=== PATIENT | male | born 1960 | race Caucasian/White ===

== ENCOUNTER 2020-02-27 23:03 | Emergency (ER) | payer BC ==
[~2020-02-27] VITALS: Ht 180.3 cm; Wt 93.4 kg
[~2020-02-27 23:03] MED LIST: COREG12.5 MG PO; LISINOPRIL-HCT1 EACH PO; SIMVASTATIN20 MG PO
--- OUTSIDE RECORDS SUMMARY | 2020-02-27 23:06 | XMS REPORT | Clinical Summary ---
Author Author KATHARINE 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 Active glimepiride (AMARYL) 2 MG Take 2 mg by 0 tablet mouth every morning before breakfast. Active ivabradine (CORLANOR) 5 Take 1 tablet 60 tablet 1 mg Tab tablet (5 mg total) 0 by mouth 2 (two) times daily. Active metoprolol tartrate Take 1 tablet 60 tablet 1 01/23 (LOPRESSOR) 50 MG tablet (50 mg total) 0 by mouth 2 (two) times daily. Active rivaroxaban (XARELTO) 20 Take 1 tablet 30 tablet 1 mg Tab tablet (20 mg total) 0 by mouth daily with dinner. Active sacubitriL-valsartan Take 1 tablet 60 tablet 1 (ENTRESTO) 24-26 mg Tab by mouth 2 0 (two) times daily. 03/20/2020 Active clopidogreL (PLAVIX) 75 Take 1 tablet 1 tablet 0 mg tablet (75 mg total) 0 by mouth daily for 30 days. Active sertraline (ZOLOFT) 25 MG Take 1 tablet 30 tablet 1 tablet (25 mg total) 0 by mouth daily. 02/18/2021 Active atorvastatin (LIPITOR) 20 Take 1 tablet 30 tablet 1 MG tablet (20 mg total) 0 by mouth nightly. Active spironolactone Take 1 tablet 30 tablet 1 (ALDACTONE) 25 MG tablet (25 mg total) 0 by mouth daily. Active bumetanide (BUMEX) 2 MG Take 1 tablet 60 tablet 1 tablet (2 mg total) 0 by mouth 2 (two) times daily. 02/19/2020 Discontinued clopidogrel (PLAVIX) 75 Take 75 mg by 0 mg tablet mouth daily. 02/19/2020 Discontinued simvastatin (ZOCOR) 40 MG Take 40 mg by 0 tablet mouth nightly. 02/19/2020 Discontinued spironolactone Take 1 tablet 30 tablet 1 (ALDACTONE) 25 MG tablet (25 mg total) 7 by mouth daily. 02/19/2020 Discontinued ivabradine (CORLANOR) 5 Take 1 tablet 60 tablet 1 mg Tab tablet (5 mg total) 7 by mouth 2 (two) times daily. 02/19/2020 Discontinued sacubitril-valsartan Take 1 tablet 60 tablet 1 (ENTRESTO) 24-26 mg Tab by mouth 2 7 (two) times daily. 02/16/2020 Discontinued metFORMIN (GLUCOPHAGE) Take 500 mg 0 500 MG tablet by mouth 2 (two) times daily with breakfast and dinner. 02/19/2020 Discontinued sertraline (ZOLOFT) 50 MG Take 25 mg by 0 tablet mouth daily. 02/16/2020 Discontinued QUEtiapine (SEROQUEL) 25 Take 25 mg by 0 MG tablet mouth nightly. 02/19/2020 Discontinued metoprolol tartrate Take 50 mg by 0 (LOPRESSOR) 50 MG tablet mouth 2 (two) times daily. 02/19/2020 Discontinued bumetanide (BUMEX) 1 MG Take 1 mg by 0 tablet mouth daily. 02/19/2020 Discontinued rivaroxaban (XARELTO) 10 Take by mouth 0 mg Tab tablet daily with dinner. 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 Dilated cardiomyopathy 02/06/2017 Chronic kidney disease (CKD) 02/06/2017 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 Encounters Care Team Description Date Type Specialty VegaHayden sonelle 02/23/2020 Documentation Transplant Hayden Segundoelle 02/20/2020 Documentation Transplant Keslie Segundo 02/19/2020 Documentation Transplant 02/18/2020 Travel Bonnie Gallegos 02/18/2020 Abstract Transplant Angelito Reeves RN Acute on chronic congestive heart failur e, unspecified heart failure type (HCC) 02/18/2020 Abstract Transplant Hailey Spence 02/18/2020 Abstract Transplant JordyHailey rosa 02/18/2020 Abstract Cardiology Debbie Menezes MD Massumi, MD Ted Kiran, Phill Rodarte MD Acute on chronic congestive heart failur e, unspecified heart failure type (HCC) (Primary Dx); Elevated troponin; CONCHITA (acute kidney injury) (HCC); Hypokalemia; Mild cognitive disorder; Chronic combined systolic (congestive) and diastolic (congestive) heart failure (HCC); Stage 3 chronic kidney disease (HCC); Dilated cardiomyopathy (HCC); 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; Essential hypertension; Type 2 diabetes mellitus without complication, without long-term current use of insulin (HCC) 02/16/2020 Hospital Transplant - Encounter 02/19/2020 02/16/2020 Orders Only General Internal Me dicine 02/16/2020 Travel after 02/26/2019 Social History Date Tobacco Use Types Packs/Day Years Used Never Smoker Smokeless Tobacco: Never Used Sex Assigned at Date Recorded Not on file Industry Job Start Date Occupation Not on file Not on file Not on file Travel End Travel History Travel Start No recent travel history available. Last Filed Vital Signs Time Taken Vital Sign Reading 02/19/2020 7:25 AM CDT Blood Pressure 111/84 02/19/2020 9:36 AM CDT Pulse 59 02/19/2020 7:25 AM CDT Temperature 35.9 C (96.7 F) 02/19/2020 9:36 AM CDT Respiratory Rate 18 02/19/2020 9:36 AM CDT Oxygen Saturation 98% 02/17/2020 11:14 PM CDT Inhaled Oxygen 21% Concentration 02/18/2020 4:32 AM CDT Weight 80 kg (176 lb 6.4 oz) 02/16/2020 4:53 PM CDT Height 180 cm (5' 10.87") 02/18/2020 4:32 AM CDT Body Mass Index 24.7 Plan of Treatment Health Maintenance Due Date Last Done Comments COLON CANCER SCREENING 1960 COLONOSCOPY PNEUMOCOCCAL VACCINE 2-64 1968 YEARS AT RISK (1 of 1 - PPSV23) DIABETIC EYE EXAM 1972 DIABETIC FOOT EXAM 1972 INFLUENZA VACCINE (Season 05/25/2020 Ended) HEMOGLOBIN A1C 08/18/2020 02/16/2020, 017 Procedures Comments Procedure Name Priority Date/Time Associated Diag nosis PULMONARY FUNCTION - SCAN 02/26/2020 2:11 PM CDT RHYTHM STRIP - SCAN 02/20/2020 3:21 PM CDT REPORT OF PROCEDURE - 02/20/2020 ENDOSCOPY SCAN 8:52 AM CDT TRANSFUSION SERVICE 02/19/2020 REPORT - SCAN 5:51 PM CDT ARRYTHMIA IMPLANT REPORT 02/19/2020 - SCAN 1:20 PM CDT ARRYTHMIA IMPLANT REPORT 02/19/2020 - SCAN 1:20 PM CDT DLCO (SINGLE BREATH Routine 02/19/2020 DIFFUSION) 9:36 AM CDT SPIROMETRY Routine 02/19/2020 9:36 AM CDT POCT-GLUCOSE METER Routine 02/19/2020 7:31 AM CDT CBC W/PLT COUNT & AUTO Routine 02/19/2020 DIFFERENTIAL 5:35 AM CDT TSH/FREE T4 IF INDICATED Routine 02/19/2020 5:35 AM CDT VITAMIN B12 AND FOLATE Routine 02/19/2020 5:35 AM CDT B-TYPE NATRIURETIC FACTOR Routine 02/19/2020 (BNP) 5:35 AM CDT T SPOT TB Routine 02/19/2020 5:35 AM CDT HEPATIC FUNCTION PANEL Routine 02/19/2020 5:35 AM CDT PROTHROMBIN TIME/INR Routine 02/19/2020 5:35 AM CDT CBC W/PLT COUNT & AUTO Routine 02/19/2020 DIFFERENTIAL 5:35 AM CDT MAGNESIUM Routine 02/19/2020 5:35 AM CDT BASIC METABOLIC PANEL (7) Routine 02/19/2020 5:[address] ABDOMEN WITHOUT IV Routine 02/19/2020 CONTRAST 1:[address] CHEST WITHOUT IV Routine 02/19/2020 CONTRAST 1:[address] BRAIN WITHOUT IV Routine 02/19/2020 CONTRAST 1:39 AM CDT POCT-GLUCOSE METER Routine 02/18/2020 10:15 PM CDT CAROTID DOPPLER BILATERAL Routine 02/18/2020 5:25 PM CDT ARTERIAL DOPPLER LEGS Routine 02/18/2020 BILATERAL 5:00 PM CDT POCT-GLUCOSE METER Routine 02/18/2020 4:19 PM CDT TYPE AND SCREEN, Routine 02/18/2020 AUTOMATED 3:30 PM CDT DIRECT AHG (FILIPE)/DIRECT Routine 02/18/2020 GERRI 3:28 PM CDT BLOOD TYPING, AUTOMATED Routine 02/18/2020 3:28 PM CDT RETICULOCYTE COUNT Routine 02/18/2020 3:28 PM CDT CREATININE Routine 02/18/2020 3:27 PM CDT CREATININE CLEARANCE Routine 02/18/2020 3:27 PM CDT VARICELLA ZOSTER Routine 02/18/2020 ANTIBODY, IGG 3:27 PM CDT URIC ACID Routine 02/18/2020 3:27 PM CDT PHOSPHORUS Routine 02/18/2020 3:27 PM CDT LIPASE Routine 02/18/2020 3:27 PM CDT AMYLASE Routine 02/18/2020 3:27 PM CDT LACTATE DEHYDROGENASE Routine 02/18/2020 (LDH) 3:27 PM CDT GAMMA GLUTAMYL Routine 02/18/2020 TRANSFERASE (GGT) 3:27 PM CDT PSA Routine 02/18/2020 3:25 PM CDT TOXOPLASMA GONDII Routine 02/18/2020 ANTIBODY, IGM 3:25 PM CDT TOXOPLASMA GONDII Routine 02/18/2020 ANTIBODY, IGG 3:25 PM CDT EBV ANTIBODY, IGM Routine 02/18/2020 3:25 PM CDT EBV ANTIBODY, IGG Routine 02/18/2020 3:25 PM CDT HERPES VIRUS ANTIBODY, Routine 02/18/2020 IGM 3:25 PM CDT HERPES VIRUS ANTIBODY, Routine 02/18/2020 IGG 3:25 PM CDT CYTOMEGALOVIRUS ANTIBODY, Routine 02/18/2020 IGM 3:25 PM CDT CYTOMEGALOVIRUS ANTIBODY, Routine 02/18/2020 IGG 3:25 PM CDT ANTI-NUCLEAR ANTIBODY Routine 02/18/2020 (JUDY) 3:25 PM CDT RPR Routine 02/18/2020 3:25 PM CDT HIV-1 ANTIGEN WITH Routine 02/18/2020 HIV-1/2 ANTIBODY 3:25 PM CDT VITAMIN D, 25-HYDROXY Routine 02/18/2020 3:25 PM CDT TRANSFERRIN Routine 02/18/2020 3:25 PM CDT FERRITIN Routine 02/18/2020 3:25 PM CDT IRON, SERUM Routine 02/18/2020 3:25 PM CDT PREALBUMIN Routine 02/18/2020 3:25 PM CDT HEPATITIS B CORE Routine 02/18/2020 ANTIBODY, TOTAL 3:25 PM CDT HEPATITIS A ANTIBODY, IGG Routine 02/18/2020 3:25 PM CDT HEPATITIS PANEL, ACUTE Routine 02/18/2020 3:25 PM CDT AB SPECIFICITY CLASS II Routine 02/18/2020 3:22 PM CDT FLOW PRA CLASS II WITH Routine 02/18/2020 REFLEX TO ANTIBODY 3:22 PM CDT SPECIFICITY FLOW PRA CLASS I WITH Routine 02/18/2020 REFLEX TO ANTIBODY 3:22 PM CDT SPECIFICITY MISCELLANEOUS LAB ORDER Routine 02/18/2020 3:21 PM CDT POCT-GLUCOSE METER Routine 02/18/2020 12:08 PM CDT CBC W/PLT COUNT & AUTO Routine 02/18/2020 DIFFERENTIAL 4:38 AM CDT HEPATIC FUNCTION PANEL Routine 02/18/2020 4:38 AM CDT PROTHROMBIN TIME/INR Routine 02/18/2020 4:38 AM CDT CBC W/PLT COUNT & AUTO Routine 02/18/2020 DIFFERENTIAL 4:38 AM CDT MAGNESIUM Routine 02/18/2020 4:38 AM CDT BASIC METABOLIC PANEL (7) Routine 02/18/2020 4:38 AM CDT POCT-GLUCOSE METER Routine 02/17/2020 9:41 PM CDT POCT-GLUCOSE METER Routine 02/17/2020 3:58 PM CDT 2D ECHO W/ DOPPLER STAT 02/17/2020 (CW/PW/COLOR) 12:31 PM CDT POCT-GLUCOSE METER Routine 02/17/2020 11:47 AM CDT BASIC METABOLIC PANEL (7) Routine 02/17/2020 11:04 AM CDT TROPONIN I Routine 02/17/2020 11:04 AM CDT MAGNESIUM Routine 02/17/2020 11:04 AM CDT POCT-GLUCOSE METER Routine 02/17/2020 7:38 AM CDT CBC W/PLT COUNT & AUTO Routine 02/17/2020 DIFFERENTIAL 6:31 AM CDT T4, FREE Routine 02/17/2020 6:31 AM CDT TSH Routine 02/17/2020 6:31 AM CDT PROTHROMBIN TIME/INR Routine 02/17/2020 6:31 AM CDT CBC W/PLT COUNT & AUTO Routine 02/17/2020 DIFFERENTIAL 6:31 AM CDT TROPONIN I STAT 02/17/2020 6:31 AM CDT PROTHROMBIN TIME/INR Routine 02/17/2020 1:30 AM CDT TOXICOLOGY SCREEN, SERUM STAT 02/17/2020 1:30 AM CDT TROPONIN I Routine 02/17/2020 1:30 AM CDT US RENAL COMPLETE STAT 02/16/2020 10:52 PM CDT URINALYSIS W/ REFLEX Routine 02/16/2020 URINE CULTURE 7:42 PM CDT LIPID PANEL Add-On 02/16/2020 7:41 PM CDT HEMOGLOBIN A1C Routine 02/16/2020 7:41 PM CDT TROPONIN I STAT 02/16/2020 7:41 PM CDT CBC W/PLT COUNT & AUTO STAT 02/16/2020 DIFFERENTIAL 5:33 PM CDT MAGNESIUM STAT 02/16/2020 5:33 PM CDT COMPREHENSIVE METABOLIC STAT 02/16/2020 PANEL 5:33 PM CDT TROPONIN I STAT 02/16/2020 5:33 PM CDT LACTIC ACID, VENOUS STAT 02/16/2020 5:33 PM CDT PT/APTT STAT 02/16/2020 5:33 PM CDT B-TYPE NATRIURETIC FACTOR STAT 02/16/2020 (BNP) 5:33 PM CDT CBC W/PLT COUNT & AUTO STAT 02/16/2020 DIFFERENTIAL 5:33 PM CDT SARS-COV2/RT-PCR ([facility] & STAT 02/16/2020 REF LABS) 5:33 PM CDT XR CHEST 1 VIEW STAT 02/16/2020 PORTABLE/BEDSIDE 5:21 PM CDT ECG 12-LEAD STAT 02/16/2020 4:56 PM CDT after 02/26/2019 Results * PULMONARY FUNCTION - SCAN (02/26/2020 2:11 PM CDT) Narrative Performed At This result has an attachment that is n ot available. * RHYTHM STRIP - SCAN (02/20/2020 3:21 PM CDT) Narrative Performed At This result has an attachment that is n ot available. * EKG-SCANNED (02/20/2020 8:52 AM CDT) Narrative Performed At This result has an attachment that is n ot available. * TRANSFUSION SERVICE REPORT - SCAN (02/19/2020 5:51 PM CDT) Narrative Performed At This result has an attachment that is n ot available. * ARRYTHMIA IMPLANT REPORT - SCAN (02/19/2020 1:20 PM CDT) Only the most recent of 2 results within the time period is included. Narrative Performed At This result has an attachment that is n ot available. * Pulmonary Funct Lab Spirometry (02/19/2020 9:36 AM CDT) Narrative Performed At Varun Wang RRT, [facility] 02/18 11:51 AM [facility] PFT CHARTING REPORT Infection Control/Hand Hygiene procedur es followed throughout the encounter with patient: Yes Patient Identification Method: Patient name verified on armband, and Medical record on armband, Is the order complete?: Yes Account ID#: [id number] Patient Name: Adore Gill Birthdate: 1960 Age: 59 y.o.Sex: male Admission Date: 02/16/2020 Patient Status: Inpatient Reasons/Symptom for having the Test?: a history/complaint of a dyspnea Type of study/treatment [facility] by [facility]: Single Breath DLCO and Spirometry Lab Results Component Value Date HGB 13.5 (L) 02/19/2020 Ranges: Adult Male 13 - 16.8 g/dl Adult Female 12 - 15 g/dl 6 Minute Walk (read only) 02/19/202001/2302/19/2020 Pulse 97 95 109 SpO2 96 95 94 Study Date: 02/19/2020 Study Time: 935 ASSESSMENT History & Physical Mode of Arrival: Wheel chair Pulse: 59 Resp: 18SPO2: 98 %RA Pain Assessment Pain:None TESTING/THERAPEUTICS Medications ordered or required for pro cedure: N/A PT EDUCATION/INSTRUCTIONS Barriers to learning: No known barriers to learning. Learning need identified: Yes, Patient/ Family/Guradian was informed of the ordered study by the ysician Barriers to performing study or treatme nt: Patient has no known disability to perform the study or abida tment. DISCHARGE The study was completed in accordance w ith the physician's order and patient released from the lab witho ut adverse outcome. * DLCO (single breath diffusion) (02/19/2020 9:36 AM CDT) Narrative Performed At Varun Wang RRT, [facility] 02/18 11:51 AM [facility] PFT CHARTING REPORT Infection Control/Hand Hygiene procedur es followed throughout the encounter with patient: Yes Patient Identification Method: Patient name verified on armband, and Medical record on armband, Is the order complete?: Yes Account ID#: [id number] Patient Name: Adore Gill Birthdate: 1960 Age: 59 y.o.Sex: male Admission Date: 02/16/2020 Patient Status: Inpatient Reasons/Symptom for having the Test?: a history/complaint of a dyspnea Type of study/treatment ordered by phys saadan: Single Breath DLCO and Spirometry Lab Results Component Value Date HGB 13.5 (L) 02/19/2020 Ranges: Adult Male 13 - 16.8 g/dl Adult Female 12 - 15 g/dl 6 Minute Walk (read only) 02/19/202001/2302/19/2020 Pulse 97 95 109 SpO2 96 95 94 Study Date: 02/19/2020 Study Time: 09 ASSESSMENT History & Physical Mode of Arrival: Wheel chair Pulse: 59 Resp: 18SPO2: 98 %RA Pain Assessment Pain:None TESTING/THERAPEUTICS Medications ordered or required for pro cedure: N/A PT EDUCATION/INSTRUCTIONS Barriers to learning: No known barriers to learning. Learning need identified: Yes, Patient/ Family/Guradian was informed of the ordered study by the ph ysician Barriers to performing study or treatme nt: Patient has no known disability to perform the study or abida tment. DISCHARGE The study was completed in accordance w ith the physician's order and patient released from the lab witho ut adverse outcome. * POC-Glucose meter (02/19/2020 7:31 AM CDT) Only the most recent of 8 results within the time period is included. POC-Glucose Meter 133 (H)Comment: : TESTED AT 70 - 110 mg/dL [address] [address]: Towboat Engineer/Customs Verifier ID = [id number] for Danilo Manley Specimen Blood Performing Organization Address City/State/Zipcode Ph one Number [address] [facility] [facility] * Vitamin B12 and Folate (02/19/2020 5:35 AM CDT) Vitamin B12 823 (H) 213 - 816 pg/mL [facility] Folate 15.90 >=7.00 ng/mL [facility] Specimen Blood Narrative Performed At Towboat Engineer ID - AUGUSTIN Corbett [facility] Performing Organization Address [facility] Ph one Number [place] [address] [facility] * TSH/Free T4 If Indicated (02/19/2020 5:35 AM CDT) TSH 1.989 0.350 - 4.940 uIU/mL [facility] Specimen Blood Narrative Performed At Towboat Engineer ID - AUGUSTIN Corbett [facility] Performing Organization Address City/[facility] Ph one Number [place] [address] [facility] * T Spot TB (02/19/2020 5:35 AM CDT) T-Spot TB Negative [facility] Neg Ctrl Spot Count 0 [facility] Panel A Spot 0 [facility] Panel B Spot 0 [facility] Pos Ctrl Spot Ct 0 [facility] Scan Result [facility] Specimen Blood Narrative Performed At This result has an attachment that is n ot available. Performing Organization Address City/[facility] Ph one Number [facility] [address] [facility], [place] [address] LABORATORIES 100 * CBC with platelet count + automated diff (02/19/2020 5:35 AM CDT) Only the most recent of 4 results within the time period is included. WBC 8.0 3.5 - 10.5 K/L [facility] RBC 4.87 4.63 - 6.08 M/L [facility] Hemoglobin 13.5 (L) 13.7 - 17.5 GM/DL [facility] Hematocrit 42.7 40.1 - 51.0 % [facility] MCV 87.7 79.0 - 92.2 fL [facility] MCH 27.7 25.7 - 32.2 pg [facility] MCHC 31.6 (L) 32.3 - 36.5 GM/DL [facility] RDW 17.2 (H) 11.6 - 14.4 % [facility] Platelets 317 150 - 450 K/CU MM [facility] MPV 10.5 9.4 - 12.4 fL [facility] nRBC 0 0 - 0 /100 WBC [facility] % Neutros 70 % [facility] % Lymphs 15 % [facility] % Monos 9 % [facility] % Eos 5 % [facility] % Baso 1 % [facility] # Neutros 5.54 (H) 1.78 - 5.38 K/L [facility] # Lymphs 1.15 (L) 1.32 - 3.57 K/L [facility] # Monos 0.74 0.30 - 0.82 K/L [facility] # Eos 0.39 0.04 - 0.54 K/L [facility] # Baso 0.10 (H) 0.01 - 0.08 K/L [facility] Immature 0 0 - 1 % [facility] Granulocytes-Relative [facility] Specimen Blood Performing Organization Address City/State/Zipcode Ph one Number [place] [phone] [place], [place] [address] [facility] * Prothrombin time/INR (02/19/2020 5:35 AM CDT) Only the most recent of 4 results within the time period is included. Protime 32.8 (H) 11.9 - 14.2 seconds [facility] INR 3.3 <=5.9 [facility] Specimen Blood Narrative Performed At Effective 02/19/2019: PT Reference Range Change [facility] New: 11.9-14.2Previous: 11.7-14.7 [facility] MEDICAL CE NTER RECOMMENDED COUMADIN/WARFARIN INR THERA PY RANGES STANDARD DOSE: 2.0-3.0Includes: PRO PHYLAXIS for venous thrombosis, systemic embolization; TREATMENT for venous thro mbosis and/or pulmonary embolus. HIGH RISK: Target INR is 2.5-3.5 for pa tients wiht mechanical heart valves. Performing Organization Address [facility] Ph one [place] [address] [phone] * B-type Natriuretic Factor (BNP) (02/19/2020 5:35 AM CDT) Only the most recent of 2 results within the time period is included. BNP 2,172 (H) 0 - 100 pg/mL [facility] Specimen Blood Narrative Performed At Towboat Engineer ID - AUGUSTIN Corbett [facility] Performing Organization Address [facility] one [place] [phone] [place] [address] * Magnesium (02/19/2020 5:35 AM CDT) Only the most recent of 4 results within the time period is included. Magnesium 1.6 1.6 - 2.6 mg/dL [facility] Specimen Blood Narrative Performed At Towboat Engineer ID - AUGUSTIN Corbett [facility] Performing Organization Address [facility] Ph one [phone] [place] [address] * Hepatic function panel (02/19/2020 5:35 AM CDT) Only the most recent of 2 results within the time period is included. Protein, Total 6.5 6.0 - 8.3 gm/dL [facility] Albumin 3.8 3.5 - 5.0 g/dL [facility] Total Bilirubin 1.4 (H) 0.2 - 1.2 mg/dL [facility] Bilirubin, Direct 0.7 (H) 0.1 - 0.5 mg/dL [facility] Alkaline Phosphatase 97 40 - 150 U/L [facility] AST 28 5 - 34 U/L [facility] ALT 53 6 - 55 U/L [facility] Specimen Blood Narrative Performed At Towboat Engineer WM - AUGUSTIN Corbett [facility] Performing Organization Address City/State/Zipcode Ph one Number [place] [address] [facility] [place] * Basic Metabolic Panel (02/19/2020 5:35 AM CDT) Only the most recent of 3 results within the time period is included. Sodium 138 136 - 145 meq/L [facility] Potassium 3.3 (L) 3.5 - 5.1 meq/L [facility] Chloride 99 98 - 107 meq/L [facility] CO2 31 (H) 22 - 29 meq/L [facility] BUN 16 7 - 21 mg/dL [facility] Creatinine 1.08 0.57 - 1.25 mg/dL [facility] Glucose 138 (H) 70 - 105 mg/dL [facility] Calcium 8.7 8.4 - 10.2 mg/dL [facility] EGFR 70Comment: ESTIMATED GFR IS mL/min/1.[address] [facility] NOT ACCURATE CREATININE [facility] CLEARANCE IN PREDICTING GLOMERULAR FILTRATION RATE. ESTIMATED GFR IS NOT APPLICABLE FOR DIALYSIS PATIENTS. Specimen Blood Narrative Performed At Towboat Engineer ID - AUGUSTIN Corbett [facility] Performing Organization Address City/State/Zipcode Ph one Number [facility] [address] [place], [place] [address] * CT brain without IV contrast (02/19/2020 1:39 AM CDT) Specimen Narrative Performed At FINAL REPORT GE RIS EXAM: CT head without contrast. CLINICAL HISTORY: heart transplant eval uation COMPARISON: Head CT 03/08/2017. TECHNIQUE: CT images of the head were o btained without intravenous contrast.This exam was performed ac cording to our departmental dose optimization program which includes aut omated exposure control, adjustment of the mA and/or kV accordin g to patient's size and/or use of iterative reconstructive technique. FINDINGS: There is encephalomalacia in the right temporal lobe and right basal ganglia which may be due to a chronic r ight MCA territory infarct. There are small chronic right cerebella r infarcts. There is intracranial calcific atherosclerosis. There is mild ex-vacuo dilatation of the right frontal horn. There is no acute intracranial hemorrha ge, extra-axial fluid collection, mass effect, herniation, hy drocephalus or large demarcated acute territorial infarct. The basal cisterns are patent. The visualized orbits are normal.Th e visualized paranasal sinuses and tympanomastoid cavities are clear. The skull base and calvarium are intact. IMPRESSION: Chronic infarcts as described. No acute intracranial hemorrhage, mass effect or hydrocephalus. Signed: James Vail MD Report Verified Date/Time: 0 02:51:56 Procedure Note Interface, External Ris In - 02/19/2020 2:54 AM CDT FINAL REPORT EXAM: CT head without contrast. CLINICAL HISTORY: heart transplant evaluation COMPARISON: Head CT 03/08/2017. TECHNIQUE: CT images of the head were obtained without intravenous contrast. This exam was performed according to our departmental dose optimization program which includes automated exposure control, adjustment of the mA and/or kV according to patient's size and/or use of iterative reconstructive technique. FINDINGS: There is encephalomalacia in the right temporal lobe and right basal ganglia which may be due to a chronic right MCA territory infarct. There are small chronic right cerebellar infarcts. There is intracranial calcific atherosclerosis. There is mild ex-vacuo dilatation of the right frontal horn. There is no acute intracranial hemorrhage, extra-axial fluid collection, mass effect, herniation, hydrocephalus or large demarcated acute territorial infarct. The basal cisterns are patent. The visualized orbits are normal. The visualized paranasal sinuses and tympanomastoid cavities are clear. The skull base and calvarium are intact. IMPRESSION: Chronic infarcts as described. No acute intracranial hemorrhage, mass effect or hydrocephalus. Signed: James Vail MD Report Verified Date/Time: 02/19/2020 02:51:56 Performing Organization Address City/State/Zipcode Ph one Number [facility] * CT chest without IV contrast (02/19/2020 1:39 AM CDT) Specimen Narrative Performed At FINAL REPORT [facility] EXAM: CT of the chest, without contrast . CT abdomen without contrast. CLINICAL HISTORY:heart transplant e valuation Technique: CT of the chest and abdomen was performed without intravenous contrast administration. Th is exam was performed according to our departmental dose opti mization program which includes automated exposure control, ad justment of the mA and/or kV according to patient's size and/or use of iterative reconstructive technique. COMPARISON:03/18/17. FINDINGS: CT CHEST: LOWER NECK: Within normal limits. AIRWAYS AND LUNGS: Patent central trach eobronchial tree. Diffuse interlobular septal thickening compatib le with pulmonary interstitial edema. Diffuse hazy airspace opacities in the right middle right lower lobes, which may represent pulmon leonila edema. Peripheral ground glass opacity in the anterior right upp er lobe which may represent organizing pneumonia or viral pneumonit is. PLEURA: No pleural effusion or pneumoth orax. VESSELS: Atherosclerotic calcifications of the aorta and coronary arteries. No thoracic aortic aneurysm. HEART: Moderate cardiomegaly. AICD lead s overlying the right atrium, right ventricle and coronary sinus No p ericardial effusion. ALTHEA AND MEDIASTINUM: Within normal palumbo its. VISUALIZED UPPER ABDOMEN: Within normal limits. SOFT TISSUES: Left upper anterior chest wall AICD. BONES: Within normal limits. CT ABDOMEN: LIVER: Within normal limits. BILE DUCTS: Within normal limits. GALL BLADDER: Within normal limits. PANCREAS: Within normal limits. SPLEEN: Within normal limits. ADRENALS: Within normal limits. KIDNEYS/URETERS: Two small hyperdensiti es in the left kidney measuring up to 1 cm compatible with pr oteinaceous or hemorrhagic cysts. No hydroureteronephrosis or radi opaque stones. IMAGED BOWEL/MESENTERY: No bowel obstru ction or abnormal wall thickening. Normal appendix. IMAGED PERITONEUM/RETROPERITONEUM: No f ree air, free fluid or fluid collection. VESSELS: Atherosclerotic calcifications of the aorta and branches. No abdominal aortic aneurysm. LYMPH NODES: No abdominal lymphadenopat hy. SOFT TISSUES: Within normal limits. BONES: Degenerative changes of the lowe r lumbar spine notable for severe disease at L4/L5 IMPRESSION: Chest CT: Moderate cardiomegaly. Pulmonary interstitial edema. Hazy airs pace opacities in the right middle and right lower lobes which may represent pulmonary edema. Peripheral ground glass opacity in the anterior right upper lobe. Differential diagnosis includes organiz ing pneumonia, viral pneumonitis or focal pulmonary edema. C linical correlation is recommended. CT abdomen: Small proteinaceous or hemorrhagic left renal cysts. Signed: James Vail MD Report Verified Date/Time: 0 03:55:27 Procedure Note Interface, External Ris In - 02/19/2020 3:58 AM CDT FINAL REPORT EXAM: CT of the chest, without contrast. CT abdomen without contrast. CLINICAL HISTORY: heart transplant evaluation Technique: CT of the chest and abdomen was performed without intravenous contrast administration. This exam was performed according to our departmental dose optimization program which includes automated exposure control, adjustment of the mA and/or kV according to patient's size and/or use of iterative reconstructive technique. COMPARISON: 03/18/17. FINDINGS: CT CHEST: LOWER NECK: Within normal limits. AIRWAYS AND LUNGS: Patent central tracheobronchial tree. Diffuse interlobular septal thickening compatible with pulmonary interstitial edema. Diffuse hazy airspace opacities in the right middle right lower lobes, which may represent pulmonary edema. Peripheral ground glass opacity in the anterior right upper lobe which may represent organizing pneumonia or viral pneumonitis. PLEURA: No pleural effusion or pneumothorax. VESSELS: Atherosclerotic calcifications of the aorta and coronary arteries. No thoracic aortic aneurysm. HEART: Moderate cardiomegaly. AICD leads overlying the right atrium, right ventricle and coronary sinus No pericardial effusion. ALTHEA AND MEDIASTINUM: Within normal limits. VISUALIZED UPPER ABDOMEN: Within normal limits. SOFT TISSUES: Left upper anterior chest wall AICD. BONES: Within normal limits. CT ABDOMEN: LIVER: Within normal limits. BILE DUCTS: Within normal limits. GALL BLADDER: Within normal limits. PANCREAS: Within normal limits. SPLEEN: Within normal limits. ADRENALS: Within normal limits. KIDNEYS/URETERS: Two small hyperdensities in the left kidney measuring up to 1 cm compatible with proteinaceous or hemorrhagic cysts. No hydroureteronephrosis or radiopaque stones. IMAGED BOWEL/MESENTERY: No bowel obstruction or abnormal wall thickening. Normal appendix. IMAGED PERITONEUM/RETROPERITONEUM: No free air, free fluid or fluid collection. VESSELS: Atherosclerotic calcifications of the aorta and branches. No abdominal aortic aneurysm. LYMPH NODES: No abdominal lymphadenopathy. SOFT TISSUES: Within normal limits. BONES: Degenerative changes of the lower lumbar spine notable for severe disease at L4/L5 IMPRESSION: Chest CT: Moderate cardiomegaly. Pulmonary interstitial edema. Hazy airspace opacities in the right middle and right lower lobes which may represent pulmonary edema. Peripheral ground glass opacity in the anterior right upper lobe. Differential diagnosis includes organizing pneumonia, viral pneumonitis or focal pulmonary edema. Clinical correlation is recommended. CT abdomen: Small proteinaceous or hemorrhagic left renal cysts. Signed: James Vail MD Report Verified Date/Time: 02/19/2020 03:55:27 Performing Organization Address City/State/Zipcode Ph one Number [facility] * CT abdomen without IV contrast (02/19/2020 1:39 AM CDT) Specimen Narrative Performed At FINAL REPORT [facility] EXAM: CT of the chest, without contrast . CT abdomen without contrast. CLINICAL HISTORY:heart transplant e valuation Technique: CT of the chest and abdomen was performed without intravenous contrast administration. Th is exam was performed according to our departmental dose opti mization program which includes automated exposure control, ad justment of the mA and/or kV according to patient's size and/or use of iterative reconstructive technique. COMPARISON:03/18/17. FINDINGS: CT CHEST: LOWER NECK: Within normal limits. AIRWAYS AND LUNGS: Patent central trach eobronchial tree. Diffuse interlobular septal thickening compatib le with pulmonary interstitial edema. Diffuse hazy airspace opacities in the right middle right lower lobes, which may represent pulmon leonila edema. Peripheral ground glass opacity in the anterior right upp er lobe which may represent organizing pneumonia or viral pneumonit is. PLEURA: No pleural effusion or pneumoth orax. VESSELS: Atherosclerotic calcifications of the aorta and coronary arteries. No thoracic aortic aneurysm. HEART: Moderate cardiomegaly. AICD lead s overlying the right atrium, right ventricle and coronary sinus No p ericardial effusion. ALTHEA AND MEDIASTINUM: Within normal palumbo its. VISUALIZED UPPER ABDOMEN: Within normal limits. SOFT TISSUES: Left upper anterior chest wall AICD. BONES: Within normal limits. CT ABDOMEN: LIVER: Within normal limits. BILE DUCTS: Within normal limits. GALL BLADDER: Within normal limits. PANCREAS: Within normal limits. SPLEEN: Within normal limits. ADRENALS: Within normal limits. KIDNEYS/URETERS: Two small hyperdensiti es in the left kidney measuring up to 1 cm compatible with pr oteinaceous or hemorrhagic cysts. No hydroureteronephrosis or radi opaque stones. IMAGED BOWEL/MESENTERY: No bowel obstru ction or abnormal wall thickening. Normal appendix. IMAGED PERITONEUM/RETROPERITONEUM: No f ree air, free fluid or fluid collection. VESSELS: Atherosclerotic calcifications of the aorta and branches. No abdominal aortic aneurysm. LYMPH NODES: No abdominal lymphadenopat hy. SOFT TISSUES: Within normal limits. BONES: Degenerative changes of the lowe r lumbar spine notable for severe disease at L4/L5 IMPRESSION: Chest CT: Moderate cardiomegaly. Pulmonary interstitial edema. Hazy airs pace opacities in the right middle and right lower lobes which may represent pulmonary edema. Peripheral ground glass opacity in the anterior right upper lobe. Differential diagnosis includes organiz ing pneumonia, viral pneumonitis or focal pulmonary edema. C linical correlation is recommended. CT abdomen: Small proteinaceous or hemorrhagic left renal cysts. Signed: James Vail MD Report Verified Date/Time: 0 03:55:27 Procedure Note Interface, External Ris In - 02/19/2020 3:58 AM CDT FINAL REPORT EXAM: CT of the chest, without contrast. CT abdomen without contrast. CLINICAL HISTORY: heart transplant evaluation Technique: CT of the chest and abdomen was performed without intravenous contrast administration. This exam was performed according to our departmental dose optimization program which includes automated exposure control, adjustment of the mA and/or kV according to patient's size and/or use of iterative reconstructive technique. COMPARISON: 03/18/17. FINDINGS: CT CHEST: LOWER NECK: Within normal limits. AIRWAYS AND LUNGS: Patent central tracheobronchial tree. Diffuse interlobular septal thickening compatible with pulmonary interstitial edema. Diffuse hazy airspace opacities in the right middle right lower lobes, which may represent pulmonary edema. Peripheral ground glass opacity in the anterior right upper lobe which may represent organizing pneumonia or viral pneumonitis. PLEURA: No pleural effusion or pneumothorax. VESSELS: Atherosclerotic calcifications of the aorta and coronary arteries. No thoracic aortic aneurysm. HEART: Moderate cardiomegaly. AICD leads overlying the right atrium, right ventricle and coronary sinus No pericardial effusion. ALTHEA AND MEDIASTINUM: Within normal limits. VISUALIZED UPPER ABDOMEN: Within normal limits. SOFT TISSUES: Left upper anterior chest wall AICD. BONES: Within normal limits. CT ABDOMEN: LIVER: Within normal limits. BILE DUCTS: Within normal limits. GALL BLADDER: Within normal limits. PANCREAS: Within normal limits. SPLEEN: Within normal limits. ADRENALS: Within normal limits. KIDNEYS/URETERS: Two small hyperdensities in the left kidney measuring up to 1 cm compatible with proteinaceous or hemorrhagic cysts. No hydroureteronephrosis or radiopaque stones. IMAGED BOWEL/MESENTERY: No bowel obstruction or abnormal wall thickening. Normal appendix. IMAGED PERITONEUM/RETROPERITONEUM: No free air, free fluid or fluid collection. VESSELS: Atherosclerotic calcifications of the aorta and branches. No abdominal aortic aneurysm. LYMPH NODES: No abdominal lymphadenopathy. SOFT TISSUES: Within normal limits. BONES: Degenerative changes of the lower lumbar spine notable for severe disease at L4/L5 IMPRESSION: Chest CT: Moderate cardiomegaly. Pulmonary interstitial edema. Hazy airspace opacities in the right middle and right lower lobes which may represent pulmonary edema. Peripheral ground glass opacity in the anterior right upper lobe. Differential diagnosis includes organizing pneumonia, viral pneumonitis or focal pulmonary edema. Clinical correlation is recommended. CT abdomen: Small proteinaceous or hemorrhagic left renal cysts. Signed: James Vail MD Report Verified Date/Time: 02/19/2020 03:55:27 Performing Organization Address City/State/Zipcode Ph one Number [facility] * Carotid doppler bilateral (02/18/2020 5:25 PM CDT) Ejection [facility] ECHO HEARTLAB [facility] Specimen Impressions Performed At Right Impression [facility] ECHO HEARTLAB 1. There is <50% diameter reduction (approximately 18 % by 2-D measurement) [facility] CPACS in the internal carotid artery with a p eak velocity of 49/18 cm/sec and heterogeneous plaque. 2. There is no stenosis in the external carotid artery. 3. There is intimal thickening in the c ommon carotid artery. 4. The vertebral artery flow is antegra de . 5. The subclavian artery is within norm al limits where visualized. Left Impression 1. There is <50% diameter reduction (ap proximately 14% by 2-D measurement) in the internal carotid artery with a p eak velocity of 44/18 cm/sec and heterogeneous plaque. 2. There is no stenosis in the external carotid artery. 3. There is intimal thickening in the c ommon carotid artery. 4. The vertebral artery flow is antegra de . 5. The subclavian artery is within norm al limits where visualized. Conclusions Summary Carotid duplex scanning and color flow imaging were performed bilaterally. The arteries were adequately visualized . The bilateral internal carotid arteries had <50% hemodynamically insig nificant stenosis (approximately 18% by 2-D measurement on the right, ap proximately 14% by 2-D measurement on the left) with heterogeneous plaque. The vertebral artery flow was antegrade and normal bilaterally. The s ubclavian arteries were patent with normal flow bilaterally where visualize d. There has been no significant change since the previous examination done on 03/05/2017. Signature Velocities are measured in cm/s ; Diame ters are measured in cm Carotid Right Measurements + +----+----+-----+------ ------+ + + !Location !PSV !EDV !Angle! %Stenosis 2D!%Stenosis Doppler!Tortuosity ! + +----+----+-----+------ ------+ + + !Prox CCA !76.8!15.8!60 !! ! ! + +----+----+-----+------ ------+ + + !Dist CCA !93.8!31.1!60 !! ! ! + +----+----+-----+------ ------+ + + !Prox ICA !49.5!18.1!60 !18% !<50% ! ! + +----+----+-----+------ ------+ + + !Dist ICA !61.3!17.3!60 !! ! ! + +----+----+-----+------ ------+ + + !Prox ECA !90.3!19.3!60 !! ! ! + +----+----+-----+------ ------+ + + !Vertebral!32.2!9.43!60 !! ! ! + +----+----+-----+------ ------+ + + !Prox Subclavian!124 !!60 !! ! ! + +----+----+-----+------ ------+ + + - There is antegrade vertebral flow noted on the right side. - Additional Measurements:ICAPSV/CC APSV 0.65.ICAEDV/CCAEDV 1.15. Carotid Left Measurements + +----+----+-----+------ ------+ + + !Location !PSV !EDV !Angle! %Stenosis 2D!%Stenosis Doppler!Tortuosity ! + +----+----+-----+------ ------+ + + !Prox CCA !86.8!27!60 !! ! ! + +----+----+-----+------ ------+ + + !Dist CCA !101 !27.6!60 !! ! ! + +----+----+-----+------ ------+ + + !Prox ICA !44!17.6!60 !14% !<50% ! ! + +----+----+-----+------ ------+ + + !Dist ICA !65.1!28.7!60 !! ! ! + +----+----+-----+------ ------+ + + !Prox ECA !99.7!19.9!60 !! ! ! + +----+----+-----+------ ------+ + + !Vertebral!41.6!12.3!60 !! ! ! + +----+----+-----+------ ------+ + + !Prox Subclavian!110 !!60 !! ! ! + +----+----+-----+------ ------+ + + - There is antegrade vertebral flow noted on the left side. - Additional Measurements:ICAPSV/CC APSV 0.64.ICAEDV/CCAEDV 1.06. Narrative Performed At LAB - Carotid Duplex Study [facility] ECHO HEARTLAB Demographics [facility] Patient NameADORE GILL Date of Study 02/18/2020 GWEN PAZ 6 Age 59 Visit [id number] GenderMale Date of 1960 Referring Ricardo PaulaRoom Number [id number] Physician Master Control Supervisor Nathan roman [facility], Henrietta gudino MD Procedure Type of Study: Cerebral: Carotid, CAROTID DOPPLER, LEANA ATERAL. Indications for Study:Heart transplant evaluation . Patient Status:Routine. Study Location:Vascular Lab. Technical Quality:Adequate visualizatio n. Risk Factors History of Disease + +----+-- + !Diagnosis !Date!Comments ! + +----+-- + !History/Risk Factors: !!CMP, CAD, HTN, DM, CHF! + +----+-- + Procedure Note Interface, External Ris In - 02/19/2020 7:52 AM CDT [facility] LAB - Carotid Duplex Study Demographics Patient Name ADORE GILL Date of Study 02/18/2020 PAULINE Age 59 Visit Number [id number] Gender Male Accession Number [id number] Date of 1960 Referring Ricardo Paula Room Number [id number] Physician Master Control Supervisor Nathan Cedeno Interpreting SAMANTHA Wyatt Physician Procedure Type of Study: Cerebral: Carotid, CAROTID DOPPLER, BILATERAL. Indications for Study:Heart transplant evaluation . Patient Status:Routine. Study Location:Vascular Lab. Technical Quality:Adequate visualization. Risk Factors History of Disease + +----+--- + !Diagnosis !Date!Comments ! + +----+--- + !History/Risk Factors: ! !CMP, CAD, HTN, DM, CHF ! + +----+--- + Impressions Right Impression 1. There is <50% diameter reduction (rafael roximately 18% by 2-D measurement) in the internal carotid artery with a peak velocity of 49/18 cm/sec and heterogeneous plaque. 2. There is no stenosis in the external carotid artery. 3. There is intimal thickening in the co mmon carotid artery. 4. The vertebral artery flow is antegrad e . 5. The subclavian artery is within jose j l limits where visualized. Left Impression 1. There is <50% diameter reduction (rafael roximately 14% by 2-D measurement) in the internal carotid artery with a peak velocity of 44/18 cm/sec and heterogeneous plaque. 2. There is no stenosis in the external carotid artery. 3. There is intimal thickening in the co mmon carotid artery. 4. The vertebral artery flow is antegrad e . 5. The subclavian artery is within jose j l limits where visualized. Conclusions Summary Carotid duplex scanning and color flow imaging were performed bilaterally. The arteries were adequately visualized. The bilateral internal carotid arteries had <50% hemodynamically insignificant stenosis (approximately 18% by 2-D measurement on the right, approximately 14% by 2-D measurement on the left) with heterogeneous plaque. The vertebral artery flow was antegrade and normal bilaterally. The subclavian arteries were patent with normal flow bilaterally where visualized. There has been no significant change since the previous examination done on 03/05/2017. Signature Velocities are measured in cm/s ; Diameters are measured in cm Carotid Right Measurements + +----+----+-----+------- -----+ + + !Location !PSV !EDV !Angle!%Stenosis 2D!%Stenosis Doppler!Tortuosity ! + +----+----+-----+------- -----+ + + !Prox CCA !76.8!15.8!60 ! ! ! ! + +----+----+-----+------- -----+ + + !Dist CCA !93.8!31.1!60 ! ! ! ! + +----+----+-----+------- -----+ + + !Prox ICA !49.5!18.1!60 !18% !<50% ! ! + +----+----+-----+------- -----+ + + !Dist ICA !61.3!17.3!60 ! ! ! ! + +----+----+-----+------- -----+ + + !Prox ECA !90.3!19.3!60 ! ! ! ! + +----+----+-----+------- -----+ + + !Vertebral !32.2!9.43!60 ! ! ! ! + +----+----+-----+------- -----+ + + !Prox Subclavian!124 ! !60 ! ! ! ! + +----+----+-----+------- -----+ + + - There is antegrade vertebral flow noted on the right side. - Additional Measurements:ICAPSV/CCAPSV 0.65.ICAEDV/CCAEDV 1.15. Carotid Left Measurements + +----+----+-----+------- -----+ + + !Location !PSV !EDV !Angle!%Stenosis 2D!%Stenosis Doppler!Tortuosity ! + +----+----+-----+------- -----+ + + !Prox CCA !86.8!27 !60 ! ! ! ! + +----+----+-----+------- -----+ + + !Dist CCA !101 !27.6!60 ! ! ! ! + +----+----+-----+------- -----+ + + !Prox ICA !44 !17.6!60 !14% !<50% ! ! + +----+----+-----+------- -----+ + + !Dist ICA !65.1!28.7!60 ! ! ! ! + +----+----+-----+------- -----+ + + !Prox ECA !99.7!19.9!60 ! ! ! ! + +----+----+-----+------- -----+ + + !Vertebral !41.6!12.3!60 ! ! ! ! + +----+----+-----+------- -----+ + + !Prox Subclavian!110 ! !60 ! ! ! ! + +----+----+-----+------- -----+ + + - There is antegrade vertebral flow noted on the left side. - Additional Measurements:ICAPSV/CCAPSV 0.64.ICAEDV/CCAEDV 1.06. Performing Organization Address City/State/Zipcode Ph one Number [facility] [place] * Arterial doppler legs bilateral (02/18/2020 5:00 PM CDT) Ejection Fraction [facility] [place] Specimen Impressions Performed At Right Impression [facility] Rising 1. The posterior tibial and dorsalis pedis arteries a re patent with normal Gigantt triphasic Doppler waveforms. 2. The PT pressure is 133 mmHg with an UCHE of 1.21 and the DP pressure is 137 mmHg with an UCHE of 1.25, within no rmal range. 3. The great toe pressure is 96 mmHg wi th a normal TBI of 0.87. 4. The digits have adequate flow by PPG waveforms. Left Impression 1. The posterior tibial and dorsalis pe dis arteries are patent with normal triphasic Doppler waveforms. 2. The PT pressure is 124 mmHg with an UCHE of 1.13 and the DP pressure is 127 mmHg with an UCHE of 1.15, within no rmal range. 3. The great toe pressure is 90 mmHg wi th a normal TBI of 0.82. 4. The digits have adequate flow by PPG waveforms. Conclusions Summary Arterial pressures and Doppler waveform s were performed bilaterally. Adequate Doppler waveforms were obtaine d. Doppler waveforms were triphasic with normal flow bilaterally. The right and left UCHE's were within normal range. The toe pressure and TBI's were within normal range bilaterally. The digits had adequate flow by PPG wav eforms bilaterally. There has been no significant change since the previous examination done on 03/05/2017. Signature Velocities are measured in cm/s ; Diame ters are measured in cm Narrative Performed At LAB - Lower Extremity Arterial Procedure [facility] Patient NameALGERADORE Date of Study 02/18/2020 GWEN PAZ 6 Age 59 Visit [id number] GenderMale Date of 1960 Referring Ricardo PaulaRoom Number [id number] Physician Master Control Supervisor Nathan Costa r Henrietta Nye MD Procedure Type of Study: Extremities Arteries: Lower Extremity A rterial Procedure, ARTERIAL (UCHE'S W/DOPPLER) ONLY. Indications for Study:Heart transplant evaluation . Patient Status:Routine. Study Location:Vascular Lab. Technical Quality:Adequate visualizatio n. Risk Factors History of Disease + +----+-- + !Diagnosis !Date!Comments ! + +----+-- + !History/Risk Factors: !!CMP, CAD, HTN, DM, CHF! + +----+-- + Procedure Note Interface, External Ris In - 02/19/2020 7:52 AM CDT [facility] LAB - Lower Extremity Arterial Procedure Demographics Patient Name ADORE GILL Date of Study 02/18/2020 PAULINE Age 59 Visit Number [id number] Gender Male Accession Number [id number] Date of 1960 Referring Ricardo Paula Room Number [id number] Physician Master Control Supervisor Nathan Cedeno Interpreting SAMANTHA Wyatt MD Procedure Type of Study: Extremities Arteries: Lower Extremity Arterial Procedure, ARTERIAL (UCHE'S W/DOPPLER) ONLY. Indications for Study:Heart transplant evaluation . Patient Status:Routine. Study Location:Vascular Lab. Technical Quality:Adequate visualization. Risk Factors History of Disease + +----+--- + !Diagnosis !Date!Comments ! + +----+--- + !History/Risk Factors: ! !CMP, CAD, HTN, DM, CHF ! + +----+--- + Impressions Right Impression 1. The posterior tibial and dorsalis ped is arteries are patent with normal triphasic Doppler waveforms. 2. The PT pressure is 133 mmHg with an A BI of 1.21 and the DP pressure is 137 mmHg with an UCHE of 1.25, within nor mal range. 3. The great toe pressure is 96 mmHg wit h a normal TBI of 0.87. 4. The digits have adequate flow by PPG waveforms. Left Impression 1. The posterior tibial and dorsalis ped is arteries are patent with normal triphasic Doppler waveforms. 2. The PT pressure is 124 mmHg with an A BI of 1.13 and the DP pressure is 127 mmHg with an UCHE of 1.15, within nor mal range. 3. The great toe pressure is 90 mmHg wit h a normal TBI of 0.82. 4. The digits have adequate flow by PPG waveforms. Conclusions Summary Arterial pressures and Doppler waveforms were performed bilaterally. Adequate Doppler waveforms were obtained. Doppler waveforms were triphasic with normal flow bilaterally. The right and left UCHE's were within normal range. The toe pressure and TBI's were within normal range bilaterally. The digits had adequate flow by PPG waveforms bilaterally. There has been no significant change since the previous examination done on 03/05/2017. Signature Velocities are measured in cm/s ; Diameters are measured in cm Performing Organization Address City/[facility] Ph one [facility] ECHO HEARTLAB MKCKESSON CPACS * Type and screen, automated (02/18/2020 3:30 PM CDT) ABO/RH AUTOMATED (BEHDB Newco) O POSITIVE [facility] Ab Scrn NEGATIVE [facility] Specimen Blood Performing Organization Address [facility] one Number [place] [address] [phone] [place] [address] * Blood typing, automated - at seperate draw time from initial type and screen (02/18/2020 3:28 PM CDT) ABO/RH AUTOMATED (BEAKER) O POSITIVE [facility] Specimen Blood Performing Organization Address [facility] Ph one Number [place] [address] [phone] [facility] * Reticulocyte count (02/18/2020 3:28 PM CDT) % Retic 2.1 (H) 0.5 - 1.8 % [facility] H [facility] Specimen Blood Narrative Performed At Towboat Engineer ID - [id number] [facility] Performing Organization Address City/[facility]/Zipcode Ph one Number [address] [facility] * Direct AHG (FILIPE)/Direct Gerri (02/18/2020 3:28 PM CDT) Direct AHG-IGG NEGATIVE [facility] Direct AHG-C3B, C3D NEGATVIE [facility] Specimen Blood Performing Organization Address [facility] Ph one Number [address] [address] [facility] * Varicella zoster antibody, IgG (02/18/2020 3:27 PM CDT) Varicella IgG >8.0 [facility] Specimen Blood Narrative Performed At VARICELLA ZOSTER RESULT INTERPRETATIONS: [facility] <=0.8 AlNo nreactive:Presumed non-immune to VZV [facility] 0.9-1.0 AlEqui vocal >=1.1 AlRe active:Presumed immune to VZV Performing Organization Address [facility] one [address] [facility] * Uric acid (02/18/2020 3:27 PM CDT) Uric Acid 7.7 (H) 2.6 - 7.2 mg/dL [facility] Specimen Blood Narrative Performed At Towboat Engineer ID - BS [facility] Performing Organization Address [facility] Ph one [address] [facility] * Phosphorus (02/18/2020 3:27 PM CDT) Phosphorus 2.3 2.3 - 4.7 mg/dL [facility] Specimen Blood Narrative Performed At Towboat Engineer ID - BS [facility] Performing Organization Address [facility] Ph one [address] [facility] * Lipase (02/18/2020 3:27 PM CDT) Lipase 151 (H) 8 - 78 U/L [facility] Specimen Blood Narrative Performed At Towboat Engineer ID - [facility] Performing Organization Address City/[facility] Ph one [address] [facility] * Lactate dehydrogenase (LDH) (02/18/2020 3:27 PM CDT) LDH 302 (H) 125 - 220 U/L [facility] Specimen Blood Narrative Performed At Towboat Engineer ID - [facility] Performing Organization Address [facility] Ph one [address] [facility] * Gamma Glutamyl Transferase (GGT) (02/18/2020 3:27 PM CDT) GGT 54 9 - 64 U/L [facility] Specimen Blood Narrative Performed At Towboat Engineer ID - [facility] Performing Organization Address [facility] one [address] 0 [phone] [place] [address] * Creatinine (02/18/2020 3:27 PM CDT) Creatinine 1.23 0.57 - 1.25 mg/dL [facility] EGFR 61Comment: ESTIMATED GFR IS mL/min/1.[address] [facility] NOT ACCURATE CREATININE [facility] CLEARANCE IN PREDICTING GLOMERULAR FILTRATION RATE. ESTIMATED GFR IS NOT APPLICABLE FOR DIALYSIS PATIENTS. Specimen Blood Narrative Performed At Towboat Engineer ID - [facility] Performing Organization Address City/[facility] Ph one [address] [facility] * Amylase (02/18/2020 3:27 PM CDT) Amylase 56 25 - 125 U/L [facility] Specimen Blood Narrative Performed At Towboat Engineer ID - BS [facility] Performing Organization Address City/[facility] Ph one [address] [facility] * Hepatitis A antibody, IgG (02/18/2020 3:25 PM CDT) Hep A IgG Nonreactive Nonreactive [facility] Specimen Blood Narrative Performed At Towboat Engineer ID - BS [facility] Performing Organization Address [facility] one [place] [address] [address] [phone] [place] [address] * HIV-1 Antigen with HIV-1/2 Antibody (02/18/2020 3:25 PM CDT) HIV-1 Antigen with HIV Nonreactive Nonreactive [facility] 1&2 Antibody [facility] Specimen Blood Narrative Performed At Towboat Engineer ID - BS [facility] Performing Organization Address [facility] one [address] 0 [phone] [place] [address] * Cytomegalovirus antibody, IgM (02/18/2020 3:25 PM CDT) CMV IGM Negative Negative, Equivocal [facility] Specimen Blood Narrative Performed At CMV IgM Result Interpretation: [facility] </= 0.8 Al Negative [facility] 0.9-1.0 Al Equivocal >/= 1.1 Al Positive Performing Organization Address [facility] one [address] 0 [phone] [place] [address] * Toxoplasma gondii antibody, IgM (02/18/2020 3:25 PM CDT) Toxoplasma gondii IgM Negative [facility] Specimen Blood Narrative Performed At TEST PERFORMED BY [employer] [facility] Performing Organization Address City/[facility] Ph one Number [address] 0 [phone] [place] [address] * Herpes virus antibody, IgM (02/18/2020 3:25 PM CDT) Herpes Virus IGM Negative [facility] Specimen Blood Narrative Performed At [facility] TEST PERFORMED BY [facility] Performing Organization Address [facility] one Number [address] 770 0 [phone] [place] [address] * Hepatitis panel, acute (02/18/2020 3:25 PM CDT) Hep A IgM Nonreactive Nonreactive [facility] Hep B C IgM Nonreactive Nonreactive [facility] Hepatitis C Ab Nonreactive Nonreactive [facility] HBsAg Screen Nonreactive Nonreactive [facility] Specimen Blood Narrative Performed At Towboat Engineer ID - BS [facility] Performing Organization Address [facility] one Number [address] 770 0 [phone] [place] [address] * EBV-VCA antibody, IgM (02/18/2020 3:25 PM CDT) MATT TILLEY VIRAL CAPSID Negative Negative, Equivocal [facility] ANTIGEN IGM [facility] Specimen Blood Narrative Performed At Matt Tilley Viral Capsid Antigen IgM Result Interpre tation: [facility] </= 0.8 Al Negative [facility] 0.9-1.0 Al Equivocal >/= 1.1 Al Positive Performing Organization Address [facility] Ph one Number [address] [facility] * EBV-VCA antibody, IgG (02/18/2020 3:25 PM CDT) MATT TILLEY VIRAL CAPSID Positive (A) Negative, Equivocal [facility] ANTIGEN IGG [facility] Specimen Blood Narrative Performed At Matt Tilley Viral Capsid Antigen IgG Result Interpre tation: [facility] </= 0.8 Al Negative [facility] 0.9-1.0 Al Equivocal >/= 1.1 Al Positive Performing Organization Address City/[facility] Ph one Number [address] [facility] * Hepatitis B core antibody, total (02/18/2020 3:25 PM CDT) Hep B Core Total Ab Nonreactive Nonreactive [facility] Specimen Blood Narrative Performed At Towboat Engineer ID - BS [facility] Performing Organization Address City/[facility] Ph one Number [address] [facility] * Vitamin D, 25-Hydroxy (02/18/2020 3:25 PM CDT) Vitamin D 25-Hydroxy 34.4 6.6 - 49.9 ng/mL [facility] Specimen Blood Narrative Performed At Effective 07/04/2017: Reference Range Change [facility] New: 6.6-49.9 ng/mL Previous: 13.0-47.8 ng/mL [facility] Recommended Vitamin D Target Range: 30. 0-40.0 ng/mL Towboat Engineer ID - BS Performing Organization Address City/[facility] Ph one Number [address] [facility] * Herpes virus antibody, IgG (02/18/2020 3:25 PM CDT) Herpes Virus IGG Positive [facility] Specimen Blood Narrative Performed At HSV 1 IGG = NEGATIVE [facility] HSV 2 IGG = POSITIVE [facility] Performing Organization Address City/[facility] Ph one Number [address] 0 [phone] [place] [address] * Toxoplasma gondii antibody, IgG (02/18/2020 3:25 PM CDT) TOXOPLASMA GONDII IGG <3.0 <10.0 IU/mL [facility] QUANTITATIVE [facility] Specimen Blood Narrative Performed At Toxoplasma Gondii IgG Result Interpretation: [facility] </= 9.9 IU/mLNormal [facility] 10-11 IU/mLEquivocal >/= 12 IU/mL Positive Performing Organization Address [facility] one Number [address]703 0 [phone] [place] [address] * RPR (02/18/2020 3:25 PM CDT) RPR Nonreactive Nonreactive [facility] Specimen Blood Performing Organization Address [facility] one Number [address] 7703 0 [phone] [place] [address] * Cytomegalovirus antibody, IgG (02/18/2020 3:25 PM CDT) CYTOMEGALOVIRUS, IGG Negative Negative, Equivocal [facility] Specimen Blood Narrative Performed At CMV IgG Result Interpretation: [facility] </= 0.8 Al Negative [facility] 0.9-1.0 Al Equivocal >/=1.1 AlPositive Performing Organization Address [facility] one Number [address] 7703 0 [phone] [place] [address] * Anti-Nuclear Antibody (JUDY) (02/18/2020 3:25 PM CDT) JUDY Negative Negative [facility] Specimen Blood Narrative Performed At Test performed by IFA method. [facility] Test performed by IFA method. [facility] Performing Organization Address [facility] one Number [address]703 0 [phone] [place] [address] * Transferrin (02/18/2020 3:25 PM CDT) Transferrin 289 174 - 382 mg/dL [facility] Specimen Blood Narrative Performed At Towboat Engineer ID - [facility] Performing Organization Address City/State/Zipcode Ph one [address] [facility] * PSA (02/18/2020 3:25 PM CDT) PSA 0.6 0.0 - 4.0 ng/mL [facility] Specimen Blood Narrative Performed At Towboat Engineer ID - BS [facility] Performing Organization Address City/State/Zipcode Ph one [address] [facility] * Prealbumin (02/18/2020 3:25 PM CDT) Prealbumin 14 14 - 45 mg/dL [facility] Specimen Blood Narrative Performed At Towboat Engineer ID - BS [facility] Performing Organization Address City/State/[facility] Ph one [address] [facility] * Iron, serum (02/18/2020 3:25 PM CDT) Iron 47.0 40.0 - 160.0 ug/dL [facility] Specimen Blood Narrative Performed At Towboat Engineer ID - BS [facility] Performing Organization Address City/State/Zipcode Ph one [address] [facility] * Ferritin (02/18/2020 3:25 PM CDT) Ferritin 61.83 5.00 - 275.00 ng/mL [facility] Specimen Blood Narrative Performed At Towboat Engineer ID - [facility] Performing Organization Address City/State/Zipcode Ph one [address] [facility] * FLOW PRA CLASS II WITH REFLEX TO ANTIBODY SPECIFICITY (02/18/2020 3:22 PM CDT) Flow Class II Percent 6 [facility] NG Positive Specimen Blood Narrative Performed At Disclaimer: [facility] This test was developed and its perform ance characteristics determined by the [facility]. It has not been cleared or approved by the U.S. Food and Drug Administration. The FDA has determined that such clearance or approval is not necessary. This test is used for clinic al purposes. It should not be regarded as investigational or for research. This l aboratory is certified under the Clinical Laboratory Improvement Amendments of 19 88 (CLIA-88) as qualified to perform high complexity clinical laboratory testing. Performing Organization Address [facility] one Number [facility] ONE Dimas Herrera, MS: [id number], [place] [address] CLIA#[id number] CAP#[id number] UNOS#[id number] * FLOW PRA CLASS I WITH REFLEX TO ANTIBODY SPECIFICITY (02/18/2020 3:22 PM CDT) Flow Class I Percent 0 [facility] TESTIN G Positive Specimen Blood Narrative Performed At Disclaimer: [facility] This test was developed and its perform ance characteristics determined by the [facility]. It has not been cleared or approved by the U.S. Food and Drug Administration. The FDA has determined that such clearance or approval is not necessary. This test is used for clinic al purposes. It should not be regarded as investigational or for research. This l aboratory is certified under the Clinical Laboratory Improvement Amendments of 19 88 (CLIA-88) as qualified to perform high complexity clinical laboratory testing. Performing Organization Address [facility] one Number [facility] ONE Dimas Herrera, MS: [id number], [place] [address] CLIA#[id number] CAP#[id number] UNOS#[id number] * AB SPECIFICITY CLASS II (02/18/2020 3:22 PM CDT) AB Specificity Class II NO CLASS II ANTIBODY DETECTED [facility] WITH MFIs > 4000 Specimen Blood Narrative Performed At Disclaimer: [facility] This test was developed and its perform ance characteristics determined by the [facility] Laboratory. It has not been cleared or approved by the U.S. Food and Drug Administration. The FDA has determined that such clearance or approval is not necessary. This test is used for clinic al purposes. It should not be regarded as investigational or for research. This l aboratory is certified under the Clinical Laboratory Improvement Amendments of 19 88 (CLIA-88) as qualified to perform high complexity clinical laboratory testing. Performing Organization Address City/State/[facility] Ph one Number [facility] ONE [facility] Javier, MS: [id number], [place] [address] CLIA#[id number] CAP#[id number] UNOS#[id number] * Protein electrophoresis (02/18/2020 3:21 PM CDT) Scan Result [facility] Specimen Blood Narrative Performed At This result has an attachment that is n ot available. Performing Organization Address City/[facility] Ph one Number [facility] [id number] [place], [place] * Transthoracic 2D echo w/ doppler (cw/pw/color) (02/17/2020 12:31 PM CDT) Ejection Fraction [facility] Specimen Narrative Performed At Transthoracic Echocardiography Report (TTE) [facility] ECH O HEARTLAB Demographics [facility] Patient Name ADORE GILL Date of Study 02/17/2020 PAULINE [id number] GenderMale Visit Number [id number] Antony alvarado [id number] Room Number 2546 Number Date of Birth1960 Referring Physician Roula Ruby MD Age59 year(s) Master Control Supervisor Ciera garcia AnalystIzoldallyssa Fuentes MD Physician Procedure Type of Study TTE procedure:2DECHO W DO PPLER(CW/PW/COLOR) (STAT) Indications:Shortness of breath. Clinical History CKD, Dilated CMP, DMII, SOB, CHF, HTN Contrast Medium: Definity. Height: 70 inches Weight: 81.65 kg (180 lbs) BSA: 2 m^2 BMI: 25.83 kg/m^2 HR: 83 bpm BP: 114/80 mmHg Summary Global LV systolic function severely re duced (LV EF < 20%). The following segments are akinetic: in feroseptum, entire septum, apex, entire inferior, lateral, anterior. The remaining LV segments are severely hypokinetic . The left ventricle is chamber size (by vol index) is severely enlarged (male - LVED vol >100ml/m2). Normal LV wall thickness. LV diastolic function is indeterminate. LA size is severely enlarged (>48 ml/m2 ) . RV pacing wire is visualized . RV chamber size is mildly enlarged . Global RV systolic function is depresse d. RA size is moderately dilated. Mild mitral annular calcification. Mild-moderate mitral regurgitation. Mild tricuspid regurgitation. Estimated peak systolic PA pressure is 60-65 mmHg (moderate-severe pulmonary hypertension) . The estimated RA pressure by IVC dynami cs > 20 mmHg . Previous Study In comparison with the prior exam the following changes are noted: increased PASP and RAP. Signature Findings Left Ventricle The left ventricle is chamber size (by vol index) is severely enlarged (male - LVED vol >100ml/m2). Normal LV wall thickness. The following segments are akinetic: inferoseptum, entire septum, apex, entire inferior, lateral, anterior. The remaining LV segments are severely hypokinetic . Global LV systolic function severely reduced . LVEF by Mills's method of disk assessment is severely reduced (<20%) . The LVEF was measured using Mills's bi-plane method of disk . LV diastolic function is indeterminate. LV endocardium is adequately visualized with IV ultrasound enhancing agent. Left AtriumLA s ize is severely enlarged (>48 ml/m2) . Right VentricleRV pacin g wire is visualized . RV chamber size is mildly enlarged . Global RV systolic function is depressed. S1 is 0.07m/s. Right Atrium RA pac ing wire is visualized . RA size is moderately dilated. Aortic Valve Mild A oV cusp thickening. Mitral Valve Mild M V leaflet thickening. Mild mitral annular calcification. Mild-moderate mitral regurgitation. Tricuspid ValveMild tri cuspid regurgitation. Estimated peak systolic PA pressure is 60-65 mmHg (moderate-severe pulmonary hypertension) . TV structure is normal. Pulmonic Valve A trace of pulmonary regurgitation. Normal PV structure and function by limited views and Doppler. Aorta Aortic root size (SInus of Valsalva diameter) is normal . Proximal ascending aorta size is normal . PericardiumNo s ignificant pericardial effusion is visualized. IVC/SVC/PA/PV/PleuralThe inferior v adrian cava size is increased . The estimated RA pressure by IVC dynamics > 20 mmHg . Chambers/Structures Left Atrium LA Volume: 97.53 ml LA Area: 29.3 cm^2 LA Vol. Index: 49 ml/m^2 Left Ventricle LVIDd: 7.17 cm LV Septum Diastolic: 0.98 cm LV PW Diastolic: 0.96 cm LVEDV Mills's:456.09 ml LVESV Mills's:385.84 ml LVEF Mills's: 15.4 % LVEDVI: 228 ml/m^2 LVESVI: 193 ml/m^2 LVOT Diameter: 2.1 cm Aorta Ao Root S of Sissy.: 3.36 cm Ascending Aorta: 3.28 cm Doppler/Quantitative Measurements Aortic Valve Peak Velocity: 0.91 m/s Mean Velocity: 0.66 m/s Peak Gradient: 3.33 mmHg Mean Gradient: 2.04 mmHg AV Area (continuity): 1.96 cm^2 AV VTI: 12.89 cm AV DVI: 0.57 LVOT Peak Velocity: 0.54 m/s Peak Gradient: 1.16 mmHg Mean Velocity: 0.33 m/s Mean Gradient: 0.56 mmHg LVOT Diameter: 2.1 cm LVOT VTI: 7.29 cm LVOT Area: 3.46 cm^2 LVOT SV:25.24 ml LVOT CO: 2.09 l/min LVOT CI: 1.04 l/min/m^2 Tricuspid Valve TR Velocity: 3.15 m/s TR Gradient: 39.6 mmHg Procedure Note Interface, External Ris In - 02/17/2020 2:33 PM CDT Transthoracic Echocardiography Report (TTE) Demographics Patient Name ADORE GILL Date of Study 02/17/2020 PAULINE Gender Male Visit Number [id number] Race Unknown Room Number 2546 Number Date of 1960 Referring Physician Roula Ruby MD Age 59 year(s) Master Control Supervisor Ciera Iyer Aircraft Pneudraulics Repairer Cristina Fofana Interpreting Judith Fuentes MD Physician Procedure Type of Study TTE procedure:2DECHO W DOPPLER(CW/PW/COLOR) (STAT) Indications:Shortness of breath. Clinical History CKD, Dilated CMP, DMII, SOB, CHF, HTN Contrast Medium: Definity. Height: 70 inches Weight: 81.65 kg (180 lbs) BSA: 2 m^2 BMI: 25.83 kg/m^2 HR: 83 bpm BP: 114/80 mmHg Summary Global LV systolic function severely reduced (LV EF < 20%). The following segments are akinetic: inferoseptum, entire septum, apex, entire inferior, lateral, anterior. The remaining LV segments are severely hypokinetic . The left ventricle is chamber size (by vol index) is severely enlarged (male - LVED vol >100ml/m2). Normal LV wall thickness. LV diastolic function is indeterminate. LA size is severely enlarged (>48 ml/m2) . RV pacing wire is visualized . RV chamber size is mildly enlarged . Global RV systolic function is depressed. RA size is moderately dilated. Mild mitral annular calcification. Mild-moderate mitral regurgitation. Mild tricuspid regurgitation. Estimated peak systolic PA pressure is 60-65 mmHg (moderate-severe pulmonary hypertension) . The estimated RA pressure by IVC dynamics > 20 mmHg . Previous Study In comparison with the prior exam 02-09-17 the following changes are noted: increased PASP and RAP. Signature Findings Left Ventricle The left ventricle is chamber size (by vol index) is severely enlarged (male - LVED vol >100ml/m2). Normal LV wall thickness. The following segments are akinetic: inferoseptum, entire septum, apex, entire inferior, lateral, anterior. The remaining LV segments are severely hypokinetic . Global LV systolic function severely reduced . LVEF by Mills's method of disk assessment is severely reduced (<20%) . The LVEF was measured using Mills's bi-plane method of disk . LV diastolic function is indeterminate. LV endocardium is adequately visualized with IV ultrasound enhancing agent. Left Atrium LA size is severely enlarged (>48 ml/m2) . Right Ventricle RV pacing wire is visualized . RV chamber size is mildly enlarged . Global RV systolic function is depressed. S1 is 0.07m/s. Right Atrium RA pacing wire is visualized . RA size is moderately dilated. Aortic Valve Mild AoV cusp thickening. Mitral Valve Mild MV leaflet thickening. Mild mitral annular calcification. Mild-moderate mitral regurgitation. Tricuspid Valve Mild tricuspid regurgitation. Estimated peak systolic PA pressure is 60-65 mmHg (moderate-severe pulmonary hypertension) . TV structure is normal. Pulmonic Valve A trace of pulmonary regurgitation. Normal PV structure and function by limited views and Doppler. Aorta Aortic root size (SInus of Valsalva diameter) is normal . Proximal ascending aorta size is normal . Pericardium No significant pericardial effusion is visualized. IVC/SVC/PA/PV/Pleural The inferior vena cava size is increased . The estimated RA pressure by IVC dynamics > 20 mmHg . Chambers/Structures Left Atrium LA Volume: 97.53 ml LA Area: 29.3 cm^2 LA Vol. Index: 49 ml/m^2 Left Ventricle LVIDd: 7.17 cm LV Septum Diastolic: 0.98 cm LV PW Diastolic: 0.96 cm LVEDV Mills's:456.09 ml LVESV Mills's:385.84 ml LVEF Mills's: 15.4 % LVEDVI: 228 ml/m^2 LVESVI: 193 ml/m^2 LVOT Diameter: 2.1 cm Aorta Ao Root S of Sissy.: 3.36 cm Ascending Aorta: 3.28 cm Doppler/Quantitative Measurements Aortic Valve Peak Velocity: 0.91 m/s Mean Velocity: 0.66 m/s Peak Gradient: 3.33 mmHg Mean Gradient: 2.04 mmHg AV Area (continuity): 1.96 cm^2 AV VTI: 12.89 cm AV DVI: 0.57 LVOT Peak Velocity: 0.54 m/s Peak Gradient: 1.16 mmHg Mean Velocity: 0.33 m/s Mean Gradient: 0.56 mmHg LVOT Diameter: 2.1 cm LVOT VTI: 7.29 cm LVOT Area: 3.46 cm^2 LVOT SV:25.24 ml LVOT CO: 2.09 l/min LVOT CI: 1.04 l/min/m^2 Tricuspid Valve TR Velocity: 3.15 m/s TR Gradient: 39.6 mmHg Performing Organization Address [facility] one Number [facility] MKCKESSON CPACS * Troponin I (02/17/2020 11:04 AM CDT) Only the most recent of 5 results within the time period is included. Troponin I 0.17 (H) 0.00 - 0.03 ng/mL [facility] Specimen Blood Narrative Performed At Troponin I (TnI) levels must be interpreted in the co ntext of the presenting [facility] symptoms and the clinical findings. Elevated TnI leve ls indicate myocardial [facility] damage, but are not specific for ischem ic heart disease. Elevated TnI levels are seen in patients with other cardiac con ditions (including myocarditis and congestive heart failure), and slight T nI elevations occur in patients with other conditions, including sepsis, manuel al failure, acidosis, acute neurological disease, and persistent tachyarrhythmia . Towboat Engineer ID - [place] Performing Organization Address City/[facility] one Number [place] [address] MED[facility] CENTER * TSH (02/17/2020 6:31 AM CDT) TSH 3.311 0.350 - 4.940 uIU/mL [facility] Specimen Blood Narrative Performed At Towboat Engineer ID - [place] [facility] Performing Organization Address City/[facility] Ph one Jihan [facility] [address] [place], [place] [address] [facility] * T4, free (02/17/2020 6:31 AM CDT) Free T4 1.08 0.70 - 1.48 ng/dL [facility] Specimen Blood Narrative Performed At Towboat Engineer ID - [facility] Performing Organization Address [facility] Ph one Jihan [facility] [address] [place], [place] [address] [facility] * Toxicology screen, serum (02/17/2020 1:30 AM CDT) DRUG TEST, GENERAL see note [facility], URINE,[facility] Comment: INCORPORATED The following compounds were detected: Acetaminophen Caffeine Salicylic Acid Naproxen For a list of compounds and limits of detection go to: http://education.Brandkids.com/faq/QRZ375 This test was developed and its analytical performance characteristics have been determined by [employer] [place], [place]. It has not been cleared or approved by the U.S. Food and Drug Administration. This assay has been validated pursuant to the CLIA regulations and is used for clinical purposes. ACETONE ([facility]) None Detected [facility] METHANOL([facility]) None Detected [facility] Isopropanol([facility]) None Detected [facility] ETHANOL None Detected [facility] Comment: INCORPORATED Volatile Limit of Detection: 5 mg/dL Specimen Blood Narrative Performed At Performing Lab [facility] [employer] [facility] [place], [address] [address] [address] [place] [address] Tere Keller MD, PhD Performing Organization Address City/[facility] Ph one Number [facility], [address] [place], [place] INCORPORATED [employer] [id number] * US renal complete (02/16/2020 10:52 PM CDT) Specimen Narrative Performed At FINAL REPORT [employer] TECHNIQUE: Grayscale ultrasound of the kidneys and bladder with Doppler and spectral analysis. INDICATION: Acute kidney injury. COMPARISON: 03/08/2017 CT and ultrasound . FINDINGS: RIGHT KIDNEY: The right kidney is 11.7 x 5.9 x 5.5 cm. Cortical thickness is 1.5 cm. There is cystic st ructure with septation at the superior pole that is 2.3 x 2.2 x 2.4 c m, not significant changed compared to prior. No solid mass lesion s. No hydronephrosis. Renal artery and vein are patent. LEFT KIDNEY: The left kidney is 10.6 x 5.1 x 3.8 cm. Cortical thickness is 1.3 cm. There is a cystic structure at the upper pole that is 1.3 x 0.9 x 1.3 cm, previously 1.0 x 1.0 x 0.6 cm. No solid mass lesions. There is a nonobstructing stone at the upper pole that is 0.8 x 0.6 x 0.9 cm. Nonobstructing s tones in the lower pole with measurements of 0.3 x 0.4 x 0.4 cm and 0.5 x 0.4 x 0.5 cm. No hydronephrosis. Renal artery and vein a re patent. BLADDER: Unremarkable. IMPRESSION: 1. No acute abnormality on ultrasound o f the kidneys. 2. Nonobstructing left renal nephrolith iasis. 3. Mildly complex right renal cystic st ructure with septation not significantly changed compared to remot e prior. 4. Left renal cystic structure is mildl y increased in size compared to remote prior. The cyst may represent a proteinaceous cyst when correlated to remote CT. Definitive yoko racterization may be obtained with nonemergent renal protocol CT, as completely warranted Signed: Quin Nicholas MD Report Verified Date/Time: 0 23:26:27 Procedure Note Interface, External Ris In - 02/16/2020 11:29 PM CDT FINAL REPORT TECHNIQUE: Grayscale ultrasound of the kidneys and bladder with Doppler and spectral analysis. INDICATION: Acute kidney injury. COMPARISON: 03/08/2017 CT and ultrasound. FINDINGS: RIGHT KIDNEY: The right kidney is 11.7 x 5.9 x 5.5 cm. Cortical thickness is 1.5 cm. There is cystic structure with septation at the superior pole that is 2.3 x 2.2 x 2.4 cm, not significant changed compared to prior. No solid mass lesions. No hydronephrosis. Renal artery and vein are patent. LEFT KIDNEY: The left kidney is 10.6 x 5.1 x 3.8 cm. Cortical thickness is 1.3 cm. There is a cystic structure at the upper pole that is 1.3 x 0.9 x 1.3 cm, previously 1.0 x 1.0 x 0.6 cm. No solid mass lesions. There is a nonobstructing stone at the upper pole that is 0.8 x 0.6 x 0.9 cm. Nonobstructing stones in the lower pole with measurements of 0.3 x 0.4 x 0.4 cm and 0.5 x 0.4 x 0.5 cm. No hydronephrosis. Renal artery and vein are patent. BLADDER: Unremarkable. IMPRESSION: 1. No acute abnormality on ultrasound of the kidneys. 2. Nonobstructing left renal nephrolithi asis. 3. Mildly complex right renal cystic str ucture with septation not significantly changed compared to remote prior. 4. Left renal cystic structure is mildly increased in size compared to remote prior. The cyst may represent a proteinaceous cyst when correlated to remote CT. Definitive characterization may be obtained with nonemergent renal protocol CT, as completely warranted Signed: Quin Nicholas MD Report Verified Date/Time: 02/16/2020 23:26:27 Performing Organization Address City/State/Zipcode Ph one Number GE RIS * Urinalysis w/Microscopic + Reflex to Culture (02/16/2020 7:42 PM CDT) Color, UA Yellow [facility] Clarity, UA Clear [facility] Specific [place], UA 1.021 1.001 - 1.035 [facility] pH, UA 5.5 5.0 - 8.0 [facility] Protein, UA 10 mg/dL (A) Negative [facility] Glucose, UA >1000 mg/dL (A) Negative [facility] Ketones, UA Negative Negative [facility] Bilirubin, UA Negative Negative [facility] Blood, UA Negative Negative [facility] Nitrite, UA Negative Negative [facility] Leukocytes, UA Negative Negative [facility] Urobilinogen, UA 0.2 0.2 - 1.0 mg/dL [facility] RBC, UA 0 /HPF [facility] WBC, UA <1 /HPF [facility] Mucus Rare [facility] Squam Epithel, UA <1 /HPF [facility] Hyaline Casts, UA 1 /LPF [facility] Yeast Rare [facility] Specimen Source [facility] Specimen Urine Narrative Performed At Towboat Engineer ID - [auto] [facility] Towboat Engineer ID - [facility] Performing Organization Address [facility] Ph one Number [place] [address] [address] [phone] [place] [address] * Hemoglobin A1c (02/16/2020 7:41 PM CDT) Hemoglobin A1C 8.1 (H) 4.3 - 6.1 % [facility] Specimen Blood Performing Organization Address City/[facility] Ph one Number [address] [facility] * Lipid panel (02/16/2020 7:41 PM CDT) Triglycerides 145 mg/dL [facility] Cholesterol 119 mg/dL [facility] HDL 23 mg/dL [facility] LDL Calculated 67 mg/dL [facility] Specimen Blood Narrative Performed At Triglyceride Reference Range: [facility] Low Risk <150 [facility] [id number] High Risk 200-499 Very High Risk>=500 Cholesterol Reference Range: Low Risk <200 [id number] High Risk>240 HDL Cholesterol Reference Range: Low Risk >=60 High Risk <40 LDL Cholesterol Reference Range: Optimal<100 Near [id number] Very High >=190 Towboat Engineer ID - [place] Performing Organization Address City/State/Zipcode Ph one Number [facility] [address] [place] [address] MEDICAL CENTER * SARS-CoV2/RT-PCR (Symptomatic ONLY) (02/16/2020 5:33 PM CDT) SARS-COV2/RT-PCR Not Detected Not Detected, Negative [facility] SARS-COV-2 PERFORMING LAB BSC [facility] Specimen Other Narrative Performed At Negative results do not preclude SARS-C oV-2 infection and should not be used as [facility] the sole basis for patient management decisions. Nega tive results must be [facility] combined with clinical observations, pa tient history, and epidemiological information. A false negative result ma y occur if a specimen is improperly collected, transported or handled. The limit of detection for this assay i s 250 copies/mL. This SARS CoV-2 test is a rapid, real-t dede RT-PCR test intended for the qualitative detection of nucleic acid f rom SARS-CoV-2 in a nasopharyngeal swab specimen collected from individuals michelle pected of COVID-19 by their healthcare provider. This test has not been Food and Drug Ad ministration (FDA) cleared or approved and has been authorized by FDA under an Emergency Use Authorization (EUA). This EUA will be effective until the declara tion that circumstances exist justifying the authorization of the emergency use of in vitro diagnostic tests for detection and/or diagnosis of COVID-19 is terminated under Section 564(b)(2) of the Act or the EUA is revoked under Sec tion 564(g) of the Act. Fact Sheet for Healthcare Providers: https://www.StrataCloud/Documents/Xpert%20Xpress%20SARS%20CoV-2/Fact%20Sheets/30 2-3802%91FGXT-TOT-9%20HEALTHCARE%20PROV IDERS%20FACT%20SHEET.pdf Fact Sheet for Healthcare Patients: https://www.StrataCloud/Documents/Xpert%20Xpress%20SARS%20CoV-2/Fact%20Sheets/30 2-3801%75SFIL-UYW-3%20PATIENT%20FACT%20 SHEET.pdf Performing Laboratory: [address] [address] Performing Organization Address [facility] one Number [place] [address] [facility] * PT/aPTT (02/16/2020 5:33 PM CDT) Protime 25.0 (H) 11.9 - 14.2 seconds [facility] INR 2.3 <=5.9 [facility] PTT 36.3 (H) 22.5 - 36.0 seconds [facility] Specimen Blood Narrative Performed At [facility] 02/19/2019: PT Reference Range Change [facility] New: 11.9-14.2Previous: 11.7-14.7 [facility] MED[facility] CE NTER RECOMMENDED COUMADIN/WARFARIN INR THERA PY RANGES STANDARD DOSE: 2.0-3.0Includes: PRO PHYLAXIS for venous thrombosis, systemic embolization; TREATMENT for venous thro mbosis and/or pulmonary embolus. HIGH RISK: Target INR is 2.5-3.5 for pa tients wiht mechanical heart valves. Performing Organization Address [facility] one Number [place] [address] [facility] * Lactic acid, venous (02/16/2020 5:33 PM CDT) Lactate, Venous 1.94 0.50 - 2.20 mmol/L [facility] Specimen Blood Narrative Performed At Towboat Engineer ID - NTP [facility] Performing Organization Address City/State/Zipcode Ph one Number [facility] [address] [place], [place] [address] MEDICAL CENTER * Comprehensive metabolic panel (02/16/2020 5:33 PM CDT) Protein, Total 6.3 6.0 - 8.3 gm/dL [facility] Albumin 3.7 3.5 - 5.0 g/dL [facility] Alkaline Phosphatase 95 40 - 150 U/L [facility] Total Bilirubin 1.2 0.2 - 1.2 mg/dL [facility] Sodium 138 136 - 145 meq/L [facility] Potassium 3.3 (L) 3.5 - 5.1 meq/L [facility] Chloride 101 98 - 107 meq/L [facility] CO2 28 22 - 29 meq/L [facility] BUN 41 (H) 7 - 21 mg/dL [facility] Creatinine 1.66 (H) 0.57 - 1.25 mg/dL [facility] Glucose 153 (H) 70 - 105 mg/dL [facility] Calcium 9.1 8.4 - 10.2 mg/dL [facility] AST 48 (H) 5 - 34 U/L [facility] ALT 91 (H) 6 - 55 U/L [facility] EGFR 43Comment: ESTIMATED GFR IS mL/min/1.[address] [facility] NOT ACCURATE CREATININE [facility] CLEARANCE IN PREDICTING GLOMERULAR FILTRATION RATE. ESTIMATED GFR IS NOT APPLICABLE FOR DIALYSIS PATIENTS. Specimen Blood Narrative Performed At Towboat Engineer ID - NTP [facility] Performing Organization Address City/State/Zipcode Ph one Number [facility] [address] [place], [place] [address] MEDICAL CENTER * XR chest 1 view portable / bedside (02/16/2020 5:21 PM CDT) Specimen Narrative Performed At FINAL REPORT GE RIS Chest, one view. HISTORY: SHORTNESS OF BREATH COMPARISON: Radiograph from 03/08/2017 IMPRESSION: Unchanged positioning of the left chest pacer/ICD with leads over the right atrium right ventricle, and coron leonila sinus. The left costophrenic sulcus is not vis ualized. No definite pleural effusion. The cardiac silhouette is enl arged with likely interstitial pulmonary edema. No acute bony abnormal ity. Signed: Georgi Bullock MD Report Verified Date/Time: 0 17:52:19 Reading Location: [address] Body Reading Room Procedure Note Interface, External Ris In - 02/16/2020 5:54 PM CDT FINAL REPORT Chest, one view. HISTORY: SHORTNESS OF BREATH COMPARISON: Radiograph from 03/08/2017 IMPRESSION: Unchanged positioning of the left chest pacer/ICD with leads over the right atrium right ventricle, and coronary sinus. The left costophrenic sulcus is not visualized. No definite pleural effusion. The cardiac silhouette is enlarged with likely interstitial pulmonary edema. No acute bony abnormality. Signed: Georgi Bullock MD Report Verified Date/Time: 02/16/2020 17:52:19 Reading Location: [facility] C[facility] CT Body Reading Room Performing Organization Address City/State/[facility] Ph one Number GE [facility] * ECG 12 lead (02/16/2020 4:56 PM CDT) Specimen Narrative Performed At Ventricular Rate 80 BPM GE MUSE Atrial Rate 80 BPM QRS Duration 188 ms Q-T Interval 492 ms QTC Calculation(Bazett) 567 ms R [place] 211 degrees T [place] -27 degrees Ventricular-paced rhythm Biventricular pacemaker detected P waves are not seen, cannot exclude at rial fibrillation Abnormal ECG No previous ECGs available Confirmed by MD DONTE, LEXIE ([id number] ) on 02/17/2020 6:43:30 AM Procedure Note Interface, External Ris In - 02/17/2020 6:43 AM CDT Ventricular Rate 80 BPM Atrial Rate 80 BPM QRS Duration 188 ms Q-T Interval 492 ms QTC Calculation(Bazett) 567 ms R [place] 211 degrees T [place] -27 degrees Ventricular-paced rhythm Biventricular pacemaker detected P waves are not seen, cannot exclude atrial fibrillation Abnormal ECG No previous ECGs available Confirmed by MD DONTE, LEXIE ([id number]) on 02/17/2020 6:43:30 AM Performing Organization Address City/State/Zipcode Ph one Number GE MUSE after 02/26/2019 Insurance Payer Benefit Subscriber ID Type Phone Address Plan / Group BLUE CROSS/BLUE SHIELD BCBS ADV xxxxxxxxxxxx [phone] [address] [place] [address] EXCHANGE CDCREVIEW CDCREVIEW xxxxxxxx [place] [phone] Advance Directives For more information, please contact: [facility] [address] [place] [address] Date Inactivated Comments Code Status Date Activated 02/19/2020 3:46 PM Full Code 02/16/2020 7:05 PM This code status was determined by: Patient 02/09/2017 8:09 PM Full Code 02/08/2017 6:21 PM This code status was determined by: Patient
--- OUTSIDE RECORDS SUMMARY | 2020-02-27 23:08 | XMS REPORT | Continuity of Care Document ---
Author Author [facility] t Organization [facility] Address [address] [place] [address] Phone Unavailable Care Team Providers Care Patient Account Specialist Name Role Phone Sharpless PCP Kelsie Segundo Attphys Unavailable ANGELA CHAVIRA Attphys Unavailable Clif DAVIS, Angela Attphys Shahida DAVIS, Adis Maurer Attphys [phone] Ted DAVIS, Cayden Pollock Attphys Bonnie Gallegos Attphys Unavailable Leandro MUNSON, Angelito Attphys Unavailable Chelle Spence Attphys Unavailable Chai FOOTE Attphys Unavailable LINDA GREWAL Attphys Unavailable DEREK TONEY Attphys Unavailable ADIS PINEDO Admphys Unavailable DEREK TONEY KATHY Admphys Unavailable Payers Payer Name Policy Type Policy Number Effective Date Expiration Date S ource BLUE CROSS/BLUE SHIELDBCBS ADV HMO EXCHA [id number] [address], [place] [address] xxxxxxxxxxxx [facility] CDCREVIEWCD[place]xxxxxxxx[place] [address] xxx xxxxx [facility] Problems Condition Name Condition Details Condition Category Status Onset Date Resolution Date Last Treatment Date Treating Clinician Comments Source Acute on chronic congestive heart failure, unspecified heart failure type Acute on chronic congestive heart failure, unspecified heart failure type Disease Active 2020-02-16 00:00:00 [facility] Essential hypertension Essential hypertension Disease Active 2017-02-16 00:00:00 [facility] Type 2 diabetes mellitus without complication Type 2 d iabetes mellitus without complication Disease Active 2017-02-16 00:00:00 [facility] Cardiorenal disease Cardiorenal disease Disease Active 2017-02-09 00:00 :00 [facility] 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 Chronic combined systolic (congestive) and diastolic (congestive) heart failure Disease Active 2017-02-06 00:00:00 [facility] Dilated cardiomyopathy Dilated cardiomyopathy Disease Active 2017-02-06 00:00:00 [facility] Chronic kidney disease (CKD) Chronic kidney disease (CKD) Disease Active 2017-02-06 00:00:00 [facility] 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 Swathi nary atherosclerosis due to lipid rich plaque Disease Active 2017-02-06 00:00:00 [facility] Allergies, Adverse Reactions, Alerts Allergy Name Allergy Type Status Severity Reaction(s) Onset Date Inacti ve Date Treating Clinician Comments Source No Known Allergies DA Active U 2020-02-06 00:00:00 [facility] No Known Allergies DA Active U 2020-01-26 00:00:00 [facility] No Known Allergies DA Active U 2020-01-19 00:00:00 [facility] No Known Allergies DA Active U 2019-09-02 00:00:00 [facility] No Known Allergies DA Active U 2019-04-30 00:00:00 [facility] No Known Allergies DA Active U 2016-10-27 00:00:00 [facility] Social History Social Habit Start Date Stop Date Quantity Comments Source Sex Assigned At [facility] Smoking Status Start Date Stop Date Source Never smoker [facility] Medications Ordered Medication Name Filled Medication Name Start Date Stop Da te Current Medication? Ordering Clinician Indication Dosage Frequency Signature (SIG) Comments Components Source clopidogrel (PLAVIX) 75 mg tablet 2020-02-19 12:03:37 2019 00:00:00 No 75mg QD Take 75 mg by mouth daily. [facility] simvastatin (ZOCOR) 40 MG tablet 2020-02-19 12:03:2020-01 00:00:00 No 40mg QD Take 40 mg by mouth nightly. [facility] sertraline (ZOLOFT) 50 MG tablet 2020-02-19 12:03:2020-01 00:00:00 No 25mg QD Take 25 mg by mouth daily. [facility] metoprolol tartrate (LOPRESSOR) 50 MG tablet 12:03:2020-02-19 00:00:00 No 50mg Q.5D Take 50 mg by mouth 2 (two) artis es daily. [facility] bumetanide (BUMEX) 1 MG tablet 2020-02-19 12:03:2020-02-19 00 :00:00 No 1mg QD Take 1 mg by mouth daily. [facility] rivaroxaban (XARELTO) 10 mg Tab tablet 2020-01-24 8 12:03:2020-02-19 00:00:00 No Take by mouth daily with dinner. [facility] ivabradine (CORLANOR) 5 mg Tab tablet 2020-02-19 00:00:00 Y es 5mg Q.5D Take 1 tablet (5 mg total) by mouth 2 (two) times daily. [facility] metoprolol tartrate (LOPRESSOR) 50 MG tablet 2020-02-19 00:00:00 Yes 50mg Q.5D Take 1 tablet (50 mg total) by mouth 2 (two) times anup ly. [facility] rivaroxaban (XARELTO) 20 mg Tab tablet 2020-02-19 00:00:00 Yes 20mg Take 1 tablet (20 mg total) by mouth daily with dinner. [facility] sacubitriL-valsartan (ENTRESTO) 24-26 mg Tab 2020-02-19 00:00:00 Yes 1{tbl} Q.5D Take 1 tablet by mouth 2 (two) times daily. [facility] sertraline (ZOLOFT) 25 MG tablet 2020-02-19 00:00:00 Yes 25mg QD Take 1 tablet (25 mg total) by mouth daily. [facility] spironolactone (ALDACTONE) 25 MG tablet 2020-02-19 00:00:00 Yes 25mg QD Take 1 tablet (25 mg total) by mouth daily. [facility] bumetanide (BUMEX) 2 MG tablet 2020-02-19 00:00:00 Yes 2mg Q.5D Take 1 tablet (2 mg total) by mouth 2 (two) times daily. [facility] atorvastatin (LIPITOR) 20 MG tablet 2020-02-19 00:00:0 0 2021-02-18 23:59:00 Yes 20mg QD Take 1 tablet (20 mg total) by mouth nig htly. [facility] clopidogreL (PLAVIX) 75 mg tablet 2020-02-19 00:00:00 2019 23:59:00 Yes 75mg QD Take 1 tablet (75 mg total) by mouth anup ly for 30 days. [facility] QUEtiapine (SEROQUEL) 25 MG tablet 2020-02-16 18:37:30 202 00:00:00 No 25mg QD Take 25 mg by mouth nightly. [facility] metFORMIN (GLUCOPHAGE) 500 MG tablet 2020-02-16 18:37: 18 2020-02-16 00:00:00 No 500mg Take 500 mg by mouth 2 (two) times daily with breakfast and dinner. [facility] LORazepam (ATIVAN) 0.5 MG tablet 2017-02-16 14:55:13 Yes .5mg Q.5D Take 0.5 mg by mouth 2 (two) times daily . [facility] glimepiride (AMARYL) 2 MG tablet 2017-02-16 14:13:02 Yes 2mg Take 2 mg by mouth every morning before breakfast. [facility] spironolactone (ALDACTONE) 25 MG tablet 00:00:00 2020-02-19 00:00:00 No 25mg QD Take 1 tablet (25 mg total) by mouth daily. [facility] ivabradine (CORLANOR) 5 mg Tab tablet 2017-02-09 00:00 :00 2020-02-19 00:00:00 No 5mg Q.5D Take 1 tablet (5 mg total) by mouth 2 (t wo) times daily. [facility] sacubitril-valsartan (ENTRESTO) 24-26 mg Tab 201 03-28-19 00:00:00 2020-02-19 00:00:00 No 1{tbl} Q.5D Take 1 tablet by mouth 2 (two) times daily. [facility] Vital Signs Vital Name Observation Time Observation Value Comments Source Heart rate 2020-02-19 09:36:00 59 /min [facility] Respiratory rate 2020-02-19 09:36:00 18 /min [facility] Oxygen saturation in Arterial blood by Pulse oximetry 02-18 09:36:00 98 [facility] pressure 2020-02-19 07:25:00 111 mm[Hg] [facility] Diastolic blood pressure 2020-02-19 07:25:00 84 mm[Hg] [facility] Body temperature 2020-02-19 07:25:00 35.94 Nichole [facility] Body weight Measured 2020-02-18 04:32:00 80.015 kg [facility] BMI 2020-02-18 04:32:00 24.70 kg/m2 [facility] Body height 2020-02-16 16:53:00 180 cm [facility] Procedures Procedure Date / Time Performed Performing Clinician [facility] PULMONARY FUNCTION - SCAN 2020-02-26 14:11:55 Provider, Default Scanning [facility] RHYTHM STRIP - SCAN 2020-02-20 15:21:37 Provider, Default Scanni ng [facility] REPORT OF PROCEDURE - ENDOSCOPY SCAN 2020-02-20 08:52:48 Pro vider, Default Scanning [facility] TRANSFUSION SERVICE REPORT - SCAN 2020-02-19 17:51:17 Provid er, Default Scanning [facility] ARRYTHMIA IMPLANT REPORT - SCAN 2020-02-19 13:20:43 Provider, De fault Scanning [facility] ARRYTHMIA IMPLANT REPORT - SCAN 2020-02-19 13:20:42 Provider, De fault Scanning [facility] SPIROMETRY 2020-02-19 09:36:00 Dario Foote [facility] DLCO (SINGLE BREATH DIFFUSION) 2020-02-19 09:36:00 Dario Foote [facility] POCT-GLUCOSE METER 2020-02-19 07:31:00 [facility]OL[facility]EL (7) 2020-02-19 05:35:00 Libertad Pinedo [facility] MAGNESIUM 2020-02-19 05:35:00 Shahida Libertadsa Adis Multani [facility] PROTHROMBIN TIME/INR 2020-02-19 05:35:00 [facility] HEPATIC FUNCTION PANEL 2020-02-19 05:35:00 Phill Jean [facility] T SPOT TB 2020-02-19 05:35:00 Dario Foote [facility] B-TYPE NATRIURETIC FACTOR (BNP) 2020-02-19 05:35:00 Ronald Foote [facility] VITAMIN B12 AND FOLATE 2020-02-19 05:35:00 Joseph Allen [facility] TSH/FREE T4 IF INDICATED 2020-02-19 05:35:00 Joseph Allen [facility] CBC W/PLT COUNT & AUTO DIFFERENTIAL 2020-02-19 05:35:00 [facility] CT BRAIN WITHOUT IV CONTRAST 2020-02-19 01:39:00 Dario Foote [facility] CT CHEST WITHOUT IV CONTRAST 2020-02-19 01:39:00 Dario Foote [facility] CT ABDOMEN WITHOUT IV CONTRAST 2020-02-19 01:39:00 Dario Foote [facility] POCT-GLUCOSE METER 2020-02-18 22:15:00 Phill Jean [facility] CAROTID DOPPLER BILATERAL 2020-02-18 17:25:00 Dario Foote [facility] ARTERIAL DOPPLER LEGS BILATERAL 2020-02-18 17:00:00 Ronald Foote [facility] POCT-GLUCOSE METER 2020-02-18 16:19:00 Phill Jean [facility] TYPE AND SCREEN, AUTOMATED 2020-02-18 15:30:00 Dario Foote [facility] RETICULOCYTE COUNT 2020-02-18 15:28:00 Dario Foote [facility] BLOOD TYPING, AUTOMATED 2020-02-18 15:28:00 Dario Foote [facility] DIRECT AHG (FARHAD)/DIRECT VIVI 2020-02-18 15:28:00 Dario Foote [facility] GAMMA GLUTAMYL TRANSFERASE (GGT) 2020-02-18 15:27:00 Radha Foote [facility] LACTATE DEHYDROGENASE (LDH) 2020-02-18 15:27:00 Dario Foote [facility] AMYLASE 2020-02-18 15:27:00 Dario Foote [facility] LIPASE 2020-02-18 15:27:00 Dario Foote [facility] PHOSPHORUS 2020-02-18 15:27:00 Dario Foote [facility] URIC ACID 2020-02-18 15:27:00 Dario Foote [facility] VARICELLA ZOSTER ANTIBODY, IGG 2020-02-18 15:27:00 Dario Foote [facility] CREATININE 2020-02-18 15:27:00 Dario Foote [facility] HEPATITIS PANEL, ACUTE 2020-02-18 15:25:00 Dario Foote [facility] HEPATITIS A ANTIBODY, IGG 2020-02-18 15:25:00 Dario Foote [facility] HEPATITIS B CORE ANTIBODY, TOTAL 2020-02-18 15:25:00 Radha Foote [facility] PREALBUMIN 2020-02-18 15:25:00 Dario Foote [facility] IRON, SERUM 2020-02-18 15:25:00 Dario Foote [facility] FERRITIN 2020-02-18 15:25:00 Dario Foote [facility] TRANSFERRIN 2020-02-18 15:25:00 Dairo Foote [facility] VITAMIN D, 25-HYDROXY 2020-02-18 15:25:00 Dario Foote [facility] HIV-1 ANTIGEN WITH HIV-1/2 ANTIBODY 2020-02-18 15:25:00 Dario Foote [facility] RPR 2020-02-18 15:25:00 Dario Foote [facility] ANTI-NUCLEAR ANTIBODY (JUDY) 2020-02-18 15:25:00 Dario Foote [facility] CYTOMEGALOVIRUS ANTIBODY, IGG 2020-02-18 15:25:00 Dario Foote [facility] CYTOMEGALOVIRUS ANTIBODY, IGM 2020-02-18 15:25:00 Dario Foote [facility] HERPES VIRUS ANTIBODY, IGM 2020-02-18 15:25:00 Dario Foote [facility] EBV ANTIBODY, IGM 2020-02-18 15:25:00 Dario Foote [facility] TOXOPLASMA GONDII ANTIBODY, IGG 2020-02-18 15:25:00 Ronald Foote [facility] TOXOPLASMA GONDII ANTIBODY, IGM 2020-02-18 15:25:00 Ronald Foote [facility] PSA 2020-02-18 15:25:00 Dario Foote [facility] FLOW PRA CLASS I WITH REFLEX TO ANTIBODY SPECIFICITY 2020-01 15:22:00 Dario Foote [facility] FLOW PRA CLASS II WITH REFLEX TO ANTIBODY SPECIFICITY 02-17 15:22:00 Dario Foote [facility] AB SPECIFICITY CLASS II 2020-02-18 15:22:00 Dario Foote [facility] MISCELLANEOUS LAB ORDER 2020-02-18 15:21:[address] [facility] POCT-GLUCOSE METER 2020-02-18 12:08:[address] [facility] BASIC METABOLIC PANEL (7) 2020-02-18 04:38:00 Libertad Pinedo [facility] MAGNESIUM 2020-02-18 04:38:00 Libertad Pinedo [facility] PROTHROMBIN TIME/INR 2020-02-18 04:38:00 Libertad Pinedo sloane [facility] HEPATIC FUNCTION PANEL 2020-02-18 04:38:[address] [facility] CBC W/PLT COUNT & AUTO DIFFERENTIAL 2020-02-18 04:38:00 Libertad Morris [facility] POCT-GLUCOSE METER 2020-02-17 21:41:[address] [facility] POCT-GLUCOSE METER 2020-02-17 15:58:[address] [facility] 2D ECHO W/ DOPPLER (CW/PW/COLOR) 2020-02-17 12:31:33 Roula Ruby [facility] POCT-GLUCOSE METER 2020-02-17 11:47:[address] [facility] MAGNESIUM 2020-02-17 11:04:00 Libertad Pinedo [facility] TROPONIN I 2020-02-17 11:04:00 Libertad Pinedo [facility] BASIC METABOLIC PANEL (7) 2020-02-17 11:04:00 TedPhill [facility] POCT-GLUCOSE METER 2020-02-17 07:38:00 Ted Phill Cooperon [facility] TROPONIN I 2020-02-17 06:31:00 Clif [facility] PROTHROMBIN TIME/INR 2020-02-17 06:31:00 Libertad Pinedo [facility] TSH 2020-02-17 06:31:00 Roula Ruby [facility] T4, FREE 2020-02-17 06:31:00 Roula Ruby [facility] CBC W/PLT COUNT & AUTO DIFFERENTIAL 2020-02-17 06:31:00 Keith jill [facility] TROPONIN I 2020-02-17 01:30:00 Libertad Pinedo [facility] TOXICOLOGY SCREEN, SERUM 2020-02-17 01:30:00 Roula Ruby [facility] PROTHROMBIN TIME/INR 2020-02-17 01:30:00 Roula Ruby [facility] US RENAL COMPLETE 2020-02-16 22:52:00 Shahida [facility] URINALYSIS W/ REFLEX URINE CULTURE 2020-02-16 19:42:00 Audrey pritchett [facility] TROPONIN I 2020-02-16 19:41:00 Clif [facility] HEMOGLOBIN A1C 2020-02-16 19:41:00 Shahida Libertadsa Adis Mult[facility] LIPID PANEL 2020-02-16 19:41:00 Roula Ruby [facility] SARS-COV2/RT-PCR ([facility]) 2020-02-16 17:33:00 Clif [facility] B-TYPE NATRIURETIC FACTOR (BNP) 2020-02-16 17:33:00 Yoli Chavira [facility] PT/APTT 2020-02-16 17:33:00 [facility] LACTIC ACID, VENOUS 2020-02-16 17:33:00 [facility] TROPONIN I 2020-02-16 17:33:00 [facility] COMPREHENSIVE METABOLIC PANEL 2020-02-16 17:33:00 Clif [facility] MAGNESIUM 2020-02-16 17:33:00 [facility] CBC W/PLT COUNT & AUTO DIFFERENTIAL 2020-02-16 17:33:00 [facility] XR CHEST 1 VIEW PORTABLE/BEDSIDE 2020-02-16 17:21:00 Clif Júnior [facility] ECG 12-LEAD 2020-02-16 16:56:30 [facility] Plan of Care Planned Activity Planned Date Details Comments Source Future Scheduled Test 2020-08-18 00:00:00 HEMOGLOBIN A1C [co de = HEMOGLOBIN A1C] [facility] Future Scheduled Test 2020-05-25 00:00:00 INFLUENZA VACCINE (Season Ended) [code = INFLUENZA VACCINE (Season Ended)] [facility] Future Scheduled Test 1972 00:00:00 DIABETIC EYE EXAM [code = DIABETIC EYE EXAM] [facility] Future Scheduled Test 1972 00:00:00 Diabetic foot exam ination (regime/therapy) [code = 824685080] [facility] Future Scheduled Test 1968 00:00:00 PNEUMOCOCCAL VACCI NE 2-64 YEARS AT RISK (1 of 1 - PPSV23) [code = PNEUMOCOCCAL VACCINE 2-64 YEARS AT RISK (1 of 1 - PPSV23)] [facility] Future Scheduled Test 1962 00:00:00 COLON CANCER SCREE WILLIAM COLONOSCOPY [code = COLON CANCER SCREENING COLONOSCOPY] [facility] Results Test Description Test Time Test Comments Results Result Comments Source AB SPECIFICITY CLASS II 2020-02-25 11:06:00 Test Item AB Specificity Class II (test code = 3458) NO CLASS II ANTIBODY DETECTED WITH MFIs > 4000 MERT (test code = MERT) Disclaimer: This test was de veloped and its performance characteristics determined by the [facility] Laboratory. It has not been cleared or approved by the U.S. Food and Drug Administration. The FDA has determined that such clearance or approval is not necessary. This test is used for clinical purposes. It should not be regarded as investigational or for research. This laboratory is certified under the Clinical Laboratory Improvement Amendments of 1988 (CLIA-88) as qualified to perform high complexity clinical laboratory testing. [facility] CLASS I WITH REFLEX TO ANTIBODY [id number] 14:29:00* Test Item Value Reference Range Interpretation Comments Flow Class I Percent Positive (test code = 3229) 0 MERT (test code = MERT) Disclaimer: This test was de veloped and its performance characteristics determined by the [facility] Laboratory. It has not been cleared or approved by the U.S. Food and Drug Administration. The FDA has determined that such clearance or approval is not necessary. This test is used for clinical purposes. It should not be regarded as investigational or for research. This laboratory is certified under the Clinical Laboratory Improvement Amendments of 1988 (CLIA-88) as qualified to perform high complexity clinical laboratory testing. [facility] CLASS II WITH REFLEX TO ANTIBODY [id number] 14:29:00* Test Item Value Reference Range Interpretation Comments Flow Class II Percent Positive (test code = 3231) 6 MERT (test code = MERT) Disclaimer: This test was de veloped and its performance characteristics determined by the [facility] Laboratory. It has not been cleared or approved by the U.S. Food and Drug Administration. The FDA has determined that such clearance or approval is not necessary. This test is used for clinical purposes. It should not be regarded as investigational or for research. This laboratory is certified under the Clinical Laboratory Improvement Amendments of 1988 (CLIA-88) as qualified to perform high complexity clinical laboratory testing. [facility] CenterToxicology screen, [id number] 11:59:00* Test Item Value Reference Range Interpretation Comments DRUG TEST, GENERAL TOXICOLOGY, URINE,QUEST (test code = 3052) see n ote The following compounds were detected: Acetaminophen Caffeine Salicylic Acid Naproxen For a list of compounds and limits of detection go to:http://education.Energiachiara.it/faq/DTL948 This test was developed and its analytical performancecharacteristics have been determined by [employer] [place], [place]. It hasnot been cleared or approved by the U.S. Food and DrugAdministration. This assay has been validated pursuantto the CLIA regulations and is used for clinicalpurposes. ACETONE (QUEST) (test code = 7850435) None Detected METHANOL(QUEST) (test code = 3147443) None Detected Isopropanol(Quest) (test code = 3055) None Detected ETHANOL (test code = 2968) None Detected Volatile Limit of Detection: 5 mg/dL MERT (test code = MERT) Performing Lab [facility], [address] [place] [address] [place] [address] Tere Keller MD, PhD [facility] CenterHerpes virus antibody, [id number] 10:37:00* Test Item Value Reference Range Interpretation Comments Herpes Virus IGM (test code = 95813-1) Negative MERT (test code = MERT) TEST PERFORMED BY pyco [facility] CenterHERPES VIRUS ANTIBODY, [id number] 10:37:00* Test Item Value Reference Range Interpretation Comments HERPES VIRUS IGM (BEAKER) (test code = 1808) Negative TEST PERFORMED BY pycoToxoplasma gondii antibody, [id number] 10:35:00* Test Item Value Reference Range Interpretation Comments Toxoplasma gondii IgM (test code = 70900-7) Negative MERT (test code = MERT) TEST PERFORMED BY pyco [facility] CenterTOXOPLASMA GONDII ANTIBODY, [id number] 10:35:00 * Test Item Value Reference Range Interpretation Comments TOXOPLASMA IGM ANTIBODY (BEAKER) (test code = 742) Negative TEST PERFORMED BY pycoProtein [id number] 08:19:00 Scan ResultQUEST NON-INTERFACED [facility] 2020-02-23 07:27:00* Test Item Value Reference Range Interpretation Comments T-Spot TB (test code = 26531-3) Negative Neg Ctrl Spot Count (test code = 01020-9) 0 Panel A Spot (test code = 05179-9) 0 Panel B Spot (test code = 29797-3) [address] (test code = 82960-1) 0 Scan Result (test code = 5857488) [facility] Center[facility] antibody, [id number] 12:49:00* Test Item Value Reference Range Interpretation Comments Herpes Virus IGG (test code = 90280-7) Positive MERT (test code = MERT) HSV 1 IGG = NEGATIVEHSV 2 IGG = POSITIVE [facility] CenterHERPES VIRUS ANTIBODY, [id number] 12:49:00* Test Item Value Reference Range Interpretation Comments HERPES VIRUS IGG (BEAKER) (test code = 1807) Positive HSV 1 IGG = NEGATIVEHSV 2 IGG = POSITIVEVaricella zoster antibody, [id number] 10:56:00* Test Item Value Reference Range Interpretation Comments Varicella IgG (test code = 94713-0) >8.0 MERT (test code = MERT) VARICELLA ZOSTER RESULT INTE RPRETATIONS: <=0.8 Al Nonreactive: Presumed non-immune to VZV 0.9-1.0 Al Equivocal >=1.1 Al Reactive: Presumed immune to VZV [facility] CenterCytomegalovirus antibody, [id number] 10:56:00* Test Item Value Reference Range Interpretation Comments CYTOMEGALOVIRUS, IGG (test code = 3429) Negative Negative, Equi vocal MERT (test code = MERT) CMV IgG Result Interpretatio n: </= 0.8 Al Negative 0.9- 1.0 Al Equivocal >/=1.1 Al Positive Lab Interpretation (test code = 38563-3) Normal [facility] CenterToxoplasma gondii antibody, [id number] 10:56:00 * Test Item Value Reference Range Interpretation Comments TOXOPLASMA GONDII IGG QUANTITATIVE (test code = 3428) <3.0 <10.0 IU/mL MERT (test code = MERT) Toxoplasma Gondii IgG Result Interpretation: </= 9.9 IU/mL Normal 10-11 IU/mL Equivocal >/= 12 IU/mL Positive Lab Interpretation (test code = 97717-7) Normal [facility] CenterEBV-VCA antibody, [id number] 10:56:00* Test Item Value Reference Range Interpretation Comments MATT LY VIRAL CAPSID ANTIGEN IGG (test code = 3415) Pos itive Negative, Equivocal A MERT (test code = MERT) Matt Ly Viral Capsid An tigen IgG Result Interpretation: </= 0.8 Al Negative 0.9-1.0 Al Equivocal >/= 1.1 Al Positive Lab Interpretation (test code = 30249-0) [facility]normal [facility] CenterEBV[facility]VCA antibody, [id number] 10:56:00* Test Item Value Reference Range Interpretation Comments MATT LY VIRAL CAPSID ANTIGEN IGM (test code = 3418) Neg ative Negative, Equivocal MERT (test code = MERT) Matt Ly Viral Capsid An tigen IgM Result Interpretation: </= 0.8 Al Negative 0.9-1.0 Al Equivocal >/= 1.1 Al Positive Lab Interpretation (test code = 35969-4) Normal [facility] CenterCytomegalovirus antibody, [id number] 10:56:00* Test Item Value Reference Range Interpretation Comments CMV IGM (test code = 3437) Negative Negative, Equivocal MERT (test code = MERT) CMV IgM Result Interpretatio n: </= 0.8 Al Negative 0.9-1.0 Al Equivocal >/= 1.1 Al Positive Lab Interpretation (test code = 75435-7) Normal [facility] CenterVARICELLA ZOSTER ANTIBODY, [id number] 10:56:00* Test Item Value Reference Range Interpretation Comments VARICELLA ZOSTER IGG (AL) (BEAKER) (test code = 3197) > VARICELLA ZOSTER RESULT INTERPRETATIONS: <=0.8 Al Nonreactive: Presumed non-immune to VZV 0.9-1.0 Al Equivocal >=1.1 Al Reactive: Presumed immune to VZVCYTOMEGALOVIRUS ANTIBODY, [id number] 10:56:00* Test Item Value Reference Range Interpretation Comments CYTOMEGALOVIRUS, IGG (BEAKER) (test code = 3429) Negative Negat rosana, Equivocal CMV IgG Result Interpretation: </= 0.8 Al Negative 0.9-1.0 Al Equivocal > /=1.1 Al PositiveCYTOMEGALOVIRUS ANTIBODY, [id number] 10:56:00* Test Item Value Reference Range Interpretation Comments CYTOMEGALOVIRUS IGM ANTIBODY (BEAKER) (test code = 3437) Neg ative Negative, Equivocal CMV IgM Result Interpretation: </= 0.8 Al Negative 0.9-1.0 Al Equivocal > /= 1.1 Al PositiveEBV ANTIBODY, [id number] 10:56:00* Test Item Value Reference Range Interpretation Comments MATT LY VIRAL CAPSID ANTIGEN IGG (BEAKER) (test code = 3415) Positive Negative, Equivocal A Matt Ly Viral Capsid Antigen IgG Result Interpretation: </= 0.8 Al Negative 0.9-1.0 Al Equivocal >/= 1.1 Al PositiveEBV ANTIBODY, [id number] 10:56:00* Test Item Value Reference Range Interpretation Comments MATT LY VIRAL CAPSID ANTIGEN IGM (ACCO SemiconductorAKER) (test code = 3418) Negative Negative, Equivocal Matt Ly Viral Capsid Antigen IgM Result Interpretation: </= 0.8 Al Negative 0.9-1.0 Al Equivocal >/= 1.1 Al PositiveTOXOPLASMA GONDII ANTIBODY, [id number] 10:56:00* Test Item Value Reference Range Interpretation Comments TOXOPLASMA GONDII IGG QUANTITATIVE (BEAKER) (test code = 3428) < IU /mL <10.0 Toxoplasma Gondii IgG Result Interpretation: </= 9.9 IU/mL Normal 10-11 IU/mL Equivocal >/= 12 IU/mL [id number] 13:41:00* Test Item Value Reference Range Interpretation Comments RPR (test code = 55824-9) Nonreactive Nonreactive Lab Interpretation (test code = 42334-7) Normal [facility] CenterRPR2020-05-28 13:41:00* Test Item Value Reference Range Interpretation Comments RPR SCREEN (BEAKER) (test code = 420) Nonreactive Nonreactive Anti-Nuclear Antibody (JUDY)2020-02-19 10:26:00* Test Item Value Reference Range Interpretation Comments JUDY (test code = 10646-8) Negative Negative MERT (test code = MERT) Test performed by IFA method .Test performed by IFA method. Lab Interpretation (test code = 33799-7) Normal [facility] CenterANTI-NUCLEAR ANTIBODY (JUDY)2020-02-19 10:26:00* Test Item Value Reference Range Interpretation Comments ANTI-NUCLEAR ANTIBODY (JUDY) (BEAKER) (test code = 418) Negative Negative Test performed by IFA method.Test performed by IFA method.DLCO (single breath diffusion)2020-02-19 09:36:00Varun Wang RRT, SECRETARY TO BOARD OF COMMISSIONERS 02/19/2020 11:51 [facility] PFT CHARTING REPORT Infection Control/Hand Hygiene procedures followed throughout the encounter with patient: YesPatient Identification Method: Patient name verified on armband, and Medical record on armband, Is the order complete?: Yes Account ID#: [id number] Name: Cristino Villaseñor Birthdate: 1960 Age: 59 y.o. Sex: male Admission Date: 02/16/2020 Patient Status: Inpatient Reasons/Symptom for having the Test?: a history/complaint of a dyspnea Type of study/treatment ordered by physician: Single Breath DLCO and Spirometry Lab Results Component Value Date HGB 13.5 (L) 02/19/2020 Ranges: Adult Male 13 - 16.8 g/dl Adult Female 12 - 15 g/dl 6 Minute Walk (read only) 02/19/2020 02/19/2020 02/19/2020 Pulse 97 95 109 SpO2 96 95 94 Study Date: 02/19/2020 Study Time: 935 ASSESSMENT History & Physical Mode of Arrival: Wheel chair Pulse: 59 Resp: 18 SPO2: 98 %RA Pain Assessment Pain:None TESTING/THERAPEUTICS Medications ordered or required for procedure: N/A PT EDUCATION/INSTRUCTIONS Barriers to learning: No known barriers to learning. Learning need identified: Yes, Patient/Family/Guradian was informed of the ordered study by the physician Barriers to performing study or treatment: Patient has no known disability to p erform the study or treatment. DISCHARGE The study was completed in accordance w ith the physician's order and patient released from the lab without adverse outc ome. [facility] CenterPulmonary Funct Lab [id number] 09:36:00Varun Wang RRT, SECRETARY TO BOARD OF COMMISSIONERS 02/19/2020 11:51 [facility] Infection Control/Hand Hygiene procedures followed throughout the encounter with patient: YesPatient Identification Method: Patient name verified on armband, and Medical record on armband, Is the order complete?: Yes Account ID#: [id number] Name: Cristino Villaseñor Birthdate: 1960 Age: 59 y.o. Sex: male Admission Date: 02/16/2020 Patient Status: Inpatient Reasons/Symptom for having the Test?: a history/complaint of a dyspnea Type of study/treatment ordered by physician: Single Breath DLCO and Spirometry Lab Results Component Value Date HGB 13.5 (L) 02/19/2020 Ranges: Adult Male 13 - 16.8 g/dl Adult Female 12 - 15 g/dl 6 Minute Walk (read only) 02/19/2020 02/19/2020 02/19/2020 Pulse 97 95 109 SpO2 96 95 94 Study Date: 02/19/2020 Study Time: 09 ASSESSMENT History & Physical Mode of Arrival: Wheel chair Pulse: 59 Resp: 18 SPO2: 98 %RA Pain Assessment Pain:None TESTING/THERAPEUTICS Medications ordered or required for procedure: N/A PT EDUCATION/INSTRUCTIONS Barriers to learning: No known barriers to learning. Learning need identified: Yes, Patient/Family/Guradian was informed of the ordered study by the physician Barriers to performing study or treatment: Patient has no known disability to p erform the study or treatment. DISCHARGE The study was completed in accordance w ith the physician's order and patient released from the lab without adverse outc ome. [facility]-Glucose [id number] 08:03:00* Test Item Value Reference Range Interpretation Comments POC-Glucose Meter (test code = 1538) 133 mg/dL 70-110 H : TESTED AT [facility] [address], [address]: Gold Buyer/Lacing String Cutter ID = [id number] for Danilo Manley Lab Interpretation (test code = 46315-1) Abnormal [facility]-GLUCOSE [id number] 08:03:00* Test Item Value Reference Range Interpretation Comments POC-GLUCOSE METER (BEAKER) (test code = 1538) 133 mg/dL 70-110 H : TESTED AT [facility] [address], [address]: Gold Buyer/Lacing String Cutter ID = [id number] for Danilo Manley Arterial doppler legs [id number] 07:52:28Ejection FractionSLE ECHO HEARTLAB MKCKESSON CPACSRight Impression1. The posterior tibial and dorsalis pedis arteries are patent with normaltriphasic Doppler waveforms.2. The PT pressure is 133 mmHg with an UCHE of 1.21 and the DP pressure is137 mmHg with an UCHE of 1.25, within normal range.3. The great toe pressure is 96 mmHg with a normal TBI of 0.87.4. The digits have adequate flow by PPG waveforms.Left Impression1. The posterior tibial and dorsalis pedis arteries are patent with normaltriphasic Doppler waveforms.2. The PT pressure is 124 mmHg with an UCHE of 1.13 and the DP pressure is127 mmHg with an UCHE of 1.15, within normal range.3. The great toe pressure is 90 mmHg with a normal TBI of 0.82.4. The digits have adequate flow by PPG waveforms. Conclusions Summary Arterial pressures and Doppler waveforms were performed bilaterally. Adequate Doppler waveforms were obtained. Doppler waveforms were triphasic with normal flow bilaterally. The right and left UCHE's were within normal range. The toe pressure and TBI's were w ithin normal range bilaterally. The digits had adequate flow by PPG waveforms bi laterally. There has been no significant change since the previous examinatio n done on 03/05/2017. Signature Velocities are measured in cm/s ; Diameters are measured in cm I nterface, External Ris In - 02/19/2020 7:52 AM CDTPV LAB - Lower Extremity Alexandra rial Procedure Demographics Patient Name CRISTINO VILLASEÑOR Date of Study 02/18/2020 PAULINE Age 59 Visit Number [id number] Gender Male Accession Number [id number] Date of 1960 Refe husam Paula Room Number 3383 Physician Asset Availability Leader Nathan Cedeno Interpreting Cristin Cee Dieudonne Physician ProcedureType of Study: Extremities Arteries: Lower Extremity Arterial Procedure, ARTERIAL (UCHE'S W/DOPPLER) ONLY. I ndications for Study:Heart transplant evaluation .Patient Status:Routine.Study L ocation:Vascular Lab.Technical Quality:Adequate visualization.Risk FactorsHistor y of Disease+ +----+ -------+!Diagnosis !Date!Comments !+ +----+ + !History/Risk Factors: ! !CMP, CAD, HTN, DM, CHF !+--- +----+ +Impressi onsRight Impression1. The posterior tibial and dorsalis pedis arteries are paten t with normaltriphasic Doppler waveforms.2. The PT pressure is 133 mmHg with an CUHE of 1.21 and the DP pressure is137 mmHg with an UCHE of 1.25, within normal ra nge.3. The great toe pressure is 96 mmHg with a normal TBI of 0.87.4. The digits have adequate flow by PPG waveforms.Left Impression1. The posterior tibial and dorsalis pedis arteries are patent with normaltriphasic Doppler waveforms.2. The PT pressure is 124 mmHg with an UCHE of 1.13 and the DP pressure is127 mmHg with an UCHE of 1.15, within normal range.3. The great toe pressure is 90 mmHg with a normal TBI of 0.82.4. The digits have adequate flow by PPG waveforms. Conclusio ns Summary Arterial pressures and Doppler waveforms were performed bilaterally . Adequate Doppler waveforms were obtained. Doppler waveforms were triphasic wit h normal flow bilaterally. The right and left UCHE's were within normal range. Th e toe pressure and TBI's were within normal range bilaterally. The digits had ad equate flow by PPG waveforms bilaterally. There has been no significant cao e since the previous examination done on 03/05/2017. Signature Velocities are measured in cm/s ; Diameters are measured in [facility] doppler [id number] 07:52:16Ejection FractionSLE ECHO HEARTLAB MKCKESSON CPACSRight Impression1. There is <50% diameter reduction (approximately 18% by 2-D measurement)in the internal carotid artery with a peak velocity of 49/18 cm/sec andheterogeneous plaque.2. There is no stenosis in the external carotid artery.3. There is intimal thickening in the common carotid artery.4. The vertebral artery flow is antegrade .5. The subclavian artery is within normal limits where visualized.Left Impression1. There is <50% diameter reduction (approximately 14% by 2-D measurement)in the internal carotid artery with a peak velocity of 44/18 cm/sec andheterogeneous plaque.2. There is no stenosis in the external carotid artery.3. There is intimal thickening in the common carotid artery.4. The vertebral artery flow is antegrade .5. The subclavian artery is within normal limits where visualized. Conclusions Summary Carotid duplex [...] change since the previous examination done on . Signature ------ Electronically signed by Cristin Cee MD(Interpreting physician) on 0 02/19/2020 07:52 AM --- Velocities are measured in cm/s ; Diameters are measured in cm Carotid Right Measurements+ +----+----+-----+ + +--- --------+!Location !PSV !EDV !Angle!%Stenosis 2D!%Stenosis Doppler!Tortuos ity !+ +----+----+-----+ + + +!Prox CCA !76.8!15.8!60 ! ! ! !+-- +----+----+-----+ + + +!Dist C CA !93.8!31.1!60 ! ! ! !+ -----+----+----+-----+ + + +!Prox ICA !49.5!18.1!60 !18% !<50% ! !+ +----+----+-----+ +----- + +!Dist ICA !61.3!17.3!60 ! ! ! !+ +----+----+-----+ + ----+ +!Prox ECA !90.3!19.3!60 ! ! ! !+ +----+----+-----+ + +--- --------+!Vertebral !32.2!9.43!60 ! ! ! !+ +----+----+-----+ + + +!Prox Subclavian!124 ! !60 ! ! ! !+-- +----+----+-----+ + + + - Th ere is antegrade vertebral flow noted on the right side. - Additional Measurem ents:ICAPSV/CCAPSV 0.65.ICAEDV/CCAEDV 1.15. Carotid Left Measurements+ -----+----+----+-----+ + + +!Location !PSV !EDV !Angle!%Stenosis 2D!%Stenosis Doppler!Tortuosity !+ +-- --+----+-----+ + + +!Prox CCA !86.8!2 7 !60 ! ! ! !+ +----+----+ -----+ + + +!Dist CCA !101 !27.6!60 ! ! ! !+ +----+----+-----+-- + + +!Prox ICA !44 !17.6!60 !14% !<50% ! !+ +----+----+-----+ +----- + +!Dist ICA !65.1!28.7!60 ! ! ! !+ +----+----+-----+ + ----+ +!Prox ECA !99.7!19.9!60 ! ! ! !+ +----+----+-----+ + +--- --------+!Vertebral !41.6!12.3!60 ! ! ! !+ +----+----+-----+ + + +!Prox Subclavian!110 ! !60 ! ! ! !+-- +----+----+-----+ + + + - Th ere is antegrade vertebral flow noted on the left side. - Additional Measureme nts:ICAPSV/CCAPSV 0.64.ICAEDV/CCAEDV 1.06. Interface, External Ris In - 02/19/20 20 7:52 AM CDTPV LAB - Carotid Duplex Study Demographics Patient Name CRISTINO ATWOOD Date of Study 02/18/2020 PAULINE Age 59 Visit Number [id number] Gender Male Accession Number [id number] Date o f 1960 Referring Ricardo Paula Room Number 1565 Physician Asset Availability Leader Nathan Cedeno Interpreting Lenora Cee, RVS Physician MD Katz reType of Study: Cerebral: Carotid, CAROTID DOPPLER, BILATERAL. Indications for Study:Heart transplant evaluation .Patient Status:Routine.Study Location:Vas[facility] ar Lab.Technical Quality:Adequate visualization.Risk FactorsHistory of Disease+- +----+ +!Diagn osis !Date!Comments !+--------- +----+ +!History/Risk Factors: ! !CMP, CAD, HTN, DM, CHF !+ +----+ +ImpressionsRight Impre ssion1. There is <50% diameter reduction (approximately 18% by 2-D measurement)in the internal carotid artery with a peak velocity of 49/18 cm/sec andheterogeneous plaque.2. There is no stenosis in the external carotid artery.3. There is intimal thickening in the common carotid artery.4. The vertebral artery flow is antegrade .5. The subclavian artery is within normal limits where visualized.Left Impression1. There is <50% diameter reduction (approximately 14% by 2-D measurement)in the internal carotid artery with a peak velocity of 44/18 cm/sec andheterogeneous plaque.2. There is no stenosis in the external carotid artery.3. There is intimal thickening in the common carotid artery.4. The vertebral artery flow is antegrade .5. The subclavian artery is within normal limits where visualized. Conclusions Summary Carotid duplex [...] change since the previous examination done on . Signature ------ Electronically signed by Cristin Cee MD(Interpreting physician) on 0 02/19/2020 07:52 AM --- Velocities are measured in cm/s ; Diameters are measured in cmCarotid Right Measurements+ +----+----+-----+ + +---- -------+!Location !PSV !EDV !Angle!%Stenosis 2D!%Stenosis Doppler!Tortuosi ty !+ +----+----+-----+ + + + !Prox CCA !76.8!15.8!60 ! ! ! !+--- +----+----+-----+ + + +!Dist CC A !93.8!31.1!60 ! ! ! !+ ----+----+----+-----+ + + +!Prox ICA !49.5!18.1!60 !18% !<50% ! !+ +----+----+-----+ +----- + +!Dist ICA !61.3!17.3!60 ! ! ! !+ +----+----+-----+ + ----+ +!Prox ECA !90.3!19.3!60 ! ! ! !+ +----+----+-----+ + +--- --------+!Vertebral !32.2!9.43!60 ! ! ! !+ +----+----+-----+ + + +!Prox Subclavian!124 ! !60 ! ! ! !+-- +----+----+-----+ + + + - The re is antegrade vertebral flow noted on the right side. - Additional Measuremen ts:ICAPSV/CCAPSV 0.65.ICAEDV/CCAEDV 1.15.Carotid Left Measurements+ --+----+----+-----+ + + +!Location !P SV !EDV !Angle!%Stenosis 2D!%Stenosis Doppler!Tortuosity !+ +----+ ----+-----+ + + +!Prox CCA !86.8!27 !60 ! ! ! !+ +----+----+--- --+ + + +!Dist CCA !101 !27.6!60 ! ! ! !+ +----+----+-----+----- -------+ + +!Prox ICA !44 !17.6!60 !14% !<50% ! !+ +----+----+-----+ +----- + +!Dist ICA !65.1!28.7!60 ! ! ! !+ +----+----+-----+ + ----+ +!Prox ECA !99.7!19.9!60 ! ! ! !+ +----+----+-----+ + +--- --------+!Vertebral !41.6!12.3!60 ! ! ! !+ +----+----+-----+ + + +!Prox Subclavian!110 ! !60 ! ! ! !+-- +----+----+-----+ + + + - The re is antegrade vertebral flow noted on the left side. - Additional Measurement s:ICAPSV/CCAPSV 0.64.ICAEDV/CCAEDV 1.06.[facility] CenterTS/Free T4 If [id number] 06:50:00* Test Item Value Reference Range Interpretation Comments TSH (test code = 90454-4) 1.989 0.350- 4.940 uIU/mL MERT (test code = MERT) Gold Buyer ID - AUGUSTIN M Lab Interpretation (test code = 98752-8) Normal [facility] CenterVitamin B12 and [id number] 06:50:00* Test Item Value Reference Range Interpretation Comments Vitamin B12 (test code = 2132-9) 823 pg/mL 213-816 H Folate (test code = 2284-8) 15.90 ng/mL >=7.00 MERT (test code = MERT) Gold Buyer ID - AUGUSTIN M Lab Interpretation (test code = 99512-7) Abnormal [facility] CenterTS/FREE T4 IF [id number] 06:50:00* Test Item Value Reference Range Interpretation Comments THYROID STIMULATING HORMONE (BEAKER) (test code = 772) 1.989 uIU /mL 0.350-4.940 Gold Buyer ID - AUGUSTIN MVITAMIN B12 AND [id number] 06:50:00* Test Item Value Reference Range Interpretation Comments VITAMIN B12 (BEAKER) (test code = 774) 823 pg/mL 213-816 H FOLATE (BEAKER) (test code = 362) 15.90 ng/mL >=7.00 Gold Buyer ID - AUGUSTIN MBasic Metabolic [id number] 06:15:00* Test Item Value Reference Range Interpretation Comments Sodium (test code = 2951-2) 138 meq/L 136-145 Potassium (test code = 2823-3) 3.3 meq/L 3.5-5.1 L Chloride (test code = 2075-0) 99 meq/L 98-107 CO2 (test code = 2027-9) 31 meq/L 22-29 H BUN (test code = 3094-0) 16 mg/dL 7-21 Creatinine (test code = 2160-0) 1.08 mg/dL 0.57-1.25 Glucose (test code = 2345-7) 138 mg/dL 70-105 H Calcium (test code = 79949-7) 8.7 mg/dL 8.4-10.2 EGFR (test code = 29735-9) 70 mL/min/1.73 sq m ESTIMATED GFR IS NOT ACCURATE CREATININE CLEARANCE IN PREDICTING GLOMERULAR FILTRATION RATE. ESTIMATED GFR IS NOT APPLICABLE FOR DIALYSIS PATIENTS. MERT (test code = MERT) Gold Buyer ID - AUGUSTNI M Lab Interpretation (test code = 94189-2) Abnormal [facility] CenterHepatic function [id number] 06:15:00* Test Item Value Reference Range Interpretation Comments Protein, Total (test code = 2885-2) 6.5 6.0- 8.3 gm/dL Albumin (test code = 23528-3) 3.8 g/dL 3.5-5 Total Bilirubin (test code = 1974-2) 1.4 mg/dL 0.2-1.2 H Bilirubin, Direct (test code = 1967-7) 0.7 mg/dL 0.1-0.5 H Alkaline Phosphatase (test code = 6768-6) 97 U/L 40-150 AST (test code = 1920-8) 28 U/L 5-34 ALT (test code = 1742-6) 53 U/L 6-55 MERT (test code = MERT) Gold Buyer ID - AUGUSTIN M Lab Interpretation (test code = 69617-7) Abnormal [facility] CenterMagnesium2020-05-28 06:15:00* Test Item Value Reference Range Interpretation Comments Magnesium (test code = 09236-7) 1.6 mg/dL 1.6-2.6 MERT (test code = MERT) Gold Buyer ID - AUGUSTIN Lab Interpretation (test code = 13433-8) Normal [facility] CenterMAGNESIUM2020-05-28 06:15:00* Test Item Value Reference Range Interpretation Comments MAGNESIUM (BEAKER) (test code = 627) 1.6 mg/dL 1.6-2.6 Gold Buyer ID - AUGUSTIN ROTHMANASIC METABOLIC [id number] 06:15:00* Test Item Value Reference Range Interpretation Comments SODIUM (BEAKER) (test code = 381) 138 meq/L 136-145 POTASSIUM (BEAKER) (test code = 379) 3.3 meq/L 3.5-5.1 L CHLORIDE (BEAKER) (test code = 382) 99 meq/L 98-107 CO2 (BEAKER) (test code = 355) 31 meq/L 22-29 H BLOOD UREA NITROGEN (BEAKER) (test code = 354) 16 mg/dL 7-21 CREATININE (BEAKER) (test code = 358) 1.08 mg/dL 0.57-1.25 GLUCOSE RANDOM (BEAKER) (test code = 652) 138 mg/dL 70-105 H CALCIUM (BEAKER) (test code = 697) 8.7 mg/dL 8.4-10.2 EGFR (BEAKER) (test code = 1092) 70 mL/min/1.73 sq m ESTIMATED GFR IS NOT ACCURATE CREATININE CLEARANCE IN PREDICTING GLOMERULAR FILTRATION RATE. ESTIMATED GFR IS NOT APPLICABLE FOR DIALYSIS PATIENTS. Gold Buyer WM - AUGUSTIN EPATIC FUNCTION [id number] 06:15:00* Test Item Value Reference Range Interpretation Comments TOTAL PROTEIN (BEAKER) (test code = 770) 6.5 gm/dL 6.0-8.3 ALBUMIN (BEAKER) (test code = 1145) 3.8 g/dL 3.5-5.0 BILIRUBIN TOTAL (BEAKER) (test code = 377) 1.4 mg/dL 0.2-1.2 H BILIRUBIN DIRECT (BEAKER) (test code = 706) 0.7 mg/dL 0.1-0.5 H ALKALINE PHOSPHATASE (BEAKER) (test code = 346) 97 U/L 40-150 AST (SGOT) (BEAKER) (test code = 353) 28 U/L 5-34 ALT (SGPT) (BEAKER) (test code = 347) 53 U/L 6-55 Gold Buyer ID - AUGUSTIN MB-type Natriuretic Factor (BNP)2020-02-19 06:08:00* Test Item Value Reference Range Interpretation Comments BNP (test code = 65455-9) 2172 pg/mL 0-100 H MERT (test code = MERT) Gold Buyer ID - AUGUSTIN M Lab Interpretation (test code = 51665-0) Abnormal [facility] CenterB-TYPE NATRIURETIC FACTOR (BNP)2020-02-19 06:08:00 * Test Item Value Reference Range Interpretation Comments B-TYPE NATRIURETIC PEPTIDE (BEAKER) (test code = 700) 2172 pg/mL 0-100 H Gold Buyer ID - AUGUSTIN MProthrombin time/OGR5729-10-03 05:59:00* Test Item Value Reference Range Interpretation Comments Protime (test code = 5902-2) 32.8 11.9- 14.2 seconds H INR (test code = 6301-6) 3.3 <=5.9 MERT (test code = MERT) Effective 02/19/2019: PT Refe rence Range ChangeNew: 11.9- 14.2 Previous: 11.7-14.7 RECOMMENDED COUMADIN/WARFARIN INR THERAPY RANGESSTANDARD DOSE: 2.0-3.0 Includes: PROPHYLAXIS for venous thrombosis, sys temic embolization; TREATMENT for venous thrombosis and/or pulmonary embolus.HIGH RISK: Target INR is 2.5-3.5 for patients wiht mechanical heart valves. Lab Interpretation (test code = 83553-3) Abnormal [facility] CenterPROTHROMBIN TIME/[id number] 05:59:00* Test Item Value Reference Range Interpretation Comments PROTIME (BEAKER) (test code = 759) 32.8 seconds 11.9-14.2 H INR (BEAKER) (test code = 370) 3.3 <=5.9 Effective 02/19/2019: PT Reference Range ChangeNew: 11.9-14.2 Previous: 11.7-14. 7RECOMMENDED COUMADIN/WARFARIN INR THERAPY RANGESSTANDARD DOSE: 2.0-3.0 Include s: PROPHYLAXIS for venous thrombosis, systemic embolization; TREATMENT for venou s thrombosis and/or pulmonary embolus.HIGH RISK: Target INR is 2.5-3.5 for patie nts wiht mechanical heart valves.CBC with platelet count + automated diff 2020-02-19 05:47:00* Test Item Value Reference Range Interpretation Comments WBC (test code = 6690-2) 8.0 3.5- 10.5 K/L RBC (test code = 789-8) 4.87 4.63- 6.08 M/L MCHC (test code = 786-4) 31.6 32.3- 36.5 GM/DL L Hematocrit (test code = 4544-3) 42.7 % 40.1-51 MCV (test code = 787-2) 87.7 fL 79-92.2 MCH (test code = 785-6) 27.7 pg 25.7-32.2 RDW (test code = 788-0) 17.2 % 11.6-14.4 H Platelets (test code = 777-3) 317 150- 450 K/CU MM MPV (test code = 26084-8) 10.5 fL 9.4-12.4 nRBC (test code = 413) 0 0- 0 /100 WBC % Neutros (test code = 429) 70 % % Lymphs (test code = 430) 15 % % Monos (test code = 431) 9 % % Eos (test code = 432) 5 % % Baso (test code = 437) 1 % # Neutros (test code = 670) 5.54 1.78- 5.38 K/L H # Lymphs (test code = 414) 1.15 1.32- 3.57 K/L L # Monos (test code = 415) 0.74 0.30- 0.82 K/L # Eos (test code = 416) 0.39 0.04- 0.54 K/L # Baso (test code = 417) 0.10 0.01- 0.08 K/L H Immature Granulocytes-Relative (test code = 2801) 0 % 0-1 Lab Interpretation (test code = 41024-3) Abnormal [facility] W/PLT COUNT & AUTO [id number] 05:47:00* Test Item Value Reference Range Interpretation Comments WHITE BLOOD CELL COUNT (BEAKER) (test code = 775) 8.0 K/ L 3.5- 10.5 RED BLOOD CELL COUNT (BEAKER) (test code = 761) 4.87 M/ L 4.63-6 .08 HEMOGLOBIN (BEAKER) (test code = 410) 13.5 GM/DL 13.7-17.5 L HEMATOCRIT (BEAKER) (test code = 411) 42.7 % 40.1-51.0 MEAN CORPUSCULAR VOLUME (BEAKER) (test code = 753) 87.7 fL 79. 0-92.2 MEAN CORPUSCULAR HEMOGLOBIN (BEAKER) (test code = 751) 27.7 pg 25.7-32.2 MEAN CORPUSCULAR HEMOGLOBIN CONC (BEAKER) (test code = 752) 31.6 GM/DL 32.3-36.5 L RED CELL DISTRIBUTION WIDTH (BEAKER) (test code = 412) 17.2 % 11.6-14.4 H PLATELET COUNT (BEAKER) (test code = 756) 317 K/CU MM 150-450 MEAN PLATELET VOLUME (BEAKER) (test code = 754) 10.5 fL 9.4-12 .4 NUCLEATED RED BLOOD CELLS (BEAKER) (test code = 413) 0 /100 WBC 0 -0 NEUTROPHILS RELATIVE PERCENT (BEAKER) (test code = 429) 70 % LYMPHOCYTES RELATIVE PERCENT (BEAKER) (test code = 430) 15 % MONOCYTES RELATIVE PERCENT (BEAKER) (test code = 431) 9 % EOSINOPHILS RELATIVE PERCENT (BEAKER) (test code = 432) 5 % BASOPHILS RELATIVE PERCENT (BEAKER) (test code = 437) 1 % NEUTROPHILS ABSOLUTE COUNT (BEAKER) (test code = 670) 5.54 K/ L 1.78-5.38 H LYMPHOCYTES ABSOLUTE COUNT (BEAKER) (test code = 414) 1.15 K/ L 1.32-3.57 L MONOCYTES ABSOLUTE COUNT (BEAKER) (test code = 415) 0.74 K/ L 0. 30-0.82 EOSINOPHILS ABSOLUTE COUNT (BEAKER) (test code = 416) 0.39 K/ L 0.04-0.54 BASOPHILS ABSOLUTE COUNT (BEAKER) (test code = 417) 0.10 K/ L 0. 01-0.08 H IMMATURE GRANULOCYTES-RELATIVE PERCENT (BEAKER) (test code = 2801) 0 % 0-1 CT, CHEST, WITHOUT [id number] 03:55:00FINAL REPORT EXAM: CT of the chest, without [...] FINDINGS: CT CHEST: LOWER NECK: Within normal limits.AIRWAYS AND LUNGS: Patent central tracheobronchial tree. Diffuse interlobular septal thickening compatible with pulmonary interstitial edema. Diffuse hazy airspace opacities in the right middle right lower lobes, which may represent pulmonary edema. Peripheral ground glass opacity in the anterior right upper lobe which may represent organizing pneumonia or viral pneumonitis.PLEURA: No pleural effusion or pneumothorax.VESSELS: Atherosclerotic calcifications of the aorta and cor onary arteries. No thoracic aortic aneurysm.HEART: Moderate cardiomegaly. AICD l shine overlying the right atrium, right ventricle and coronary sinus No pericardi al effusion.ALTHEA AND MEDIASTINUM: Within normal limits.VISUALIZED UPPER ABDOMEN: Within normal limits.SOFT TISSUES: Left upper anterior chest wall AICD. BONES: Within normal limits. CT ABDOMEN: LIVER: Within normal limits.BILE DUCTS: Within normal limits.GALL BLADDER: Within normal limits.PANCREAS: Within normal limits .SPLEEN: Within normal limits.ADRENALS: Within normal limits.KIDNEYS/URETERS: Tw o small hyperdensities in the left kidney measuring up to 1 cm compatible with p roteinaceous or hemorrhagic cysts. No hydroureteronephrosis or radiopaque stones . IMAGED BOWEL/MESENTERY: No bowel obstruction or abnormal wall thickening. Norm al appendix.IMAGED PERITONEUM/RETROPERITONEUM: No free air, free fluid or fluid collection. VESSELS: Atherosclerotic calcifications of the aorta and branches. N o abdominal aortic aneurysm. LYMPH NODES: No abdominal lymphadenopathy.SOFT TISS UES: Within normal limits.BONES: Degenerative changes of the lower lumbar spine notable for severe disease at L4/L5 IMPRESSION: Chest CT:Moderate cardiomegaly. Pulmonary interstitial edema. Hazy airspace opacities in the right middle and ri ght lower lobes which may represent pulmonary edema. Peripheral ground glass [place] in the anterior right upper lobe. Differential diagnosis includes organizin g pneumonia, viral pneumonitis or focal pulmonary edema. Clinical correlation is recommended. CT abdomen:Small proteinaceous or hemorrhagic left renal cysts. Si gned: James Bronson MDReport Verified Date/Time: 02/19/2020 03:55:27 Electr onically signed by: JAMES BRONSON MD on 02/19/2020 03:[address], ABDOMEN, WITHOUT [id number] 03:55:00FINAL REPORT EXAM: CT of the chest, without [...] FINDINGS: CT CHEST: LOWER NECK: Within normal limits.AIRWAYS AND LUNGS: Patent central tracheobronchial tree. Diffuse interlobular septal thickening compatible with pulmonary interstitial edema. Diffuse hazy airspace opacities in the right middle right lower lobes, which may represent pulmonary edema. Peripheral ground glass opacity in the anterior right upper lobe which may represent organizing pneumonia or viral pneumonitis.PLEURA: No pleural effusion or pneumothorax.VESSELS: Atherosclerotic calcifications of the aorta and coronary arteries. No thoracic aortic aneurysm.HEART: Moderate cardiomegaly. AICD leads overlying the right atrium, right ventricle and coronary sinus No pericardial effusion.ALTHEA AND MEDIASTINUM: Within normal limits.VISUALIZED UPPER ABDOMEN: Within normal limits.SOFT TISSUES: Left upper anterior chest wall AICD. BONES: Within normal limits. CT ABDOMEN: LIVER: Within normal limits.BILE DUCTS: Within normal limits.GALL BLADDER: Within normal limits.PANCREAS: Within normal limits .SPLEEN: Within normal limits.ADRENALS: Within normal limits.KIDNEYS/URETERS: Tw o small hyperdensities in the left kidney measuring up to 1 cm compatible with p roteinaceous or hemorrhagic cysts. No hydroureteronephrosis or radiopaque stones . IMAGED BOWEL/MESENTERY: No bowel obstruction or abnormal wall thickening. Norm al appendix.IMAGED PERITONEUM/RETROPERITONEUM: No free air, free fluid or fluid collection. VESSELS: Atherosclerotic calcifications of the aorta and branches. N o abdominal aortic aneurysm. LYMPH NODES: No abdominal lymphadenopathy.SOFT TISS UES: Within normal limits.BONES: Degenerative changes of the lower lumbar spine notable for severe disease at L4/L5 IMPRESSION: Chest CT:Moderate cardiomegaly. Pulmonary interstitial edema. Hazy airspace opacities in the right middle and ri ght lower lobes which may represent pulmonary edema. Peripheral ground glass [place] in the anterior right upper lobe. Differential diagnosis includes organizin g pneumonia, viral pneumonitis or focal pulmonary edema. Clinical correlation is recommended. CT abdomen:Small proteinaceous or hemorrhagic left renal cysts. Si gned: James Bronson MDReport Verified Date/Time: 02/19/2020 03:55:27 Electr onically signed by: JAMES BRONSON MD on 02/19/2020 03:[address] abdomen without IV [id number] 03:55:00Interface, External Ris In - 02/19/2020 3:58 AM CDTFINAL REPORT EXAM: CT of the chest, without [...] FINDINGS: CT CHEST: LOWER NECK: Within normal limits.AIRWAYS AND LUNGS: Patent central tracheobronchial tree. Diffuse interlobular septal thickening compatible with pulmonary interstitial edema. Diffuse hazy airspace opacities in the right mi ddle right lower lobes, which may represent pulmonary edema. Peripheral ground g lass opacity in the anterior right upper lobe which may represent organizing pne umonia or viral pneumonitis.PLEURA: No pleural effusion or pneumothorax.VESSELS: Atherosclerotic calcifications of the aorta and coronary arteries. No thoracic aortic aneurysm.HEART: Moderate cardiomegaly. AICD leads overlying the right atr ium, right ventricle and coronary sinus No pericardial effusion.ALTHEA AND MEDIAST INUM: Within normal limits.VISUALIZED UPPER ABDOMEN: Within normal limits.SOFT T ISSUES: Left upper anterior chest wall AICD. BONES: Within normal limits. CT ABD OMEN: LIVER: Within normal limits.BILE DUCTS: Within normal limits.GALL BLADDER: Within normal limits.PANCREAS: Within normal limits.SPLEEN: Within normal limit s.ADRENALS: Within normal limits.KIDNEYS/URETERS: Two small hyperdensities in th e left kidney measuring up to 1 cm compatible with proteinaceous or hemorrhagic cysts. No hydroureteronephrosis or radiopaque stones. IMAGED BOWEL/MESENTERY: No bowel obstruction or abnormal wall thickening. Normal appendix.IMAGED PERITONEU M/RETROPERITONEUM: No free air, free fluid or fluid collection. VESSELS: Atheros clerotic calcifications of the aorta and branches. No abdominal aortic aneurysm. LYMPH NODES: No abdominal lymphadenopathy.SOFT TISSUES: Within normal limits.GREGG FIORELLA: Degenerative changes of the lower lumbar spine notable for severe disease a t L4/L5 IMPRESSION: Chest CT:Moderate cardiomegaly. Pulmonary interstitial edema . Hazy airspace opacities in the right middle and right lower lobes which may re present pulmonary edema. Peripheral ground glass opacity in the anterior right u pper lobe. Differential diagnosis includes organizing pneumonia, viral pneumonit is or focal pulmonary edema. Clinical correlation is recommended. CT abdomen:Sma ll proteinaceous or hemorrhagic left renal cysts. Signed: James Bronson MDReport Verified Date/Time: 02/19/2020 03:55:27 [facility] [id number] 03:55:00Interface, External Ris In - 02/19/2020 3:58 AM CDTFINAL REPORT EXAM: CT of the chest, without [...] FINDINGS: CT CHEST: LOWER NECK: Within normal limits.AIRWAYS AND LUNGS: Patent central tracheobronchial tree. Diffuse interlobular septal thickening compatible with pulmonary interstitial edema. Diffuse hazy airspace opacities in the right mi ddle right lower lobes, which may represent pulmonary edema. Peripheral ground g lass opacity in the anterior right upper lobe which may represent organizing pne umonia or viral pneumonitis.PLEURA: No pleural effusion or pneumothorax.VESSELS: Atherosclerotic calcifications of the aorta and coronary arteries. No thoracic aortic aneurysm.HEART: Moderate cardiomegaly. AICD leads overlying the right atr ium, right ventricle and coronary sinus No pericardial effusion.ALTHEA AND MEDIAST INUM: Within normal limits.VISUALIZED UPPER ABDOMEN: Within normal limits.SOFT T ISSUES: Left upper anterior chest wall AICD. BONES: Within normal limits. CT ABD OMEN: LIVER: Within normal limits.BILE DUCTS: Within normal limits.GALL BLADDER: Within normal limits.PANCREAS: Within normal limits.SPLEEN: Within normal limit s.ADRENALS: Within normal limits.KIDNEYS/URETERS: Two small hyperdensities in th e left kidney measuring up to 1 cm compatible with proteinaceous or hemorrhagic cysts. No hydroureteronephrosis or radiopaque stones. IMAGED BOWEL/MESENTERY: No bowel obstruction or abnormal wall thickening. Normal appendix.IMAGED PERITONEU M/RETROPERITONEUM: No free air, free fluid or fluid collection. VESSELS: Atheros clerotic calcifications of the aorta and branches. No abdominal aortic aneurysm. LYMPH NODES: No abdominal lymphadenopathy.SOFT TISSUES: Within normal limits.GREGG FIORELLA: Degenerative changes of the lower lumbar spine notable for severe disease a t L4/L5 IMPRESSION: Chest CT:Moderate cardiomegaly. Pulmonary interstitial edema . Hazy airspace opacities in the right middle and right lower lobes which may re present pulmonary edema. Peripheral ground glass opacity in the anterior right u pper lobe. Differential diagnosis includes organizing pneumonia, viral pneumonit is or focal pulmonary edema. Clinical correlation is recommended. CT abdomen:Sma ll proteinaceous or hemorrhagic left renal cysts. Signed: James Bronson MDReport Verified Date/Time: 02/19/2020 03:55:27 [facility], [facility] [id number] 02:51:00FINAL REPORT EXAM: CT head without contrast. CLINICAL HISTORY: heart transplant evaluation COMPARISON: Head CT 03/08/2017. TECHNIQUE: CT images of the head were obtained without intravenous contrast. This exam was performed according to our departmental dose optimization program which includes automated exposure control, adjustment of the mA and/or kV according to patient's size and/or use of iterative reconstructive technique. FINDINGS:There is encephalomalacia in the right temporal lobe and right basal ganglia which may be due to a chronic right MCA territory infarct. There are small chronic right cerebellar infarcts. There is intracranial calcific atherosclerosis. There is mild ex-vacuo dilatation of the right frontal horn.There is no acute intracranial hemorrhage, extra-axial fluid collection, mass effect, herniation, hydrocephalus or large demarcated acute territorial infarct. The basal cisterns are patent. The visualized orbits are normal. The visualized paranasal sinuses and tympanomastoid cavities are clear. The skull base and calvarium are intact. IMPRESSION: Chronic infarcts as described.No acute intracranial hemorrhage, mass effect or hydrocephalus. Signed: James Bronson Verified Date/Time: 02/19/2020 02:51:56 brain without IV [id number] 02:51:00Interface, External Ris In - 02/19/2020 2:54 AM CDTFINAL REPORT EXAM: CT head without contrast. CLINICAL HISTORY: heart transplant evaluation COMPARISON: Head CT 03/08/2017. TECHNIQUE: CT images of the head were obtained without intravenous contrast. This exam was performed according to our departmental dose optimization program which includes automated exposure control, adjustment of the mA and/or kV according to patient's size and/or use of iterative reconstructive technique. FINDINGS:There is encephalomalacia in the right temp oral lobe and right basal ganglia which may be due to a chronic right MCA territ ory infarct. There are small chronic right cerebellar infarcts. There is intracr anial calcific atherosclerosis. There is mild ex-vacuo dilatation of the right f rontal horn.There is no acute intracranial hemorrhage, extra-axial fluid collect ion, mass effect, herniation, hydrocephalus or large demarcated acute territoria l infarct. The basal cisterns are patent. The visualized orbits are normal. Th e visualized paranasal sinuses and tympanomastoid cavities are clear. The skull base and calvarium are intact. IMPRESSION: Chronic infarcts as described.No acu te intracranial hemorrhage, mass effect or hydrocephalus. Signed: James Bronson Verified Date/Time: 02/19/2020 02:51:56 [facility] POCT-GLUCOSE [id number] 22:26:00* Test Item Value Reference Range Interpretation Comments POC-GLUCOSE METER (BEAKER) (test code = 1538) 171 mg/dL 70-110 H : TESTED AT [facility] [address], [address]: Gold Buyer/Lacing String Cutter ID = [id number] for ISAAC SOLORZANO [id number] 21:07:00* Test Item Value Reference Range Interpretation Comments Ferritin (test code = 2276-4) 61.83 ng/mL 5-275 MERT (test code = MERT) Gold Buyer ID - BS Lab Interpretation (test code = 80644-0) Normal [facility] CenterFERRITIN2020-[facility] 21:07:00* Test Item Value Reference Range Interpretation Comments FERRITIN (BEAKER) (test code = 361) 61.83 ng/mL 5.00-275.00 Gold Buyer ID - BSHepatitis B core antibody, [id number] 19:20:00* Test Item Value Reference Range Interpretation Comments Hep B Core Total Ab (test code = 02371-0) Nonreactive Nonreactive MERT (test code = MERT) Gold Buyer ID - BS Lab Interpretation (test code = 72079-9) Normal [facility] CenterHepatitis panel, [id number] 19:20:00* Test Item Value Reference Range Interpretation Comments Hep A IgM (test code = 77368-0) Nonreactive Nonreactive Hep B C IgM (test code = 50739-2) Nonreactive Nonreactive Hepatitis C Ab (test code = 30818-3) Nonreactive Nonreactive HBsAg Screen (test code = 5195-3) Nonreactive Nonreactive MERT (test code = MERT) Gold Buyer ID - BS Lab Interpretation (test code = 13755-0) [facility] CenterHIV-1 Antigen with HIV-1/2 [id number] 19:20:00* Test Item Value Reference Range Interpretation Comments HIV-1 Antigen with HIV 1&2 Antibody (test code = 51540-3) No nreactive Nonreactive MERT (test code = MERT) Gold Buyer ID - BS Lab Interpretation (test code = 79882-2) Normal [facility] CenterHepatitis A antibody, [id number] 19:20:00* Test Item Value Reference Range Interpretation Comments Hep A IgG (test code = 34189-5) Nonreactive Nonreactive MERT (test code = MERT) Gold Buyer ID - BS Lab Interpretation (test code = 66500-6) Normal [facility] CenterHEPATITIS B CORE ANTIBODY, [id number] 19:20:00 * Test Item Value Reference Range Interpretation Comments HEPATITIS B CORE TOTAL ANTIBODY (BEAKER) (test code = 497) N onreactive Nonreactive Gold Buyer ID - BSHEPATITIS PANEL, [id number] 19:20:00* Test Item Value Reference Range Interpretation Comments HEPATITIS A IGM ANTIBODY (BEAKER) (test code = 498) Nonreactive No nreactive HEPATITIS B CORE IGM ANTIBODY (BEAKER) (test code = 645) Non reactive Nonreactive HEPATITIS C ANTIBODY (BEAKER) (test code = 367) Nonreactive Nonrea ctive HEPATITIS B SURFACE ANTIGEN (2) (BEAKER) (test code = 2585) Nonreactive Nonreactive Gold Buyer ID - BSHIV-1 ANTIGEN WITH HIV-1/2 [id number] 19:20:00* Test Item Value Reference Range Interpretation Comments HIV-1 ANTIGEN WITH HIV 1\\T\\2 ANTIBODY (2) (BEAKER) (te st code = 2586) Nonreactive Nonreactive Gold Buyer ID - BSHEPATITIS A ANTIBODY, [id number] 19:20:00* Test Item Value Reference Range Interpretation Comments HEPATITIS A IGG ANTIBODY (BEAKER) (test code = 2797) Nonreactive N onreactive Gold Buyer ID - [id number] 19:16:00* Test Item Value Reference Range Interpretation Comments PSA (test code = 2857-1) 0.6 ng/mL 0-4 MERT (test code = MERT) Gold Buyer ID - BS Lab Interpretation (test code = 61829-6) Normal [facility] CenterVitamin D, [id number] 19:16:00* Test Item Value Reference Range Interpretation Comments Vitamin D 25-Hydroxy (test code = 2764) 34.4 ng/mL 6.6-49.9 MERT (test code = MERT) Effective 07/04/2017: Refere nce Range ChangeNew: 6.6-49.9 ng/mL Previous: 13.0-47.8 ng/mL Recommended Vitamin D Target Range: 30.0-40.0 ng/mLOperator ID - BS Lab Interpretation (test code = 68101-0) Normal [facility] CenterPSA2020-05-27 19:16:00* Test Item Value Reference Range Interpretation Comments PROSTATE SPECIFIC ANTIGEN (BEAKER) (test code = 844) 0.6 ng/mL 0 .0-4.0 Gold Buyer ID - BSVITAMIN D, [id number] 19:16:00* Test Item Value Reference Range Interpretation Comments VITAMIN D 25-OH (BEAKER) (test code = 2764) 34.4 ng/mL 6.6-49.9 Effective 07/04/2017: Reference Range ChangeNew: 6.6-49.9 ng/mL Previous: 13.0 -47.8 ng/mLRecommended Vitamin D Target Range: 30.0-40.0 ng/mLOperator ID - BS Iron, [id number] 18:45:00* Test Item Value Reference Range Interpretation Comments Iron (test code = 2498-4) 47.0 ug/dL 40-160 MERT (test code = MERT) Gold Buyer ID - BS Lab Interpretation (test code = 47854-3) Normal [facility] CenterPrealbumin2020-05-27 18:45:00* Test Item Value Reference Range Interpretation Comments Prealbumin (test code = 78937-7) 14 mg/dL 14-45 MERT (test code = MERT) Gold Buyer ID - BS Lab Interpretation (test code = 79903-6) Normal [facility] CenterTransferrin2020-05-27 18:45:00* Test Item Value Reference Range Interpretation Comments Transferrin (test code = 3034-6) 289 mg/dL 174-382 MERT (test code = MERT) Gold Buyer ID - BS Lab Interpretation (test code = 81950-2) Normal [facility] CenterTRANSFERRIN2020-05-27 18:45:00* Test Item Value Reference Range Interpretation Comments TRANSFERRIN (BEAKER) (test code = 541) 289 mg/dL 174-382 Gold Buyer ID - [id number] 18:45:00* Test Item Value Reference Range Interpretation Comments PREALBUMIN (BEAKER) (test code = 586) 14 mg/dL 14-45 Gold Buyer ID - BSIRON, [id number] 18:45:00* Test Item Value Reference Range Interpretation Comments IRON (BEAKER) (test code = 547) 47.0 ug/dL 40.0-160.0 Gold Buyer ID - BSDirect AHG (FARHAD)/Direct [id number] 17:09:00* Test Item Value Reference Range Interpretation Comments Direct AHG-IGG (test code = 1006-6) NEGATIVE Direct AHG-C3B, C3D (test code = 1003-3) NEGATVIE [facility] CenterType and screen, [id number] 16:47:00* Test Item Value Reference Range Interpretation Comments ABO/RH AUTOMATED (BEAKER) (test code = 2260) O POSITIVE Ab Scrn (test code = 890-4) NEGATIVE [facility] CenterAmylase2020-05-27 16:32:00* Test Item Value Reference Range Interpretation Comments Amylase (test code = 1798-8) 56 U/L 25-125 MERT (test code = MERT) Gold Buyer ID - BS Lab Interpretation (test code = 18156-0) Normal [facility] CenterCreatinine2020-05-27 16:32:00* Test Item Value Reference Range Interpretation Comments Creatinine (test code = 2160-0) 1.23 mg/dL 0.57-1.25 EGFR (test code = 73824-2) 61 mL/min/1.73 sq m ESTIMATED GFR IS NOT ACCURATE CREATININE CLEARANCE IN PREDICTING GLOMERULAR FILTRATION RATE. ESTIMATED GFR IS NOT APPLICABLE FOR DIALYSIS PATIENTS. MERT (test code = MERT) Gold Buyer ID - BS [facility] CenterGamma Glutamyl Transferase (GGT)2020-02-18 16:32:00 * Test Item Value Reference Range Interpretation Comments GGT (test code = 2324-2) 54 U/L 9-64 MERT (test code = MERT) Gold Buyer ID - BS Lab Interpretation (test code = 20573-1) Normal [facility] CenterLactate dehydrogenase (LDH)2020-02-18 16:32:00* Test Item Value Reference Range Interpretation Comments LDH (test code = 2532-0) 302 U/L 125-220 H MERT (test code = MERT) Gold Buyer ID - BS Lab Interpretation (test code = 76575-2) Abnormal [facility] CenterLipase2020-05-27 16:32:00* Test Item Value Reference Range Interpretation Comments Lipase (test code = 3040-3) 151 U/L 8-78 H MERT (test code = MERT) Gold Buyer ID - BS Lab Interpretation (test code = 37399-6) Abnormal [facility] CenterPhosphorus2020-05-27 16:32:00* Test Item Value Reference Range Interpretation Comments Phosphorus (test code = 2777-1) 2.3 mg/dL 2.3-4.7 MERT (test code = MERT) Gold Buyer ID - BS Lab Interpretation (test code = 58329-6) Normal [facility] CenterUric [id number] 16:32:00* Test Item Value Reference Range Interpretation Comments Uric Acid (test code = 3084-1) 7.7 mg/dL 2.6-7.2 H MERT (test code = MERT) Gold Buyer ID - BS Lab Interpretation (test code = 00522-9) Abnormal [facility] CenterURIC [id number] 16:32:00* Test Item Value Reference Range Interpretation Comments URIC ACID (BEAKER) (test code = 773) 7.7 mg/dL 2.6-7.2 H Gold Buyer ID - [id number] 16:32:00* Test Item Value Reference Range Interpretation Comments PHOSPHORUS (BEAKER) (test code = 604) 2.3 mg/dL 2.3-4.7 Gold Buyer ID - [id number] 16:32:00* Test Item Value Reference Range Interpretation Comments AMYLASE (BEAKER) (test code = 349) 56 U/L 25-125 Gold Buyer ID - [id number] 16:32:00* Test Item Value Reference Range Interpretation Comments CREATININE (BEAKER) (test code = 358) 1.23 mg/dL 0.57-1.25 EGFR (BEAKER) (test code = 1092) 61 mL/min/1.73 sq m ESTIMATED GFR IS NOT ACCURATE CREATININE CLEARANCE IN PREDICTING GLOMERULAR FILTRATION RATE. ESTIMATED GFR IS NOT APPLICABLE FOR DIALYSIS PATIENTS. Gold Buyer ID - BSGAMMA GLUTAMYL TRANSFERASE (GGT)2020-02-18 16:32:00* Test Item Value Reference Range Interpretation Comments GAMMA GLUTAMYL TRANSFERASE (BEAKER) (test code = 364) 54 U/L 9-64 Gold Buyer ID - BSLACTATE DEHYDROGENASE (LDH)2020-02-18 16:32:00* Test Item Value Reference Range Interpretation Comments LACTATE DEHYDROGENASE (BEAKER) (test code = 635) 302 U/L 125-2 20 H Gold Buyer ID - [id number] 16:32:00* Test Item Value Reference Range Interpretation Comments LIPASE (BEAKER) (test code = 749) 151 U/L 8-78 H Gold Buyer ID - BSPOCT-GLUCOSE [id number] 16:31:00* Test Item Value Reference Range Interpretation Comments POC-GLUCOSE METER (BEAKER) (test code = 1538) 165 mg/dL 70-110 H : TESTED AT [address], [address]: Gold Buyer/Lacing String Cutter ID = [id number] for Danilo Manley Blood typing, automated - at seperate draw time from initial type and screen 2020-02-18 16:23:00* Test Item Value Reference Range Interpretation Comments ABO/RH AUTOMATED (BEAKER) (test code = 2260) O POSITIVE [facility] CenterReticulocyte [id number] 15:55:00* Test Item Value Reference Range Interpretation Comments % Retic (test code = 78836-9) 2.1 % 0.5-1.8 H MERT (test code = MERT) Gold Buyer ID - [id number] Lab Interpretation (test code = 08843-6) Abnormal [facility] CenterRETICULOCYTE [id number] 15:55:00* Test Item Value Reference Range Interpretation Comments RETICULOCYTE COUNT PCT (BEAKER) (test code = 575) 2.1 % 0.5- 1.8 H Gold Buyer ID - 6000POCT-GLUCOSE [id number] 12:53:00* Test Item Value Reference Range Interpretation Comments POC-GLUCOSE METER (BEAKER) (test code = 1538) 146 mg/dL 70-110 H : TESTED AT [place] [id number] [facility], [address]: Gold Buyer/Lacing String Cutter ID = [id number] for Danilo Manley [id number] 05:21:00* Test Item Value Reference Range Interpretation Comments MAGNESIUM (BEAKER) (test code = 627) 2.0 mg/dL 1.6-2.6 Gold Buyer ID - PIAYA LBASIC METABOLIC [id number] 05:21:00* Test Item Value Reference Range Interpretation Comments SODIUM (BEAKER) (test code = 381) 141 meq/L 136-145 POTASSIUM (BEAKER) (test code = 379) 3.9 meq/L 3.5-5.1 CHLORIDE (BEAKER) (test code = 382) 103 meq/L 98-107 CO2 (BEAKER) (test code = 355) 31 meq/L 22-29 H BLOOD UREA NITROGEN (BEAKER) (test code = 354) 27 mg/dL 7-21 H CREATININE (BEAKER) (test code = 358) 1.41 mg/dL 0.57-1.25 H GLUCOSE RANDOM (BEAKER) (test code = 652) 131 mg/dL 70-105 H CALCIUM (BEAKER) (test code = 697) 9.1 mg/dL 8.4-10.2 EGFR (BEAKER) (test code = 1092) 52 mL/min/1.73 sq m ESTIMATED GFR IS NOT ACCURATE CREATININE CLEARANCE IN PREDICTING GLOMERULAR FILTRATION RATE. ESTIMATED GFR IS NOT APPLICABLE FOR DIALYSIS PATIENTS. Gold Buyer ID - AVTAR LHEPATIC FUNCTION [id number] 05:21:00* Test Item Value Reference Range Interpretation Comments TOTAL PROTEIN (BEAKER) (test code = 770) 6.5 gm/dL 6.0-8.3 ALBUMIN (BEAKER) (test code = 1145) 3.7 g/dL 3.5-5.0 BILIRUBIN TOTAL (BEAKER) (test code = 377) 1.2 mg/dL 0.2-1.2 BILIRUBIN DIRECT (BEAKER) (test code = 706) 0.6 mg/dL 0.1-0.5 H ALKALINE PHOSPHATASE (BEAKER) (test code = 346) 100 U/L 40-150 AST (SGOT) (BEAKER) (test code = 353) 38 U/L 5-34 H ALT (SGPT) (BEAKER) (test code = 347) 68 U/L 6-55 H Gold Buyer ID Lety NOVA LPROTHROMBIN TIME/[id number] 05:06:00* Test Item Value Reference Range Interpretation Comments PROTIME (BEAKER) (test code = 759) 25.8 seconds 11.9-14.2 H INR (BEAKER) (test code = 370) 2.4 <=5.9 Effective 02/19/2019: PT Reference Range ChangeNew: 11.9-14.2 Previous: 11.7-14. 7RECOMMENDED COUMADIN/WARFARIN INR THERAPY RANGESSTANDARD DOSE: 2.0-3.0 Include s: PROPHYLAXIS for venous thrombosis, systemic embolization; TREATMENT for venou s thrombosis and/or pulmonary embolus.HIGH RISK: Target INR is 2.5-3.5 for patie nts wiht mechanical heart valves.CBC W/PLT COUNT & AUTO [id number] 04:54:00* Test Item Value Reference Range Interpretation Comments WHITE BLOOD CELL COUNT (BEAKER) (test code = 775) 8.0 K/ L 3.5- 10.5 RED BLOOD CELL COUNT (BEAKER) (test code = 761) 4.74 M/ L 4.63-6 .08 HEMOGLOBIN (BEAKER) (test code = 410) 13.4 GM/DL 13.7-17.5 L HEMATOCRIT (BEAKER) (test code = 411) 42.5 % 40.1-51.0 MEAN CORPUSCULAR VOLUME (BEAKER) (test code = 753) 89.7 fL 79. 0-92.2 MEAN CORPUSCULAR HEMOGLOBIN (BEAKER) (test code = 751) 28.3 pg 25.7-32.2 MEAN CORPUSCULAR HEMOGLOBIN CONC (BEAKER) (test code = 752) 31.5 GM/DL 32.3-36.5 L RED CELL DISTRIBUTION WIDTH (BEAKER) (test code = 412) 17.2 % 11.6-14.4 H PLATELET COUNT (BEAKER) (test code = 756) 326 K/CU MM 150-450 MEAN PLATELET VOLUME (BEAKER) (test code = 754) 10.6 fL 9.4-12 .4 NUCLEATED RED BLOOD CELLS (BEAKER) (test code = 413) 0 /100 WBC 0 -0 NEUTROPHILS RELATIVE PERCENT (BEAKER) (test code = 429) 70 % LYMPHOCYTES RELATIVE PERCENT (BEAKER) (test code = 430) 16 % MONOCYTES RELATIVE PERCENT (BEAKER) (test code = 431) 9 % EOSINOPHILS RELATIVE PERCENT (BEAKER) (test code = 432) 4 % BASOPHILS RELATIVE PERCENT (BEAKER) (test code = 437) 1 % NEUTROPHILS ABSOLUTE COUNT (BEAKER) (test code = 670) 5.58 K/ L 1.78-5.38 H LYMPHOCYTES ABSOLUTE COUNT (BEAKER) (test code = 414) 1.23 K/ L 1.32-3.57 L MONOCYTES ABSOLUTE COUNT (BEAKER) (test code = 415) 0.73 K/ L 0. 30-0.82 EOSINOPHILS ABSOLUTE COUNT (BEAKER) (test code = 416) 0.30 K/ L 0.04-0.54 BASOPHILS ABSOLUTE COUNT (BEAKER) (test code = 417) 0.09 K/ L 0. 01-0.08 H IMMATURE GRANULOCYTES-RELATIVE PERCENT (BEAKER) (test code = 2801) 0 % 0-1 POCT-GLUCOSE [id number] 21:53:00* Test Item Value Reference Range Interpretation Comments POC-GLUCOSE METER (BEAKER) (test code = 1538) 115 mg/dL 70-110 H : TESTED AT [facility] [address] [facility], [address]: Gold Buyer/Lacing String Cutter ID = [id number] for FRANCISCO SONG POCT-GLUCOSE [id number] 16:10:00* Test Item Value Reference Range Interpretation Comments POC-GLUCOSE METER (BEAKER) (test code = 1538) 141 mg/dL 70-110 H : TESTED AT [place] [id number] [facility], [address]: Gold Buyer/Lacing String Cutter ID = [id number] for Ruperto Barnes Transthoracic 2D echo w/ doppler (cw/pw/color)2020-02-17 14:33:49Ejection FractionSLEH ECHO HEARTLAB MKCKESSON CPACSInterface, External Ris In - 02/17/2020 2:33 PM CDTTransthoracic Echocardiography Report (TTE) Demographics Patient Name CRISTINO VILLASEÑOR Date of Study 02/17/2020 PAULINE Gender Male Visit Number [id number] Race Unknown Room Number 2546 Number Date of 1960 Referring Physician Roula Ruby MD Age 59 year(s) Asset Availability Leader Ciera Iyer Union Organizer Cristina Fofana Interpreting Judith Fuentes MD Physician Procedure Type of Study TTE procedu re:2DECHO W DOPPLER(CW/PW/COLOR) (STAT) Indications:Shortness of breath.Clinical HistoryCKD, Dilated CMP, DMII, SOB, CHF, HTNContrast Medium: Definity.Height: 70 inches Weight: 81.65 kg (180 lbs) BSA: 2 m^2 BMI: 25.83 kg/m^2HR: 83 bpm BP: 1 14/80 mmHg Summary Global LV systolic function severely [...] and RAP. Signature Findings Left Ventricle The l eft ventricle is chamber size (by vol index) [...] function is depressed. S1 is 0.07m/s. Right Atr ium RA pacing wire is visualized . RA size is m oderately dilated. Aortic Valve Mild AoV cusp thickening. Mitral Sissy ve Mild MV leaflet thickening. Mild mitral kaila lar calcification. Mild-moderate mitral regurgitation. T ricuspid Valve Mild tricuspid regurgitation. Estim ated peak systolic PA pressure is 60-65 mmHg (moderate-se yamel pulmonary hypertension) . TV structure is normal. P ulmonic Valve A trace of pulmonary regurgitation. Normal PV structure and function by limited views and Do ppler. Aorta Aortic root size (SInus of Valsalva diameter) is normal . Proximal ascending aorta size is normal . Peric ardium No significant pericardial effusion is visualized. IVC/SVC/PA /PV/Pleural The inferior vena cava size is increased . T he estimated RA pressure by IVC dynamics > [...] Velocity: 3.15 m/s TR Gradient: 39.6 mmHg [facility] [id number] 12:17:00* Test Item Value Reference Range Interpretation Comments Troponin I (test code = 41796-6) 0.17 ng/mL 0-0.03 H MERT (test code = MERT) Troponin I (TnI) levels must be interpreted in the context of the presenting symptoms and the clinical findings. Elevated TnI levels indicate myocardial damage, but are not specific for ischemic heart disease. Elevated TnI levels are seen in patients with other cardiac conditions (including myocarditis and congestive heart failure), and slight TnI elevations occur in patients with other conditions, including sepsis, renal failure, acidosis, acute neurological disease, and persistent tachyarrhythmia.Gold Buyer ID - LA Lab Interpretation (test code = 79591-4) Abnormal [facility] [id number] 12:17:00* Test Item Value Reference Range Interpretation Comments TROPONIN I (BEAKER) (test code = 397) 0.17 ng/mL 0.00-0.03 H Troponin I (TnI) levels must be interpreted in the context of the presenting sym ptoms and the clinical findings. Elevated TnI levels indicate myocardial damage, but are not specific for ischemic heart disease. Elevated TnI levels are seen in patients with other cardiac conditions (including myocarditis and congestive h eart failure), and slight TnI elevations occur in patients with other conditions , including sepsis, renal failure, acidosis, acute neurological disease, and per sistent tachyarrhythmia.Gold Buyer ID - LAPOCT-GLUCOSE [id number] 11:59:00* Test Item Value Reference Range Interpretation Comments POC-GLUCOSE METER (BEAKER) (test code = 1538) 161 mg/dL 70-110 H : TESTED AT [facility] [address] [facility], [address]: Gold Buyer/Lacing String Cutter ID = [id number] for Ruperto Barnes [id number] 11:40:00* Test Item Value Reference Range Interpretation Comments MAGNESIUM (BEAKER) (test code = 627) 1.6 mg/dL 1.6-2.6 Specimen slightly hemolyzed Gold Buyer ID - LABASIC METABOLIC [id number] 11:40:00* Test Item Value Reference Range Interpretation Comments SODIUM (BEAKER) (test code = 381) 139 meq/L 136-145 POTASSIUM (BEAKER) (test code = 379) 3.2 meq/L 3.5-5.1 L Specimen slightly hemolyzed CHLORIDE (BEAKER) (test code = 382) 100 meq/L 98-107 CO2 (BEAKER) (test code = 355) 31 meq/L 22-29 H BLOOD UREA NITROGEN (BEAKER) (test code = 354) 31 mg/dL 7-21 H CREATININE (BEAKER) (test code = 358) 1.27 mg/dL 0.57-1.25 H Specimen slightly hemolyzed GLUCOSE RANDOM (BEAKER) (test code = 652) 196 mg/dL 70-105 H CALCIUM (BEAKER) (test code = 697) 9.0 mg/dL 8.4-10.2 EGFR (BEAKER) (test code = 1092) 58 mL/min/1.73 sq m ESTIMATED GFR IS NOT ACCURATE CREATININE CLEARANCE IN PREDICTING GLOMERULAR FILTRATION RATE. ESTIMATED GFR IS NOT APPLICABLE FOR DIALYSIS PATIENTS. Gold Buyer ID - LAPOCT-GLUCOSE [id number] 07:50:00* Test Item Value Reference Range Interpretation Comments POC-GLUCOSE METER (BEAKER) (test code = 1538) 98 mg/dL 70-110 : TESTED AT [facility] [address] [facility], [address]: Gold Buyer/Lacing String Cutter ID = [id number] for Ruperto Barnes Hemoglobin [id number] 07:43:00* Test Item Value Reference Range Interpretation Comments Hemoglobin A1C (test code = 4548-4) 8.1 % 4.3-6.1 H Lab Interpretation (test code = 42691-7) Abnormal [facility] [id number] 07:43:00* Test Item Value Reference Range Interpretation Comments HEMOGLOBIN A1C (BEAKER) (test code = 368) 8.1 % 4.3-6.1 H T4, [id number] 07:23:00* Test Item Value Reference Range Interpretation Comments Free T4 (test code = 3024-7) 1.08 ng/dL 0.7-1.48 MERT (test code = MERT) Gold Buyer ID - LA Lab Interpretation (test code = 37093-3) [facility] 07:23:00* Test Item Value Reference Range Interpretation Comments TSH (test code = 68519-0) 3.311 0.350- 4.940 uIU/mL MERT (test code = MERT) Gold Buyer ID - LA Lab Interpretation (test code = 09755-5) Normal [facility] Center[facility], [id number] 07:23:00* Test Item Value Reference Range Interpretation Comments FREE T4 (BEAKER) (test code = 655) 1.08 ng/dL 0.70-1.48 Gold Buyer ID - [id number] 07:23:00* Test Item Value Reference Range Interpretation Comments THYROID STIMULATING HORMONE (BEAKER) (test code = 772) 3.311 uIU /mL 0.350-4.940 Gold Buyer ID - LATROPONIN [id number] 07:16:00* Test Item Value Reference Range Interpretation Comments TROPONIN I (BEAKER) (test code = 397) 0.17 ng/mL 0.00-0.03 H Troponin I (TnI) levels must be interpreted in the context of the presenting sym ptoms and the clinical findings. Elevated TnI levels indicate myocardial damage, but are not specific for ischemic heart disease. Elevated TnI levels are seen in patients with other cardiac conditions (including myocarditis and congestive h eart failure), and slight TnI elevations occur in patients with other conditions , including sepsis, renal failure, acidosis, acute neurological disease, and per sistent tachyarrhythmia.Gold Buyer ID - LAPROTHROMBIN TIME/[id number] 06:59:00 * Test Item Value Reference Range Interpretation Comments PROTIME (BEAKER) (test code = 759) 20.1 seconds 11.9-14.2 H INR (BEAKER) (test code = 370) 1.8 <=5.9 Effective 02/19/2019: PT Reference Range ChangeNew: 11.9-14.2 Previous: 11.7-14. 7RECOMMENDED COUMADIN/WARFARIN INR THERAPY RANGESSTANDARD DOSE: 2.0-3.0 Include s: PROPHYLAXIS for venous thrombosis, systemic embolization; TREATMENT for venou s thrombosis and/or pulmonary embolus.HIGH RISK: Target INR is 2.5-3.5 for patie nts wiht mechanical heart valves.ECG 12 [id number] 06:43:33Interface, External Ris In - 02/17/2020 6:43 AM CDTVentricular Rate 80 BPMAtrial Rate 80 BPMQRS Duration 188 msQ-T Interval 492 msQTC Calculation(Bazett) 567 msR Kirklin 211 degreesT Kirklin -27 degreesVentricular-paced rhythmBiventricular pacemaker detectedP waves are not seen, cannot exclude atrial fibrillationAbnormal ECGNo previous ECGs availableConfirmed by MD DONTE, LEXIE ([id number]) on 02/17/2020 6:43:30 [facility]CB [facility] & AUTO DIFFERENTIAL 2020-02-17 06:43:00* Test Item Value Reference Range Interpretation Comments WHITE BLOOD CELL COUNT (BEAKER) (test code = 775) 6.9 K/ L 3.5- 10.5 RED BLOOD CELL COUNT (BEAKER) (test code = 761) 4.60 M/ L 4.63-6 .08 L HEMOGLOBIN (BEAKER) (test code = 410) 12.8 GM/DL 13.7-17.5 L HEMATOCRIT (BEAKER) (test code = 411) 41.3 % 40.1-51.0 MEAN CORPUSCULAR VOLUME (BEAKER) (test code = 753) 89.8 fL 79. 0-92.2 MEAN CORPUSCULAR HEMOGLOBIN (BEAKER) (test code = 751) 27.8 pg 25.7-32.2 MEAN CORPUSCULAR HEMOGLOBIN CONC (BEAKER) (test code = 752) 31.0 GM/DL 32.3-36.5 L RED CELL DISTRIBUTION WIDTH (BEAKER) (test code = 412) 17.3 % 11.6-14.4 H PLATELET COUNT (BEAKER) (test code = 756) 311 K/CU MM 150-450 MEAN PLATELET VOLUME (BEAKER) (test code = 754) 10.9 fL 9.4-12 .4 NUCLEATED RED BLOOD CELLS (BEAKER) (test code = 413) 0 /100 WBC 0 -0 NEUTROPHILS RELATIVE PERCENT (BEAKER) (test code = 429) 66 % LYMPHOCYTES RELATIVE PERCENT (BEAKER) (test code = 430) 19 % MONOCYTES RELATIVE PERCENT (BEAKER) (test code = 431) 10 % EOSINOPHILS RELATIVE PERCENT (BEAKER) (test code = 432) 4 % BASOPHILS RELATIVE PERCENT (BEAKER) (test code = 437) 1 % NEUTROPHILS ABSOLUTE COUNT (BEAKER) (test code = 670) 4.55 K/ L 1.78-5.38 LYMPHOCYTES ABSOLUTE COUNT (BEAKER) (test code = 414) 1.27 K/ L 1.32-3.57 L MONOCYTES ABSOLUTE COUNT (BEAKER) (test code = 415) 0.68 K/ L 0. 30-0.82 EOSINOPHILS ABSOLUTE COUNT (BEAKER) (test code = 416) 0.27 K/ L 0.04-0.54 BASOPHILS ABSOLUTE COUNT (BEAKER) (test code = 417) 0.08 K/ L 0. 01-0.08 IMMATURE GRANULOCYTES-RELATIVE PERCENT (BEAKER) (test code = 2801) 0 % 0-1 TROPONIN [id number] 02:09:00* Test Item Value Reference Range Interpretation Comments TROPONIN I (BEAKER) (test code = 397) 0.17 ng/mL 0.00-0.03 H Troponin I (TnI) levels must be interpreted in the context of the presenting sym ptoms and the clinical findings. Elevated TnI levels indicate myocardial damage, but are not specific for ischemic heart disease. Elevated TnI levels are seen in patients with other cardiac conditions (including myocarditis and congestive h eart failure), and slight TnI elevations occur in patients with other conditions , including sepsis, renal failure, acidosis, acute neurological disease, and per sistent tachyarrhythmia.Gold Buyer ID - DBLipid [id number] 02:00:00* Test Item Value Reference Range Interpretation Comments Triglycerides (test code = 2571-8) 145 mg/dL Cholesterol (test code = 2093-3) 119 mg/dL HDL (test code = 2085-9) 23 mg/dL LDL Calculated (test code = 63585-5) 67 mg/dL MERT (test code = MERT) Triglyceride Reference Range : Low Risk <150 Borderline 150-199 High Risk 200-499 Very High Risk >=500 Cholesterol Reference Range: Low Risk <200 Borderline 200-239 High Risk >240 HDL Cholesterol Reference Range: Low Risk >=60 High Risk <40 LDL Cholesterol Reference Range: Optimal <100 Near Optimal 100-129 Borderline 130-159 High 160-189 Very High >=190 Gold Buyer ID - MARCE ALCANTAR [facility] HospitalLIPID [id number] 02:00:00* Test Item Value Reference Range Interpretation Comments TRIGLYCERIDES (BEAKER) (test code = 540) 145 mg/dL CHOLESTEROL (BEAKER) (test code = 631) 119 mg/dL HDL CHOLESTEROL (BEAKER) (test code = 976) 23 mg/dL LDL CHOLESTEROL CALCULATED (BEAKER) (test code = 633) 67 mg/dL Triglyceride Reference Range: Low Risk <150 Borderline 150-199 High Risk 200-499 Very High Risk >=500Cholesterol Reference Range: Low Risk <200 Borderline 200-239 High Risk >240HDL Cholesterol Reference Range: Low Risk >=60 High Risk <40LDL Cholesterol Reference Range: Optimal <100 Near Optimal 100-129 Borderline 130-159 High 160-189 Very High >=190 Gold Buyer ID - LAPROTHROMBIN TIME/[id number] 01:58:00* Test Item Value Reference Range Interpretation Comments PROTIME (BEAKER) (test code = 759) 22.2 seconds 11.9-14.2 H INR (BEAKER) (test code = 370) 2.0 <=5.9 Effective 02/19/2019: PT Reference Range ChangeNew: 11.9-14.2 Previous: 11.7-14. 7RECOMMENDED COUMADIN/WARFARIN INR THERAPY RANGESSTANDARD DOSE: 2.0-3.0 Include s: PROPHYLAXIS for venous thrombosis, systemic embolization; TREATMENT for venou s thrombosis and/or pulmonary embolus.HIGH RISK: Target INR is 2.5-3.5 for patie nts wiht mechanical heart valves.U/S, RENAL, [id number] 23:26:00Reason for exam:->SHORTNESS OF BREATHFINAL REPORT TECHNIQUE: Grayscale ultrasound of the kidneys [...] is 0.8 x 0.6 x 0.9 cm. N onobstructing stones in the lower pole with measurements of 0.3 x 0.4 x 0.4 cm a nd 0.5 x 0.4 x 0.5 cm. No hydronephrosis. Renal artery and vein are patent. BLAD RAMÍREZ: Unremarkable. IMPRESSION:1. No acute abnormality on ultrasound of the kidne ys.2. Nonobstructing left renal nephrolithiasis.3. Mildly complex right renal cy stic structure with septation not significantly changed compared to remote prior . 4. Left renal cystic structure is mildly increased in size compared to remote prior. The cyst may represent a proteinaceous cyst when correlated to remote CT. Definitive characterization may be obtained with nonemergent renal protocol CT, as completely warranted Signed: Quin Nicholas MDReport Verified Date/Time: 01/23 23:26:27 renal [id number] 23:26:00Interface, External Ris In - 02/16/2020 11:29 PM CDTFINAL REPORT TECHNIQUE: Grayscale ultrasound of the kidneys [...] is 1.3 x 0.9 x 1.3 cm, p reviously 1.0 x 1.0 x 0.6 cm. No solid mass lesions. There is a nonobstructing s tone at the upper pole that is 0.8 x 0.6 x 0.9 cm. Nonobstructing stones in the lower pole with measurements of 0.3 x 0.4 x 0.4 cm and 0.5 x 0.4 x 0.5 cm. No hy dronephrosis. Renal artery and vein are patent. BLADDER: Unremarkable. IMPRESSIO N:1. No acute abnormality on ultrasound of the kidneys.2. Nonobstructing left re nal nephrolithiasis.3. Mildly complex right renal cystic structure with septatio n not significantly changed compared to remote prior. 4. Left renal cystic struc ture is mildly increased in size compared to remote prior. The cyst may represen t a proteinaceous cyst when correlated to remote CT. Definitive characterization may be obtained with nonemergent renal protocol CT, as completely warranted Sig brooke: Quin Nicholas MDReport Verified Date/Time: 02/16/2020 23:26:27 Elect ronically signed by: QUIN NICHOLAS MD on 02/16/2020 11:26 PM [facility]ERN[facility] [id number] 20:25:00* Test Item Value Reference Range Interpretation Comments TROPONIN I (BEAKER) (test code = 397) 0.18 ng/mL 0.00-0.03 H Troponin I (TnI) levels must be interpreted in the context of the presenting sym ptoms and the clinical findings. Elevated TnI levels indicate myocardial damage, but are not specific for ischemic heart disease. Elevated TnI levels are seen in patients with other cardiac conditions (including myocarditis and congestive h eart failure), and slight TnI elevations occur in patients with other conditions , including sepsis, renal failure, acidosis, acute neurological disease, and per sistent tachyarrhythmia.Gold Buyer ID - NTPUrinalysis w/Microscopic + Reflex to [id number] 19:55:00* Test Item Value Reference Range Interpretation Comments Color, UA (test code = 5778-6) Yellow Clarity, UA (test code = 5767-9) Clear Specific [place], UA (test code = 5811-5) 1.021 1.001-1.035 pH, UA (test code = 5803-2) 5.5 5.0-8.0 Protein, UA (test code = 85669-6) 10 mg/dL Negative A Glucose, UA (test code = 365) >1000 mg/dL Negative A Ketones, UA (test code = 2514-8) Negative Negative Bilirubin, UA (test code = 75558-5) Negative Negative Blood, UA (test code = 19684-7) Negative Negative Nitrite, UA (test code = 5802-4) Negative Negative Leukocytes, UA (test code = 5799-2) Negative Negative Urobilinogen, UA (test code = 72064-9) 0.2 mg/dL 0.2-1 RBC, UA (test code = 44931-5) 0 /HPF WBC, UA (test code = 5821-4) <1 /HPF Mucus (test code = 8247-9) Rare Squam Epithel, UA (test code = 64752-1) <1 /HPF Hyaline Casts, UA (test code = 70456-5) 1 /LPF Yeast (test code = 46341-8) Rare Specimen Source (test code = 2795) MERT (test code = MERT) Gold Buyer ID - [auto]Gold Buyer ID - matt Lab Interpretation (test code = 47926-8) Abnormal [facility]/ REFLEX URINE [id number] 19:55:00* Test Item Value Reference Range Interpretation Comments COLOR (BEAKER) (test code = 470) Yellow CLARITY (BEAKER) (test code = 469) Clear SPECIFIC GRAVITY UA (BEAKER) (test code = 468) 1.021 1.001-1 .035 PH UA (BEAKER) (test code = 467) 5.5 5.0-8.0 PROTEIN UA (BEAKER) (test code = 464) 10 mg/dL Negative A GLUCOSE UA (BEAKER) (test code = 365) >1000 mg/dL Negative A KETONES UA (BEAKER) (test code = 371) Negative Negative BILIRUBIN UA (BEAKER) (test code = 462) Negative Negative BLOOD UA (BEAKER) (test code = 461) Negative Negative NITRITE UA (BEAKER) (test code = 465) Negative Negative LEUKOCYTE ESTERASE UA (BEAKER) (test code = 466) Negative Negat rosana UROBILINOGEN UA (BEAKER) (test code = 463) 0.2 mg/dL 0.2-1.0 RBC UA (BEAKER) (test code = 519) 0 /HPF WBC UA (BEAKER) (test code = 520) < /HPF MUCUS (BEAKER) (test code = 1574) Rare SQUAMOUS EPITHELIAL (BEAKER) (test code = 516) < /HPF HYALINE CASTS (BEAKER) (test code = 514) 1 /LPF YEAST (BEAKER) (test code = 1585) Rare SOURCE(BEAKER) (test code = 2795) Gold Buyer ID - [auto]Gold Buyer ID - [id number] 19:11:00* Test Item Value Reference Range Interpretation Comments MAGNESIUM (BEAKER) (test code = 627) 2.0 mg/dL 1.6-2.6 Gold Buyer ID - NTPSARS-CoV2/RT-PCR (Symptomatic ONLY)2020-02-16 18:51:00* Test Item Value Reference Range Interpretation Comments SARS-COV2/RT-PCR (test code = 0743897) Not Detected Not Detected, N egative SARS-COV-2 PERFORMING LAB (test code = 3477395) [facility] MERT (test code = MERT) Negative results do not prec lude SARS-CoV-2 infection and should not be used as the sole basis for patient management decisions. Negative results must be combined with clinical observations, patient history, and epidemiological information. A false negative result may occur if a specimen is improperly collected, transported or handled. The limit of detection for this assay is 250 copies/mL. This SARS CoV-2 test is a rapid, real-time RT-PCR test intended for the qualitative detection of nucleic acid from SARS-CoV-2 in a nasopharyngeal swab specimen collected from individuals suspected of COVID-19 by their healthcare provider. This test has not been Food and Drug Administration (FDA) cleared or approved and has been authorized by FDA under an Emergency Use Authorization (EUA). This EUA will be effective until the declaration that circumstances exist justifying the authorization of the emergency use of in vitro diagnostic tests for detection and/or diagnosis of COVID-19 is terminated under Section 564(b)(2) of the Act or the EUA is revoked under Section 564(g) of the Act. Fact Sheet for Healthcare Providers:https://www.[employer]/Documents/Xpert%20Xpress%20SARS%20CoV-2/Fact%2 0Sheets/302-3802%03UAJJ-IDJ-4%20HEALTHCARE%20PROVIDERS%20FACT%20SHEET.pdf Fact Sheet for Healthcare Patients:https://www.[employer]/Documents/Xpert%20Xpress%20SARS%20CoV-2/Fact%20 Sheets/302-3801%77BHNP-WGL-7%20PATIENT%20FACT%20SHEET.pdf Performing Laboratory:[facility], [place] [address] [place], [place] [address]ARS-COV2/RT-PCR ([facility])2020-02-16 18:51:00* Test Item Value Reference Range Interpretation Comments SARS-COV2/RT-PCR (test code = 7433615) Not Detected Not Detected, N egative SARS-COV-2 PERFORMING LAB (test code = 1323922) [facility] Negative results do not preclude SARS-CoV-2 infection and should not be used as the sole basis for patient management decisions. Negative results must be combin ed with clinical observations, patient history, and epidemiological information. A false negative result may occur if a specimen is improperly collected, transp orted or handled.The limit of detection for this assay is 250 copies/mL.This OZZIE S CoV-2 test is a rapid, real-time RT-PCR test intended for the qualitative dete ction of nucleic acid from SARS-CoV-2 in a nasopharyngeal swab specimen collecte d from individuals suspected of COVID-19 by their healthcare provider.This test has not been Food and Drug Administration (FDA) cleared or approved and has been authorized by FDA under an Emergency Use Authorization (EUA). This EUA will be effective until the declaration that circumstances exist justifying the authoriz ation of the emergency use of in vitro diagnostic tests for detection and/or ramila gnosis of COVID-19 is terminated under Section 564(b)(2) of the Act or the EUA i s revoked under Section 564(g) of the Act.Fact Sheet for Healthcare Providers:ht tps://www.[employer]/Documents/Xpert%20Xpress%20SARS%20CoV-2/Fact%20Sheets/302 3802%07NSVC-TWZ-0%20HEALTHCARE%20PROVIDERS%20FACT%20SHEET.pdfFact Sheet for Heal thcare Patients:https://www.[employer]/Documents/Xpert%20Xpress%20SARS%20CoV-2/ Fact%20Sheets/302-3801%49UYMM-JSV-7%20PATIENT%20FACT%20SHEET.pdfPerforming Labor atory:[facility], [place] [address]DUSAMRYC [id number] 18:09:00* Test Item Value Reference Range Interpretation Comments TROPONIN I (BEAKER) (test code = 397) 0.16 ng/mL 0.00-0.03 H Troponin I (TnI) levels must be interpreted in the context of the presenting sym ptoms and the clinical findings. Elevated TnI levels indicate myocardial damage, but are not specific for ischemic heart disease. Elevated TnI levels are seen i n patients with other cardiac conditions (including myocarditis and congestive h eart failure), and slight TnI elevations occur in patients with other conditions , including sepsis, renal failure, acidosis, acute neurological disease, and per sistent tachyarrhythmia.Gold Buyer ID - NTPB-TYPE NATRIURETIC FACTOR (BNP) 2020-02-16 18:06:00* Test Item Value Reference Range Interpretation Comments B-TYPE NATRIURETIC PEPTIDE (BEAKER) (test code = 700) 3606 pg/mL 0-100 H Gold Buyer ID - NTPComprehensive metabolic [id number] 18:00:00* Test Item Value Reference Range Interpretation Comments Protein, Total (test code = 2885-2) 6.3 6.0- 8.3 gm/dL Albumin (test code = 48927-9) 3.7 g/dL 3.5-5 Alkaline Phosphatase (test code = 6768-6) 95 U/L 40-150 Total Bilirubin (test code = 1975-2) 1.2 mg/dL 0.2-1.2 Sodium (test code = 2951-2) 138 meq/L 136-145 Potassium (test code = 2823-3) 3.3 meq/L 3.5-5.1 L Chloride (test code = 2074-0) 101 meq/L 98-107 CO2 (test code = 2027-9) 28 meq/L 22-29 BUN (test code = 3094-0) 41 mg/dL 7-21 H Creatinine (test code = 2160-0) 1.66 mg/dL 0.57-1.25 H Glucose (test code = 2345-7) 153 mg/dL 70-105 H Calcium (test code = 31841-6) 9.1 mg/dL 8.4-10.2 AST (test code = 1920-8) 48 U/L 5-34 H ALT (test code = 1742-6) 91 U/L 6-55 H EGFR (test code = 93462-3) 43 mL/min/1.73 sq m ESTIMATED GFR IS NOT ACCURATE CREATININE CLEARANCE IN PREDICTING GLOMERULAR FILTRATION RATE. ESTIMATED GFR IS NOT APPLICABLE FOR DIALYSIS PATIENTS. MERT (test code = MERT) Gold Buyer ID - NTP Lab Interpretation (test code = 94223-3) Abnormal [facility]PRE[facility] [id number] 18:00:00* Test Item Value Reference Range Interpretation Comments TOTAL PROTEIN (BEAKER) (test code = 770) 6.3 gm/dL 6.0-8.3 ALBUMIN (BEAKER) (test code = 1145) 3.7 g/dL 3.5-5.0 ALKALINE PHOSPHATASE (BEAKER) (test code = 346) 95 U/L 40-150 BILIRUBIN TOTAL (BEAKER) (test code = 377) 1.2 mg/dL 0.2-1.2 SODIUM (BEAKER) (test code = 381) 138 meq/L 136-145 POTASSIUM (BEAKER) (test code = 379) 3.3 meq/L 3.5-5.1 L CHLORIDE (BEAKER) (test code = 382) 101 meq/L 98-107 CO2 (BEAKER) (test code = 355) 28 meq/L 22-29 BLOOD UREA NITROGEN (BEAKER) (test code = 354) 41 mg/dL 7-21 H CREATININE (BEAKER) (test code = 358) 1.66 mg/dL 0.57-1.25 H GLUCOSE RANDOM (BEAKER) (test code = 652) 153 mg/dL 70-105 H CALCIUM (BEAKER) (test code = 697) 9.1 mg/dL 8.4-10.2 AST (SGOT) (BEAKER) (test code = 353) 48 U/L 5-34 H ALT (SGPT) (BEAKER) (test code = 347) 91 U/L 6-55 H EGFR (BEAKER) (test code = 1092) 43 mL/min/1.73 sq m ESTIMATED GFR IS NOT ACCURATE CREATININE CLEARANCE IN PREDICTING GLOMERULAR FILTRATION RATE. ESTIMATED GFR IS NOT APPLICABLE FOR DIALYSIS PATIENTS. Gold Buyer ID - NTPPT/[id number] 17:59:00* Test Item Value Reference Range Interpretation Comments Protime (test code = 5902-2) 25.0 11.9- 14.2 seconds H INR (test code = 6301-6) 2.3 <=5.9 PTT (test code = 91082-4) 36.3 22.5- 36.0 seconds H MERT (test code = MERT) Effective 02/19/2019: PT Refe rence Range ChangeNew: 11.9- 14.2 Previous: 11.7-14.7 RECOMMENDED COUMADIN/WARFARIN INR THERAPY RANGESSTANDARD DOSE: 2.0-3.0 Includes: PROPHYLAXIS for venous thrombosis, sys temic embolization; TREATMENT for venous thrombosis and/or pulmonary embolus.HIGH RISK: Target INR is 2.5-3.5 for patients wiht mechanical heart valves. Lab Interpretation (test code = 72550-6) Abnormal [facility] HospitalPT/[id number] 17:59:00* Test Item Value Reference Range Interpretation Comments PROTIME (BEAKER) (test code = 759) 25.0 seconds 11.9-14.2 H INR (BEAKER) (test code = 370) 2.3 <=5.9 PARTIAL THROMBOPLASTIN TIME (BEAKER) (test code = 760) 36.3 seconds 22.5-36.0 H Effective 02/19/2019: PT Reference Range ChangeNew: 11.9-14.2 Previous: 11.7-14. 7RECOMMENDED COUMADIN/WARFARIN INR THERAPY RANGESSTANDARD DOSE: 2.0-3.0 Include s: PROPHYLAXIS for venous thrombosis, systemic embolization; TREATMENT for venou s thrombosis and/or pulmonary embolus.HIGH RISK: Target INR is 2.5-3.5 for patie nts wiht mechanical heart valves.Lactic acid, [id number] 17:55:00* Test Item Value Reference Range Interpretation Comments Lactate, Venous (test code = 2872) 1.94 mmol/L 0.5-2.2 MERT (test code = MERT) Gold Buyer ID - NTP Lab Interpretation (test code = 89143-0) Normal [facility] Hospital[facility] AC[facility], [id number] 17:55:00* Test Item Value Reference Range Interpretation Comments LACTATE BLOOD VENOUS (2) (BEAKER) (test code = 2872) 1.94 mmol/L 0 .50-2.20 Gold Buyer ID - NTPRAD, CHEST, 1 VIEW, NON [id number] 17:52:00Reason for exam:->SHORTNESS OF BREATHShould this be performed at the bedside?->YesFINAL REPORT Chest, one view. HISTORY: SHORTNESS OF BREATH COMPARISON: Radiograph from 03/08/2017 IMPRESSION: Unchanged positioning of the left chest pacer/ICD with leads over the right atrium right ventricle, and co ronary sinus. The left costophrenic sulcus is not visualized. No definite pleura l effusion. The cardiac silhouette is enlarged with likely interstitial pulmonar y edema. No acute bony abnormality. Signed: [facility] Verified Date/Ti me: 02/16/2020 17:52:19 Reading Location: [facility] B1 C013Y CT Body Reading Room chest 1 view portable / [id number] 17:52:00Interface, External Ris In - 02/16/2020 5:54 PM CDTFINAL REPORT Chest, one view. HISTORY: SHORTNESS OF BREATH COMPARISON: Radiograph from 03/08/2017 IMPRESSION: Unchanged positioning of the left chest pacer/ICD with leads over the right atrium right ventricle, and coronary sinus. The left costophrenic sulcus is not visualized. No definite pleural effusion. The cardiac silhouette is enlarged with likely interstitial pulmonary edema. No acute bony abnormality. Signed: Georgi Aleman MDReport Verified Date/Time: 02/16/2020 17:52:19 Reading Location: [facility] B1 C013Y CT Body Reading Room [facility] W/PLT COUNT & AUTO [id number] 17:44:00* Test Item Value Reference Range Interpretation Comments WHITE BLOOD CELL COUNT (BEAKER) (test code = 775) 8.3 K/ L 3.5- 10.5 RED BLOOD CELL COUNT (BEAKER) (test code = 761) 4.66 M/ L 4.63-6 .08 HEMOGLOBIN (BEAKER) (test code = 410) 12.7 GM/DL 13.7-17.5 L HEMATOCRIT (BEAKER) (test code = 411) 41.4 % 40.1-51.0 MEAN CORPUSCULAR VOLUME (BEAKER) (test code = 753) 88.8 fL 79. 0-92.2 MEAN CORPUSCULAR HEMOGLOBIN (BEAKER) (test code = 751) 27.3 pg 25.7-32.2 MEAN CORPUSCULAR HEMOGLOBIN CONC (BEAKER) (test code = 752) 30.7 GM/DL 32.3-36.5 L RED CELL DISTRIBUTION WIDTH (BEAKER) (test code = 412) 17.4 % 11.6-14.4 H PLATELET COUNT (BEAKER) (test code = 756) 365 K/CU MM 150-450 MEAN PLATELET VOLUME (BEAKER) (test code = 754) 10.8 fL 9.4-12 .4 NUCLEATED RED BLOOD CELLS (BEAKER) (test code = 413) 0 /100 WBC 0 -0 NEUTROPHILS RELATIVE PERCENT (BEAKER) (test code = 429) 74 % LYMPHOCYTES RELATIVE PERCENT (BEAKER) (test code = 430) 13 % MONOCYTES RELATIVE PERCENT (BEAKER) (test code = 431) 10 % EOSINOPHILS RELATIVE PERCENT (BEAKER) (test code = 432) 2 % BASOPHILS RELATIVE PERCENT (BEAKER) (test code = 437) 1 % NEUTROPHILS ABSOLUTE COUNT (BEAKER) (test code = 670) 6.19 K/ L 1.78-5.38 H LYMPHOCYTES ABSOLUTE COUNT (BEAKER) (test code = 414) 1.04 K/ L 1.32-3.57 L MONOCYTES ABSOLUTE COUNT (BEAKER) (test code = 415) 0.82 K/ L 0. 30-0.82 EOSINOPHILS ABSOLUTE COUNT (BEAKER) (test code = 416) 0.17 K/ L 0.04-0.54 BASOPHILS ABSOLUTE COUNT (BEAKER) (test code = 417) 0.08 K/ L 0. 01-0.08 IMMATURE GRANULOCYTES-RELATIVE PERCENT (BEAKER) (test code = 2801) 1 % 0-1 [id number] 21:19:00* Test Item Value Reference Range Interpretation Comments GLUBED (test code = GLUBED) 130 MG/DL 70-110 H Performed by certified a operator at [facility] [id number] 06:46:00* Test Item Value Reference Range Interpretation Comments GLUBED (test code = GLUBED) 104 MG/DL 70-110 N Performed by certified a operator at [facility] CBC W/AUTO [id number] 07:35:00* Test Item Value Reference Range Interpretation Comments WHITE BLOOD CELL (test code = WBC) 8.38 x10 3/uL 4.5-11.0 N RED BLOOD CELL (test code = RBC) 4.21 x10 6/uL 4.00-5.60 N HEMOGLOBIN (test code = HGB) 12.1 g/dL 12.5-16.9 L HEMATOCRIT (test code = HCT) 39.9 % 37.5-50.7 N MEAN CELL VOLUME (test code = MCV) 94.8 fL 81.0-99.0 N MEAN CELL HGB (test code = MCH) 28.7 pg 27.0-33.0 N MEAN CELL HGB CONCETRATION (test code = MCHC) 30.3 g/dL 33.0-37. 0 L RED CELL DISTRIBUTION WIDTH CV (test code = RDW) 17.2 % 11.5- 14.5 H RED CELL DISTRIBUTION WIDTH SD (test code = RDW-SD) 58.8 fL 37 .0-54.0 H PLATELET COUNT (test code = PLT) 305 x10 3/uL 150-400 N MEAN PLATELET VOLUME (test code = MPV) 11.0 fL 7.0-9.0 H NEUTROPHIL % (test code = NT%) 74.2 % 56.0-77.0 N IMMATURE GRANULOCYTE % (test code = IG%) 0.5 % 0.0-2.0 N LYMPHOCYTE % (test code = LY%) 11.5 % 14.0-32.0 L MONOCYTE % (test code = MO%) 10.1 % 4.8-9.0 H EOSINOPHIL % (test code = EO%) 2.7 % 0.3-3.7 N BASOPHIL % (test code = BA%) 1.0 % 0.0-2.0 N NUCLEATED RBC % (test code = NRBC%) 0.0 % 0-0 N NEUTROPHIL # (test code = NT#) 6.22 x10 3/uL 2.0-7.6 N IMMATURE GRANULOCYTE # (test code = IG#) 0.04 x10 3/uL 0.00-0.03 H LYMPHOCYTE # (test code = LY#) 0.96 x10 3/uL 1.0-3.8 L MONOCYTE # (test code = MO#) 0.85 x10 3/uL 0.1-0.8 H EOSINOPHIL # (test code = EO#) 0.23 x10 3/uL 0.0-0.2 H BASOPHIL # (test code = BA#) 0.08 x10 3/uL 0.0-0.2 N NUCLEATED RBC # (test code = NRBC#) 0.00 x10 3/uL 0.0-0.1 N MANUAL DIFF REQUIRED (test code = MDIFF) NO COMPREHENSIVE METABOLIC [id number] 07:30:00* Test Item Value Reference Range Interpretation Comments SODIUM (test code = NA) 137 mEq/L 134-147 N POTASSIUM (test code = K) 3.3 mEq/L 3.4-5.0 L CHLORIDE (test code = CL) 100 mEq/L 100-108 N CARBON DIOXIDE (test code = CO2) 28 mEq/L 21-33 N ANION GAP (test code = GAP) 12 0-20 N GLUCOSE (test code = GLU) 156 mg/dL 70-110 H BLOOD UREA NITROGEN (test code = BUN) 28 mg/dL 7-18 H GLOMERULAR FILTRATION RATE (test code = GFR) 52.2 90-95 L Units of measure = ml/min/1.73 m2 CREATININE (test code = CREAT) 1.4 mg/dL 0.6-1.3 H TOTAL PROTEIN (test code = PROT) 6.6 g/dL 6.4-8.2 N ALBUMIN (test code = ALB) 3.40 g/dL 3.4-5.0 N CALCIUM (test code = CA) 9.0 mg/dL 8.0-10.5 N BILIRUBIN TOTAL (test code = BILT) 1.1 MG/DL <1.5 SGOT/AST (test code = AST) 142 IUnit/L 15-37 H SGPT/ALT (test code = ALT) 431 IUnit/L 15-65 H ALKALINE PHOSPHATASE TOTAL (test code = ALKP) 109 IUnit/L 20-125 N [id number] 02:30:00* Test Item Value Reference Range Interpretation Comments GLUBED (test code = GLUBED) 126 MG/DL 70-110 H Performed by certified a operator at [facility]UP [facility]IN [id number] 14:17:00 Name: CRISTINO VILLASEÑOR [facility] : 1960 Age/S: 59 / M [address] [place] [address] Blvd Unit #: [id number] Loc: [place] [address] Phys: Zack Cullen MD Acct: [id number] Dis Date: Status: ADM IN PHONE #: [phone] Exam Date: 02/06/2020 1410 FAX #: [phone] Reason: SEVERE LEG PAIN, CRAMPING EXAMS: CPT CODE: [id number] [facility] VEIN [place] [address] PROCEDURE: BILATERAL LOWER EXTREMITY VENOUS ULTRASOUND INDICATION: Severe leg pain and cramping COMPARISON: None. TECHNIQUE: Sonographic evaluation of the bilateral lower extremity veins was performed using high resolution B-mode, pulse and color Doppler imaging. FINDINGS: RIGHT: The common femoral, femoral, popliteal and visualized calf veins are patent. Normal venous waveforms. The saphenofemoral junction is unremarkable. LEFT: The common femoral, femoral, popliteal and visualized calf veins are patent. Normal venous waveforms. The saphenofemoral junction is unremarkable. IMPRESSION: No deep venous thrombosis. SL: [id number] at 1417 Reported and signed by: Haile Munroe M.D. CC: Frederic Gale MD; Zack Cullen MD Technologist: Hillary Mahmood RDMS(AB)(OB) Trnscb Date/Time: 02/06/2020 (1416) [id number] Orig Print D/T: S: 02/06/2020 (1420) Probe: PAGE 1 Signed Report [id number] 10:31:00* Test Item Value Reference Range Interpretation Comments TROPONIN-I (test code = TROPI) 0.218 ng/mL 0.000-0.045 HH Negative: <= 0.045 Positive: >= 0.046 Correlation with serial results, other cardiac markers andclinical findings is necessary to determine the clinicalsignificance of this result. Results using different methodologies should not be comparedto one another as quantitative results may vary by method. COMMENTS: 3 troponins total (including troponin done in ED)[id number] 07:36:00* Test Item Value Reference Range Interpretation Comments GLUBED (test code = GLUBED) 102 MG/DL 70-110 N Performed by certified a operator at [facility] LACTIC ACID 2ND [id number] 06:13:00* Test Item Value Reference Range Interpretation Comments LACTIC ACID 2ND REPEAT (test code = LACT2) 1.5 mmol/L 0.4-1.9 N [id number] 06:11:00* Test Item Value Reference Range Interpretation Comments TROPONIN-I (test code = TROPI) 0.217 ng/mL 0.000-0.045 Negative: <= 0.045 Positive: >= 0.046 Correlation with serial results, other cardiac markers andclinical findings is necessary to determine the clinicalsignificance of this result. Results using different methodologies should not be comparedto one another as quantitative results may vary by method. COMMENTS: 3 troponins total (including troponin done in ED)[id number] 05:56:00* Test Item Value Reference Range Interpretation Comments DIGOXIN (test code = DIG) 1.9 NG/ML 0.8-2.0 N LACTIC ACID [id number] 03:51:00* Test Item Value Reference Range Interpretation Comments LACTIC ACID REPEAT (test code = LACTR) 2.1 mmol/l 0.4-1.9 H VENOUS BLOOD [id number] 03:10:00* Test Item Value Reference Range Interpretation Comments VENOUS BLOOD GAS PH (test code = PHV) 7.37 7.33-7.45 N VENOUS BLOOD GAS PCO2 (test code = PCO2V) 40 mmHg 43-47 L VENOUS BLOOD GAS PO2 (test code = PO2V) 53 mmHg 10-50 H VBG HCO3 (test code = HCO3V) 23.2 mmol/L 22-27 N VBG BASE EXCESS (test code = NATANAEL) -2.0 mmol/L -4.0-4.0 N VENOUS BLOOD GAS O2 SAT. (test code = O2SATV) 87 % 60-80 H VENOUS BLOOD GAS DELIVERY (test code = DELV) Cannula VENOUS BLOOD GAS TEMP (test code = TEMPV) 97.9 F VENOUS BLOOD GAS SITE (test code = SITEV) Other VENOUS TCO2 (test code = TCO2V) 24 B-TYPE NATRIURETIC [id number] 02:30:00* Test Item Value Reference Range Interpretation Comments B-TYPE NATRIURETIC PEPTIDE (test code = BNP) 3230.0 PG/ML 0-100 H LIPOPROTEIN [id number] 02:05:00* Test Item Value Reference Range Interpretation Comments LIPOPROTEIN LDL (test code = LDL) 108 mg/dL 0-100 H <100 [id number] NEAR OPTIMAL/ABOVE [id number] HIGH>AH=829 VERY HIGH*Guidelines provided by the National Cholesterol EducationProgram Adult Treatment Panel III DRUGS OF ABUSE SCREEN [id number] 02:04:00* Test Item Value Reference Range Interpretation Comments URN COCAINE (test code = COCAURN) NEGATIVE NEGATIVE URN CANNABINOIDS (test code = CANNABURN) NEGATIVE NEGATIVE URN AMPHETAMINE (test code = AMPHETURN) POSITIVE NEGATIVE A URN BARBITURATE (test code = BARBITURN) NEGATIVE NEGATIVE URN BENZODIAZEPINE (test code = BENZOURN) NEGATIVE NEGATIVE Cut-off value:200 ng/mL URN OPIATES (test code = OPIATURN) NEGATIVE NEGATIVE Cut-off value:2000 ng/mL URN PHENCYCLIDINE (PCP) (test code = PHENCURN) NEGATIVE NEGATIV E Cutoffs:Barbiturates 200 ng/mLBenzodiazepines 200 ng/mLTHC Cannabinoids 50 ng/mLOpiates(Morphine) 2000 ng/mLAmphetamine 1000 ng/mLCocaine 300 ng/mLPCP phencyclidine 25 ng/mL Unconfirmed screening results shouldnot be used for non-medical purposes. DRUGS OF ABUSE SCREEN [id number] 01:55:00* Test Item Value Reference Range Interpretation Comments URN COCAINE (test code = COCAURN) NEGATIVE NEGATIVE URN CANNABINOIDS (test code = CANNABURN) NEGATIVE NEGATIVE URN AMPHETAMINE (test code = AMPHETURN) NEGATIVE URN BARBITURATE (test code = BARBITURN) NEGATIVE NEGATIVE URN BENZODIAZEPINE (test code = BENZOURN) NEGATIVE NEGATIVE Cut-off value:200 ng/mL URN OPIATES (test code = OPIATURN) NEGATIVE NEGATIVE Cut-off value:2000 ng/mL URN PHENCYCLIDINE (PCP) (test code = PHENCURN) NEGATIVE NEGATIV E Cutoffs:Barbiturates 200 ng/mLBenzodiazepines 200 ng/mLTHC Cannabinoids 50 ng/mLOpiates(Morphine) 2000 ng/mLAmphetamine 1000 ng/mLCocaine 300 ng/mLPCP phencyclidine 25 ng/mL Unconfirmed screening results shouldnot be used for non-medical purposes. BASIC METABOLIC [id number] 01:51:00* Test Item Value Reference Range Interpretation Comments SODIUM (test code = NA) 134 mEq/L 134-147 N POTASSIUM (test code = K) 3.8 mEq/L 3.4-5.0 N CHLORIDE (test code = CL) 100 mEq/L 100-108 N CARBON DIOXIDE (test code = CO2) 26 mEq/L 21-33 N ANION GAP (test code = GAP) 12 0-20 N GLUCOSE (test code = GLU) 126 mg/dL 70-110 H BLOOD UREA NITROGEN (test code = BUN) 33 mg/dL 7-18 H GLOMERULAR FILTRATION RATE (test code = GFR) 41.7 90-95 L Units of measure = ml/min/1.73 m2 CREATININE (test code = CREAT) 1.7 mg/dL 0.6-1.3 H CALCIUM (test code = CA) 9.3 mg/dL 8.0-10.5 N HEPATIC FUNCTION [id number] 01:51:00* Test Item Value Reference Range Interpretation Comments TOTAL PROTEIN (test code = PROT) 7.1 g/dL 6.4-8.2 N ALBUMIN (test code = ALB) 3.40 g/dL 3.4-5.0 N BILIRUBIN TOTAL (test code = BILT) 2.2 MG/DL <1.5 H BILIRUBIN DIRECT (test code = BILD) 0.70 MG/DL 0.0-0.30 H BILIRUBIN INDIRECT (test code = BILIND) 1.50 MG/DL SGOT/AST (test code = AST) 389 IUnit/L 15-37 H SGPT/ALT (test code = ALT) 701 IUnit/L 15-65 H ALKALINE PHOSPHATASE TOTAL (test code = ALKP) 126 IUnit/L 20-125 H TSH REFLEX TO [id number] 01:51:00* Test Item Value Reference Range Interpretation Comments TSH REFLEX TO FT4 (test code = TSHREFLEX) 2.47 IU/mL 0.42-5.47 N [id number] 01:51:00* Test Item Value Reference Range Interpretation Comments TROPONIN-I (test code = TROPI) 0.263 ng/mL 0.000-0.045 HH Negative: <= 0.045 Positive: >= 0.046 Correlation with serial results, other cardiac markers andclinical findings is necessary to determine the clinicalsignificance of this result. Results using different methodologies should not be comparedto one another as quantitative results may vary by method. BASIC METABOLIC [id number] 01:46:00* Test Item Value Reference Range Interpretation Comments SODIUM (test code = NA) 134 mEq/L 134-147 N POTASSIUM (test code = K) 3.8 mEq/L 3.4-5.0 N CHLORIDE (test code = CL) 100 mEq/L 100-108 N CARBON DIOXIDE (test code = CO2) 26 mEq/L 21-33 N ANION GAP (test code = GAP) 12 0-20 N GLUCOSE (test code = GLU) 126 mg/dL 70-110 H BLOOD UREA NITROGEN (test code = BUN) 33 mg/dL 7-18 H GLOMERULAR FILTRATION RATE (test code = GFR) 41.7 90-95 L Units of measure = ml/min/1.73 m2 CREATININE (test code = CREAT) 1.7 mg/dL 0.6-1.3 H CALCIUM (test code = CA) 9.3 mg/dL 8.0-10.5 N HEPATIC FUNCTION [id number] 01:46:00* Test Item Value Reference Range Interpretation Comments TOTAL PROTEIN (test code = PROT) 7.1 g/dL 6.4-8.2 N ALBUMIN (test code = ALB) 3.40 g/dL 3.4-5.0 N BILIRUBIN TOTAL (test code = BILT) 2.2 MG/DL <1.5 H BILIRUBIN DIRECT (test code = BILD) 0.70 MG/DL 0.0-0.30 H BILIRUBIN INDIRECT (test code = BILIND) 1.50 MG/DL SGOT/AST (test code = AST) 389 IUnit/L 15-37 H SGPT/ALT (test code = ALT) 701 IUnit/L 15-65 H ALKALINE PHOSPHATASE TOTAL (test code = ALKP) 126 IUnit/L 20-125 H TSH REFLEX TO [id number] 01:46:00* Test Item Value Reference Range Interpretation Comments TSH REFLEX TO FT4 (test code = TSHREFLEX) IU/mL 0.42-5.47 [id number] 01:46:00* Test Item Value Reference Range Interpretation Comments TROPONIN-I (test code = TROPI) 0.263 ng/mL 0.000-0.045 HH Negative: <= 0.045 Positive: >= 0.046 Correlation with serial results, other cardiac markers andclinical findings is necessary to determine the clinicalsignificance of this result. Results using different methodologies should not be comparedto one another as quantitative results may vary by method. LACTIC [id number] 01:44:00* Test Item Value Reference Range Interpretation Comments LACTIC ACID (test code = LACT) 2.9 mmol/L 0.4-1.9 H UA RFLX MICR CULT IF [id number] 01:35:00* Test Item Value Reference Range Interpretation Comments UA COLOR (test code = COLU) YELLOW YEL/STRAW UA APPEARANCE (test code = APPU) CLEAR CLEAR UA GLUCOSE DIPSTICK (test code = DGLUU) 3+ NEGATIVE A UA BILIRUBIN DIPSTICK (test code = BILU) NEGATIVE NEGATIVE UA KETONE DIPSTICK (test code = KETU) NEGATIVE NEGATIVE UA SPECIFIC GRAVITY (test code = SGU) 1.007 1.005-1.030 N UA BLOOD DIPSTICK (test code = BHUMI) NEGATIVE NEGATIVE UA PH DIPSTICK (test code = YAMILA) 6.0 5.0-7.0 N UA PROTEIN DIPSTICK (test code = PROU) NEGATIVE NEGATIVE UA UROBILINIOGEN DIPSTICK (test code = URO) 0.2 mg/dL 0.2-1.0 UA NITRITE DIPSTICK (test code = FIONA) NEGATIVE NEGATIVE UA LEUKOCYTE ESTERASE DIPSTICK (test code = LEUU) NEGATIVE NEGA TIVE UA WBC (test code = WBCU) 4-9 WBC/HPF 0-3 A UA RBC (test code = RBCU) 4-10 RBC/HPF 0-3 UA WBC NO REFLEX (test code = WBCUCL) 4-9 WBC/HPF 0-3 A UA BACTERIA (test code = BACU) TRACE /HPF NONE SEEN UA SQUAMOUS CELLS (test code = SQU) 0-5 /HPF NONE SEEN UA HYALINE CAST (test code = HYALU) 11-20 /LPF NONE SEEN UA MUCUS (test code = MUCU) TRACE /LPF NONE SEEN Indication for culture: Flank PainSpecimen Description: CLEAN CATCH PROTHROMBIN [id number] 01:28:00* Test Item Value Reference Range Interpretation Comments PROTHROMBIN TIME PATIENT (test code = PTP) 48.7 SECONDS 9.3-12.9 H INTERNATIONAL NORMAL RATIO (test code = INR) 4.3 0.8-1.2 H TARGET INR BY INDICATION Indication INR1. Prophylaxis of venous thrombosis 2.0 - 3.0 (orthopedic surgery), Prophylaxis of venous thrombosis (other than high-risk surgery), Treatment of Deep Vein Thrombosis/Pulmonary Embolism, Prevention of systemic embolism - Tissue heart valves, Acute Myocardial Infarction (to prevent systemic embolism), Valvular heart disease, Atrial Fibrillation, Bileaflet mechanical valve in aortic position.2. Mechanical prosthetic valves (high risk), 2.5 - 3.5 Presence of Lupus Anticoagulant or Antiphospholipid Antibodies, Prevention of systemic embolism - Acute Myocardial Infarction (to prevent recurrent infarct). THROMBOPLASTIN TIME [id number] 01:28:00* Test Item Value Reference Range Interpretation Comments THROMBOPLASTIN TIME PARTIAL (test code = PTT) 37.9 Seconds 25.0-39. 5 N Therapeutic Range: 50.4 - 88.3 Seconds Effective 01/07/2019 TROPONIN-I [id number] 01:16:00* Test Item Value Reference Range Interpretation Comments TROPONIN-I RAPID (test code = TROPIRAP) 0.16 ng/mL 0.00-0.08 H H Performed by certified a operator at [facility] Negative: <= 0.08 Positive: >= 0.09An elevated troponin value alone is not sufficient todiagnose a myocardial infarction. Rather, the patient sclinical presentation (history, physical exam) and ECGshould be used in conjunction with troponin in thediagnostic evaluation of suspected myocardial infarction. Aserial sampling protocol is recommended to facilitate the identification of temporal changes in troponin levels characteristic of [place]. CBC W/AUTO [id number] 01:10:00* Test Item Value Reference Range Interpretation Comments WHITE BLOOD CELL (test code = WBC) 12.01 x10 3/uL 4.5-11.0 H RED BLOOD CELL (test code = RBC) 4.54 x10 6/uL 4.00-5.60 N HEMOGLOBIN (test code = HGB) 13.0 g/dL 12.5-16.9 N HEMATOCRIT (test code = HCT) 41.9 % 37.5-50.7 N MEAN CELL VOLUME (test code = MCV) 92.3 fL 81.0-99.0 N MEAN CELL HGB (test code = MCH) 28.6 pg 27.0-33.0 N MEAN CELL HGB CONCETRATION (test code = MCHC) 31.0 g/dL 33.0-37. 0 L RED CELL DISTRIBUTION WIDTH CV (test code = RDW) 17.2 % 11.5- 14.5 H RED CELL DISTRIBUTION WIDTH SD (test code = RDW-SD) 58.6 fL 37 .0-54.0 H PLATELET COUNT (test code = PLT) 395 x10 3/uL 150-400 N MEAN PLATELET VOLUME (test code = MPV) 10.7 fL 7.0-9.0 H NEUTROPHIL % (test code = NT%) 80.2 % 56.0-77.0 H IMMATURE GRANULOCYTE % (test code = IG%) 0.5 % 0.0-2.0 N LYMPHOCYTE % (test code = LY%) 8.4 % 14.0-32.0 L MONOCYTE % (test code = MO%) 10.0 % 4.8-9.0 H EOSINOPHIL % (test code = EO%) 0.2 % 0.3-3.7 L BASOPHIL % (test code = BA%) 0.7 % 0.0-2.0 N NUCLEATED RBC % (test code = NRBC%) 0.2 % 0-0 H NEUTROPHIL # (test code = NT#) 9.63 x10 3/uL 2.0-7.6 H IMMATURE GRANULOCYTE # (test code = IG#) 0.06 x10 3/uL 0.00-0.03 H LYMPHOCYTE # (test code = LY#) 1.01 x10 3/uL 1.0-3.8 N MONOCYTE # (test code = MO#) 1.20 x10 3/uL 0.1-0.8 H EOSINOPHIL # (test code = EO#) 0.02 x10 3/uL 0.0-0.2 N BASOPHIL # (test code = BA#) 0.09 x10 3/uL 0.0-0.2 N NUCLEATED RBC # (test code = NRBC#) 0.02 x10 3/uL 0.0-0.1 N MANUAL DIFF REQUIRED (test code = MDIFF) NO - XR CHEST 1 [id number] 01:00:00 FAX: Frederic Warner MD [phone] [place]: St: REG FAX: Joseph Melchor MD [phone] Name: CRISTINO VILLASEÑOR [facility] : 1960 Age/S: 59/M [address] [place] [address] Unit #: [id number] Loc: [place] [address] Phys: Joseph Figueroa MD Acct: [id number] Dis Date: Status: REG ER PHONE #: [phone] Exam Date: 02/06/2020 0059 FAX #: [phone] Reason: SOB EXAMS: CPT CODE: [id number] XR CHEST 1 V 20874 Study: - XR CHEST 1 V 02/06/2020 12:32 AM Patient Name: CRISTINO VILLASEÑOR MR: [id number] : 1960; Age: 59 years y/o Male Ordering Physician: Joseph Figueroa MD Clinical Indication: Shortness of breath. Comparison: 01/26/2020 FINDINGS LUNGS: Hypoinflation associated with mild right basilar subsegm ental atelectasis. No consolidation, pleural effusion, or pneumothorax. HEART AND MEDIASTINUM: Stable fssc-bu-xpwqguyi cardiomegaly status post pacemaker/AICD. LINES: None. OSSEOUS STRU CTURES: No fracture, dislocation, or suspicious focal osseous lesion. OTHER: None. IMPRESSION: Sta ble kzie-ut-zqkyjmnn cardiomegaly status post pacemaker/AICD. Mild hypoinflation associated with mild right basilar subsegmental atele ctasis. SL: TPAINTER-H * * Electronically Signed by Tracy Braden on 0 02/06/2020 at 0100 Reported and signed by: Vaughn Braden M.D. PAGE 1 Signed Report (CONTINUED) FAX: Frederic Warner MD [phone] [place]: St: REG FAX: Joseph Melchor MD [phone] Name: BLAZE VILLASEÑOR [facility] : 1960 Age/ S: 59/M [address] [place] [address] Unit #: [id number] Loc: [place] [address] Phys: Joseph Figueroa MD Acct: [id number] Dis Date: Status: REG ER PHONE #: [phone] Exam Date: 02/06/2020 0059 FAX #: [phone] Reason: SOB EXAMS: CPT CODE: [id number] XR CHEST 1 V 27185 <Continued> CC: Frederic Gale MD; Joseph Figueroa MD Technologist: Robb Pak, RT(R) Trnscrd Date/Time/By: 02/06/2020 (010) : By: [email or web address] Orig Print D/T: S: 02/06/2020 (0104) PAGE 2 Signed Report [id number] 11:55:00* Test Item Value Reference Range Interpretation Comments GLUBED (test code = GLUBED) 192 MG/DL 70-110 H Performed by certified a operator at [facility] [id number] 08:13:00* Test Item Value Reference Range Interpretation Comments GLUBED (test code = GLUBED) 129 MG/DL 70-110 H Performed by certified a operator at [facility] [id number] 08:01:00* Test Item Value Reference Range Interpretation Comments GLUBED (test code = GLUBED) 231 MG/DL 70-110 H Performed by certified a operator at [facility] [id number] 08:00:00* Test Item Value Reference Range Interpretation Comments GLUBED (test code = GLUBED) 156 MG/DL 70-110 H Performed by certified a operator at [facility] B-TYPE NATRIURETIC [id number] 05:35:00* Test Item Value Reference Range Interpretation Comments B-TYPE NATRIURETIC PEPTIDE (test code = BNP) 1660.2 PG/ML 0-100 H BASIC METABOLIC [id number] 05:31:00* Test Item Value Reference Range Interpretation Comments SODIUM (test code = NA) 136 mEq/L 134-147 N POTASSIUM (test code = K) 3.3 mEq/L 3.4-5.0 L CHLORIDE (test code = CL) 104 mEq/L 100-108 N CARBON DIOXIDE (test code = CO2) 25 mEq/L 21-33 N ANION GAP (test code = GAP) 10 0-20 N GLUCOSE (test code = GLU) 147 mg/dL 70-110 H BLOOD UREA NITROGEN (test code = BUN) 20 mg/dL 7-18 H GLOMERULAR FILTRATION RATE (test code = GFR) 69.0 90-95 L Units of measure = ml/min/1.73 m2 CREATININE (test code = CREAT) 1.1 mg/dL 0.6-1.3 N CALCIUM (test code = CA) 8.9 mg/dL 8.0-10.5 N [id number] 05:31:00* Test Item Value Reference Range Interpretation Comments MAGNESIUM (test code = MAG) 1.90 mg/dL 1.8-2.4 [id number] 17:16:00* Test Item Value Reference Range Interpretation Comments GLUBED (test code = GLUBED) 227 MG/DL 70-110 H Performed by certified a operator at [facility] COMPREHENSIVE METABOLIC [id number] 08:12:00* Test Item Value Reference Range Interpretation Comments SODIUM (test code = NA) 140 mEq/L 134-147 N POTASSIUM (test code = K) 3.3 mEq/L 3.4-5.0 L CHLORIDE (test code = CL) 107 mEq/L 100-108 N CARBON DIOXIDE (test code = CO2) 26 mEq/L 21-33 N ANION GAP (test code = GAP) 10 0-20 N GLUCOSE (test code = GLU) 126 mg/dL 70-110 H BLOOD UREA NITROGEN (test code = BUN) 26 mg/dL 7-18 H GLOMERULAR FILTRATION RATE (test code = GFR) 62.4 90-95 L Units of measure = ml/min/1.73 m2 CREATININE (test code = CREAT) 1.2 mg/dL 0.6-1.3 N TOTAL PROTEIN (test code = PROT) 6.2 g/dL 6.4-8.2 L ALBUMIN (test code = ALB) 2.70 g/dL 3.4-5.0 L CALCIUM (test code = CA) 8.6 mg/dL 8.0-10.5 N BILIRUBIN TOTAL (test code = BILT) 0.9 MG/DL <1.5 N SGOT/AST (test code = AST) 41 IUnit/L 15-37 H SGPT/ALT (test code = ALT) 74 IUnit/L 15-65 H ALKALINE PHOSPHATASE TOTAL (test code = ALKP) 101 IUnit/L 20-125 N CBC W/AUTO [id number] 07:35:00* Test Item Value Reference Range Interpretation Comments WHITE BLOOD CELL (test code = WBC) 7.66 x10 3/uL 4.5-11.0 N RED BLOOD CELL (test code = RBC) 3.98 x10 6/uL 4.00-5.60 L HEMOGLOBIN (test code = HGB) 11.6 g/dL 12.5-16.9 L HEMATOCRIT (test code = HCT) 38.0 % 37.5-50.7 N MEAN CELL VOLUME (test code = MCV) 95.5 fL 81.0-99.0 N MEAN CELL HGB (test code = MCH) 29.1 pg 27.0-33.0 N MEAN CELL HGB CONCETRATION (test code = MCHC) 30.5 g/dL 33.0-37. 0 L RED CELL DISTRIBUTION WIDTH CV (test code = RDW) 16.9 % 11.5- 14.5 H RED CELL DISTRIBUTION WIDTH SD (test code = RDW-SD) 58.8 fL 37 .0-54.0 H PLATELET COUNT (test code = PLT) 347 x10 3/uL 150-400 N MEAN PLATELET VOLUME (test code = MPV) 10.2 fL 7.0-9.0 H NEUTROPHIL % (test code = NT%) 69.1 % 56.0-77.0 N IMMATURE GRANULOCYTE % (test code = IG%) 0.7 % 0.0-2.0 N LYMPHOCYTE % (test code = LY%) 13.4 % 14.0-32.0 L MONOCYTE % (test code = MO%) 10.1 % 4.8-9.0 H EOSINOPHIL % (test code = EO%) 5.4 % 0.3-3.7 H BASOPHIL % (test code = BA%) 1.3 % 0.0-2.0 N NUCLEATED RBC % (test code = NRBC%) 0.0 % 0-0 N NEUTROPHIL # (test code = NT#) 5.30 x10 3/uL 2.0-7.6 N IMMATURE GRANULOCYTE # (test code = IG#) 0.05 x10 3/uL 0.00-0.03 H LYMPHOCYTE # (test code = LY#) 1.03 x10 3/uL 1.0-3.8 N MONOCYTE # (test code = MO#) 0.77 x10 3/uL 0.1-0.8 N EOSINOPHIL # (test code = EO#) 0.41 x10 3/uL 0.0-0.2 H BASOPHIL # (test code = BA#) 0.10 x10 3/uL 0.0-0.2 N NUCLEATED RBC # (test code = NRBC#) 0.00 x10 3/uL 0.0-0.1 N MANUAL DIFF REQUIRED (test code = MDIFF) NO [id number] 00:31:00* Test Item Value Reference Range Interpretation Comments GLUBED (test code = GLUBED) 187 MG/DL 70-110 H Performed by certified a operator at [facility] [id number] 19:59:00* Test Item Value Reference Range Interpretation Comments GLUBED (test code = GLUBED) 224 MG/DL 70-110 H Performed by certified a operator at [facility] [id number] 17:42:00* Test Item Value Reference Range Interpretation Comments GLUBED (test code = GLUBED) 108 MG/DL 70-110 N Performed by certified a operator at [facility] [id number] 12:52:00* Test Item Value Reference Range Interpretation Comments GLUBED (test code = GLUBED) 224 MG/DL 70-110 H Performed by certified a operator at [facility] B-TYPE NATRIURETIC [id number] 09:09:00* Test Item Value Reference Range Interpretation Comments B-TYPE NATRIURETIC PEPTIDE (test code = BNP) 2012.2 PG/ML 0-100 H COMPREHENSIVE METABOLIC [id number] 08:13:00* Test Item Value Reference Range Interpretation Comments SODIUM (test code = NA) 136 mEq/L 134-147 N POTASSIUM (test code = K) 3.3 mEq/L 3.4-5.0 L CHLORIDE (test code = CL) 104 mEq/L 100-108 N CARBON DIOXIDE (test code = CO2) 25 mEq/L 21-33 N ANION GAP (test code = GAP) 10 0-20 N GLUCOSE (test code = GLU) 188 mg/dL 70-110 H BLOOD UREA NITROGEN (test code = BUN) 32 mg/dL 7-18 H GLOMERULAR FILTRATION RATE (test code = GFR) 52.2 90-95 L Units of measure = ml/min/1.73 m2 CREATININE (test code = CREAT) 1.4 mg/dL 0.6-1.3 H TOTAL PROTEIN (test code = PROT) 6.1 g/dL 6.4-8.2 L ALBUMIN (test code = ALB) 2.90 g/dL 3.4-5.0 L CALCIUM (test code = CA) 8.9 mg/dL 8.0-10.5 N BILIRUBIN TOTAL (test code = BILT) 0.9 MG/DL <1.5 SGOT/AST (test code = AST) 54 IUnit/L 15-37 H SGPT/ALT (test code = ALT) 86 IUnit/L 15-65 H ALKALINE PHOSPHATASE TOTAL (test code = ALKP) 103 IUnit/L 20-125 N [id number] 08:13:00* Test Item Value Reference Range Interpretation Comments MAGNESIUM (test code = MAG) 2.30 mg/dL 1.8-2.4 N [id number] 07:21:00* Test Item Value Reference Range Interpretation Comments GLUBED (test code = GLUBED) 148 MG/DL 70-110 H Performed by certified a operator at [facility] URINALYSIS [id number] 01:58:00* Test Item Value Reference Range Interpretation Comments UA COLOR (test code = COLU) YELLOW YEL/STRAW UA APPEARANCE (test code = APPU) CLEAR CLEAR UA GLUCOSE DIPSTICK (test code = DGLUU) 3+ NEGATIVE A UA BILIRUBIN DIPSTICK (test code = BILU) NEGATIVE NEGATIVE UA KETONE DIPSTICK (test code = KETU) NEGATIVE NEGATIVE UA SPECIFIC GRAVITY (test code = SGU) 1.018 1.005-1.030 N UA BLOOD DIPSTICK (test code = BHUMI) NEGATIVE NEGATIVE UA PH DIPSTICK (test code = YAMILA) 5.0 5.0-7.0 N UA PROTEIN DIPSTICK (test code = PROU) NEGATIVE NEGATIVE UA UROBILINIOGEN DIPSTICK (test code = URO) 0.2 mg/dL 0.2-1.0 UA NITRITE DIPSTICK (test code = FINOA) NEGATIVE NEGATIVE UA LEUKOCYTE ESTERASE DIPSTICK (test code = LEUU) NEGATIVE NEGA TIVE UA RBC (test code = RBCU) NONE SEEN RBC/HPF 0-3 UA WBC NO REFLEX (test code = WBCUCL) 0-3 WBC/HPF 0-3 UA BACTERIA (test code = BACU) NONE SEEN /HPF NONE SEEN UA SQUAMOUS CELLS (test code = SQU) NONE SEEN /HPF NONE SEEN UA MUCUS (test code = MUCU) TRACE /LPF NONE SEEN UR SMEAR EOSINOPHIL [id number] 01:58:00* Test Item Value Reference Range Interpretation Comments UR SMEAR EOSINOPHIL COUNT (test code = EOSCTU) NONE SEEN UR SODIUM [id number] 01:58:00* Test Item Value Reference Range Interpretation Comments UR SODIUM RANDOM (test code = ROSALEE) 20 MEQ/L The Reference Range and Method Performance specificationshave not been established for this fluid. The test resultshould be correlated into the clinical context forinterpretation. UR CREATININE [id number] 01:58:00* Test Item Value Reference Range Interpretation Comments UR CREATININE RANDOM (test code = CREATU) 76.8 mg/dL The Reference Range and Method Performance specificationshave not been established for this fluid. The test resultshould be correlated into the clinical context forinterpretation. URINALYSIS [id number] 01:34:00* Test Item Value Reference Range Interpretation Comments UA COLOR (test code = COLU) YELLOW YEL/STRAW UA APPEARANCE (test code = APPU) CLEAR CLEAR UA GLUCOSE DIPSTICK (test code = DGLUU) 3+ NEGATIVE A UA BILIRUBIN DIPSTICK (test code = BILU) NEGATIVE NEGATIVE UA KETONE DIPSTICK (test code = KETU) NEGATIVE NEGATIVE UA SPECIFIC GRAVITY (test code = SGU) 1.018 1.005-1.030 N UA BLOOD DIPSTICK (test code = BHUMI) NEGATIVE NEGATIVE UA PH DIPSTICK (test code = YAMILA) 5.0 5.0-7.0 N UA PROTEIN DIPSTICK (test code = PROU) NEGATIVE NEGATIVE UA UROBILINIOGEN DIPSTICK (test code = URO) 0.2 mg/dL 0.2-1.0 UA NITRITE DIPSTICK (test code = FIONA) NEGATIVE NEGATIVE UA LEUKOCYTE ESTERASE DIPSTICK (test code = LEUU) NEGATIVE NEGA TIVE UA RBC (test code = RBCU) NONE SEEN RBC/HPF 0-3 UA WBC NO REFLEX (test code = WBCUCL) 0-3 WBC/HPF 0-3 UA BACTERIA (test code = BACU) NONE SEEN /HPF NONE SEEN UA SQUAMOUS CELLS (test code = SQU) NONE SEEN /HPF NONE SEEN UA MUCUS (test code = MUCU) TRACE /LPF NONE SEEN UR SMEAR EOSINOPHIL [id number] 01:34:00* Test Item Value Reference Range Interpretation Comments UR SMEAR EOSINOPHIL COUNT (test code = EOSCTU) UR SODIUM [id number] 01:34:00* Test Item Value Reference Range Interpretation Comments UR SODIUM RANDOM (test code = ROSALEE) 20 MEQ/L The Reference Range and Method Performance specificationshave not been established for this fluid. The test resultshould be correlated into the clinical context forinterpretation. UR CREATININE [id number] 01:34:00* Test Item Value Reference Range Interpretation Comments UR CREATININE RANDOM (test code = CREATU) 76.8 mg/dL The Reference Range and Method Performance specificationshave not been established for this fluid. The test resultshould be correlated into the clinical context forinterpretation. URINALYSIS [id number] 01:28:00* Test Item Value Reference Range Interpretation Comments UA COLOR (test code = COLU) YELLOW YEL/STRAW UA APPEARANCE (test code = APPU) CLEAR CLEAR UA GLUCOSE DIPSTICK (test code = DGLUU) 3+ NEGATIVE A UA BILIRUBIN DIPSTICK (test code = BILU) NEGATIVE NEGATIVE UA KETONE DIPSTICK (test code = KETU) NEGATIVE NEGATIVE UA SPECIFIC GRAVITY (test code = SGU) 1.018 1.005-1.030 N UA BLOOD DIPSTICK (test code = BHUMI) NEGATIVE NEGATIVE UA PH DIPSTICK (test code = YAMILA) 5.0 5.0-7.0 N UA PROTEIN DIPSTICK (test code = PROU) NEGATIVE NEGATIVE UA UROBILINIOGEN DIPSTICK (test code = URO) 0.2 mg/dL 0.2-1.0 UA NITRITE DIPSTICK (test code = FIONA) NEGATIVE NEGATIVE UA LEUKOCYTE ESTERASE DIPSTICK (test code = LEUU) NEGATIVE NEGA TIVE UA RBC (test code = RBCU) NONE SEEN RBC/HPF 0-3 UA WBC NO REFLEX (test code = WBCUCL) 0-3 WBC/HPF 0-3 UA BACTERIA (test code = BACU) NONE SEEN /HPF NONE SEEN UA SQUAMOUS CELLS (test code = SQU) NONE SEEN /HPF NONE SEEN UA MUCUS (test code = MUCU) TRACE /LPF NONE SEEN UR SMEAR EOSINOPHIL [id number] 01:28:00* Test Item Value Reference Range Interpretation Comments UR SMEAR EOSINOPHIL COUNT (test code = EOSCTU) UR SODIUM [id number] 01:28:00* Test Item Value Reference Range Interpretation Comments UR SODIUM RANDOM (test code = ROSALEE) MEQ/L UR CREATININE [id number] 01:28:00* Test Item Value Reference Range Interpretation Comments UR CREATININE RANDOM (test code = CREATU) mg/dL [id number] 20:41:00* Test Item Value Reference Range Interpretation Comments GLUBED (test code = GLUBED) 149 MG/DL 70-110 H Performed by certified a operator at [facility] [id number] 17:53:00* Test Item Value Reference Range Interpretation Comments GLUBED (test code = GLUBED) 115 MG/DL 70-110 H Performed by certified a operator at [facility] [id number] 09:04:00* Test Item Value Reference Range Interpretation Comments GLUBED (test code = GLUBED) 215 MG/DL 70-110 H Performed by certified a operator at [facility] COMPREHENSIVE METABOLIC [id number] 05:41:00* Test Item Value Reference Range Interpretation Comments SODIUM (test code = NA) 135 mEq/L 134-147 N POTASSIUM (test code = K) 3.8 mEq/L 3.4-5.0 CHLORIDE (test code = CL) 103 mEq/L 100-108 N CARBON DIOXIDE (test code = CO2) 22 mEq/L 21-33 N ANION GAP (test code = GAP) 14 0-20 N GLUCOSE (test code = GLU) 163 mg/dL 70-110 H BLOOD UREA NITROGEN (test code = BUN) 35 mg/dL 7-18 H GLOMERULAR FILTRATION RATE (test code = GFR) 41.7 90-95 L Units of measure = ml/min/1.73 m2 CREATININE (test code = CREAT) 1.7 mg/dL 0.6-1.3 H TOTAL PROTEIN (test code = PROT) 7.1 g/dL 6.4-8.2 N ALBUMIN (test code = ALB) 3.20 g/dL 3.4-5.0 L CALCIUM (test code = CA) 8.8 mg/dL 8.0-10.5 N BILIRUBIN TOTAL (test code = BILT) 1.3 MG/DL <1.5 N SGOT/AST (test code = AST) 87 IUnit/L 15-37 H SGPT/ALT (test code = ALT) 99 IUnit/L 15-65 H ALKALINE PHOSPHATASE TOTAL (test code = ALKP) 112 IUnit/L 20-125 N [id number] 05:41:00* Test Item Value Reference Range Interpretation Comments MAGNESIUM (test code = MAG) 2.50 mg/dL 1.8-2.4 H [id number] 05:41:00* Test Item Value Reference Range Interpretation Comments TROPONIN-I (test code = TROPI) 0.160 ng/mL 0.000-0.045 HH Negative: <= 0.045 Positive: >= 0.046 Correlation with serial results, other cardiac markers andclinical findings is necessary to determine the clinicalsignificance of this result. Results using different methodologies should not be comparedto one another as quantitative results may vary by method. CBC W/AUTO [id number] 05:04:00* Test Item Value Reference Range Interpretation Comments WHITE BLOOD CELL (test code = WBC) 11.30 x10 3/uL 4.5-11.0 H RED BLOOD CELL (test code = RBC) 4.30 x10 6/uL 4.00-5.60 N HEMOGLOBIN (test code = HGB) 12.9 g/dL 12.5-16.9 N HEMATOCRIT (test code = HCT) 40.3 % 37.5-50.7 N MEAN CELL VOLUME (test code = MCV) 93.7 fL 81.0-99.0 N MEAN CELL HGB (test code = MCH) 30.0 pg 27.0-33.0 N MEAN CELL HGB CONCETRATION (test code = MCHC) 32.0 g/dL 33.0-37. 0 L RED CELL DISTRIBUTION WIDTH CV (test code = RDW) 17.0 % 11.5- 14.5 H RED CELL DISTRIBUTION WIDTH SD (test code = RDW-SD) 57.8 fL 37 .0-54.0 H PLATELET COUNT (test code = PLT) 408 x10 3/uL 150-400 H MEAN PLATELET VOLUME (test code = MPV) 10.2 fL 7.0-9.0 H NEUTROPHIL % (test code = NT%) 81.6 % 56.0-77.0 H IMMATURE GRANULOCYTE % (test code = IG%) 0.7 % 0.0-2.0 N LYMPHOCYTE % (test code = LY%) 7.2 % 14.0-32.0 L MONOCYTE % (test code = MO%) 8.8 % 4.8-9.0 N EOSINOPHIL % (test code = EO%) 0.8 % 0.3-3.7 N BASOPHIL % (test code = BA%) 0.9 % 0.0-2.0 N NUCLEATED RBC % (test code = NRBC%) 0.0 % 0-0 N NEUTROPHIL # (test code = NT#) 9.22 x10 3/uL 2.0-7.6 H IMMATURE GRANULOCYTE # (test code = IG#) 0.08 x10 3/uL 0.00-0.03 H LYMPHOCYTE # (test code = LY#) 0.81 x10 3/uL 1.0-3.8 L MONOCYTE # (test code = MO#) 1.00 x10 3/uL 0.1-0.8 H EOSINOPHIL # (test code = EO#) 0.09 x10 3/uL 0.0-0.2 N BASOPHIL # (test code = BA#) 0.10 x10 3/uL 0.0-0.2 N NUCLEATED RBC # (test code = NRBC#) 0.00 x10 3/uL 0.0-0.1 N MANUAL DIFF REQUIRED (test code = MDIFF) NO [id number] 23:06:00* Test Item Value Reference Range Interpretation Comments TROPONIN-I (test code = TROPI) 0.133 ng/mL 0.000-0.045 Negative: <= 0.045 Positive: >= 0.046 Correlation with serial results, other cardiac markers andclinical findings is necessary to determine the clinicalsignificance of this result. Results using different methodologies should not be comparedto one another as quantitative results may vary by method. COMMENTS: 3 troponins total (including troponin done in ED)[id number] 20:28:00* Test Item Value Reference Range Interpretation Comments GLUBED (test code = GLUBED) 109 MG/DL 70-110 N Performed by certified a operator at [facility] [id number] 18:47:00* Test Item Value Reference Range Interpretation Comments TROPONIN-I (test code = TROPI) 0.163 ng/mL 0.000-0.045 HH Negative: <= 0.045 Positive: >= 0.046 Correlation with serial results, other cardiac markers andclinical findings is necessary to determine the clinicalsignificance of this result. Results using different methodologies should not be comparedto one another as quantitative results may vary by method. COMMENTS: 3 troponins total (including troponin done in ED)DRUGS OF ABUSE SCREEN [id number] 17:05:00* Test Item Value Reference Range Interpretation Comments URN COCAINE (test code = COCAURN) NEGATIVE NEGATIVE URN CANNABINOIDS (test code = CANNABURN) NEGATIVE NEGATIVE URN AMPHETAMINE (test code = AMPHETURN) POSITIVE NEGATIVE A URN BARBITURATE (test code = BARBITURN) NEGATIVE NEGATIVE URN BENZODIAZEPINE (test code = BENZOURN) NEGATIVE NEGATIVE Cut-off value:200 ng/mL URN OPIATES (test code = OPIATURN) NEGATIVE NEGATIVE Cut-off value:2000 ng/mL URN PHENCYCLIDINE (PCP) (test code = PHENCURN) NEGATIVE NEGATIV E Cutoffs:Barbiturates 200 ng/mLBenzodiazepines 200 ng/mLTHC Cannabinoids 50 ng/mLOpiates(Morphine) 2000 ng/mLAmphetamine 1000 ng/mLCocaine 300 ng/mLPCP phencyclidine 25 ng/mL Unconfirmed screening results shouldnot be used for non-medical purposes. DRUGS OF ABUSE SCREEN [id number] 16:53:00* Test Item Value Reference Range Interpretation Comments URN COCAINE (test code = COCAURN) NEGATIVE NEGATIVE URN CANNABINOIDS (test code = CANNABURN) NEGATIVE NEGATIVE URN AMPHETAMINE (test code = AMPHETURN) NEGATIVE URN BARBITURATE (test code = BARBITURN) NEGATIVE NEGATIVE URN BENZODIAZEPINE (test code = BENZOURN) NEGATIVE NEGATIVE Cut-off value:200 ng/mL URN OPIATES (test code = OPIATURN) NEGATIVE NEGATIVE Cut-off value:2000 ng/mL URN PHENCYCLIDINE (PCP) (test code = PHENCURN) NEGATIVE NEGATIV E Cutoffs:Barbiturates 200 ng/mLBenzodiazepines 200 ng/mLTHC Cannabinoids 50 ng/mLOpiates(Morphine) 2000 ng/mLAmphetamine 1000 ng/mLCocaine 300 ng/mLPCP phencyclidine 25 ng/mL Unconfirmed screening results shouldnot be used for non-medical purposes. B-TYPE NATRIURETIC [id number] 16:34:00* Test Item Value Reference Range Interpretation Comments B-TYPE NATRIURETIC PEPTIDE (test code = BNP) 2819.6 PG/ML 0-100 H LIPOPROTEIN [id number] 16:31:00* Test Item Value Reference Range Interpretation Comments LIPOPROTEIN LDL (test code = LDL) 98 mg/dL 0-100 N <100 [id number] NEAR OPTIMAL/ABOVE [id number] HIGH>SN=578 VERY HIGH*Guidelines provided by the National Cholesterol EducationProgram Adult Treatment Panel III COMPREHENSIVE METABOLIC [id number] 16:11:00* Test Item Value Reference Range Interpretation Comments SODIUM (test code = NA) 134 mEq/L 134-147 N POTASSIUM (test code = K) 4.8 mEq/L 3.4-5.0 N CHLORIDE (test code = CL) 104 mEq/L 100-108 N CARBON DIOXIDE (test code = CO2) 25 mEq/L 21-33 N ANION GAP (test code = GAP) 10 0-20 N GLUCOSE (test code = GLU) 152 mg/dL 70-110 H BLOOD UREA NITROGEN (test code = BUN) 39 mg/dL 7-18 H GLOMERULAR FILTRATION RATE (test code = GFR) 36.7 90-95 L Units of measure = ml/min/1.73 m2 CREATININE (test code = CREAT) 1.9 mg/dL 0.6-1.3 H TOTAL PROTEIN (test code = PROT) 7.3 g/dL 6.4-8.2 N ALBUMIN (test code = ALB) 3.40 g/dL 3.4-5.0 N CALCIUM (test code = CA) 9.4 mg/dL 8.0-10.5 N BILIRUBIN TOTAL (test code = BILT) 1.5 MG/DL <1.5 H SGOT/AST (test code = AST) 96 IUnit/L 15-37 H SGPT/ALT (test code = ALT) 90 IUnit/L 15-65 H ALKALINE PHOSPHATASE TOTAL (test code = ALKP) 105 IUnit/L 20-125 N [id number] 16:11:00* Test Item Value Reference Range Interpretation Comments TROPONIN-I (test code = TROPI) 0.159 ng/mL 0.000-0.045 HH Negative: <= 0.045 Positive: >= 0.046 Correlation with serial results, other cardiac markers andclinical findings is necessary to determine the clinicalsignificance of this result. Results using different methodologies should not be comparedto one another as quantitative results may vary by method. - XR CHEST 1 [id number] 16:11:00 FAX: Frederic Warner MD [phone] [place]: St: PRE FAX: Barby Waite NP [phone] Name: CRISTINO VILLASEÑOR [facility] : 1960 Age/S: 59/M [address] [place] [address] Blvd Unit #: [id number] Loc: [place] [address] Phys: Barby Waite NP Acct: [id number] Dis Date: Status: PRE ER PHONE #: [phone] Exam Date: 01/26/2020 1608 FAX #: [phone] Reason: SOB EXAMS: CPT CODE: [id number] XR CHEST 1 V 14743 PROCEDURE: Chest Radiograph. Clinical Indication: Shortness of breath, heart failure, cough. Comparison: Chest radiograph 01/19/2020. FINDINGS: The chest shows minimal vascular congestion. A left subclavian pacemaker is noted. The cardiac silhouette is enlarged. The trachea is midline. There are no clinically significant osseous abnormalities noted. IMPRESSION: 1. Cardiomegaly with minimal vascular congestion. SL: OCO-H at 1611 Reported and signed by: Adriano Hunter M.D. CC: Frederic Gale MD; Barby Waite NP Technologist: Kelly Tse RT(Sadia) Trnscrd Date/Time/By: 12/2019 (2552) : By: Omar Orig Print D/T: S: 01/26/2020 (1293) PAGE 1 Signed Report CBC W/AUTO [id number] 16:02:00* Test Item Value Reference Range Interpretation Comments WHITE BLOOD CELL (test code = WBC) 10.17 x10 3/uL 4.5-11.0 N RED BLOOD CELL (test code = RBC) 4.28 x10 6/uL 4.00-5.60 N HEMOGLOBIN (test code = HGB) 13.0 g/dL 12.5-16.9 N HEMATOCRIT (test code = HCT) 41.0 % 37.5-50.7 N MEAN CELL VOLUME (test code = MCV) 95.8 fL 81.0-99.0 N MEAN CELL HGB (test code = MCH) 30.4 pg 27.0-33.0 N MEAN CELL HGB CONCETRATION (test code = MCHC) 31.7 g/dL 33.0-37. 0 L RED CELL DISTRIBUTION WIDTH CV (test code = RDW) 17.1 % 11.5- 14.5 H RED CELL DISTRIBUTION WIDTH SD (test code = RDW-SD) 58.4 fL 37 .0-54.0 H PLATELET COUNT (test code = PLT) 415 x10 3/uL 150-400 H MEAN PLATELET VOLUME (test code = MPV) 10.1 fL 7.0-9.0 H NEUTROPHIL % (test code = NT%) 74.1 % 56.0-77.0 N IMMATURE GRANULOCYTE % (test code = IG%) 0.7 % 0.0-2.0 N LYMPHOCYTE % (test code = LY%) 11.9 % 14.0-32.0 L MONOCYTE % (test code = MO%) 11.2 % 4.8-9.0 H EOSINOPHIL % (test code = EO%) 1.0 % 0.3-3.7 N BASOPHIL % (test code = BA%) 1.1 % 0.0-2.0 N NUCLEATED RBC % (test code = NRBC%) 0.0 % 0-0 N NEUTROPHIL # (test code = NT#) 7.54 x10 3/uL 2.0-7.6 N IMMATURE GRANULOCYTE # (test code = IG#) 0.07 x10 3/uL 0.00-0.03 H LYMPHOCYTE # (test code = LY#) 1.21 x10 3/uL 1.0-3.8 N MONOCYTE # (test code = MO#) 1.14 x10 3/uL 0.1-0.8 H EOSINOPHIL # (test code = EO#) 0.10 x10 3/uL 0.0-0.2 N BASOPHIL # (test code = BA#) 0.11 x10 3/uL 0.0-0.2 N NUCLEATED RBC # (test code = NRBC#) 0.00 x10 3/uL 0.0-0.1 N MANUAL DIFF REQUIRED (test code = MDIFF) NO [id number] 12:21:00* Test Item Value Reference Range Interpretation Comments GLUBED (test code = GLUBED) 145 MG/DL 70-110 H Performed by certified a operator at [facility] [id number] 09:26:00* Test Item Value Reference Range Interpretation Comments GLUBED (test code = GLUBED) 145 MG/DL 70-110 H Performed by certified a operator at [facility] CBC W/AUTO [id number] 08:55:00* Test Item Value Reference Range Interpretation Comments WHITE BLOOD CELL (test code = WBC) 8.72 x10 3/uL 4.5-11.0 N RED BLOOD CELL (test code = RBC) 4.56 x10 6/uL 4.00-5.60 N HEMOGLOBIN (test code = HGB) 13.7 g/dL 12.5-16.9 N HEMATOCRIT (test code = HCT) 43.8 % 37.5-50.7 N MEAN CELL VOLUME (test code = MCV) 96.1 fL 81.0-99.0 N MEAN CELL HGB (test code = MCH) 30.0 pg 27.0-33.0 N MEAN CELL HGB CONCETRATION (test code = MCHC) 31.3 g/dL 33.0-37. 0 L RED CELL DISTRIBUTION WIDTH CV (test code = RDW) 18.3 % 11.5- 14.5 H RED CELL DISTRIBUTION WIDTH SD (test code = RDW-SD) 61.2 fL 37 .0-54.0 H PLATELET COUNT (test code = PLT) 300 x10 3/uL 150-400 N MEAN PLATELET VOLUME (test code = MPV) 10.8 fL 7.0-9.0 H NEUTROPHIL % (test code = NT%) 71.9 % 56.0-77.0 N IMMATURE GRANULOCYTE % (test code = IG%) 0.7 % 0.0-2.0 N LYMPHOCYTE % (test code = LY%) 14.0 % 14.0-32.0 N MONOCYTE % (test code = MO%) 8.7 % 4.8-9.0 N EOSINOPHIL % (test code = EO%) 3.7 % 0.3-3.7 N BASOPHIL % (test code = BA%) 1.0 % 0.0-2.0 N NUCLEATED RBC % (test code = NRBC%) 0.0 % 0-0 N NEUTROPHIL # (test code = NT#) 6.27 x10 3/uL 2.0-7.6 N IMMATURE GRANULOCYTE # (test code = IG#) 0.06 x10 3/uL 0.00-0.03 H LYMPHOCYTE # (test code = LY#) 1.22 x10 3/uL 1.0-3.8 N MONOCYTE # (test code = MO#) 0.76 x10 3/uL 0.1-0.8 N EOSINOPHIL # (test code = EO#) 0.32 x10 3/uL 0.0-0.2 H BASOPHIL # (test code = BA#) 0.09 x10 3/uL 0.0-0.2 N NUCLEATED RBC # (test code = NRBC#) 0.00 x10 3/uL 0.0-0.1 N MANUAL DIFF REQUIRED (test code = MDIFF) NO [id number] 08:15:00* Test Item Value Reference Range Interpretation Comments GLUBED (test code = GLUBED) 197 MG/DL 70-110 H Performed by certified a operator at [facility] COMPREHENSIVE METABOLIC [id number] 08:15:00* Test Item Value Reference Range Interpretation Comments SODIUM (test code = NA) 137 mEq/L 134-147 N POTASSIUM (test code = K) 3.6 mEq/L 3.4-5.0 N CHLORIDE (test code = CL) 105 mEq/L 100-108 N CARBON DIOXIDE (test code = CO2) 23 mEq/L 21-33 N ANION GAP (test code = GAP) 13 0-20 N GLUCOSE (test code = GLU) 90 mg/dL 70-110 BLOOD UREA NITROGEN (test code = BUN) 22 mg/dL 7-18 H GLOMERULAR FILTRATION RATE (test code = GFR) 56.9 90-95 L Units of measure = ml/min/1.73 m2 CREATININE (test code = CREAT) 1.3 mg/dL 0.6-1.3 N TOTAL PROTEIN (test code = PROT) 7.0 g/dL 6.4-8.2 N ALBUMIN (test code = ALB) 3.30 g/dL 3.4-5.0 L CALCIUM (test code = CA) 8.8 mg/dL 8.0-10.5 N BILIRUBIN TOTAL (test code = BILT) 1.4 MG/DL <1.5 N SGOT/AST (test code = AST) 21 IUnit/L 15-37 N SGPT/ALT (test code = ALT) 27 IUnit/L 15-65 N ALKALINE PHOSPHATASE TOTAL (test code = ALKP) 97 IUnit/L 20-125 N [id number] 08:15:00* Test Item Value Reference Range Interpretation Comments MAGNESIUM (test code = MAG) 2.30 mg/dL 1.8-2.4 N [id number] 21:02:00* Test Item Value Reference Range Interpretation Comments GLUBED (test code = GLUBED) 118 MG/DL 70-110 H Performed by certified a operator at [facility] [id number] 21:01:00* Test Item Value Reference Range Interpretation Comments GLUBED (test code = GLUBED) 161 MG/DL 70-110 H Performed by certified a operator at [facility] ARTERIAL BLOOD [id number] 15:04:00* Test Item Value Reference Range Interpretation Comments ARTERIAL BLOOD GAS PH (test code = PHA) 7.431 7.35-7.45 N ARTERIAL BLOOD GAS PCO2 (test code = PCO2A) 27.5 mmHg 35-45 L ARTERIAL BLOOD GAS PO2 (test code = PO2A) 95 mmHg 80-100 N BICARBONATE TOTAL HCO3 (test code = HCO3) 18.3 mmol/L 22.0-26.0 L BASE EXCESS (test code = JUSTA) -6.0 mmol/L -4-4 L ABG O2 SATURATION (test code = SATA) 98 % 90-100 N ABG DELIVERY (test code = MANUEL) Cannula ABG TEMPERATURE (test code = TEMPA) 98.6 F ABG SITE (test code = SITEA) R Brach TCO2 ARTERIAL (test code = TCO2A) 19 HGBA1C%2020-01-19 12:00:00* Test Item Value Reference Range Interpretation Comments HGBA1C% (test code = HGBA1C%) 8.8 %A1C 4.8-6.0 H COMMENTS: If patient [id number] 11:57:00* Test Item Value Reference Range Interpretation Comments TROPONIN-I (test code = TROPI) 0.096 ng/mL 0.000-0.045 HH Negative: <= 0.045 Positive: >= 0.046 Correlation with serial results, other cardiac markers andclinical findings is necessary to determine the clinicalsignificance of this result. Results using different methodologies should not be comparedto one another as quantitative results may vary by method. COMMENTS: If already ordered in ED, Adjust times to equal only 3 sets 3 hoursComment: apart.DRUGS OF ABUSE SCREEN [id number] 10:35:00* Test Item Value Reference Range Interpretation Comments URN COCAINE (test code = COCAURN) NEGATIVE NEGATIVE URN CANNABINOIDS (test code = CANNABURN) NEGATIVE NEGATIVE URN AMPHETAMINE (test code = AMPHETURN) POSITIVE NEGATIVE A URN BARBITURATE (test code = BARBITURN) NEGATIVE NEGATIVE URN BENZODIAZEPINE (test code = BENZOURN) NEGATIVE NEGATIVE Cut-off value:200 ng/mL URN OPIATES (test code = OPIATURN) NEGATIVE NEGATIVE Cut-off value:2000 ng/mL URN PHENCYCLIDINE (PCP) (test code = PHENCURN) NEGATIVE NEGATIV E Cutoffs:Barbiturates 200 ng/mLBenzodiazepines 200 ng/mLTHC Cannabinoids 50 ng/mLOpiates(Morphine) 2000 ng/mLAmphetamine 1000 ng/mLCocaine 300 ng/mLPCP phencyclidine 25 ng/mL Unconfirmed screening results shouldnot be used for non-medical purposes. DRUGS OF ABUSE SCREEN [id number] 10:26:00* Test Item Value Reference Range Interpretation Comments URN COCAINE (test code = COCAURN) NEGATIVE NEGATIVE URN CANNABINOIDS (test code = CANNABURN) NEGATIVE NEGATIVE URN AMPHETAMINE (test code = AMPHETURN) NEGATIVE URN BARBITURATE (test code = BARBITURN) NEGATIVE NEGATIVE URN BENZODIAZEPINE (test code = BENZOURN) NEGATIVE NEGATIVE Cut-off value:200 ng/mL URN OPIATES (test code = OPIATURN) NEGATIVE NEGATIVE Cut-off value:2000 ng/mL URN PHENCYCLIDINE (PCP) (test code = PHENCURN) NEGATIVE NEGATIV E Cutoffs:Barbiturates 200 ng/mLBenzodiazepines 200 ng/mLTHC Cannabinoids 50 ng/mLOpiates(Morphine) 2000 ng/mLAmphetamine 1000 ng/mLCocaine 300 ng/mLPCP phencyclidine 25 ng/mL Unconfirmed screening results shouldnot be used for non-medical purposes. [id number] 10:07:00* Test Item Value Reference Range Interpretation Comments GLUBED (test code = GLUBED) 99 MG/DL 70-110 N Performed by certified a operator at [facility] [id number] 09:37:00* Test Item Value Reference Range Interpretation Comments TROPONIN-I (test code = TROPI) 0.105 ng/mL 0.000-0.045 HH Negative: <= 0.045 Positive: >= 0.046 Correlation with serial results, other cardiac markers andclinical findings is necessary to determine the clinicalsignificance of this result. Results using different methodologies should not be comparedto one another as quantitative results may vary by method. COMMENTS: 3 troponins total (including troponin done in ED)[id number] 06:44:00* Test Item Value Reference Range Interpretation Comments TROPONIN-I (test code = TROPI) 0.107 ng/mL 0.000-0.045 HH Negative: <= 0.045 Positive: >= 0.046 Correlation with serial results, other cardiac markers andclinical findings is necessary to determine the clinicalsignificance of this result. Results using different methodologies should not be comparedto one another as quantitative results may vary by method. COMMENTS: 3 troponins total (including troponin done in ED)LIPOPROTEIN LDL 2020-01-19 04:23:00* Test Item Value Reference Range Interpretation Comments LIPOPROTEIN LDL (test code = LDL) 108 mg/dL 0-100 H <100 [id number] NEAR OPTIMAL/ABOVE [id number] HIGH>ZB=395 VERY HIGH*Guidelines provided by the National Cholesterol EducationProgram Adult Treatment Panel III B-TYPE NATRIURETIC [id number] 04:11:00* Test Item Value Reference Range Interpretation Comments B-TYPE NATRIURETIC PEPTIDE (test code = BNP) 1286.7 PG/ML 0-100 H - XR CHEST 2 [id number] 04:07:00 FAX: Frederic Warner MD [phone] [place]: St: REG FAX: Ricardo Goldsmith MD [phone] Name: CRISTINO VILLASEÑOR [facility] : 1960 Age/S: 59/M [address] [place] [address] Blvd Unit #: [id number] Loc: [place] [address] Phys: Ricardo Jamison MD Acct: [id number] Dis Date: Status: REG ER PHONE #: [phone] Exam Date: 01/19/2020358 FAX #: [phone] Reason: SOB EXAMS: CPT CODE: [id number] XR CHEST 2 V [id number] EXAM: CR, XR chest 2 views: 01/19/2020, 0349 hours HISTORY: SOB TECHNIQUE: Frontal and lateral chest radiographs are obtained. COMPARISON: None available. FINDINGS: Trachea is in midline. Heart is enlarged. Dual lead cardiac pacer device is stable. Mild central pulmonary vascular congestion seen. No airspace consolidation, pneumothorax or pleural effusion is seen. Osseous str uctures are stable. IMPRESSION: 1. Cardiomegaly. 2. Central pulmonary vascular congestion. SL:[JSYED-H] at 0407 Reported and signed by: Reese Avalos M.D. CC: Dieudonne Gale MD; Ricardo Jamison MD Technologist: Iva marx, RT(R) Trnscrd Date/Time/By: 01/19/2020 (12 29) : By: [email or web address] Orig Print D/T: S: 01/19/2020 (0410) PAGE 1 Signed Report BASIC METABOLIC [id number] 04:03:00* Test Item Value Reference Range Interpretation Comments SODIUM (test code = NA) 137 mEq/L 134-147 N POTASSIUM (test code = K) 4.1 mEq/L 3.4-5.0 N CHLORIDE (test code = CL) 105 mEq/L 100-108 N CARBON DIOXIDE (test code = CO2) 24 mEq/L 21-33 N ANION GAP (test code = GAP) 12 0-20 N GLUCOSE (test code = GLU) 186 mg/dL 70-110 H BLOOD UREA NITROGEN (test code = BUN) 23 mg/dL 7-18 H GLOMERULAR FILTRATION RATE (test code = GFR) 48.2 90-95 L Units of measure = ml/min/1.73 m2 CREATININE (test code = CREAT) 1.5 mg/dL 0.6-1.3 H CALCIUM (test code = CA) 8.7 mg/dL 8.0-10.5 N [id number] 04:03:00* Test Item Value Reference Range Interpretation Comments TROPONIN-I (test code = TROPI) 0.117 ng/mL 0.000-0.045 HH Negative: <= 0.045 Positive: >= 0.046 Correlation with serial results, other cardiac markers andclinical findings is necessary to determine the clinicalsignificance of this result. Results using different methodologies should not be comparedto one another as quantitative results may vary by method. CBC W/AUTO [id number] 03:44:00* Test Item Value Reference Range Interpretation Comments WHITE BLOOD CELL (test code = WBC) 10.05 x10 3/uL 4.5-11.0 N RED BLOOD CELL (test code = RBC) 4.21 x10 6/uL 4.00-5.60 N HEMOGLOBIN (test code = HGB) 12.8 g/dL 12.5-16.9 N HEMATOCRIT (test code = HCT) 41.3 % 37.5-50.7 N MEAN CELL VOLUME (test code = MCV) 98.1 fL 81.0-99.0 N MEAN CELL HGB (test code = MCH) 30.4 pg 27.0-33.0 N MEAN CELL HGB CONCETRATION (test code = MCHC) 31.0 g/dL 33.0-37. 0 L RED CELL DISTRIBUTION WIDTH CV (test code = RDW) 18.2 % 11.5- 14.5 H RED CELL DISTRIBUTION WIDTH SD (test code = RDW-SD) 62.0 fL 37 .0-54.0 H PLATELET COUNT (test code = PLT) 296 x10 3/uL 150-400 N MEAN PLATELET VOLUME (test code = MPV) 10.7 fL 7.0-9.0 H NEUTROPHIL % (test code = NT%) 74.3 % 56.0-77.0 N IMMATURE GRANULOCYTE % (test code = IG%) 0.6 % 0.0-2.0 N LYMPHOCYTE % (test code = LY%) 12.5 % 14.0-32.0 L MONOCYTE % (test code = MO%) 8.0 % 4.8-9.0 N EOSINOPHIL % (test code = EO%) 3.9 % 0.3-3.7 H BASOPHIL % (test code = BA%) 0.7 % 0.0-2.0 N NUCLEATED RBC % (test code = NRBC%) 0.5 % 0-0 H NEUTROPHIL # (test code = NT#) 7.47 x10 3/uL 2.0-7.6 N IMMATURE GRANULOCYTE # (test code = IG#) 0.06 x10 3/uL 0.00-0.03 H LYMPHOCYTE # (test code = LY#) 1.26 x10 3/uL 1.0-3.8 N MONOCYTE # (test code = MO#) 0.80 x10 3/uL 0.1-0.8 N EOSINOPHIL # (test code = EO#) 0.39 x10 3/uL 0.0-0.2 H BASOPHIL # (test code = BA#) 0.07 x10 3/uL 0.0-0.2 N NUCLEATED RBC # (test code = NRBC#) 0.05 x10 3/uL 0.0-0.1 N MANUAL DIFF REQUIRED (test code = MDIFF) NO COMPREHENSIVE METABOLIC [id number] 08:10:00* Test Item Value Reference Range Interpretation Comments SODIUM (test code = NA) 131 mEq/L 134-147 L POTASSIUM (test code = K) 2.6 mEq/L 3.4-5.0 LL CHLORIDE (test code = CL) 96 mEq/L 100-108 L CARBON DIOXIDE (test code = CO2) 26 mEq/L 21-33 N ANION GAP (test code = GAP) 12 0-20 N GLUCOSE (test code = GLU) 216 mg/dL 70-110 H BLOOD UREA NITROGEN (test code = BUN) 26 mg/dL 7-18 H GLOMERULAR FILTRATION RATE (test code = GFR) 56.9 90-95 L Units of measure = ml/min/1.73 m2 CREATININE (test code = CREAT) 1.3 mg/dL 0.6-1.3 N TOTAL PROTEIN (test code = PROT) 7.4 g/dL 6.4-8.2 N ALBUMIN (test code = ALB) 3.40 g/dL 3.4-5.0 N CALCIUM (test code = CA) 9.2 mg/dL 8.0-10.5 N BILIRUBIN TOTAL (test code = BILT) 0.6 MG/DL <1.5 N SGOT/AST (test code = AST) 26 IUnit/L 15-37 N SGPT/ALT (test code = ALT) 23 IUnit/L 15-65 N ALKALINE PHOSPHATASE TOTAL (test code = ALKP) 109 IUnit/L 20-125 N [id number] 08:05:00* Test Item Value Reference Range Interpretation Comments GLUBED (test code = GLUBED) 182 MG/DL 70-110 H Performed by certified a operator at [facility] CBC W/AUTO [id number] 07:53:00* Test Item Value Reference Range Interpretation Comments WHITE BLOOD CELL (test code = WBC) 9.39 x10 3/uL 4.5-11.0 N RED BLOOD CELL (test code = RBC) 4.96 x10 6/uL 4.00-5.60 N HEMOGLOBIN (test code = HGB) 14.9 g/dL 12.5-16.9 N HEMATOCRIT (test code = HCT) 44.7 % 37.5-50.7 N MEAN CELL VOLUME (test code = MCV) 90.1 fL 81.0-99.0 N MEAN CELL HGB (test code = MCH) 30.0 pg 27.0-33.0 N MEAN CELL HGB CONCETRATION (test code = MCHC) 33.3 g/dL 33.0-37. 0 N RED CELL DISTRIBUTION WIDTH CV (test code = RDW) 14.9 % 11.5- 14.5 H RED CELL DISTRIBUTION WIDTH SD (test code = RDW-SD) 49.2 fL 37 .0-54.0 N PLATELET COUNT (test code = PLT) 272 x10 3/uL 150-400 N MEAN PLATELET VOLUME (test code = MPV) 11.1 fL 7.0-9.0 H NEUTROPHIL % (test code = NT%) 74.4 % 56.0-77.0 N IMMATURE GRANULOCYTE % (test code = IG%) 0.7 % 0.0-2.0 N LYMPHOCYTE % (test code = LY%) 10.5 % 14.0-32.0 L MONOCYTE % (test code = MO%) 9.9 % 4.8-9.0 H EOSINOPHIL % (test code = EO%) 3.4 % 0.3-3.7 N BASOPHIL % (test code = BA%) 1.1 % 0.0-2.0 N NUCLEATED RBC % (test code = NRBC%) 0.0 % 0-0 N NEUTROPHIL # (test code = NT#) 6.98 x10 3/uL 2.0-7.6 N IMMATURE GRANULOCYTE # (test code = IG#) 0.07 x10 3/uL 0.00-0.03 H LYMPHOCYTE # (test code = LY#) 0.99 x10 3/uL 1.0-3.8 L MONOCYTE # (test code = MO#) 0.93 x10 3/uL 0.1-0.8 H EOSINOPHIL # (test code = EO#) 0.32 x10 3/uL 0.0-0.2 H BASOPHIL # (test code = BA#) 0.10 x10 3/uL 0.0-0.2 N NUCLEATED RBC # (test code = NRBC#) 0.00 x10 3/uL 0.0-0.1 N MANUAL DIFF REQUIRED (test code = MDIFF) NO [id number] 20:17:00* Test Item Value Reference Range Interpretation Comments GLUBED (test code = GLUBED) 236 MG/DL 70-110 H Performed by certified a operator at [facility] [id number] 18:31:00* Test Item Value Reference Range Interpretation Comments TROPONIN-I (test code = TROPI) 0.159 ng/mL 0.000-0.045 HH Negative: <= 0.045 Positive: >= 0.046 Correlation with serial results, other cardiac markers andclinical findings is necessary to determine the clinicalsignificance of this result. Results using different methodologies should not be comparedto one another as quantitative results may vary by method. [id number] 17:34:00* Test Item Value Reference Range Interpretation Comments GLUBED (test code = GLUBED) 204 MG/DL 70-110 H Performed by certified a operator at [facility] [id number] 16:12:00* Test Item Value Reference Range Interpretation Comments TROPONIN-I (test code = TROPI) 0.166 ng/mL 0.000-0.045 HH Negative: <= 0.045 Positive: >= 0.046 Correlation with serial results, other cardiac markers andclinical findings is necessary to determine the clinicalsignificance of this result. Results using different methodologies should not be comparedto one another as quantitative results may vary by method. [id number] 13:10:00* Test Item Value Reference Range Interpretation Comments TROPONIN-I (test code = TROPI) 0.165 ng/mL 0.000-0.045 HH Negative: <= 0.045 Positive: >= 0.046 Correlation with serial results, other cardiac markers andclinical findings is necessary to determine the clinicalsignificance of this result. Results using different methodologies should not be comparedto one another as quantitative results may vary by method. [id number] 11:46:00* Test Item Value Reference Range Interpretation Comments GLUBED (test code = GLUBED) 219 MG/DL 70-110 H Performed by certified a operator at [facility] [id number] 11:46:00* Test Item Value Reference Range Interpretation Comments GLUBED (test code = GLUBED) 187 MG/DL 70-110 H Performed by certified a operator at [facility] DRUGS OF ABUSE SCREEN [id number] 02:50:00* Test Item Value Reference Range Interpretation Comments URN COCAINE (test code = COCAURN) NEGATIVE NEGATIVE URN CANNABINOIDS (test code = CANNABURN) NEGATIVE NEGATIVE URN AMPHETAMINE (test code = AMPHETURN) POSITIVE NEGATIVE A URN BARBITURATE (test code = BARBITURN) POSITIVE NEGATIVE A URN BENZODIAZEPINE (test code = BENZOURN) NEGATIVE NEGATIVE Cut-off value:200 ng/mL URN OPIATES (test code = OPIATURN) NEGATIVE NEGATIVE Cut-off value:2000 ng/mL URN PHENCYCLIDINE (PCP) (test code = PHENCURN) NEGATIVE NEGATIV E Cutoffs:Barbiturates 200 ng/mLBenzodiazepines 200 ng/mLTHC Cannabinoids 50 ng/mLOpiates(Morphine) 2000 ng/mLAmphetamine 1000 ng/mLCocaine 300 ng/mLPCP phencyclidine 25 ng/mL Unconfirmed screening results shouldnot be used for non-medical purposes. LIPOPROTEIN [id number] 02:50:00* Test Item Value Reference Range Interpretation Comments LIPOPROTEIN LDL (test code = LDL) 180 mg/dL 0-100 H <100 [id number] NEAR OPTIMAL/ABOVE [id number] HIGH>NL=758 VERY HIGH*Guidelines provided by the National Cholesterol EducationProgram Adult Treatment Panel III [id number] 02:36:00* Test Item Value Reference Range Interpretation Comments TROPONIN-I (test code = TROPI) 0.170 ng/mL 0.000-0.045 HH Negative: <= 0.045 Positive: >= 0.046 Correlation with serial results, other cardiac markers andclinical findings is necessary to determine the clinicalsignificance of this result. Results using different methodologies should not be comparedto one another as quantitative results may vary by method. DRUGS OF ABUSE SCREEN [id number] 02:31:00* Test Item Value Reference Range Interpretation Comments URN COCAINE (test code = COCAURN) NEGATIVE NEGATIVE URN CANNABINOIDS (test code = CANNABURN) NEGATIVE NEGATIVE URN AMPHETAMINE (test code = AMPHETURN) POSITIVE NEGATIVE A URN BARBITURATE (test code = BARBITURN) NEGATIVE URN BENZODIAZEPINE (test code = BENZOURN) NEGATIVE NEGATIVE Cut-off value:200 ng/mL URN OPIATES (test code = OPIATURN) NEGATIVE NEGATIVE Cut-off value:2000 ng/mL URN PHENCYCLIDINE (PCP) (test code = PHENCURN) NEGATIVE NEGATIV E Cutoffs:Barbiturates 200 ng/mLBenzodiazepines 200 ng/mLTHC Cannabinoids 50 ng/mLOpiates(Morphine) 2000 ng/mLAmphetamine 1000 ng/mLCocaine 300 ng/mLPCP phencyclidine 25 ng/mL Unconfirmed screening results shouldnot be used for non-medical purposes. DRUGS OF ABUSE SCREEN [id number] 02:10:00* Test Item Value Reference Range Interpretation Comments URN COCAINE (test code = COCAURN) NEGATIVE NEGATIVE URN CANNABINOIDS (test code = CANNABURN) NEGATIVE NEGATIVE URN AMPHETAMINE (test code = AMPHETURN) NEGATIVE URN BARBITURATE (test code = BARBITURN) NEGATIVE URN BENZODIAZEPINE (test code = BENZOURN) NEGATIVE NEGATIVE Cut-off value:200 ng/mL URN OPIATES (test code = OPIATURN) NEGATIVE NEGATIVE Cut-off value:2000 ng/mL URN PHENCYCLIDINE (PCP) (test code = PHENCURN) NEGATIVE NEGATIV E Cutoffs:Barbiturates 200 ng/mLBenzodiazepines 200 ng/mLTHC Cannabinoids 50 ng/mLOpiates(Morphine) 2000 ng/mLAmphetamine 1000 ng/mLCocaine 300 ng/mLPCP phencyclidine 25 ng/mL Unconfirmed screening results shouldnot be used for non-medical purposes. BASIC METABOLIC [id number] 02:08:00* Test Item Value Reference Range Interpretation Comments SODIUM (test code = NA) 134 mEq/L 134-147 N POTASSIUM (test code = K) 3.6 mEq/L 3.4-5.0 N CHLORIDE (test code = CL) 95 mEq/L 100-108 L CARBON DIOXIDE (test code = CO2) 28 mEq/L 21-33 N ANION GAP (test code = GAP) 15 0-20 N GLUCOSE (test code = GLU) 281 mg/dL 70-110 H BLOOD UREA NITROGEN (test code = BUN) 27 mg/dL 7-18 H GLOMERULAR FILTRATION RATE (test code = GFR) 48.2 90-95 L Units of measure = ml/min/1.73 m2 CREATININE (test code = CREAT) 1.5 mg/dL 0.6-1.3 H CALCIUM (test code = CA) 10.2 mg/dL 8.0-10.5 N CBC W/AUTO [id number] 01:35:00* Test Item Value Reference Range Interpretation Comments WHITE BLOOD CELL (test code = WBC) 11.20 x10 3/uL 4.5-11.0 H RED BLOOD CELL (test code = RBC) 5.31 x10 6/uL 4.00-5.60 N HEMOGLOBIN (test code = HGB) 16.2 g/dL 12.5-16.9 N HEMATOCRIT (test code = HCT) 48.7 % 37.5-50.7 N MEAN CELL VOLUME (test code = MCV) 91.7 fL 81.0-99.0 N MEAN CELL HGB (test code = MCH) 30.5 pg 27.0-33.0 N MEAN CELL HGB CONCETRATION (test code = MCHC) 33.3 g/dL 33.0-37. 0 N RED CELL DISTRIBUTION WIDTH CV (test code = RDW) 15.4 % 11.5- 14.5 H RED CELL DISTRIBUTION WIDTH SD (test code = RDW-SD) 50.8 fL 37 .0-54.0 N PLATELET COUNT (test code = PLT) 353 x10 3/uL 150-400 N MEAN PLATELET VOLUME (test code = MPV) 10.5 fL 7.0-9.0 H NEUTROPHIL % (test code = NT%) 83.8 % 56.0-77.0 H IMMATURE GRANULOCYTE % (test code = IG%) 0.5 % 0.0-2.0 N LYMPHOCYTE % (test code = LY%) 8.1 % 14.0-32.0 L MONOCYTE % (test code = MO%) 5.6 % 4.8-9.0 N EOSINOPHIL % (test code = EO%) 1.3 % 0.3-3.7 N BASOPHIL % (test code = BA%) 0.7 % 0.0-2.0 N NUCLEATED RBC % (test code = NRBC%) 0.0 % 0-0 N NEUTROPHIL # (test code = NT#) 9.37 x10 3/uL 2.0-7.6 H IMMATURE GRANULOCYTE # (test code = IG#) 0.06 x10 3/uL 0.00-0.03 H LYMPHOCYTE # (test code = LY#) 0.91 x10 3/uL 1.0-3.8 L MONOCYTE # (test code = MO#) 0.63 x10 3/uL 0.1-0.8 N EOSINOPHIL # (test code = EO#) 0.15 x10 3/uL 0.0-0.2 N BASOPHIL # (test code = BA#) 0.08 x10 3/uL 0.0-0.2 N NUCLEATED RBC # (test code = NRBC#) 0.00 x10 3/uL 0.0-0.1 N MANUAL DIFF REQUIRED (test code = MDIFF) NO TROPONIN-I [id number] 01:32:00* Test Item Value Reference Range Interpretation Comments TROPONIN-I RAPID (test code = TROPIRAP) 0.10 ng/mL 0.00-0.08 H H Performed by certified a operator at [facility] Negative: <= 0.08 Positive: >= 0.09An elevated troponin value alone is not sufficient todiagnose a myocardial infarction. Rather, the patient sclinical presentation (history, physical exam) and ECGshould be used in conjunction with troponin in thediagnostic evaluation of suspected myocardial infarction. Aserial sampling protocol is recommended to facilitate the identification of temporal changes in troponin levels characteristic of AK. 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 FINDINGS: The lungs are clear. Stable cardiomegaly. Stable positioning of left subclavian transvenous pacemaker/defibrillator leads. Pulmonary vascularity is normal. IMPRESSION: Stable chest, no active process from 12/17/19. SL:01 at 0129 Reported and signed by: Brendan jiménez M.D. CC: Brooklyn Salcedo MD; Carmela Lemus NP Technologist: AIDE Emmanuel) Sanya Date/Time/By: 12/28/2019 (128) : By: Umer Orig Print D/ T: S: 12/28/2019 (0133) PAGE 1 Si gned Report [id number] 17:35:00* Test Item Value Reference Range Interpretation Comments GLUBED (test code = GLUBED) 138 MG/DL 70-110 H Performed by certified a operator at [facility] - CT HEAD/BRAIN W/O [id number] 16:23:00 Name: CRISTINO VILLASEÑOR [facility] : 1960 Age/S: 59 / M [address] [place] [address] Bl Unit #: [id number] Loc: [place] [address] Phys: Kim Lewis B DO Acct: [id number] Dis Date: 11/25/2019 Status: DIS IN PHONE #: [phone] Exam Date: 11/15/2019 1121 FAX #: [phone] Reason: CODE NEURO LKW 0700 Report Has Been Amended EXAMS: CPT CODE: [id number] CT HEAD/BRAIN W/O CONT 26502 Addendum - 12/19/2019 SIGNED 12/19/2019 ADDENDUM: [id number] CT/CTHDBRWO Addendum: CT imaging performed at this location utilizes radiation dose optimization techniques which include one or more of the following: -Automated exposure control -Adjustment of the mA and/or kV according to patient size -Use of iterative reconstruction technique CT Radiation Dose: DLP 419.70 mGy-cm at 1623 Reported and signed by: Robb Monroe M.D. Report PROCEDURE: CT head without contrast INDICATION: CODE NEURO LKW 0700. Slurred speech. Left-sided weakness. COMPARISON: CT head without contrast dated 09/04/2019. TECHNIQUE: Noncontrast helical imaging performed skull base to the vertex. FINDINGS: BRAIN PARENCHYMA: Mild to moderate diffuse generalized intracranial atrophy is demonstrated. Mild diffuse periventricular white matter hypodensity compatible with chronic ischemic change. This appears stable. Stable cortical and subcortical hypodensity within the medial left posterior parietal, occipital lobe. This is identified around axial image 39, coronal image 81 and sagittal image 41. This appears stable since August 2019. No definite evidence for acute infarct. Normal mason- white interfaces. No focal mass lesions. No mass effect, midline shift. No intra-axial or extra-axial fluid collections, intraventricular or PAGE 1 Signed Report (CONTINUED) Name: CRISTINO VILLASEÑOR [facility] : 1960 Age/S: 59 / M [address] [place] [address] Unit #: [id number] Loc: [place] [address] Phys: Ha Lewis i DO Acct: [id number] Di s Date: 11/25/2019 Status: DIS IN PHONE #: Exam Date: 11/15/2019 1128 FAX #: Reason: CODE NEURO LKW 0700 Report Has Been Amended EXAMS: CPT CODE: [id number] CT HEAD/BRAIN W/O CONT 72290 <Continued> intraparenchymal hemorrhage. Pineal, sellar, brainstem, cerebellum and skull base regions appear unremarkable. VENTRICLES AND CISTERNS: Prominence of the ventricles, sulci and cisterns related to generalized atrophy. Lateral ventricles, 3rd and 4th ventricles appear otherwise unremarkable. Basilar cisterns are otherwise normal. ORBITS, MASTOIDS AND PARANASAL SINUSES: The visualized aspects of the orbits appear unremarkable. Visualized aspects of the paranasal sinuses appear unremarkable. The mastoid air cells are clear. SKULL: No acute osseous abnormalities. IMPRESSION: 1. No evidence for acute intracranial abnormality. 2. Generalized intracranial atrophy with chronic ischemic changes. 3. 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 These findings were discussed with Kim Lewis DO on 11/15/2019 11:30 AM. SL: BENJAMIN-H at 1135 Reported and signed by: Robb Monroe M.D. CC: Frederic Gale MD; Kim Lewis DO Technologist:Roselyn Soto, RT(R)(CT) CTDI: DLP: Trnscb Date/Time: 11/15/2019 (113) [email or web address] Orig Print D/T: S: 11/15/2019 (2302) PAGE 2 Signed Report [id number] 12:37:00* Test Item Value Reference Range Interpretation Comments GLUBED (test code = GLUBED) 222 MG/DL 70-110 H Performed by certified a operator at [facility] [id number] 09:22:00* Test Item Value Reference Range Interpretation Comments GLUBED (test code = GLUBED) 240 MG/DL 70-110 H Performed by certified a operator at [facility] [id number] 07:11:00* Test Item Value Reference Range Interpretation Comments GLUBED (test code = GLUBED) 232 MG/DL 70-110 H Performed by certified a operator at [facility] [id number] 20:17:00* Test Item Value Reference Range Interpretation Comments GLUBED (test code = GLUBED) 187 MG/DL 70-110 H Performed by certified a operator at [facility] [id number] 19:20:00* Test Item Value Reference Range Interpretation Comments GLUBED (test code = GLUBED) 131 MG/DL 70-110 H Performed by certified a operator at [facility] [id number] 12:36:00* Test Item Value Reference Range Interpretation Comments GLUBED (test code = GLUBED) 239 MG/DL 70-110 H Performed by certified a operator at [facility] DRUGS OF ABUSE SCREEN [id number] 10:54:00* Test Item Value Reference Range Interpretation Comments URN COCAINE (test code = COCAURN) NEGATIVE NEGATIVE URN CANNABINOIDS (test code = CANNABURN) NEGATIVE NEGATIVE URN AMPHETAMINE (test code = AMPHETURN) POSITIVE NEGATIVE A URN BARBITURATE (test code = BARBITURN) NEGATIVE NEGATIVE URN BENZODIAZEPINE (test code = BENZOURN) NEGATIVE NEGATIVE Cut-off value:200 ng/mL URN OPIATES (test code = OPIATURN) NEGATIVE NEGATIVE Cut-off value:2000 ng/mL URN PHENCYCLIDINE (PCP) (test code = PHENCURN) NEGATIVE NEGATIV E Cutoffs:Barbiturates 200 ng/mLBenzodiazepines 200 ng/mLTHC Cannabinoids 50 ng/mLOpiates(Morphine) 2000 ng/mLAmphetamine 1000 ng/mLCocaine 300 ng/mLPCP phencyclidine 25 ng/mL Unconfirmed screening results shouldnot be used for non-medical purposes. DRUGS OF ABUSE SCREEN [id number] 10:44:00* Test Item Value Reference Range Interpretation Comments URN COCAINE (test code = COCAURN) NEGATIVE NEGATIVE URN CANNABINOIDS (test code = CANNABURN) NEGATIVE NEGATIVE URN AMPHETAMINE (test code = AMPHETURN) NEGATIVE URN BARBITURATE (test code = BARBITURN) NEGATIVE NEGATIVE URN BENZODIAZEPINE (test code = BENZOURN) NEGATIVE NEGATIVE Cut-off value:200 ng/mL URN OPIATES (test code = OPIATURN) NEGATIVE NEGATIVE Cut-off value:2000 ng/mL URN PHENCYCLIDINE (PCP) (test code = PHENCURN) NEGATIVE NEGATIV E Cutoffs:Barbiturates 200 ng/mLBenzodiazepines 200 ng/mLTHC Cannabinoids 50 ng/mLOpiates(Morphine) 2000 ng/mLAmphetamine 1000 ng/mLCocaine 300 ng/mLPCP phencyclidine 25 ng/mL Unconfirmed screening results shouldnot be used for non-medical purposes. [id number] 09:14:00* Test Item Value Reference Range Interpretation Comments GLUBED (test code = GLUBED) 147 MG/DL 70-110 H Performed by certified a operator at [facility] COMPREHENSIVE METABOLIC [id number] 04:43:00* Test Item Value Reference Range Interpretation Comments SODIUM (test code = NA) 136 mEq/L 134-147 N POTASSIUM (test code = K) 3.0 mEq/L 3.4-5.0 L CHLORIDE (test code = CL) 101 mEq/L 100-108 N CARBON DIOXIDE (test code = CO2) 30 mEq/L 21-33 N ANION GAP (test code = GAP) 8 0-20 N GLUCOSE (test code = GLU) 144 mg/dL 70-110 H BLOOD UREA NITROGEN (test code = BUN) 22 mg/dL 7-18 H GLOMERULAR FILTRATION RATE (test code = GFR) 69.0 90-95 L Units of measure = ml/min/1.73 m2 CREATININE (test code = CREAT) 1.1 mg/dL 0.6-1.3 N TOTAL PROTEIN (test code = PROT) 6.7 g/dL 6.4-8.2 N ALBUMIN (test code = ALB) 3.10 g/dL 3.4-5.0 L CALCIUM (test code = CA) 8.8 mg/dL 8.0-10.5 N BILIRUBIN TOTAL (test code = BILT) 1.4 MG/DL <1.5 N SGOT/AST (test code = AST) 25 IUnit/L 15-37 N SGPT/ALT (test code = ALT) 42 IUnit/L 15-65 N ALKALINE PHOSPHATASE TOTAL (test code = ALKP) 86 IUnit/L 20-125 N [id number] 04:43:00* Test Item Value Reference Range Interpretation Comments MAGNESIUM (test code = MAG) 1.70 mg/dL 1.8-2.4 L HGBA1C%2019-12-18 04:43:00* Test Item Value Reference Range Interpretation Comments HGBA1C% (test code = HGBA1C%) 8.9 %A1C 4.8-6.0 H NO LAV TOP RECVD WITH 1600 TROPI DRAW.CBC W/AUTO [id number] 04:20:00* Test Item Value Reference Range Interpretation Comments WHITE BLOOD CELL (test code = WBC) 8.48 x10 3/uL 4.5-11.0 N RED BLOOD CELL (test code = RBC) 4.31 x10 6/uL 4.00-5.60 N HEMOGLOBIN (test code = HGB) 13.2 g/dL 12.5-16.9 N HEMATOCRIT (test code = HCT) 40.3 % 37.5-50.7 N MEAN CELL VOLUME (test code = MCV) 93.5 fL 81.0-99.0 N MEAN CELL HGB (test code = MCH) 30.6 pg 27.0-33.0 N MEAN CELL HGB CONCETRATION (test code = MCHC) 32.8 g/dL 33.0-37. 0 L RED CELL DISTRIBUTION WIDTH CV (test code = RDW) 14.6 % 11.5- 14.5 H RED CELL DISTRIBUTION WIDTH SD (test code = RDW-SD) 50.0 fL 37 .0-54.0 N PLATELET COUNT (test code = PLT) 193 x10 3/uL 150-400 N MEAN PLATELET VOLUME (test code = MPV) 10.6 fL 7.0-9.0 H NEUTROPHIL % (test code = NT%) 75.3 % 56.0-77.0 N IMMATURE GRANULOCYTE % (test code = IG%) 0.5 % 0.0-2.0 N LYMPHOCYTE % (test code = LY%) 13.6 % 14.0-32.0 L MONOCYTE % (test code = MO%) 7.2 % 4.8-9.0 N EOSINOPHIL % (test code = EO%) 2.7 % 0.3-3.7 N BASOPHIL % (test code = BA%) 0.7 % 0.0-2.0 N NUCLEATED RBC % (test code = NRBC%) 0.0 % 0-0 N NEUTROPHIL # (test code = NT#) 6.39 x10 3/uL 2.0-7.6 N IMMATURE GRANULOCYTE # (test code = IG#) 0.04 x10 3/uL 0.00-0.03 H LYMPHOCYTE # (test code = LY#) 1.15 x10 3/uL 1.0-3.8 N MONOCYTE # (test code = MO#) 0.61 x10 3/uL 0.1-0.8 N EOSINOPHIL # (test code = EO#) 0.23 x10 3/uL 0.0-0.2 H BASOPHIL # (test code = BA#) 0.06 x10 3/uL 0.0-0.2 N NUCLEATED RBC # (test code = NRBC#) 0.00 x10 3/uL 0.0-0.1 N MANUAL DIFF REQUIRED (test code = MDIFF) NO [id number] 20:17:00* Test Item Value Reference Range Interpretation Comments GLUBED (test code = GLUBED) 228 MG/DL 70-110 H Performed by certified a operator at [facility] [id number] 17:12:00* Test Item Value Reference Range Interpretation Comments TROPONIN-I (test code = TROPI) 0.120 ng/mL 0.000-0.045 HH Negative: <= 0.045 Positive: >= 0.046 Correlation with serial results, other cardiac markers andclinical findings is necessary to determine the clinicalsignificance of this result. Results using different methodologies should not be comparedto one another as quantitative results may vary by method. COMMENTS: 3 troponins total (including troponin done in ED)PROTHROMBIN TIME 2019-12-17 17:11:00* Test Item Value Reference Range Interpretation Comments PROTHROMBIN TIME PATIENT (test code = PTP) 14.3 SECONDS 9.3-12.9 H INTERNATIONAL NORMAL RATIO (test code = INR) 1.3 0.8-1.2 H TARGET INR BY INDICATION Indication INR1. Prophylaxis of venous thrombosis 2.0 - 3.0 (orthopedic surgery), Prophylaxis of venous thrombosis (other than high-risk surgery), Treatment of Deep Vein Thrombosis/Pulmonary Embolism, Prevention of systemic embolism - Tissue heart valves, Acute Myocardial Infarction (to prevent systemic embolism), Valvular heart disease, Atrial Fibrillation, Bileaflet mechanical valve in aortic position.2. Mechanical prosthetic valves (high risk), 2.5 - 3.5 Presence of Lupus Anticoagulant or Antiphospholipid Antibodies, Prevention of systemic embolism - Acute Myocardial Infarction (to prevent recurrent infarct). LIPOPROTEIN [id number] 15:30:00* Test Item Value Reference Range Interpretation Comments LIPOPROTEIN LDL (test code = LDL) 139 mg/dL 0-100 H <100 [id number] NEAR OPTIMAL/ABOVE [id number] HIGH>HX=211 VERY HIGH*Guidelines provided by the National Cholesterol EducationProgram Adult Treatment Panel III - XR CHEST 1 [id number] 13:52:00 FAX: Brooklyn Gray [phone] [place]: St: [facility] FAX: Sammy Ty MD [phone] Name: CRISTINO VILLASEÑOR [facility] [place] [place] : 1960 Age/S: 59/M [address] [place] [address] Blvd Unit #: [id number] Loc: [address] [address] Phys: Sammy Almanza MD Acct: [id number] Dis Date: Status: REG ER PHONE #: [phone] Exam Date: 12/17/2019 1349 FAX #: [phone] Reason: SOB EXAMS: CPT CODE: [id number] XR CHEST 1 V 87637 Study: - XR CHEST 1 V 12/17/2019 12:43 PM Patient Name: CRISTINO VILLASEÑOR MR: [id number] : 1960; Age: 59 years y/o Male Ordering Physician: Sammy Almanza MD Clinical Indication: SOB Comparison: November 16, 2019 FINDINGS LUNGS: The lungs are clear of consolidation, pleural effusion, and pneumothorax. Mild interstitial pulmonary edema HEART AND MEDIASTINUM: Mildly to moderately enlarged heart with a left subclavian automatic implantable cardiac defibrillator. Interstitial airspace opacities bilaterally. LINES: None. OSSEOUS STRUCTURES: No fracture, dislocation, or suspicious focal osseous lesion. OTHER: None. IMPRESSION: Mild to moderate cardiomegaly with mild pulmonary edema SL: [id number] at 1352 Reported and signed by: Osmel Juarez M.D. CC: Brooklyn Salcedo MD; Sammy Almanza MD Technologist: Blanquita Nuno, RT(R); Karina Wadsworth RT(R) Trnscrd Date/Time/By: 12/17/2019 (5352) : By: JocelinAP24 Orig Print D/T: S: 12/17/2019 (3367) PAGE 1 Signed Report B-TYPE NATRIURETIC [id number] 13:42:00* Test Item Value Reference Range Interpretation Comments B-TYPE NATRIURETIC PEPTIDE (test code = BNP) 1073.7 PG/ML 0-100 H COMPREHENSIVE METABOLIC [id number] 13:27:00* Test Item Value Reference Range Interpretation Comments SODIUM (test code = NA) 138 mEq/L 134-147 N POTASSIUM (test code = K) 3.4 mEq/L 3.4-5.0 N CHLORIDE (test code = CL) 100 mEq/L 100-108 N CARBON DIOXIDE (test code = CO2) 31 mEq/L 21-33 N ANION GAP (test code = GAP) 10 0-20 N GLUCOSE (test code = GLU) 171 mg/dL 70-110 H BLOOD UREA NITROGEN (test code = BUN) 21 mg/dL 7-18 H GLOMERULAR FILTRATION RATE (test code = GFR) 62.4 90-95 L Units of measure = ml/min/1.73 m2 CREATININE (test code = CREAT) 1.2 mg/dL 0.6-1.3 N TOTAL PROTEIN (test code = PROT) 7.0 g/dL 6.4-8.2 N ALBUMIN (test code = ALB) 3.60 g/dL 3.4-5.0 N CALCIUM (test code = CA) 8.9 mg/dL 8.0-10.5 N BILIRUBIN TOTAL (test code = BILT) 1.5 MG/DL <1.5 H SGOT/AST (test code = AST) 45 IUnit/L 15-37 H SGPT/ALT (test code = ALT) 61 IUnit/L 15-65 N ALKALINE PHOSPHATASE TOTAL (test code = ALKP) 99 IUnit/L 20-125 N [id number] 13:27:00* Test Item Value Reference Range Interpretation Comments TROPONIN-I (test code = TROPI) 0.106 ng/mL 0.000-0.045 HH Negative: <= 0.045 Positive: >= 0.046 Correlation with serial results, other cardiac markers andclinical findings is necessary to determine the clinicalsignificance of this result. Results using different methodologies should not be comparedto one another as quantitative results may vary by method. [id number] 13:27:00* Test Item Value Reference Range Interpretation Comments ALCOHOL (test code = ALC) < 0.003 G/dL <0.003 Et hyl Alcohol Interpretation: 0.100 gm/dL - Legally Intoxicated 0.300-0.400 gm/dL - Severely Intoxicated >0.400 gm/dL - Potentially LethalResults are for Medical purposes only, and not for Legal orEmployment evaluation purposes. CBC W/AUTO [id number] 12:58:00* Test Item Value Reference Range Interpretation Comments WHITE BLOOD CELL (test code = WBC) 8.05 x10 3/uL 4.5-11.0 N RED BLOOD CELL (test code = RBC) 4.51 x10 6/uL 4.00-5.60 N HEMOGLOBIN (test code = HGB) 13.6 g/dL 12.5-16.9 N HEMATOCRIT (test code = HCT) 42.3 % 37.5-50.7 N MEAN CELL VOLUME (test code = MCV) 93.8 fL 81.0-99.0 N MEAN CELL HGB (test code = MCH) 30.2 pg 27.0-33.0 N MEAN CELL HGB CONCETRATION (test code = MCHC) 32.2 g/dL 33.0-37. 0 L RED CELL DISTRIBUTION WIDTH CV (test code = RDW) 14.7 % 11.5- 14.5 H RED CELL DISTRIBUTION WIDTH SD (test code = RDW-SD) 50.7 fL 37 .0-54.0 N PLATELET COUNT (test code = PLT) 226 x10 3/uL 150-400 N MEAN PLATELET VOLUME (test code = MPV) 10.8 fL 7.0-9.0 H NEUTROPHIL % (test code = NT%) 75.0 % 56.0-77.0 N IMMATURE GRANULOCYTE % (test code = IG%) 0.7 % 0.0-2.0 N LYMPHOCYTE % (test code = LY%) 12.9 % 14.0-32.0 L MONOCYTE % (test code = MO%) 8.0 % 4.8-9.0 N EOSINOPHIL % (test code = EO%) 2.5 % 0.3-3.7 N BASOPHIL % (test code = BA%) 0.9 % 0.0-2.0 N NUCLEATED RBC % (test code = NRBC%) 0.0 % 0-0 N NEUTROPHIL # (test code = NT#) 6.04 x10 3/uL 2.0-7.6 N IMMATURE GRANULOCYTE # (test code = IG#) 0.06 x10 3/uL 0.00-0.03 H LYMPHOCYTE # (test code = LY#) 1.04 x10 3/uL 1.0-3.8 N MONOCYTE # (test code = MO#) 0.64 x10 3/uL 0.1-0.8 N EOSINOPHIL # (test code = EO#) 0.20 x10 3/uL 0.0-0.2 N BASOPHIL # (test code = BA#) 0.07 x10 3/uL 0.0-0.2 N NUCLEATED RBC # (test code = NRBC#) 0.00 x10 3/uL 0.0-0.1 N MANUAL DIFF REQUIRED (test code = MDIFF) NO - [facility] THROMBEC ART INT [id number] 14:22:00 FAX: Frederic Warner MD [phone] [place]: St: DIS FAX: Kim Lewis DO Name: CRISTINO VILLASEÑOR [facility] : 1960 Age/S: 59/M [address] [place] [address] Unit #: [id number] Loc: [address] [address] Phys: Kim Lewis DO Acct: [id number] Dis Date: [id number] Status: DIS IN PHONE #: Exam Date: 11/15/2019 1342 FAX #: Reason: STROKE EXAMS: CPT CODE: [id number] [facility] THROMBEC ART INT VES 85991 PRE PROCEDURAL DIAGNOSIS: Right M1 thrombus, right hemisphere s troke. POST PROCEDURAL DIAGNOSIS: Recanalization of right MCA. PROCEDURE: 1. Selective catheterization of right internal car otid artery. 2. Diagnostic angiogram of right internal carotid artery. 3. Emergent mechanical thrombectomy of right distal M1 and superior M 2. 4. Ultrasound guided percutaneous entry into right femoral artery. 5. Vascular closure ANESTHESIA: MAC anesthesia AP PROACH: right femoral artery using modified Seldinger technique with a radha ropuncture set. 8-Gabonese sheath placed. CONTRAST: 52 cc Omnipaqu e 300. FLUORO: Time 11.5 min, A plane and B Plane - 287 mGy PRIMARY SURGEON: Daniella Cervantes D.O. ESTIMATED BLOOD LOSS: Approximately 100 mL. INFORMED CONSENT: The procedures risks, be nefits, and alternatives were discussed with the patient's nephew at [facility]. The patient's nephew agreed to proceed. All questions were answered. No guarantees were made. INDICATION: The patient is a 39 yea r old Male with known history of coronary artery disease on Plavix. Sudden onset of left sided weakness who was last known normal at 7:00 AM. CTA h ead and neck on 222 shows occlusion of the distal right M1 segment with pr obable occlusion of the superior M2 division. Additionally there is limit ed flow in the right M2 inferior division. The patient was transported to the angiography suite for emergent attempted mechanical thrombectomy and /or IA therapy for acute stroke. TECHNIQUE: The patient was brought to the angiography suite and placed under MAC anesthesia. The pa tient demographics, procedure to be performed, patient position, and equip ment to be used were confirmed between the performing physicians and suppo rt team. Both inguinal regions were prepped and draped in the usual steri le fashion. Using PAGE 1 Signed Report (CONTINUED) FAX: Frederic Warner MD [phone] [place]: St: DIS FAX: Kim Lewis DO Name: CRISTINO VILLASEÑOR [facility] : 1960 Age/S: [age]/M [address] [place] [address] Unit #: [id number] Loc: [address] [place], [place] [address] Phys: Kim Lewis DO Acct: [id number] Dis Date: [id number] tatus: DIS IN PHONE #: Exam Farhad e: 11/15/2019 1342 FAX #: Reason: STR VIRAJ EXAMS: CPT CODE: [id number] [facility] THROMBEC ART INT VES 90835 <Continued> ultrasound guidance, the right common femoral artery was entered using modified Seldinger technique. An 8F sheath was placed over a 0.035" PTFE wire after dilation with a 6- Gabonese dilator. The sheath was attached to continuous heparinized flush. A neuron Max 6-Gabonese 088 sheath in conjunction with the neuron 6-Gabonese select catheter over a .035" angled Glidewire was used to selectively catheterize the right internal carotid artery. The select catheter and Glidewire were removed. After this vessel was selected, multiple angiographic runs were performed and images of the cerebral circulation were obtained in the AP, lateral and oblique projections. PRE-INTERVENTION FINDINGS: RIGHT INTERNAL CAROTID: The right internal carotid artery was selectively catheterized. The upper cervical, petrous, cavernous, and supraclinoid portions of the internal carotid artery opacify normally. The ophthalmic artery opacifies normally. The PCOM artery is large and fills the right [employer] territory. The anterior cerebral artery opacifies normally. There is reflux across the anterior communicating artery with opacification of the contralateral A2 distri bution. There is a small thrombus in the mid M1 segment without flow limi tation. There is complete occlusion of the superior M2 branch. There is filling of the inferior M2 branch, albeit in a delayed fashion. No eviden ce of vasculitis, aneurysm, or AV shunting is seen. Major venous sinuses are patent, except the left transverse, sigmoid and jugular. BASED ON THE ABOVE FINDINGS, IT WAS DECIDED TO PROCEED WITH THE PLANNED I NTERVENTION. TECHNIQUE: Using roadmap assistance, the Jet D in co njunction with the velocity microcatheter over this Synchro 0.014 inch gli de wire was taken up into the superior M2 division. The microcatheter radha rowire wire were removed. The jet D was taken up to the face of the clot. This was placed under aspiration with a 60 mL syringe. Under constant aspiration, the jet D was slowly removed. Follow-up IADSA imaging th rough the guiding catheter was then performed. All catheters were removed following confirmation of parent vessel integrity. Hemostasis was attained at the entry site by a Angio-Seal. There were no complications d uring or immediately after the procedure. POST-INTERVENTION ROBERTO CARLOS GS: PAGE 2 Signed Report (CONTINUE D) FAX: Frederic Warner MD [phone] [place]: St: DIS FAX: Kim Lewis DO Name: CRISTINO VILLASEÑOR [place] [facility] : 1960 Age/S: 59/M [address] [facility] [address] Unit #: [id number] Loc: [place] [address] Phys: Kim Lewis DO Acct: [id number] Dis Date: [id number] Status: DIS IN PHONE #: Exam Date: 11/15/2019 1342 FAX #: Reason: STROKE EXAMS: CPT CODE: [id number] [facility] THROMBEC ART INT VES 11457 <Continued> RIGHT INTERNAL CAROTID (Final runs): There has baptism of flow throughout the middle cerebral artery and namely the superior M2 division. There is no significant thrombus seen in the right M1 segments. There are no areas of absent capillary blush. There is no delay in filling of the right MCA territory. IMPRESSION: TECHNICALLY SUCCESSFUL RECANALIZATION OF RIGHT MIDDLE CEREBRAL ARTERY OCCLUSION. TICI 3. END OF IMPRESSION: Daniella Cervantes DO at 1422 Reported and signed by: Daniella Cervantes M.D. CC: Frederic Gale MD; Kim Lewis DO Technologist: RT Vivian(Sadia) Trnscrd Date/Time/By: 12/02/2019 (1422) : By: [id number] Orig Print D/T: S: 12/02/2019 (5884) PAGE 3 Signed Report [id number] 05:13:00* Test Item Value Reference Range Interpretation Comments GLUBED (test code = GLUBED) 114 MG/DL 70-110 H Performed by certified a operator at [facility] [id number] 18:04:00* Test Item Value Reference Range Interpretation Comments GLUBED (test code = GLUBED) 190 MG/DL 70-110 H Performed by certified a operator at [facility] [id number] 09:24:00* Test Item Value Reference Range Interpretation Comments GLUBED (test code = GLUBED) 197 MG/DL 70-110 H Performed by certified a operator at [facility] [id number] 20:39:00* Test Item Value Reference Range Interpretation Comments GLUBED (test code = GLUBED) 157 MG/DL 70-110 H Performed by certified a operator at [facility] [id number] 16:52:00* Test Item Value Reference Range Interpretation Comments GLUBED (test code = GLUBED) 117 MG/DL 70-110 H Performed by certified a operator at [facility] [id number] 14:07:00* Test Item Value Reference Range Interpretation Comments GLUBED (test code = GLUBED) 200 MG/DL 70-110 H Performed by certified a operator at [facility] [id number] 13:00:00* Test Item Value Reference Range Interpretation Comments GLUBED (test code = GLUBED) 165 MG/DL 70-110 H Performed by certified a operator at [facility] [id number] 20:40:00* Test Item Value Reference Range Interpretation Comments GLUBED (test code = GLUBED) 166 MG/DL 70-110 H Performed by certified a operator at [facility] [id number] 17:21:00* Test Item Value Reference Range Interpretation Comments GLUBED (test code = GLUBED) 167 MG/DL 70-110 H Performed by certified a operator at [facility] [id number] 12:31:00* Test Item Value Reference Range Interpretation Comments GLUBED (test code = GLUBED) 213 MG/DL 70-110 H Performed by certified a operator at [facility] COMPREHENSIVE METABOLIC [id number] 09:33:00* Test Item Value Reference Range Interpretation Comments SODIUM (test code = NA) 131 mEq/L 134-147 L POTASSIUM (test code = K) 3.6 mEq/L 3.4-5.0 N CHLORIDE (test code = CL) 99 mEq/L 100-108 L CARBON DIOXIDE (test code = CO2) 22 mEq/L 21-33 N ANION GAP (test code = GAP) 14 0-20 N GLUCOSE (test code = GLU) 206 mg/dL 70-110 H BLOOD UREA NITROGEN (test code = BUN) 18 mg/dL 7-18 N GLOMERULAR FILTRATION RATE (test code = GFR) 69.0 90-95 L Units of measure = ml/min/1.73 m2 CREATININE (test code = CREAT) 1.1 mg/dL 0.6-1.3 N TOTAL PROTEIN (test code = PROT) 6.9 g/dL 6.4-8.2 N ALBUMIN (test code = ALB) 3.20 g/dL 3.4-5.0 L CALCIUM (test code = CA) 9.1 mg/dL 8.0-10.5 N BILIRUBIN TOTAL (test code = BILT) 0.4 MG/DL <1.5 N SGOT/AST (test code = AST) 29 IUnit/L 15-37 N SGPT/ALT (test code = ALT) 39 IUnit/L 15-65 N ALKALINE PHOSPHATASE TOTAL (test code = ALKP) 77 IUnit/L 20-125 N [id number] 08:22:00* Test Item Value Reference Range Interpretation Comments GLUBED (test code = GLUBED) 158 MG/DL 70-110 H Performed by certified a operator at [facility] CBC W/AUTO [id number] 07:39:00* Test Item Value Reference Range Interpretation Comments WHITE BLOOD CELL (test code = WBC) 7.46 x10 3/uL 4.5-11.0 N RED BLOOD CELL (test code = RBC) 4.87 x10 6/uL 4.00-5.60 N HEMOGLOBIN (test code = HGB) 14.4 g/dL 12.5-16.9 N HEMATOCRIT (test code = HCT) 45.3 % 37.5-50.7 N MEAN CELL VOLUME (test code = MCV) 93.0 fL 81.0-99.0 N MEAN CELL HGB (test code = MCH) 29.6 pg 27.0-33.0 N MEAN CELL HGB CONCETRATION (test code = MCHC) 31.8 g/dL 33.0-37. 0 L RED CELL DISTRIBUTION WIDTH CV (test code = RDW) 13.8 % 11.5- 14.5 N RED CELL DISTRIBUTION WIDTH SD (test code = RDW-SD) 46.9 fL 37 .0-54.0 N PLATELET COUNT (test code = PLT) 227 x10 3/uL 150-400 N MEAN PLATELET VOLUME (test code = MPV) 10.8 fL 7.0-9.0 H NEUTROPHIL % (test code = NT%) 70.8 % 56.0-77.0 N IMMATURE GRANULOCYTE % (test code = IG%) 1.1 % 0.0-2.0 N LYMPHOCYTE % (test code = LY%) 14.6 % 14.0-32.0 N MONOCYTE % (test code = MO%) 9.5 % 4.8-9.0 H EOSINOPHIL % (test code = EO%) 3.2 % 0.3-3.7 N BASOPHIL % (test code = BA%) 0.8 % 0.0-2.0 N NUCLEATED RBC % (test code = NRBC%) 0.0 % 0-0 N NEUTROPHIL # (test code = NT#) 5.28 x10 3/uL 2.0-7.6 N IMMATURE GRANULOCYTE # (test code = IG#) 0.08 x10 3/uL 0.00-0.03 H LYMPHOCYTE # (test code = LY#) 1.09 x10 3/uL 1.0-3.8 N MONOCYTE # (test code = MO#) 0.71 x10 3/uL 0.1-0.8 N EOSINOPHIL # (test code = EO#) 0.24 x10 3/uL 0.0-0.2 H BASOPHIL # (test code = BA#) 0.06 x10 3/uL 0.0-0.2 N NUCLEATED RBC # (test code = NRBC#) 0.00 x10 3/uL 0.0-0.1 N MANUAL DIFF REQUIRED (test code = MDIFF) NO [id number] 20:10:00* Test Item Value Reference Range Interpretation Comments GLUBED (test code = GLUBED) 243 MG/DL 70-110 H Performed by certified a operator at [facility] [id number] 17:03:00* Test Item Value Reference Range Interpretation Comments GLUBED (test code = GLUBED) 181 MG/DL 70-110 H Performed by certified a operator at [facility] [id number] 12:29:00* Test Item Value Reference Range Interpretation Comments GLUBED (test code = GLUBED) 221 MG/DL 70-110 H Performed by certified a operator at [facility] [id number] 08:29:00* Test Item Value Reference Range Interpretation Comments GLUBED (test code = GLUBED) 145 MG/DL 70-110 H Performed by certified a operator at [facility] [id number] 01:17:00* Test Item Value Reference Range Interpretation Comments TROPONIN-I (test code = TROPI) 0.110 ng/mL 0.000-0.045 HH Negative: <= 0.045 Positive: >= 0.046 Correlation with serial results, other cardiac markers andclinical findings is necessary to determine the clinicalsignificance of this result. Results using different methodologies should not be comparedto one another as quantitative results may vary by method. [id number] 20:50:00* Test Item Value Reference Range Interpretation Comments GLUBED (test code = GLUBED) 251 MG/DL 70-110 H Performed by certified a operator at [facility] [id number] 20:41:00* Test Item Value Reference Range Interpretation Comments GLUBED (test code = GLUBED) 263 MG/DL 70-110 H Performed by certified a operator at [facility] [id number] 18:36:00* Test Item Value Reference Range Interpretation Comments TROPONIN-I (test code = TROPI) 0.101 ng/mL 0.000-0.045 HH Negative: <= 0.045 Positive: >= 0.046 Correlation with serial results, other cardiac markers andclinical findings is necessary to determine the clinicalsignificance of this result. Results using different methodologies should not be comparedto one another as quantitative results may vary by method. [id number] 17:01:00* Test Item Value Reference Range Interpretation Comments GLUBED (test code = GLUBED) 228 MG/DL 70-110 H Performed by certified a operator at [facility] [id number] 15:30:00* Test Item Value Reference Range Interpretation Comments GLUBED (test code = GLUBED) 167 MG/DL 70-110 H Performed by certified a operator at [facility] LIPOPROTEIN [id number] 14:21:00* Test Item Value Reference Range Interpretation Comments LIPOPROTEIN LDL (test code = LDL) 132 mg/dL 0-100 H <100 [id number] NEAR OPTIMAL/ABOVE [id number] HIGH>UG=216 VERY HIGH*Guidelines provided by the National Cholesterol EducationProgram Adult Treatment Panel III BASIC METABOLIC [id number] 13:48:00* Test Item Value Reference Range Interpretation Comments SODIUM (test code = NA) 135 mEq/L 134-147 N POTASSIUM (test code = K) 3.1 mEq/L 3.4-5.0 L CHLORIDE (test code = CL) 99 mEq/L 100-108 L CARBON DIOXIDE (test code = CO2) 26 mEq/L 21-33 N ANION GAP (test code = GAP) 13 0-20 N GLUCOSE (test code = GLU) 180 mg/dL 70-110 H BLOOD UREA NITROGEN (test code = BUN) 21 mg/dL 7-18 H GLOMERULAR FILTRATION RATE (test code = GFR) 69.0 90-95 L Units of measure = ml/min/1.73 m2 CREATININE (test code = CREAT) 1.1 mg/dL 0.6-1.3 N CALCIUM (test code = CA) 8.4 mg/dL 8.0-10.5 N COMMENTS: THREE TIMES (Q6HR IN BETWEEN)[id number] 13:48:00* Test Item Value Reference Range Interpretation Comments TROPONIN-I (test code = TROPI) 0.112 ng/mL 0.000-0.045 HH Negative: <= 0.045 Positive: >= 0.046 Correlation with serial results, other cardiac markers andclinical findings is necessary to determine the clinicalsignificance of this result. Results using different methodologies should not be comparedto one another as quantitative results may vary by method. COMMENTS: THREE TIMES (Q6HR IN BETWEEN)CBC W/AUTO [id number] 13:11:00* Test Item Value Reference Range Interpretation Comments WHITE BLOOD CELL (test code = WBC) 7.30 x10 3/uL 4.5-11.0 N RED BLOOD CELL (test code = RBC) 4.72 x10 6/uL 4.00-5.60 N HEMOGLOBIN (test code = HGB) 13.9 g/dL 12.5-16.9 N HEMATOCRIT (test code = HCT) 43.6 % 37.5-50.7 N MEAN CELL VOLUME (test code = MCV) 92.4 fL 81.0-99.0 N MEAN CELL HGB (test code = MCH) 29.4 pg 27.0-33.0 N MEAN CELL HGB CONCETRATION (test code = MCHC) 31.9 g/dL 33.0-37. 0 L RED CELL DISTRIBUTION WIDTH CV (test code = RDW) 13.7 % 11.5- 14.5 N RED CELL DISTRIBUTION WIDTH SD (test code = RDW-SD) 46.8 fL 37 .0-54.0 N PLATELET COUNT (test code = PLT) 223 x10 3/uL 150-400 N MEAN PLATELET VOLUME (test code = MPV) 10.5 fL 7.0-9.0 H NEUTROPHIL % (test code = NT%) 69.4 % 56.0-77.0 N IMMATURE GRANULOCYTE % (test code = IG%) 1.1 % 0.0-2.0 N LYMPHOCYTE % (test code = LY%) 14.1 % 14.0-32.0 N MONOCYTE % (test code = MO%) 11.2 % 4.8-9.0 H EOSINOPHIL % (test code = EO%) 3.7 % 0.3-3.7 N BASOPHIL % (test code = BA%) 0.5 % 0.0-2.0 N NUCLEATED RBC % (test code = NRBC%) 0.0 % 0-0 N NEUTROPHIL # (test code = NT#) 5.06 x10 3/uL 2.0-7.6 N IMMATURE GRANULOCYTE # (test code = IG#) 0.08 x10 3/uL 0.00-0.03 H LYMPHOCYTE # (test code = LY#) 1.03 x10 3/uL 1.0-3.8 N MONOCYTE # (test code = MO#) 0.82 x10 3/uL 0.1-0.8 H EOSINOPHIL # (test code = EO#) 0.27 x10 3/uL 0.0-0.2 H BASOPHIL # (test code = BA#) 0.04 x10 3/uL 0.0-0.2 N NUCLEATED RBC # (test code = NRBC#) 0.00 x10 3/uL 0.0-0.1 N MANUAL DIFF REQUIRED (test code = MDIFF) NO [id number] 09:22:00* Test Item Value Reference Range Interpretation Comments GLUBED (test code = GLUBED) 181 MG/DL 70-110 H Performed by certified a operator at [facility] [id number] 21:18:00* Test Item Value Reference Range Interpretation Comments GLUBED (test code = GLUBED) 270 MG/DL 70-110 H Performed by certified a operator at [facility] [id number] 19:29:00* Test Item Value Reference Range Interpretation Comments GLUBED (test code = GLUBED) 228 MG/DL 70-110 H Performed by certified a operator at [facility] [id number] 13:34:00* Test Item Value Reference Range Interpretation Comments GLUBED (test code = GLUBED) 235 MG/DL 70-110 H Performed by certified a operator at [facility] [id number] 08:41:00* Test Item Value Reference Range Interpretation Comments GLUBED (test code = GLUBED) 160 MG/DL 70-110 H Performed by certified a operator at [facility] [id number] 20:38:00* Test Item Value Reference Range Interpretation Comments GLUBED (test code = GLUBED) 248 MG/DL 70-110 H Performed by certified a operator at [facility] [id number] 17:03:00* Test Item Value Reference Range Interpretation Comments GLUBED (test code = GLUBED) 155 MG/DL 70-110 H Performed by certified a operator at [facility] [id number] 11:35:00* Test Item Value Reference Range Interpretation Comments GLUBED (test code = GLUBED) 247 MG/DL 70-110 H Performed by certified a operator at [facility] [id number] 08:40:00* Test Item Value Reference Range Interpretation Comments GLUBED (test code = GLUBED) 263 MG/DL 70-110 H Performed by certified a operator at [facility] [id number] 22:53:00* Test Item Value Reference Range Interpretation Comments GLUBED (test code = GLUBED) 238 MG/DL 70-110 H Performed by certified a operator at [facility] [id number] 16:58:00* Test Item Value Reference Range Interpretation Comments GLUBED (test code = GLUBED) 220 MG/DL 70-110 H Performed by certified a operator at [facility] [id number] 12:42:00* Test Item Value Reference Range Interpretation Comments GLUBED (test code = GLUBED) 187 MG/DL 70-110 H Performed by certified a operator at [facility] COMPREHENSIVE METABOLIC [id number] 10:16:00* Test Item Value Reference Range Interpretation Comments SODIUM (test code = NA) 134 mEq/L 134-147 N POTASSIUM (test code = K) 3.5 mEq/L 3.4-5.0 N CHLORIDE (test code = CL) 101 mEq/L 100-108 N CARBON DIOXIDE (test code = CO2) 25 mEq/L 21-33 N ANION GAP (test code = GAP) 12 0-20 N GLUCOSE (test code = GLU) 143 mg/dL 70-110 H BLOOD UREA NITROGEN (test code = BUN) 18 mg/dL 7-18 N GLOMERULAR FILTRATION RATE (test code = GFR) 62.4 90-95 L Units of measure = ml/min/1.73 m2 CREATININE (test code = CREAT) 1.2 mg/dL 0.6-1.3 N TOTAL PROTEIN (test code = PROT) 7.4 g/dL 6.4-8.2 N ALBUMIN (test code = ALB) 3.40 g/dL 3.4-5.0 N CALCIUM (test code = CA) 9.0 mg/dL 8.0-10.5 N BILIRUBIN TOTAL (test code = BILT) 0.9 MG/DL <1.5 N SGOT/AST (test code = AST) 21 IUnit/L 15-37 N SGPT/ALT (test code = ALT) 25 IUnit/L 15-65 N ALKALINE PHOSPHATASE TOTAL (test code = ALKP) 84 IUnit/L 20-125 N [id number] 08:32:00* Test Item Value Reference Range Interpretation Comments GLUBED (test code = GLUBED) 121 MG/DL 70-110 H Performed by certified a operator at [facility] CBC W/AUTO [id number] 07:11:00* Test Item Value Reference Range Interpretation Comments WHITE BLOOD CELL (test code = WBC) 8.33 x10 3/uL 4.5-11.0 N RED BLOOD CELL (test code = RBC) 4.95 x10 6/uL 4.00-5.60 N HEMOGLOBIN (test code = HGB) 14.7 g/dL 12.5-16.9 N HEMATOCRIT (test code = HCT) 47.3 % 37.5-50.7 N MEAN CELL VOLUME (test code = MCV) 95.6 fL 81.0-99.0 MEAN CELL HGB (test code = MCH) 29.7 pg 27.0-33.0 N MEAN CELL HGB CONCETRATION (test code = MCHC) 31.1 g/dL 33.0-37. 0 L RED CELL DISTRIBUTION WIDTH CV (test code = RDW) 13.8 % 11.5- 14.5 N RED CELL DISTRIBUTION WIDTH SD (test code = RDW-SD) 48.4 fL 37 .0-54.0 N PLATELET COUNT (test code = PLT) 177 x10 3/uL 150-400 N MEAN PLATELET VOLUME (test code = MPV) 11.2 fL 7.0-9.0 H NEUTROPHIL % (test code = NT%) 76.6 % 56.0-77.0 N IMMATURE GRANULOCYTE % (test code = IG%) 0.7 % 0.0-2.0 N LYMPHOCYTE % (test code = LY%) 10.2 % 14.0-32.0 L MONOCYTE % (test code = MO%) 9.0 % 4.8-9.0 N EOSINOPHIL % (test code = EO%) 2.9 % 0.3-3.7 N BASOPHIL % (test code = BA%) 0.6 % 0.0-2.0 N NUCLEATED RBC % (test code = NRBC%) 0.0 % 0-0 N NEUTROPHIL # (test code = NT#) 6.38 x10 3/uL 2.0-7.6 N IMMATURE GRANULOCYTE # (test code = IG#) 0.06 x10 3/uL 0.00-0.03 H LYMPHOCYTE # (test code = LY#) 0.85 x10 3/uL 1.0-3.8 L MONOCYTE # (test code = MO#) 0.75 x10 3/uL 0.1-0.8 N EOSINOPHIL # (test code = EO#) 0.24 x10 3/uL 0.0-0.2 H BASOPHIL # (test code = BA#) 0.05 x10 3/uL 0.0-0.2 N NUCLEATED RBC # (test code = NRBC#) 0.00 x10 3/uL 0.0-0.1 N MANUAL DIFF REQUIRED (test code = MDIFF) NO [id number] 21:17:00* Test Item Value Reference Range Interpretation Comments GLUBED (test code = GLUBED) 194 MG/DL 70-110 H Performed by certified a operator at [facility] [id number] 16:38:00* Test Item Value Reference Range Interpretation Comments GLUBED (test code = GLUBED) 190 MG/DL 70-110 H Performed by certified a operator at [facility] [id number] 12:21:00* Test Item Value Reference Range Interpretation Comments GLUBED (test code = GLUBED) 182 MG/DL 70-110 H Performed by certified a operator at [facility] CBC W/AUTO [id number] 09:58:00* Test Item Value Reference Range Interpretation Comments WHITE BLOOD CELL (test code = WBC) 10.66 x10 3/uL 4.5-11.0 N RED BLOOD CELL (test code = RBC) 4.55 x10 6/uL 4.00-5.60 N HEMOGLOBIN (test code = HGB) 13.9 g/dL 12.5-16.9 N HEMATOCRIT (test code = HCT) 42.7 % 37.5-50.7 N MEAN CELL VOLUME (test code = MCV) 93.8 fL 81.0-99.0 N MEAN CELL HGB (test code = MCH) 30.5 pg 27.0-33.0 N MEAN CELL HGB CONCETRATION (test code = MCHC) 32.6 g/dL 33.0-37. 0 L RED CELL DISTRIBUTION WIDTH CV (test code = RDW) 14.0 % 11.5- 14.5 N RED CELL DISTRIBUTION WIDTH SD (test code = RDW-SD) 47.5 fL 37 .0-54.0 N PLATELET COUNT (test code = PLT) 158 x10 3/uL 150-400 N MEAN PLATELET VOLUME (test code = MPV) 11.0 fL 7.0-9.0 H NEUTROPHIL % (test code = NT%) 84.6 % 56.0-77.0 H IMMATURE GRANULOCYTE % (test code = IG%) 0.6 % 0.0-2.0 N LYMPHOCYTE % (test code = LY%) 6.8 % 14.0-32.0 L MONOCYTE % (test code = MO%) 6.6 % 4.8-9.0 N EOSINOPHIL % (test code = EO%) 1.0 % 0.3-3.7 N BASOPHIL % (test code = BA%) 0.4 % 0.0-2.0 N NUCLEATED RBC % (test code = NRBC%) 0.0 % 0-0 N NEUTROPHIL # (test code = NT#) 9.03 x10 3/uL 2.0-7.6 H IMMATURE GRANULOCYTE # (test code = IG#) 0.06 x10 3/uL 0.00-0.03 H LYMPHOCYTE # (test code = LY#) 0.72 x10 3/uL 1.0-3.8 L MONOCYTE # (test code = MO#) 0.70 x10 3/uL 0.1-0.8 N EOSINOPHIL # (test code = EO#) 0.11 x10 3/uL 0.0-0.2 N BASOPHIL # (test code = BA#) 0.04 x10 3/uL 0.0-0.2 N NUCLEATED RBC # (test code = NRBC#) 0.00 x10 3/uL 0.0-0.1 N MANUAL DIFF REQUIRED (test code = MDIFF) NO BASIC METABOLIC [id number] 09:42:00* Test Item Value Reference Range Interpretation Comments SODIUM (test code = NA) 134 mEq/L 134-147 N POTASSIUM (test code = K) 4.0 mEq/L 3.4-5.0 N CHLORIDE (test code = CL) 105 mEq/L 100-108 N CARBON DIOXIDE (test code = CO2) 21 mEq/L 21-33 N ANION GAP (test code = GAP) 12 0-20 N GLUCOSE (test code = GLU) 126 mg/dL 70-110 H BLOOD UREA NITROGEN (test code = BUN) 16 mg/dL 7-18 N GLOMERULAR FILTRATION RATE (test code = GFR) 69.0 90-95 L Units of measure = ml/min/1.73 m2 CREATININE (test code = CREAT) 1.1 mg/dL 0.6-1.3 N CALCIUM (test code = CA) 8.8 mg/dL 8.0-10.5 N BASIC METABOLIC [id number] 09:03:00* Test Item Value Reference Range Interpretation Comments SODIUM (test code = NA) 136 mEq/L 134-147 N POTASSIUM (test code = K) 4.0 mEq/L 3.4-5.0 N CHLORIDE (test code = CL) 105 mEq/L 100-108 N CARBON DIOXIDE (test code = CO2) 21 mEq/L 21-33 N ANION GAP (test code = GAP) 14 0-20 N GLUCOSE (test code = GLU) 135 mg/dL 70-110 H BLOOD UREA NITROGEN (test code = BUN) 16 mg/dL 7-18 N GLOMERULAR FILTRATION RATE (test code = GFR) 69.0 90-95 L Units of measure = ml/min/1.73 m2 CREATININE (test code = CREAT) 1.1 mg/dL 0.6-1.3 N CALCIUM (test code = CA) 8.7 mg/dL 8.0-10.5 N [id number] 09:03:00* Test Item Value Reference Range Interpretation Comments PHOSPHOROUS (test code = PHOS) 2.8 MG/DL 2.5-4.9 N [id number] 09:03:00* Test Item Value Reference Range Interpretation Comments MAGNESIUM (test code = MAG) 2.10 mg/dL 1.8-2.4 N CALCIUM [id number] 09:03:00* Test Item Value Reference Range Interpretation Comments CALCIUM IONIZED (test code = GISELA) 1.18 MMOL/L 1.12-1.32 N BASIC METABOLIC [id number] 08:59:00* Test Item Value Reference Range Interpretation Comments SODIUM (test code = NA) mEq/L 134-147 POTASSIUM (test code = K) mEq/L 3.4-5.0 CHLORIDE (test code = CL) mEq/L 100-108 CARBON DIOXIDE (test code = CO2) mEq/L 21-33 ANION GAP (test code = GAP) 0-20 GLUCOSE (test code = GLU) mg/dL 70-110 BLOOD UREA NITROGEN (test code = BUN) mg/dL 7-18 GLOMERULAR FILTRATION RATE (test code = GFR) 90-95 CREATININE (test code = CREAT) mg/dL 0.6-1.3 CALCIUM (test code = CA) mg/dL 8.0-10.5 [id number] 08:59:00* Test Item Value Reference Range Interpretation Comments PHOSPHOROUS (test code = PHOS) MG/DL 2.5-4.9 [id number] 08:59:00* Test Item Value Reference Range Interpretation Comments MAGNESIUM (test code = MAG) mg/dL 1.8-2.4 CALCIUM [id number] 08:59:00* Test Item Value Reference Range Interpretation Comments CALCIUM IONIZED (test code = GISELA) 1.18 MMOL/L 1.12-1.32 N CBC W/AUTO [id number] 08:36:00* Test Item Value Reference Range Interpretation Comments WHITE BLOOD CELL (test code = WBC) 10.72 x10 3/uL 4.5-11.0 N RED BLOOD CELL (test code = RBC) 4.63 x10 6/uL 4.00-5.60 N HEMOGLOBIN (test code = HGB) 14.0 g/dL 12.5-16.9 N HEMATOCRIT (test code = HCT) 42.8 % 37.5-50.7 N MEAN CELL VOLUME (test code = MCV) 92.4 fL 81.0-99.0 N MEAN CELL HGB (test code = MCH) 30.2 pg 27.0-33.0 N MEAN CELL HGB CONCETRATION (test code = MCHC) 32.7 g/dL 33.0-37. 0 L RED CELL DISTRIBUTION WIDTH CV (test code = RDW) 13.8 % 11.5- 14.5 N RED CELL DISTRIBUTION WIDTH SD (test code = RDW-SD) 46.4 fL 37 .0-54.0 N PLATELET COUNT (test code = PLT) 166 x10 3/uL 150-400 N MEAN PLATELET VOLUME (test code = MPV) 10.3 fL 7.0-9.0 H NEUTROPHIL % (test code = NT%) 83.8 % 56.0-77.0 H IMMATURE GRANULOCYTE % (test code = IG%) 0.5 % 0.0-2.0 N LYMPHOCYTE % (test code = LY%) 7.0 % 14.0-32.0 L MONOCYTE % (test code = MO%) 7.0 % 4.8-9.0 N EOSINOPHIL % (test code = EO%) 1.2 % 0.3-3.7 N BASOPHIL % (test code = BA%) 0.5 % 0.0-2.0 N NUCLEATED RBC % (test code = NRBC%) 0.0 % 0-0 N NEUTROPHIL # (test code = NT#) 8.99 x10 3/uL 2.0-7.6 H IMMATURE GRANULOCYTE # (test code = IG#) 0.05 x10 3/uL 0.00-0.03 H LYMPHOCYTE # (test code = LY#) 0.75 x10 3/uL 1.0-3.8 L MONOCYTE # (test code = MO#) 0.75 x10 3/uL 0.1-0.8 N EOSINOPHIL # (test code = EO#) 0.13 x10 3/uL 0.0-0.2 N BASOPHIL # (test code = BA#) 0.05 x10 3/uL 0.0-0.2 N NUCLEATED RBC # (test code = NRBC#) 0.00 x10 3/uL 0.0-0.1 N MANUAL DIFF REQUIRED (test code = MDIFF) NO [id number] 08:02:00* Test Item Value Reference Range Interpretation Comments GLUBED (test code = GLUBED) 136 MG/DL 70-110 H Performed by certified a operator at [facility] [id number] 05:25:00* Test Item Value Reference Range Interpretation Comments GLUBED (test code = GLUBED) 162 MG/DL 70-110 H Performed by certified a operator at [facility] - CT HEAD/BRAIN W/O [id number] 05:01:00 Name: CRISTINO VILLASEÑOR [facility] : 1960 Age/S: 59 / M [address] [place] [address] Unit #: [id number] Loc: [place] [address] Phys: Trina Valle MD Acct: [id number] Dis Date: Status: ADM IN PHONE #: [phone] Exam Date: 11/17/2019415 FAX #: [phone] Reason: FOLLOW UP EXAMS: CPT CODE: [id number] CT HEAD/BRAIN W/O CONT [id number] STUDY: - CT HEAD/BRAIN W/O CONT 11/17/2019 4:00 AM Ordering Physician: Trina Valle MD Patient Name: CRISTINO VILLASEÑOR MR: [id number] : 1960; Age: 59 years y/o Male Clinical Indication: Follow-up stroke. Comparison: 11/15/2019 TECHNIQUE: Multiple contiguous transaxial noncontrast CT images were obtained through the head. Coronal and sagittal reformatted images were prepared. CT imaging performed at this location utilizes radiation dose optimization techniques which include one or more of the following: -Automated exposure control -Adjustment of the mA and/or kV according to patient size -Use of iterative reconstruction technique CT Radiation Dose DLP: 1109.40 mGy-cm FINDINGS: BRAIN PARENCHYMA: Mild diffuse age-appropriate atrophy is present associated with mild nonspecific periventricular low attenuation most consistent with old microangiopathic ischemic change. Mild further decreasing attenuation along the previously identified acute right MCA distribution infarction. Mildly increasing hyperattenuation is seen in the right basal ganglia and the right temporal lobe suspicious for petechial hemorrhage. Right to left mass effect appears slightly increasing with midline shift estimated at approximately 3.5 mm (previously 2.7 mm) at the level of the septum pellucidum. Suspect small old left posterior parietal lobe infarction. VENTRICLES: The right lateral ventricle remains partially compressed. PARANASAL SINUSES: Mild diffuse mucoperiosteal thickening in the ethmo id sinus. Small left maxillary sinus mucus retention cyst. The PAGE 1 Signed Report (CONTINUED) Name: ASHLIE VILLASEÑOR [facility] : 1960 Age /S: 59 / M [address] [place] [address] Unit #: [id number] Loc: [place] [address] Phys: Trina Valle MD Acct: [id number] Dis Date: Status: ADM IN PHONE #: [phone] Exam Date: 11/17/2019 0416 FAX #: [phone] Reason: FOLLOW UP EXAMS: CPT CODE: [id number] CT HEAD/BRAIN W/O CONT 09352 <Continued> visualized portions of the remaining paranasal sinuses are clear. MASTOIDS: Clear. ORBITS: The visualized portions of the orbits are normal. SOFT TISSUES: No significant abnormality. SKULL: No acute fracture or suspicious osseous lesion. IMPRESSION: Mild diffuse age-appropriate atrophy is present associated with mild nonspecific periventricular low attenuation most consistent with old microangiopathic ischemic change. Mild decreasing attenuation within the evolving acute right MCA distribution infarction with areas of mildly increasing hyperattenuation in the right basal ganglia and right temporal lobe suspicious for petechial hemorrhage. Mild right to left mass effect and midline shift is mildly increased as above- described. Suspect small old left posterior parietal lobe infarction. Mild chronic sinusitis. Critical findings were communicated to Dr. Grullon on 11/17/2019 5:01 AM. SL: TPAINTER-H at 0501 Reported and signed by: Alonzo Braden M.D. CC: Trina Valle MD; Brooklyn Salcedo MD; Zack Cullen MD Technologist:RT Malena(R) CTDI: DLP: Trnscb Date/Time: 11/17/2019 (500) LoR.TP6 Orig Print D/T: S: 11/17/2019 (0504) PAGE 2 Signed Report [id number] 20:51:00* Test Item Value Reference Range Interpretation Comments GLUBED (test code = GLUBED) 170 MG/DL 70-110 H Performed by certified a operator at [facility] [id number] 17:22:00* Test Item Value Reference Range Interpretation Comments GLUBED (test code = GLUBED) 175 MG/DL 70-110 H Performed by certified a operator at [facility] [id number] 13:51:00* Test Item Value Reference Range Interpretation Comments GLUBED (test code = GLUBED) 189 MG/DL 70-110 H Performed by certified a operator at [facility] [id number] 11:46:00* Test Item Value Reference Range Interpretation Comments GLUBED (test code = GLUBED) 185 MG/DL 70-110 H Performed by certified a operator at [facility] [id number] 09:39:00* Test Item Value Reference Range Interpretation Comments GLUBED (test code = GLUBED) 150 MG/DL 70-110 H Performed by certified a operator at [facility] - CT HEAD/BRAIN W/O [id number] 09:36:00 Name: CRISTINO VILLASEÑOR [facility] : 1960 Age/S: 59 / M [address] [place] [address] Unit #: [id number] Loc: [place] [address] Phys: Trina Valle MD Acct: [id number] Dis Date: Status: ADM IN PHONE #: [phone] Exam Date: 11/16/2019 0950 FAX #: [phone] Reason: SEVERE HEADACH WITH PHOTOPHOBIA EXAMS: CPT CODE: [id number] CT HEAD/BRAIN W/O CONT 44070 CT head without contrast 11/16/2019 0857 hours HISTORY: Worsening headache. PROCEDURE: Multiple axial images from the skull base to the skull vertex were obtained without contrast. Coronal and sagittal reconstructed images were performed CT imaging performed at this location utilizes radiation dose optimization techniques which include one or more of the following: -Automated exposure control -Adjustment of the mA and/or kV according to patient size - Use of iterative reconstruction technique CT Radiation Dose DLP 1016.5 mGy-cm Comparison is made to 11/16/2019 0358 hours FINDINGS: There is increased mass effect on the frontal horn of the right lateral ventricle without significant midline shift at this time. Hyperdensity within a right temporal infarct and right basal ganglia infarct is increased. Subacute ischemia in the right MCA distribution is again noted. No left cerebral or cerebellar infarct is identified. The visualized mastoid air cells are clear. There is no paranasal sinus air- fluid level. IMPRESSION: 1. Evolving hemorrhagic infar ct involving lateral right MCA distribution, right temporal lobe, and ri ght basal ganglia. 2. Increased mass effect upright frontal horn from e fabiola/ischemia without midline shift. SL: [id number] at 0936 Repo rted and signed by: Haile Munroe M.D. CC: Trina Valle MD; Lady Salcedo MD; Zack Cullen MD Technologist:Roselyn Soto, RT(R)(CT) CTDI: DLP: Trnscb Date/Time: 11/16/2019 (0936) [email or web address] Orig Print D/T: S: 11/16/2019 (3950) PAGE 1 Signed Report - XR CHEST 1 [id number] 09:00:00 FAX: Taisha Galvin NP [phone] [place]: St: ADM FAX: Brooklyn Gray [phone] FAX: Zack Galvin MD --------- Name: CRISTINO VILLASEÑOR [facility] : 1960 Age/S: 59/M [address] [place] [address] it #: [id number] Loc: [place] [address] Phys: Taisha Galvin NP Acct: [id number] Dis Date: Status: ADM IN ONE #: [phone] Exam Date: 11/16/2019812 FAX #: [phone] Reason: initial EXAMS: CPT CODE: [id number] XR CHEST 1 V 43278 CLINICAL HISTO RY:initial COMPARISON:November 15, 2019 at 1137. Fro ntal film of the chest performed at [facility] 0[facility] on November 16, 2019 dem onstrates pacemaker and monitor leads in place. Cardiac silhouette is enlarged but stable. Lung de la torre are clear. There is no evidence of pneumonia or congestive failure. Decreased aeration of lungs is seen comp ared to previous examination. IMPRESSION: 1. Stable car diomegaly. 2. No evidence of pneumonia or congestive failure. 3 . Decreased lung volume compared to previous examination. Bree johnson Signed by Tracy Lane on 11/16/2019 at 0900 R eported and signed by: Melquiades Lane M.D. CC: Taisha mcintyre TERRAZZO WORKER APPRENTICE; Brooklyn Salcedo MD; Zack Cullen MD Technologist: Racquel Mahmood, RT(R); Yasmany Archibald, RT(R) Trnscrd Date/Time/By: 11/16/2019 (0900) : By: camilla AIKEN Orig Print D/T: S: 11/16/2019 (0945) P AGE 1 Signed Report - CT HEAD/BRAIN W/O [id number] 07:16:00 Name: CRISTINO VILLASEÑOR [facility] : 1960 Age/S: 59 / M [address] [place] [address] Unit #: [id number] Loc: [place] [address] Phys: Tory Ramirez TERRAZZO WORKER APPRENTICE Acct: [id number] Dis Date: Status: ADM IN PHONE #: [phone] Exam Date: 11/16/2019404 FAX #: [phone] Reason: s/p ELVO EXAMS: CPT CODE: [id number] CT HEAD/BRAIN W/O CONT 27033 CT head without contrast 11/16/2019 HISTORY: Acute cerebrovascular accident PROCEDURE: Multiple axial images from the skull base to the skull vertex were obtained without contrast. Coronal and sagittal reconstructed images were performed CT imaging performed at this location utilizes radiation dose optimization techniques which include one or more of the following: -Automated exposure control -Adjustment of the mA and/or kV according to patient size -Use of iterative reconstruction technique CT Radiation Dose DLP 1016.5 mGy-cm Comparison is made to 11/15/2019 FINDINGS: New ill- defined area of decreased density in the right basal ganglia measures 3.3 cm. There is an internal hyperdense area within the right basal ganglia measuring 11 mm. This is seen on series 2 image 13. Scattered small areas of decreased density in the lateral right temporal lobe, lateral right frontal lobe, and right lateral right parietal lobe are noted. No midline shift or hydrocephalus is noted. No left cerebral or cerebellar ischemia is identified. The visualized mastoid air cells are clear. There is no paranasal sinus air-fluid level. IMPRESSION: 1. Recent (acute or subacute) infarct involving right basal ganglia. Central hyperdensity is suggestive of small volume acute hemorrhagic products. 2. Scattered areas of nonhemorrhagic ischemia in lateral right MCA distribution. 3. Mass effect on right lateral ventricle without midline shift or hydrocephalus. SL: [id number] at 0716 Reported and signed by: Haile Munroe M.D. PAGE 1 Signed Report (CONTINUED) Name: CRISTINO VILLASEÑOR [facility] : 1960 Age/S: 59 / M [address] [place] [address] Blvd Unit #: [id number] Loc: [place] [address] Phys: Tory Ramirez NP Acct: [id number] Dis Date: Status: ADM IN PHONE #: [phone] Exam Date: 11/16/2019404 FAX #: [phone] Reason: s/p ELVO EXAMS: CPT CODE: [id number] CT HEAD/BRAIN W/O CONT 12557 <Continued> CC: Frederic Gale MD; Kim Lewis DO; Tory Ramirez NP Technologist:Casper Coates, RT(R) CTDI: DLP: Trnscb Date/Time: 11/16/2019 (07) t.[email or web address].[email or web address] Orig Print D/T: S: 11/16/2019 (0719) PAGE 2 Signed Report BASIC METABOLIC [id number] 06:27:00* Test Item Value Reference Range Interpretation Comments SODIUM (test code = NA) 136 mEq/L 134-147 N POTASSIUM (test code = K) 4.1 mEq/L 3.4-5.0 N CHLORIDE (test code = CL) 105 mEq/L 100-108 N CARBON DIOXIDE (test code = CO2) 22 mEq/L 21-33 N ANION GAP (test code = GAP) 13 0-20 N GLUCOSE (test code = GLU) 137 mg/dL 70-110 H BLOOD UREA NITROGEN (test code = BUN) 21 mg/dL 7-18 H GLOMERULAR FILTRATION RATE (test code = GFR) 69.0 90-95 L Units of measure = ml/min/1.73 m2 CREATININE (test code = CREAT) 1.1 mg/dL 0.6-1.3 N CALCIUM (test code = CA) 8.3 mg/dL 8.0-10.5 N LIPID PROFILE (CORONARY RISK)2019-11-16 06:27:00* Test Item Value Reference Range Interpretation Comments TRIGLYCERIDES (test code = TRIG) 143 mg/dL 40-150 N CHOLESTEROL (test code = CHOL) 204 mg/dL <200 H CHOLESTEROL/HDL RATIO (test code = CHOLHDL) 4.43 RATIO 3.43-4.97 N RISK ASSOCIATED WITH CHOL/HDL RATIOS: RISK MALE FEMALE1/2 AVERAGE 3.43 3.27AVERAGE 4.97 4.442X AVERAGE 9.55 7.053X AVERAGE 23.39 11.04 NOTE THAT THE REFERENCE VALUE IS RELATEDTO RISK LEVELS RECOMMENDED BY THE NATL.HEART, LUNG, AND BLOOD INST. HDL CHOLESTEROL (test code = HDL) 46.0 mg/dL 32-72 N LIPOPROTEIN LDL (test code = LDL) 130 mg/dL 0-100 H <100 [id number] NEAR OPTIMAL/ABOVE [id number] HIGH>PM=456 VERY HIGH*Guidelines provided by the National Cholesterol EducationProgram Adult Treatment Panel III [id number] 06:27:00* Test Item Value Reference Range Interpretation Comments PHOSPHOROUS (test code = PHOS) 2.9 MG/DL 2.5-4.9 N [id number] 06:27:00* Test Item Value Reference Range Interpretation Comments MAGNESIUM (test code = MAG) 2.10 mg/dL 1.8-2.4 N TSH REFLEX TO [id number] 06:27:00* Test Item Value Reference Range Interpretation Comments TSH REFLEX TO FT4 (test code = TSHREFLEX) 1.14 IU/mL 0.42-5.47 N CALCIUM [id number] 06:27:00* Test Item Value Reference Range Interpretation Comments CALCIUM IONIZED (test code = GISELA) 1.23 MMOL/L 1.12-1.32 N HGBA1C%2019-11-16 06:18:00* Test Item Value Reference Range Interpretation Comments HGBA1C% (test code = HGBA1C%) 11.5 %A1C 4.8-6.0 H PROTHROMBIN [id number] 06:17:00* Test Item Value Reference Range Interpretation Comments PROTHROMBIN TIME PATIENT (test code = PTP) 12.6 SECONDS 9.3-12.9 N INTERNATIONAL NORMAL RATIO (test code = INR) 1.2 0.8-1.2 N TARGET INR BY INDICATION Indication INR1. Prophylaxis of venous thrombosis 2.0 - 3.0 (orthopedic surgery), Prophylaxis of venous thrombosis (other than high-risk surgery), Treatment of Deep Vein Thrombosis/Pulmonary Embolism, Prevention of systemic embolism - Tissue heart valves, Acute Myocardial Infarction (to prevent systemic embolism), Valvular heart disease, Atrial Fibrillation, Bileaflet mechanical valve in aortic position.2. Mechanical prosthetic valves (high risk), 2.5 - 3.5 Presence of Lupus Anticoagulant or Antiphospholipid Antibodies, Prevention of systemic embolism - Acute Myocardial Infarction (to prevent recurrent infarct). THROMBOPLASTIN TIME [id number] 06:17:00* Test Item Value Reference Range Interpretation Comments THROMBOPLASTIN TIME PARTIAL (test code = PTT) 32.2 Seconds 25.0-39. 5 N Therapeutic Range: 50.4 - 88.3 Seconds Effective 01/07/2019 BASIC METABOLIC [id number] 06:02:00* Test Item Value Reference Range Interpretation Comments SODIUM (test code = NA) mEq/L 134-147 POTASSIUM (test code = K) mEq/L 3.4-5.0 CHLORIDE (test code = CL) mEq/L 100-108 CARBON DIOXIDE (test code = CO2) mEq/L 21-33 ANION GAP (test code = GAP) 0-20 GLUCOSE (test code = GLU) mg/dL 70-110 BLOOD UREA NITROGEN (test code = BUN) mg/dL 7-18 GLOMERULAR FILTRATION RATE (test code = GFR) 90-95 CREATININE (test code = CREAT) mg/dL 0.6-1.3 CALCIUM (test code = CA) mg/dL 8.0-10.5 LIPID PROFILE (CORONARY RISK)2019-11-16 06:02:00* Test Item Value Reference Range Interpretation Comments TRIGLYCERIDES (test code = TRIG) mg/dL 40-150 CHOLESTEROL (test code = CHOL) mg/dL <200 CHOLESTEROL/HDL RATIO (test code = CHOLHDL) RATIO 3.43-4.97 HDL CHOLESTEROL (test code = HDL) mg/dL 32-72 LIPOPROTEIN LDL (test code = LDL) mg/dL 0-100 [id number] 06:02:00* Test Item Value Reference Range Interpretation Comments PHOSPHOROUS (test code = PHOS) MG/DL 2.5-4.9 [id number] 06:02:00* Test Item Value Reference Range Interpretation Comments MAGNESIUM (test code = MAG) mg/dL 1.8-2.4 TSH REFLEX TO [id number] 06:02:00* Test Item Value Reference Range Interpretation Comments TSH REFLEX TO FT4 (test code = TSHREFLEX) IU/mL 0.42-5.47 CALCIUM [id number] 06:02:00* Test Item Value Reference Range Interpretation Comments CALCIUM IONIZED (test code = GISELA) 1.23 MMOL/L 1.12-1.32 N CBC W/AUTO [id number] 05:57:00* Test Item Value Reference Range Interpretation Comments WHITE BLOOD CELL (test code = WBC) 10.00 x10 3/uL 4.5-11.0 N RED BLOOD CELL (test code = RBC) 4.69 x10 6/uL 4.00-5.60 N HEMOGLOBIN (test code = HGB) 13.8 g/dL 12.5-16.9 N HEMATOCRIT (test code = HCT) 43.8 % 37.5-50.7 N MEAN CELL VOLUME (test code = MCV) 93.4 fL 81.0-99.0 N MEAN CELL HGB (test code = MCH) 29.4 pg 27.0-33.0 N MEAN CELL HGB CONCETRATION (test code = MCHC) 31.5 g/dL 33.0-37. 0 L RED CELL DISTRIBUTION WIDTH CV (test code = RDW) 13.9 % 11.5- 14.5 N RED CELL DISTRIBUTION WIDTH SD (test code = RDW-SD) 47.4 fL 37 .0-54.0 N PLATELET COUNT (test code = PLT) 199 x10 3/uL 150-400 N MEAN PLATELET VOLUME (test code = MPV) 10.6 fL 7.0-9.0 H NEUTROPHIL % (test code = NT%) 78.5 % 56.0-77.0 H IMMATURE GRANULOCYTE % (test code = IG%) 0.7 % 0.0-2.0 N LYMPHOCYTE % (test code = LY%) 8.8 % 14.0-32.0 L MONOCYTE % (test code = MO%) 7.9 % 4.8-9.0 N EOSINOPHIL % (test code = EO%) 3.5 % 0.3-3.7 N BASOPHIL % (test code = BA%) 0.6 % 0.0-2.0 N NUCLEATED RBC % (test code = NRBC%) 0.0 % 0-0 N NEUTROPHIL # (test code = NT#) 7.85 x10 3/uL 2.0-7.6 H IMMATURE GRANULOCYTE # (test code = IG#) 0.07 x10 3/uL 0.00-0.03 H LYMPHOCYTE # (test code = LY#) 0.88 x10 3/uL 1.0-3.8 L MONOCYTE # (test code = MO#) 0.79 x10 3/uL 0.1-0.8 N EOSINOPHIL # (test code = EO#) 0.35 x10 3/uL 0.0-0.2 H BASOPHIL # (test code = BA#) 0.06 x10 3/uL 0.0-0.2 N NUCLEATED RBC # (test code = NRBC#) 0.00 x10 3/uL 0.0-0.1 N MANUAL DIFF REQUIRED (test code = MDIFF) NO [id number] 05:43:00* Test Item Value Reference Range Interpretation Comments GLUBED (test code = GLUBED) 142 MG/DL 70-110 H Performed by certified a operator at [facility] [id number] 01:24:00* Test Item Value Reference Range Interpretation Comments GLUBED (test code = GLUBED) 130 MG/DL 70-110 H Performed by certified a operator at [facility] [id number] 01:23:00* Test Item Value Reference Range Interpretation Comments TROPONIN-I (test code = TROPI) 0.223 ng/mL 0.000-0.045 HH Negative: <= 0.045 Positive: >= 0.046 Correlation with serial results, other cardiac markers andclinical findings is necessary to determine the clinicalsignificance of this result. Results using different methodologies should not be comparedto one another as quantitative results may vary by method. DRUGS OF ABUSE SCREEN [id number] 22:42:00* Test Item Value Reference Range Interpretation Comments URN COCAINE (test code = COCAURN) NEGATIVE NEGATIVE URN CANNABINOIDS (test code = CANNABURN) NEGATIVE NEGATIVE URN AMPHETAMINE (test code = AMPHETURN) POSITIVE NEGATIVE A URN BARBITURATE (test code = BARBITURN) NEGATIVE NEGATIVE URN BENZODIAZEPINE (test code = BENZOURN) POSITIVE NEGATIVE A Cut-off value:200 ng/mL URN OPIATES (test code = OPIATURN) NEGATIVE NEGATIVE Cut-off value:2000 ng/mL URN PHENCYCLIDINE (PCP) (test code = PHENCURN) NEGATIVE NEGATIV E Cutoffs:Barbiturates 200 ng/mLBenzodiazepines 200 ng/mLTHC Cannabinoids 50 ng/mLOpiates(Morphine) 2000 ng/mLAmphetamine 1000 ng/mLCocaine 300 ng/mLPCP phencyclidine 25 ng/mL Unconfirmed screening results shouldnot be used for non-medical purposes. DRUGS OF ABUSE SCREEN [id number] 22:34:00* Test Item Value Reference Range Interpretation Comments URN COCAINE (test code = COCAURN) NEGATIVE NEGATIVE URN CANNABINOIDS (test code = CANNABURN) NEGATIVE NEGATIVE URN AMPHETAMINE (test code = AMPHETURN) NEGATIVE URN BARBITURATE (test code = BARBITURN) NEGATIVE NEGATIVE URN BENZODIAZEPINE (test code = BENZOURN) NEGATIVE URN OPIATES (test code = OPIATURN) NEGATIVE NEGATIVE Cut-off value:2000 ng/mL URN PHENCYCLIDINE (PCP) (test code = PHENCURN) NEGATIVE NEGATIV E Cutoffs:Barbiturates 200 ng/mLBenzodiazepines 200 ng/mLTHC Cannabinoids 50 ng/mLOpiates(Morphine) 2000 ng/mLAmphetamine 1000 ng/mLCocaine 300 ng/mLPCP phencyclidine 25 ng/mL Unconfirmed screening results shouldnot be used for non-medical purposes. [id number] 22:30:00* Test Item Value Reference Range Interpretation Comments TROPONIN-I (test code = TROPI) 0.209 ng/mL 0.000-0.045 HH Negative: <= 0.045 Positive: >= 0.046 Correlation with serial results, other cardiac markers andclinical findings is necessary to determine the clinicalsignificance of this result. Results using different methodologies should not be comparedto one another as quantitative results may vary by method. URINALYSIS [id number] 22:20:00* Test Item Value Reference Range Interpretation Comments UA COLOR (test code = COLU) YELLOW YEL/STRAW UA APPEARANCE (test code = APPU) CLEAR CLEAR UA GLUCOSE DIPSTICK (test code = DGLUU) 3+ NEGATIVE A UA BILIRUBIN DIPSTICK (test code = BILU) NEGATIVE NEGATIVE UA KETONE DIPSTICK (test code = KETU) NEGATIVE NEGATIVE UA SPECIFIC GRAVITY (test code = SGU) 1.032 1.005-1.030 H UA BLOOD DIPSTICK (test code = BHUMI) NEGATIVE NEGATIVE UA PH DIPSTICK (test code = YAMILA) 6.0 5.0-7.0 N UA PROTEIN DIPSTICK (test code = PROU) 1+ NEGATIVE A UA UROBILINIOGEN DIPSTICK (test code = URO) 0.2 mg/dL 0.2-1.0 UA NITRITE DIPSTICK (test code = FIONA) NEGATIVE NEGATIVE UA LEUKOCYTE ESTERASE DIPSTICK (test code = LEUU) NEGATIVE NEGA TIVE UA RBC (test code = RBCU) 0-3 RBC/HPF 0-3 UA WBC NO REFLEX (test code = WBCUCL) 0-3 WBC/HPF 0-3 UA BACTERIA (test code = BACU) NONE SEEN /HPF NONE SEEN UA SQUAMOUS CELLS (test code = SQU) NONE SEEN /HPF NONE SEEN [id number] 20:54:00* Test Item Value Reference Range Interpretation Comments GLUBED (test code = GLUBED) 132 MG/DL 70-110 H Performed by certified a operator at [facility] LIPOPROTEIN [id number] 12:17:00* Test Item Value Reference Range Interpretation Comments LIPOPROTEIN LDL (test code = LDL) 151 mg/dL 0-100 H <100 [id number] NEAR OPTIMAL/ABOVE [id number] HIGH>MB=161 VERY HIGH*Guidelines provided by the National Cholesterol EducationProgram Adult Treatment Panel III - CT ANGIO [id number] 12:09:00 Name: CRISTINO VILLASEÑOR [facility] : 1960 Age/S: 59 / M [address] [place] [address] Blvd Unit #: [id number] Loc: [place] [address] Phys: Kim Lewis DO Acct: [id number] Dis Date: Status: REG ER PHONE #: [phone] Exam Date: 11/15/2019 1121 FAX #: [phone] Reason: CODE NEURO LKW 699 EXAMS: CPT CODE: [id number] CT ANGIO NECK [address] CTA HEAD WITH PERFUSION CTA NECK WITH CONTRAST Clinical Indication: CODE NEURO Last known well 699 Comparison: Noncontrast head CT 11/15/19 TECHNIQUE: Sequential trans-axial images are obtained from the skull vertex to the thoracic inlet with a multi-detector helical CT after intravenous contrast administration. Coronal and sagittal MIP reconstructions are obtained. IV Contrast: [address] imaging performed at this location utilizes radiation dose optimization techniques which include one or more of the following: - Automated exposure control -Adjustment of the mA and/or kV according to patient size -Use of iterative reconstruction technique CT Radiation Dose DLP 3245.32 mGy-cm ICA stenosis indirectly reference the distal internal carotid diameter as the denominator for stenosis measurement, utilizing consensus panel criteria for PQRS code. (NASCET) FINDINGS: CTA [place]: Distal vertebral arteries and basilar artery have normal caliber. There is origin of the right posterior cerebral artery. Both posterior cerebral arteries have normal caliber. Distal internal carotid arteries and bilateral anterior cerebral arteries have normal caliber. The left middle cerebral artery has normal caliber. There is thrombus in the distal right MCA M1 segment with limitation of flow into one of the M2 branches. One of the M2 branches, probably the anterior, is occluded. CTA NECK: Aortic arch calcifications are present. The brachiocephalic artery and bilateral subclavian arteries have normal caliber. There is tortuosity of the bilateral common carotid arteries. Both internal carotid arteries have normal caliber. Both vertebral arteries have normal caliber. There are are degenerative changes at C5-6 and C6-7 with mild spinal canal stenosis. No prevertebral soft tissue swelling is noted. There are no enlarged lymph nodes. Lung apices are clear. No lymphadenopathy is present. PAGE 1 Signed Report (CONTINUED) Name: CRISTINO VILLASEÑOR [facility] : 1960 Age/S: 59 / M [address] [place] [address] Unit #: [id number] Loc: [place] [address] Phys: Kim Lewis DO Acct: [id number] Dis Date: Status: REG ER PHONE #: [phone] Exam Date: 11/15/2019 1121 FAX #: [phone] Reason: CODE NEURO LKW 0700 EXAMS: CPT CODE: [id number] CT ANGIO NECK 37154 < Continued> IMPRESSION: 1. Occlusion/thrombus of distal right MCA M1 segment with probable occlusion of right anterior M2 branch. Limited flow in right posterior M2 branch. 2. No significant narrowing or stenosis within neck arteries. 3. No significant narrowing or stenosis within left MCA, bilateral MONISHA, and bilateral [employer] DIRECT[employer]. No aneurysm. Findings were discussed with Dr. Cervantes by Dr. Munroe at 11:49 AM on 11/15/2019. SL: [id number] at 1209 Reported and signed by: Haile Munroe M.D. CC: Frederic Gale MD; Kim Lewis DO Technologist:Roselyn Soto, RT(R)(CT) CTDI: DLP: Trnscb Date/Time: 11/15/2019 (1202) t.[id number] Orig Print D/T: S: 11/15/2019 (4866) PAGE 2 Signed Report - CT CEREBRAL PERF ANAL 2019-11-15 12:09:00 Name: CRISTINO VILLASEÑOR [facility] : 1960 Age/S: 59 / M [address] [place] [address] Bl Unit #: [id number] Loc: [place] [address] Phys: Kim Lewis DO Acct: [id number] Dis Date: Status: REG ER PHONE #: [phone] Exam Date: 11/15/2019 112 FAX #: [phone] Reason: CODE NEURO LKW 0700 EXAMS: CPT CODE: [id number] CT CEREBRAL PERF ANAL [address] CTA HEAD WITH PERFUSION CTA NECK WITH CONTRAST Clinical Indication: CODE NEURO Last known well 699 Comparison: Noncontrast head CT 11/15/19 TECHNIQUE: Sequential trans-axial images are obtained from the skull vertex to the thoracic inlet with a multi-detector helical CT after intravenous contrast administration. Coronal and sagittal MIP reconstructions are obtained. IV Contrast: [address] imaging performed at this location utilizes radiation dose optimization techniques which include one or more of the following: - Automated exposure control -Adjustment of the mA and/or kV according to patient size -Use of iterative reconstruction technique CT Radiation Dose DLP 3245.32 mGy-cm ICA stenosis indirectly reference the distal internal carotid diameter as the denominator for stenosis measurement, utilizing consensus panel criteria for PQRS code. (NASCET) FINDINGS: CTA [place] [employer] [place]: Distal vertebral arteries and basilar artery have normal caliber. There is origin of the right posterior cerebral artery. Both posterior cerebral arteries have normal caliber. Distal internal carotid arteries and bilateral anterior cerebral arteries have normal caliber. The left middle cerebral artery has normal caliber. There is thrombus in the distal right MCA M1 segment with limitation of flow into one of the M2 branches. One of the M2 branches, probably the anterior, is occluded. CTA NECK: Aortic arch calcifications are present. The brachiocephalic artery and bilateral subclavian arteries have normal caliber. There is tortuosity of the bilateral common carotid arteries. Both internal carotid arteries have normal caliber. Both vertebral arteries have normal caliber. There are are degenerative changes at C5-6 and C6-7 with mild spinal canal stenosis. No prevertebral soft tissue swelling is noted. There are no enlarged lymph nodes. Lung apices are clear. No lymphadenopathy is present. PAGE 1 Signed Report (CONTINUED) Name: CRISTINO VILLASEÑOR [facility] : 1960 Age/S: 59 / M [address] [place] [address] Unit #: [id number] Loc: [place] [address] Phys: Kim Lewis DO Acct: [id number] Dis Date: Status: REG ER PHONE #: [phone] Exam Date: 11/15/2019 1121 FAX #: [phone] Reason: CODE NEURO LKW 0700 EXAMS: CPT CODE: [id number] CT CEREBRAL PERF ANAL 93133 < Continued> IMPRESSION: 1. Occlusion/thrombus of distal right MCA M1 segment with probable occlusion of right anterior M2 branch. Limited flow in right posterior M2 branch. 2. No significant narrowing or stenosis within neck arteries. 3. No significant narrowing or stenosis within left MCA, bilateral MONISHA, and bilateral [employer]. No aneurysm. Findings were discussed with Dr. Cervantes by Dr. Munroe at 11:49 AM on 11/15/2019. SL: [id number] at 1209 Reported and signed by: Haile Munroe M.D. CC: Frederic Gale MD; Kim Lewis DO Technologist:Roselyn Soto, RT(R)(CT) CTDI: DLP: Trnscb Date/Time: 11/15/2019 (1201) [email or web address] Orig Print D/T: S: 11/15/2019 (9000) PAGE 2 Signed Report - XR CHEST 1 [id number] 12:06:00 FAX: Frederic Warner MD [phone] [place]: St: REG FAX: Kim Lewis DO Name: CRISTINO VILLASEÑOR [facility] : 1960 Age/S: 59/M [address] [place] [address] Unit #: [id number] Loc: [address] [address] Phys: Kim Lewis DO Acct: [id number] Dis Date: Status: REG ER PHONE #: [phone] Exam Date: 11/15/2019 1154 FAX #: [phone] Reason: stroke EXAMS: CPT CODE: [id number] XR CHEST 1 V 39332 CLINICAL HISTORY:stroke COMPARISON:September 02, 2019 Frontal film of the chest performed at 1137 on November 15, [address]. Cardiac silhouette is enlarged. Lung de la torre demonstrate no evidence of pneumonia or congestive failure. Regional skeletal structures demonstrate no acute abnormality. IMPRESSION: Cardiomegaly without pneumonia or congestive failure. at 1206 Reported and signed by: Melquiades Lane M.D. CC: Frederic Gale MD; Kim Lewis DO Technologist: Tyra Miller, RT(R) Trnscrd Date/Time/By: 11/15/2019 (1206) : By: JocelinYOS Orig Print D/T: S: 11/15/2019 (8955) PAGE 1 Signed Report BASIC METABOLIC [id number] 11:36:00* Test Item Value Reference Range Interpretation Comments SODIUM (test code = NA) 131 mEq/L 134-147 L POTASSIUM (test code = K) 4.9 mEq/L 3.4-5.0 N CHLORIDE (test code = CL) 101 mEq/L 100-108 N CARBON DIOXIDE (test code = CO2) 23 mEq/L 21-33 N ANION GAP (test code = GAP) 12 0-20 N GLUCOSE (test code = GLU) 216 mg/dL 70-110 H BLOOD UREA NITROGEN (test code = BUN) 30 mg/dL 7-18 H GLOMERULAR FILTRATION RATE (test code = GFR) 56.9 90-95 L Units of measure = ml/min/1.73 m2 CREATININE (test code = CREAT) 1.3 mg/dL 0.6-1.3 N CALCIUM (test code = CA) 9.0 mg/dL 8.0-10.5 N [id number] 11:36:00* Test Item Value Reference Range Interpretation Comments TROPONIN-I (test code = TROPI) 0.130 ng/mL 0.000-0.045 HH Negative: <= 0.045 Positive: >= 0.046 Correlation with serial results, other cardiac markers andclinical findings is necessary to determine the clinicalsignificance of this result. Results using different methodologies should not be comparedto one another as quantitative results may vary by method. - CT HEAD/BRAIN W/O [id number] 11:35:00 Name: CRISTINO VILLASEÑOR [facility] : 1960 Age/S: 59 / M [address] [place] [address] Unit #: [id number] Loc: [place] [address] Phys: Kim Lewis DO Acct: [id number] Dis Date: Status: PRE ER PHONE #: [phone] Exam Date: 11/15/2019 1121 FAX #: [phone] Reason: CODE NEURO LKW 0700 EXAMS: CPT CODE: [id number] CT HEAD/BRAIN W/O CONT 11040 PROCEDURE: CT head without contrast INDICATION: CODE NEURO LKW 0700. Slurred speech. Left-sided weakness. COMPARISON: CT head without contrast dated 09/04/2019. TECHNIQUE: Noncontrast helical imaging performed skull base to the vertex. FINDINGS: BRAIN PARENCHYMA: Mild to moderate diffuse generalized intracranial atrophy is demonstrated. Mild diffuse periventricular white matter hypodensity compatible with chronic ischemic change. This appears stable. Stable cortical and subcortical hypodensity within the medial left posterior parietal, occipital lobe. This is identified around axial image 39, coronal image 81 and sagittal image 41. This appears stable since August 2019. No definite evidence for acute infarct. Normal mason-white interfaces. No focal mass lesions. No mass effect, midline shift. No intra-axial or extra-axial fluid collections, intraventricular or intraparenchymal hemorrhage. Pineal, sellar, brainstem, cerebellum and skull base regions appear unre markable. VENTRICLES AND CISTERNS: Prominence of the ventricles, sulci and cisterns related to generalized atrophy. Lateral ventricles, 3r d and 4th ventricles appear otherwise unremarkable. Basilar cisterns are otherwise normal. ORBITS, MASTOIDS AND PARANASAL SINUSES: The visualized aspects of the orbits appear unremarkable. Visualized aspects of the paranasal sinuses appear unremarkable. The mastoid air nichole ls are clear. SKULL: No acute osseous abnormalities. IMPRESSION: 1. No evidence for acute intracranial abnormality. 2. Generalized intracranial atrophy with chronic ischemic changes. 3. 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 These findings were discussed with Kim Lewis DO on 11/15/2019 PAGE 1 Signed Report (CONTINUED) Name: CRISTINO VILLASEÑOR [facility] : 1960 Age/S: 59 / M [address] [place] [address] Unit #: [id number] Loc: [place] [address] Phys: Kim Lewis DO Acct: [id number] Dis Date: Status: PRE ER PHONE #: [phone] Exam Date: 11/15/2019 112 FAX #: [phone] Reason: CODE NEURO LKW 0700 EXAMS: CPT CODE: [id number] CT HEAD/BRAIN W/O CONT 71559 < Continued> 11:30 AM. SL: ANA LILIA at 1135 Reported and signed by: Robb Monroe M.D. CC: Frederic Gale MD; Kim Lewis DO Technologist:Roselyn Soto, RT(R)(CT) CTDI: DLP: Trnscb Date/Time: 11/15/2019 (1078) [email or web address] Orig Print D/T: S: 11/15/2019 (6791) PAGE 2 Signed Report PROTHROMBIN [id number] 11:21:00* Test Item Value Reference Range Interpretation Comments PROTHROMBIN TIME PATIENT (test code = PTP) 12.0 SECONDS 9.3-12.9 N INTERNATIONAL NORMAL RATIO (test code = INR) 1.1 0.8-1.2 N TARGET INR BY INDICATION Indication INR1. Prophylaxis of venous thrombosis 2.0 - 3.0 (orthopedic surgery), Prophylaxis of venous thrombosis (other than high-risk surgery), Treatment of Deep Vein Thrombosis/Pulmonary Embolism, Prevention of systemic embolism - Tissue heart valves, Acute Myocardial Infarction (to prevent systemic embolism), Valvular heart disease, Atrial Fibrillation, Bileaflet mechanical valve in aortic position.2. Mechanical prosthetic valves (high risk), 2.5 - 3.5 Presence of Lupus Anticoagulant or Antiphospholipid Antibodies, Prevention of systemic embolism - Acute Myocardial Infarction (to prevent recurrent infarct). THROMBOPLASTIN TIME [id number] 11:21:00* Test Item Value Reference Range Interpretation Comments THROMBOPLASTIN TIME PARTIAL (test code = PTT) 37.6 Seconds 25.0-39. 5 N Therapeutic Range: 50.4 - 88.3 Seconds Effective 01/07/2019 CBC W/O [id number] 11:15:00* Test Item Value Reference Range Interpretation Comments WHITE BLOOD CELL (test code = WBC) 9.66 x10 3/uL 4.5-11.0 N RED BLOOD CELL (test code = RBC) 5.27 x10 6/uL 4.00-5.60 N HEMOGLOBIN (test code = HGB) 15.7 g/dL 12.5-16.9 N HEMATOCRIT (test code = HCT) 49.3 % 37.5-50.7 N MEAN CELL VOLUME (test code = MCV) 93.5 fL 81.0-99.0 N MEAN CELL HGB (test code = MCH) 29.8 pg 27.0-33.0 N MEAN CELL HGB CONCETRATION (test code = MCHC) 31.8 g/dL 33.0-37. 0 L RED CELL DISTRIBUTION WIDTH CV (test code = RDW) 13.6 % 11.5- 14.5 N RED CELL DISTRIBUTION WIDTH SD (test code = RDW-SD) 47.0 fL 37 .0-54.0 N PLATELET COUNT (test code = PLT) 224 x10 3/uL 150-400 N MEAN PLATELET VOLUME (test code = MPV) 10.4 fL 7.0-9.0 H URINALYSIS [id number] 13:54:00* Test Item Value Reference Range Interpretation Comments UA COLOR (test code = COLU) YELLOW YEL/STRAW UA APPEARANCE (test code = APPU) CLEAR CLEAR UA GLUCOSE DIPSTICK (test code = DGLUU) 3+ NEGATIVE A UA BILIRUBIN DIPSTICK (test code = BILU) NEGATIVE NEGATIVE UA KETONE DIPSTICK (test code = KETU) NEGATIVE NEGATIVE UA SPECIFIC GRAVITY (test code = SGU) 1.012 1.005-1.030 N UA BLOOD DIPSTICK (test code = BHUMI) NEGATIVE NEGATIVE UA PH DIPSTICK (test code = YAMILA) 6.0 5.0-7.0 N UA PROTEIN DIPSTICK (test code = PROU) NEGATIVE NEGATIVE UA UROBILINIOGEN DIPSTICK (test code = URO) 0.2 mg/dL 0.2-1.0 UA NITRITE DIPSTICK (test code = FIONA) NEGATIVE NEGATIVE UA LEUKOCYTE ESTERASE DIPSTICK (test code = LEUU) NEGATIVE NEGA TIVE UA RBC (test code = RBCU) 0-3 RBC/HPF 0-3 UA WBC NO REFLEX (test code = WBCUCL) 0-3 WBC/HPF 0-3 UA BACTERIA (test code = BACU) NONE SEEN /HPF NONE SEEN UA SQUAMOUS CELLS (test code = SQU) NONE SEEN /HPF NONE SEEN UA MUCUS (test code = MUCU) TRACE /LPF NONE SEEN COMPREHENSIVE METABOLIC [id number] 12:43:00* Test Item Value Reference Range Interpretation Comments SODIUM (test code = NA) 130 mEq/L 134-147 L POTASSIUM (test code = K) 3.7 mEq/L 3.4-5.0 N CHLORIDE (test code = CL) 95 mEq/L 100-108 L CARBON DIOXIDE (test code = CO2) 28 mEq/L 21-33 N ANION GAP (test code = GAP) 11 0-20 N GLUCOSE (test code = GLU) 233 mg/dL 70-110 H BLOOD UREA NITROGEN (test code = BUN) 41 mg/dL 7-18 H GLOMERULAR FILTRATION RATE (test code = GFR) 44.8 90-95 L Units of measure = ml/min/1.73 m2 CREATININE (test code = CREAT) 1.6 mg/dL 0.6-1.3 H TOTAL PROTEIN (test code = PROT) 8.1 g/dL 6.4-8.2 N ALBUMIN (test code = ALB) 3.80 g/dL 3.4-5.0 N CALCIUM (test code = CA) 9.8 mg/dL 8.0-10.5 N BILIRUBIN TOTAL (test code = BILT) 0.7 MG/DL <1.5 N SGOT/AST (test code = AST) 23 IUnit/L 15-37 N SGPT/ALT (test code = ALT) 33 IUnit/L 15-65 N ALKALINE PHOSPHATASE TOTAL (test code = ALKP) 105 IUnit/L 20-125 N [id number] 12:43:00* Test Item Value Reference Range Interpretation Comments LIPASE (test code = LIP) 222 IUnit/L 73-393 N COMPREHENSIVE METABOLIC [id number] 12:32:00* Test Item Value Reference Range Interpretation Comments SODIUM (test code = NA) 130 mEq/L 134-147 L POTASSIUM (test code = K) 3.7 mEq/L 3.4-5.0 N CHLORIDE (test code = CL) 95 mEq/L 100-108 L CARBON DIOXIDE (test code = CO2) 28 mEq/L 21-33 N ANION GAP (test code = GAP) 11 0-20 N GLUCOSE (test code = GLU) 233 mg/dL 70-110 H BLOOD UREA NITROGEN (test code = BUN) 41 mg/dL 7-18 H GLOMERULAR FILTRATION RATE (test code = GFR) 90-95 CREATININE (test code = CREAT) mg/dL 0.6-1.3 TOTAL PROTEIN (test code = PROT) g/dL 6.4-8.2 ALBUMIN (test code = ALB) g/dL 3.4-5.0 CALCIUM (test code = CA) 9.8 mg/dL 8.0-10.5 N BILIRUBIN TOTAL (test code = BILT) MG/DL <1.5 SGOT/AST (test code = AST) IUnit/L 15-37 SGPT/ALT (test code = ALT) IUnit/L 15-65 ALKALINE PHOSPHATASE TOTAL (test code = ALKP) IUnit/L 20-125 [id number] 12:32:00* Test Item Value Reference Range Interpretation Comments LIPASE (test code = LIP) 222 IUnit/L 73-393 N CBC W/AUTO [id number] 12:20:00* Test Item Value Reference Range Interpretation Comments WHITE BLOOD CELL (test code = WBC) 10.58 x10 3/uL 4.5-11.0 RED BLOOD CELL (test code = RBC) 5.38 x10 6/uL 4.00-5.60 N HEMOGLOBIN (test code = HGB) 16.5 g/dL 12.5-16.9 N HEMATOCRIT (test code = HCT) 49.5 % 37.5-50.7 N MEAN CELL VOLUME (test code = MCV) 92.0 fL 81.0-99.0 N MEAN CELL HGB (test code = MCH) 30.7 pg 27.0-33.0 N MEAN CELL HGB CONCETRATION (test code = MCHC) 33.3 g/dL 33.0-37. 0 N RED CELL DISTRIBUTION WIDTH CV (test code = RDW) 13.4 % 11.5- 14.5 N RED CELL DISTRIBUTION WIDTH SD (test code = RDW-SD) 45.5 fL 37 .0-54.0 N PLATELET COUNT (test code = PLT) 299 x10 3/uL 150-400 N MEAN PLATELET VOLUME (test code = MPV) 10.8 fL 7.0-9.0 H NEUTROPHIL % (test code = NT%) 75.0 % 56.0-77.0 N IMMATURE GRANULOCYTE % (test code = IG%) 0.6 % 0.0-2.0 N LYMPHOCYTE % (test code = LY%) 10.1 % 14.0-32.0 L MONOCYTE % (test code = MO%) 10.8 % 4.8-9.0 H EOSINOPHIL % (test code = EO%) 3.2 % 0.3-3.7 N BASOPHIL % (test code = BA%) 0.3 % 0.0-2.0 N NUCLEATED RBC % (test code = NRBC%) 0.0 % 0-0 N NEUTROPHIL # (test code = NT#) 7.94 x10 3/uL 2.0-7.6 H IMMATURE GRANULOCYTE # (test code = IG#) 0.06 x10 3/uL 0.00-0.03 H LYMPHOCYTE # (test code = LY#) 1.07 x10 3/uL 1.0-3.8 N MONOCYTE # (test code = MO#) 1.14 x10 3/uL 0.1-0.8 H EOSINOPHIL # (test code = EO#) 0.34 x10 3/uL 0.0-0.2 H BASOPHIL # (test code = BA#) 0.03 x10 3/uL 0.0-0.2 N NUCLEATED RBC # (test code = NRBC#) 0.00 x10 3/uL 0.0-0.1 N MANUAL DIFF REQUIRED (test code = MDIFF) NO [id number] 16:42:00* Test Item Value Reference Range Interpretation Comments GLUBED (test code = GLUBED) 223 MG/DL 70-110 H Performed by certified a operator at [facility] [id number] 13:43:00* Test Item Value Reference Range Interpretation Comments GLUBED (test code = GLUBED) 178 MG/DL 70-110 H Performed by certified a operator at [facility] [id number] 11:14:00* Test Item Value Reference Range Interpretation Comments GLUBED (test code = GLUBED) 197 MG/DL 70-110 H Performed by certified a operator at [facility] CBC W/AUTO [id number] 08:43:00* Test Item Value Reference Range Interpretation Comments WHITE BLOOD CELL (test code = WBC) 7.54 x10 3/uL 4.5-11.0 N RED BLOOD CELL (test code = RBC) 4.43 x10 6/uL 4.00-5.60 N HEMOGLOBIN (test code = HGB) 13.7 g/dL 12.5-16.9 N HEMATOCRIT (test code = HCT) 42.0 % 37.5-50.7 N MEAN CELL VOLUME (test code = MCV) 94.8 fL 81.0-99.0 N MEAN CELL HGB (test code = MCH) 30.9 pg 27.0-33.0 N MEAN CELL HGB CONCETRATION (test code = MCHC) 32.6 g/dL 33.0-37. 0 L RED CELL DISTRIBUTION WIDTH CV (test code = RDW) 13.5 % 11.5- 14.5 N RED CELL DISTRIBUTION WIDTH SD (test code = RDW-SD) 46.6 fL 37 .0-54.0 N PLATELET COUNT (test code = PLT) 195 x10 3/uL 150-400 N MEAN PLATELET VOLUME (test code = MPV) 11.7 fL 7.0-9.0 H NEUTROPHIL % (test code = NT%) 68.0 % 56.0-77.0 N IMMATURE GRANULOCYTE % (test code = IG%) 0.3 % 0.0-2.0 N LYMPHOCYTE % (test code = LY%) 16.2 % 14.0-32.0 N MONOCYTE % (test code = MO%) 7.6 % 4.8-9.0 N EOSINOPHIL % (test code = EO%) 7.0 % 0.3-3.7 H BASOPHIL % (test code = BA%) 0.9 % 0.0-2.0 N NUCLEATED RBC % (test code = NRBC%) 0.0 % 0-0 N NEUTROPHIL # (test code = NT#) 5.13 x10 3/uL 2.0-7.6 N IMMATURE GRANULOCYTE # (test code = IG#) 0.02 x10 3/uL 0.00-0.03 N LYMPHOCYTE # (test code = LY#) 1.22 x10 3/uL 1.0-3.8 N MONOCYTE # (test code = MO#) 0.57 x10 3/uL 0.1-0.8 N EOSINOPHIL # (test code = EO#) 0.53 x10 3/uL 0.0-0.2 H BASOPHIL # (test code = BA#) 0.07 x10 3/uL 0.0-0.2 N NUCLEATED RBC # (test code = NRBC#) 0.00 x10 3/uL 0.0-0.1 N MANUAL DIFF REQUIRED (test code = MDIFF) NO COMPREHENSIVE METABOLIC [id number] 08:21:00* Test Item Value Reference Range Interpretation Comments SODIUM (test code = NA) 136 mEq/L 134-147 N POTASSIUM (test code = K) 3.4 mEq/L 3.4-5.0 N CHLORIDE (test code = CL) 102 mEq/L 100-108 N CARBON DIOXIDE (test code = CO2) 25 mEq/L 21-33 N ANION GAP (test code = GAP) 12 0-20 N GLUCOSE (test code = GLU) 170 mg/dL 70-110 H BLOOD UREA NITROGEN (test code = BUN) 16 mg/dL 7-18 GLOMERULAR FILTRATION RATE (test code = GFR) 69.0 90-95 L Units of measure = ml/min/1.73 m2 CREATININE (test code = CREAT) 1.1 mg/dL 0.6-1.3 N TOTAL PROTEIN (test code = PROT) 6.5 g/dL 6.4-8.2 N ALBUMIN (test code = ALB) 3.30 g/dL 3.4-5.0 L CALCIUM (test code = CA) 8.8 mg/dL 8.0-10.5 N BILIRUBIN TOTAL (test code = BILT) 0.5 MG/DL <1.5 N SGOT/AST (test code = AST) 20 IUnit/L 15-37 N SGPT/ALT (test code = ALT) 30 IUnit/L 15-65 N ALKALINE PHOSPHATASE TOTAL (test code = ALKP) 83 IUnit/L 20-125 N THROMBOPLASTIN TIME [id number] 07:03:00* Test Item Value Reference Range Interpretation Comments THROMBOPLASTIN TIME PARTIAL (test code = PTT) 57.0 Seconds 25.0-39. 5 H Therapeutic Range: 50.4 - 88.3 Seconds Effective 01/07/2019 - CT HEAD/BRAIN W/O [id number] 05:37:00 Name: CRISTINO VILLASEÑOR [facility] : 1960 Age/S: 59 / M [address] [place] [address] Unit #: [id number] Loc: [place] [address] Phys: Zack Cullen MD Acct: [id number] Dis Date: Status: ADM IN PHONE #: [phone] Exam Date: 09/04/2019517 FAX #: [phone] Reason: PT ON HEPARIN DRIP EAND EXPERIENCEING HEADACHE EXAMS: CPT CODE: [id number] CT HEAD/BRAIN W/O CONT 24898 CT head without contrast . CLINICAL HISTORY: Patient on heparin drip and experiencing headache 8/. TECHNIQUE: Axial noncontrast CT images through the head were obtained. This exam was performed according to our departmental dose optimization program which includes automated exposure control, adjustment of the mA and/or kV according to patient size and/or use of iterative reconstruction technique. Coronal and sagittal reformats were provided. DLP:419.70 COMPARISON: None available. FINDINGS: There is no hemorrhage, extra-axial collection, mass, hydrocephalus, or midline shift. 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 Intracranial vascular calcifications are present. The paranasal sinuses are clear. The visualized mastoid air cells are well aerated. The calvarium and skull base are intact. IMPRESSION: No acute intracranial abnormality. 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 If concern for acute pathology persists consider further evaluation with MRI. at 0537 Reported and signed by: Kelsey Madera M.D. PAGE 1 Signed Report (CONTINUED) Name: CRITSINO VILLASEÑOR [facility] : 1960 Age/S: 59 / M [address] [place] [address] Blvd Unit #: [id number] Loc: [place] [address] Phys: Zack Cullen MD Acct: [id number] Dis Date: Status: ADM IN PHONE #: [phone] Exam Date: 09/04/2019 0518 F AX #: [phone] Reason: PT ON HEPARIN DRIP EAND EXPERIENCEING HEADACHE EXAMS: CPT CODE: [id number] CT HEAD/BRAIN W/O CONT 41300 <Continued> CC: Frederic Gale MD; Zack Cullen MD Technologist:RT Malena(R) CTDI: DLP: Trnscb Date/Time: 09/04/2019 (05) [email or web address] Orig Print D/T: S: 09/04/2019 (0540) PAGE 2 Signed Report THROMBOPLASTIN TIME [id number] 23:57:00* Test Item Value Reference Range Interpretation Comments THROMBOPLASTIN TIME PARTIAL (test code = PTT) 59.8 Seconds 25.0-39. 5 H Therapeutic Range: 50.4 - 88.3 Seconds Effective 01/07/2019 [id number] 21:15:00* Test Item Value Reference Range Interpretation Comments GLUBED (test code = GLUBED) 257 MG/DL 70-110 H Performed by certified a operator at [facility] [id number] 18:03:00* Test Item Value Reference Range Interpretation Comments TROPONIN-I (test code = TROPI) 0.116 ng/mL 0.000-0.045 HH Negative: <= 0.045 Positive: >= 0.046 Correlation with serial results, other cardiac markers andclinical findings is necessary to determine the clinicalsignificance of this result. Results using different methodologies should not be comparedto one another as quantitative results may vary by method. COMMENTS: If already ordered in ED, Adjust times to equal only 3 sets 3 hoursComment: apart.THROMBOPLASTIN TIME [id number] 17:58:00* Test Item Value Reference Range Interpretation Comments THROMBOPLASTIN TIME PARTIAL (test code = PTT) 58.7 Seconds 25.0-39. 5 H Therapeutic Range: 50.4 - 88.3 Seconds Effective 01/07/2019 [id number] 16:52:00* Test Item Value Reference Range Interpretation Comments GLUBED (test code = GLUBED) 134 MG/DL 70-110 H Performed by certified a operator at [facility] [id number] 16:09:00* Test Item Value Reference Range Interpretation Comments TROPONIN-I (test code = TROPI) 0.122 ng/mL 0.000-0.045 HH Negative: <= 0.045 Positive: >= 0.046 Correlation with serial results, other cardiac markers andclinical findings is necessary to determine the clinicalsignificance of this result. Results using different methodologies should not be comparedto one another as quantitative results may vary by method. COMMENTS: If already ordered in ED, Adjust times to equal only 3 sets 3 hoursComment: apart.[id number] 14:54:00* Test Item Value Reference Range Interpretation Comments TROPONIN-I (test code = TROPI) 0.126 ng/mL 0.000-0.045 HH Negative: <= 0.045 Positive: >= 0.046 Correlation with serial results, other cardiac markers andclinical findings is necessary to determine the clinicalsignificance of this result. Results using different methodologies should not be comparedto one another as quantitative results may vary by method. COMMENTS: If already ordered in ED, Adjust times to equal only 3 sets 3 hoursComment: apart.[id number] 13:10:00* Test Item Value Reference Range Interpretation Comments GLUBED (test code = GLUBED) 302 MG/DL 70-110 H Performed by certified a operator at [facility] [id number] 13:10:00* Test Item Value Reference Range Interpretation Comments GLUBED (test code = GLUBED) 335 MG/DL 70-110 H Performed by certified a operator at [facility] THROMBOPLASTIN TIME [id number] 09:12:00* Test Item Value Reference Range Interpretation Comments THROMBOPLASTIN TIME PARTIAL (test code = PTT) 65.8 Seconds 25.0-39. 5 H Therapeutic Range: 50.4 - 88.3 Seconds Effective 01/07/2019 [id number] 07:45:00* Test Item Value Reference Range Interpretation Comments GLUBED (test code = GLUBED) 198 MG/DL 70-110 H Performed by certified a operator at [facility] [id number] 05:41:00* Test Item Value Reference Range Interpretation Comments TROPONIN-I (test code = TROPI) 0.102 ng/mL 0.000-0.045 Negative: <= 0.045 Positive: >= 0.046 Correlation with serial results, other cardiac markers andclinical findings is necessary to determine the clinicalsignificance of this result. Results using different methodologies should not be comparedto one another as quantitative results may vary by method. COMMENTS: 3 troponins total (including troponin done in ED)[id number] 01:51:00* Test Item Value Reference Range Interpretation Comments TROPONIN-I (test code = TROPI) 0.134 ng/mL 0.000-0.045 HH Negative: <= 0.045 Positive: >= 0.046 Correlation with serial results, other cardiac markers andclinical findings is necessary to determine the clinicalsignificance of this result. Results using different methodologies should not be comparedto one another as quantitative results may vary by method. COMMENTS: 3 troponins total (including troponin done in ED)PROTHROMBIN TIME 2019-09-03 00:15:00* Test Item Value Reference Range Interpretation Comments PROTHROMBIN TIME PATIENT (test code = PTP) 11.4 SECONDS 9.3-12.9 N INTERNATIONAL NORMAL RATIO (test code = INR) 1.0 0.8-1.2 N TARGET INR BY INDICATION Indication INR1. Prophylaxis of venous thrombosis 2.0 - 3.0 (orthopedic surgery), Prophylaxis of venous thrombosis (other than high-risk surgery), Treatment of Deep Vein Thrombosis/Pulmonary Embolism, Prevention of systemic embolism - Tissue heart valves, Acute Myocardial Infarction (to prevent systemic embolism), Valvular heart disease, Atrial Fibrillation, Bileaflet mechanical valve in aortic position.2. Mechanical prosthetic valves (high risk), 2.5 - 3.5 Presence of Lupus Anticoagulant or Antiphospholipid Antibodies, Prevention of systemic embolism - Acute Myocardial Infarction (to prevent recurrent infarct). THROMBOPLASTIN TIME [id number] 00:15:00* Test Item Value Reference Range Interpretation Comments THROMBOPLASTIN TIME PARTIAL (test code = PTT) 32.8 Seconds 25.0-39. 5 N Therapeutic Range: 50.4 - 88.3 Seconds Effective 01/07/2019 LIPOPROTEIN [id number] 23:39:00* Test Item Value Reference Range Interpretation Comments LIPOPROTEIN LDL (test code = LDL) 114 mg/dL 0-100 H <100 [id number] NEAR OPTIMAL/ABOVE [id number] HIGH>JQ=386 VERY HIGH*Guidelines provided by the National Cholesterol EducationProgram Adult Treatment Panel III [id number] 23:24:00* Test Item Value Reference Range Interpretation Comments TROPONIN-I (test code = TROPI) 0.133 ng/mL 0.000-0.045 HH Negative: <= 0.045 Positive: >= 0.046 Correlation with serial results, other cardiac markers andclinical findings is necessary to determine the clinicalsignificance of this result. Results using different methodologies should not be comparedto one another as quantitative results may vary by method. BASIC METABOLIC [id number] 23:18:00* Test Item Value Reference Range Interpretation Comments SODIUM (test code = NA) 136 mEq/L 134-147 N POTASSIUM (test code = K) 3.7 mEq/L 3.4-5.0 N CHLORIDE (test code = CL) 100 mEq/L 100-108 N CARBON DIOXIDE (test code = CO2) 32 mEq/L 21-33 N ANION GAP (test code = GAP) 8 0-20 N GLUCOSE (test code = GLU) 235 mg/dL 70-110 H BLOOD UREA NITROGEN (test code = BUN) 22 mg/dL 7-18 H GLOMERULAR FILTRATION RATE (test code = GFR) 56.9 90-95 L Units of measure = ml/min/1.73 m2 CREATININE (test code = CREAT) 1.3 mg/dL 0.6-1.3 N CALCIUM (test code = CA) 9.2 mg/dL 8.0-10.5 N BASIC METABOLIC [id number] 23:15:00* Test Item Value Reference Range Interpretation Comments SODIUM (test code = NA) 136 mEq/L 134-147 N POTASSIUM (test code = K) 3.7 mEq/L 3.4-5.0 N CHLORIDE (test code = CL) 100 mEq/L 100-108 N CARBON DIOXIDE (test code = CO2) 32 mEq/L 21-33 N ANION GAP (test code = GAP) 8 0-20 N GLUCOSE (test code = GLU) 235 mg/dL 70-110 H BLOOD UREA NITROGEN (test code = BUN) 22 mg/dL 7-18 H GLOMERULAR FILTRATION RATE (test code = GFR) 90-95 CREATININE (test code = CREAT) mg/dL 0.6-1.3 CALCIUM (test code = CA) 9.2 mg/dL 8.0-10.5 N BASIC METABOLIC [id number] 23:14:00* Test Item Value Reference Range Interpretation Comments SODIUM (test code = NA) 136 mEq/L 134-147 N POTASSIUM (test code = K) 3.7 mEq/L 3.4-5.0 N CHLORIDE (test code = CL) 100 mEq/L 100-108 N CARBON DIOXIDE (test code = CO2) mEq/L 21-33 ANION GAP (test code = GAP) 0-20 GLUCOSE (test code = GLU) mg/dL 70-110 BLOOD UREA NITROGEN (test code = BUN) mg/dL 7-18 GLOMERULAR FILTRATION RATE (test code = GFR) 90-95 CREATININE (test code = CREAT) mg/dL 0.6-1.3 CALCIUM (test code = CA) 9.2 mg/dL 8.0-10.5 N CBC W/AUTO [id number] 23:02:00* Test Item Value Reference Range Interpretation Comments WHITE BLOOD CELL (test code = WBC) 9.29 x10 3/uL 4.5-11.0 N RED BLOOD CELL (test code = RBC) 4.76 x10 6/uL 4.00-5.60 N HEMOGLOBIN (test code = HGB) 14.7 g/dL 12.5-16.9 N HEMATOCRIT (test code = HCT) 45.3 % 37.5-50.7 N MEAN CELL VOLUME (test code = MCV) 95.2 fL 81.0-99.0 N MEAN CELL HGB (test code = MCH) 30.9 pg 27.0-33.0 N MEAN CELL HGB CONCETRATION (test code = MCHC) 32.5 g/dL 33.0-37. 0 L RED CELL DISTRIBUTION WIDTH CV (test code = RDW) 13.4 % 11.5- 14.5 N RED CELL DISTRIBUTION WIDTH SD (test code = RDW-SD) 46.9 fL 37 .0-54.0 N PLATELET COUNT (test code = PLT) 247 x10 3/uL 150-400 N MEAN PLATELET VOLUME (test code = MPV) 10.9 fL 7.0-9.0 H NEUTROPHIL % (test code = NT%) 67.5 % 56.0-77.0 N IMMATURE GRANULOCYTE % (test code = IG%) 0.3 % 0.0-2.0 N LYMPHOCYTE % (test code = LY%) 15.7 % 14.0-32.0 N MONOCYTE % (test code = MO%) 9.9 % 4.8-9.0 H EOSINOPHIL % (test code = EO%) 5.5 % 0.3-3.7 H BASOPHIL % (test code = BA%) 1.1 % 0.0-2.0 N NUCLEATED RBC % (test code = NRBC%) 0.0 % 0-0 N NEUTROPHIL # (test code = NT#) 6.27 x10 3/uL 2.0-7.6 N IMMATURE GRANULOCYTE # (test code = IG#) 0.03 x10 3/uL 0.00-0.03 N LYMPHOCYTE # (test code = LY#) 1.46 x10 3/uL 1.0-3.8 N MONOCYTE # (test code = MO#) 0.92 x10 3/uL 0.1-0.8 H EOSINOPHIL # (test code = EO#) 0.51 x10 3/uL 0.0-0.2 H BASOPHIL # (test code = BA#) 0.10 x10 3/uL 0.0-0.2 N NUCLEATED RBC # (test code = NRBC#) 0.00 x10 3/uL 0.0-0.1 N MANUAL DIFF REQUIRED (test code = MDIFF) NO TROPONIN-I [id number] 22:50:00* Test Item Value Reference Range Interpretation Comments TROPONIN-I RAPID (test code = TROPIRAP) 0.11 ng/mL 0.00-0.08 H H Performed by certified a operator at [facility] Negative: <= 0.08 Positive: >= 0.09An elevated troponin value alone is not sufficient todiagnose a myocardial infarction. Rather, the patient sclinical presentation (history, physical exam) and ECGshould be used in conjunction with troponin in thediagnostic evaluation of suspected myocardial infarction. Aserial sampling protocol is recommended to facilitate the identification of temporal changes in troponin levels characteristic of [place]. - XR CHEST 2 [id number] 20:30:00 FAX: Frederic Warner MD [phone] [place]: St: REG FAX: Adonis Mcclendon NP [phone] Name: CRISTINO VILLASEÑOR [facility] : 1960 Age/S: 59/M [address] [place] [address] Unit #: [id number] Loc: [place] [address] Phys: Adonis Mcclendon NP Acct: [id number] Dis Date: Status: REG ER PHONE #: [phone] Exam Date: 09/02/20192026 FAX #: [phone] Reason: Chest Pain EXAMS: CPT CODE: [id number] XR CHEST 2 V 16279 Clinical Indication: Chest Pain Comparison: 06/13/2019 FINDINGS: The frontal and lateral chest radiographs show normal lung volumes. No interstitial or airspace opacities are seen. No pleural effusions are present. No pneumothorax is seen. The heart is enlarged. The trachea is midline. A left-sided AICD is present. There are no clinically significant osseous abnormalities noted. IMPRESSION: 1. No chest radiographic evidence of acute cardiopulmonary disease. 2. Cardiomegaly. SL: [place] at 2030 Reported and signed by: Jaun Nick M.D. CC: Frederic Gale MD; Adonis Mcclendon NP Technologist: RT Bam(Sadia)(M) Trnscrd Date/Time/By: 09/02/2019 (2029) : By: JocelinLNV Orig Print D/T: S: 09/02/2019 (2032) PAGE 1 Signed Report [id number] 17:13:00* Test Item Value Reference Range Interpretation Comments GLUBED (test code = GLUBED) 126 MG/DL 70-110 H Performed by certified a operator at [facility] CBC W/AUTO [id number] 09:16:00* Test Item Value Reference Range Interpretation Comments WHITE BLOOD CELL (test code = WBC) 10.22 x10 3/uL 4.5-11.0 RED BLOOD CELL (test code = RBC) 4.48 x10 6/uL 4.00-5.60 N HEMOGLOBIN (test code = HGB) 13.8 g/dL 12.5-16.9 N HEMATOCRIT (test code = HCT) 42.3 % 37.5-50.7 N MEAN CELL VOLUME (test code = MCV) 94.4 fL 81.0-99.0 N MEAN CELL HGB (test code = MCH) 30.8 pg 27.0-33.0 N MEAN CELL HGB CONCETRATION (test code = MCHC) 32.6 g/dL 33.0-37. 0 L RED CELL DISTRIBUTION WIDTH CV (test code = RDW) 13.3 % 11.5- 14.5 N RED CELL DISTRIBUTION WIDTH SD (test code = RDW-SD) 46.2 fL 37 .0-54.0 N PLATELET COUNT (test code = PLT) 227 x10 3/uL 150-400 N MEAN PLATELET VOLUME (test code = MPV) 10.5 fL 7.0-9.0 H NEUTROPHIL % (test code = NT%) 77.2 % 56.0-77.0 H IMMATURE GRANULOCYTE % (test code = IG%) 1.1 % 0.0-2.0 N LYMPHOCYTE % (test code = LY%) 11.7 % 14.0-32.0 L MONOCYTE % (test code = MO%) 7.2 % 4.8-9.0 N EOSINOPHIL % (test code = EO%) 2.2 % 0.3-3.7 N BASOPHIL % (test code = BA%) 0.6 % 0.0-2.0 N NUCLEATED RBC % (test code = NRBC%) 0.0 % 0-0 N NEUTROPHIL # (test code = NT#) 7.89 x10 3/uL 2.0-7.6 H IMMATURE GRANULOCYTE # (test code = IG#) 0.11 x10 3/uL 0.00-0.03 H LYMPHOCYTE # (test code = LY#) 1.20 x10 3/uL 1.0-3.8 N MONOCYTE # (test code = MO#) 0.74 x10 3/uL 0.1-0.8 N EOSINOPHIL # (test code = EO#) 0.22 x10 3/uL 0.0-0.2 H BASOPHIL # (test code = BA#) 0.06 x10 3/uL 0.0-0.2 N NUCLEATED RBC # (test code = NRBC#) 0.00 x10 3/uL 0.0-0.1 N MANUAL DIFF REQUIRED (test code = MDIFF) NO PROTHROMBIN [id number] 08:43:00* Test Item Value Reference Range Interpretation Comments PROTHROMBIN TIME PATIENT (test code = PTP) 11.8 SECONDS 9.3-12.9 N INTERNATIONAL NORMAL RATIO (test code = INR) 1.1 0.8-1.2 N TARGET INR BY INDICATION Indication INR1. Prophylaxis of venous thrombosis 2.0 - 3.0 (orthopedic surgery), Prophylaxis of venous thrombosis (other than high-risk surgery), Treatment of Deep Vein Thrombosis/Pulmonary Embolism, Prevention of systemic embolism - Tissue heart valves, Acute Myocardial Infarction (to prevent systemic embolism), Valvular heart disease, Atrial Fibrillation, Bileaflet mechanical valve in aortic position.2. Mechanical prosthetic valves (high risk), 2.5 - 3.5 Presence of Lupus Anticoagulant or Antiphospholipid Antibodies, Prevention of systemic embolism - Acute Myocardial Infarction (to prevent recurrent infarct). [id number] 08:18:00* Test Item Value Reference Range Interpretation Comments GLUBED (test code = GLUBED) 121 MG/DL 70-110 H Performed by certified a operator at [facility] BASIC METABOLIC [id number] 08:04:00* Test Item Value Reference Range Interpretation Comments SODIUM (test code = NA) 139 mEq/L 134-147 N POTASSIUM (test code = K) 4.1 mEq/L 3.4-5.0 N CHLORIDE (test code = CL) 110 mEq/L 100-108 H CARBON DIOXIDE (test code = CO2) 27 mEq/L 21-33 N ANION GAP (test code = GAP) 6 0-20 N GLUCOSE (test code = GLU) 101 mg/dL 70-110 BLOOD UREA NITROGEN (test code = BUN) 18 mg/dL 7-18 N GLOMERULAR FILTRATION RATE (test code = GFR) 62.6 90-95 L Units of measure = ml/min/1.73 m2 CREATININE (test code = CREAT) 1.2 mg/dL 0.6-1.3 N CALCIUM (test code = CA) 8.6 mg/dL 8.0-10.5 N [id number] 19:52:00* Test Item Value Reference Range Interpretation Comments GLUBED (test code = GLUBED) 212 MG/DL 70-110 H Performed by certified a operator at [facility] [id number] 17:48:00* Test Item Value Reference Range Interpretation Comments GLUBED (test code = GLUBED) 151 MG/DL 70-110 H Performed by certified a operator at [facility] [id number] 12:45:00* Test Item Value Reference Range Interpretation Comments GLUBED (test code = GLUBED) 138 MG/DL 70-110 H Performed by certified a operator at [facility] BASIC METABOLIC [id number] 10:00:00* Test Item Value Reference Range Interpretation Comments SODIUM (test code = NA) 138 mEq/L 134-147 N POTASSIUM (test code = K) 4.1 mEq/L 3.4-5.0 N CHLORIDE (test code = CL) 104 mEq/L 100-108 N CARBON DIOXIDE (test code = CO2) 28 mEq/L 21-33 N ANION GAP (test code = GAP) 10 0-20 N GLUCOSE (test code = GLU) 153 mg/dL 70-110 H BLOOD UREA NITROGEN (test code = BUN) 22 mg/dL 7-18 H GLOMERULAR FILTRATION RATE (test code = GFR) 62.6 90-95 L Units of measure = ml/min/1.73 m2 CREATININE (test code = CREAT) 1.2 mg/dL 0.6-1.3 N CALCIUM (test code = CA) 9.1 mg/dL 8.0-10.5 N [id number] 08:40:00* Test Item Value Reference Range Interpretation Comments GLUBED (test code = GLUBED) 106 MG/DL 70-110 N Performed by certified a operator at [facility] CBC W/AUTO [id number] 08:11:00* Test Item Value Reference Range Interpretation Comments WHITE BLOOD CELL (test code = WBC) 7.11 x10 3/uL 4.5-11.0 N RED BLOOD CELL (test code = RBC) 4.59 x10 6/uL 4.00-5.60 N HEMOGLOBIN (test code = HGB) 14.1 g/dL 12.5-16.9 N HEMATOCRIT (test code = HCT) 42.5 % 37.5-50.7 N MEAN CELL VOLUME (test code = MCV) 92.6 fL 81.0-99.0 N MEAN CELL HGB (test code = MCH) 30.7 pg 27.0-33.0 N MEAN CELL HGB CONCETRATION (test code = MCHC) 33.2 g/dL 33.0-37. 0 N RED CELL DISTRIBUTION WIDTH CV (test code = RDW) 13.4 % 11.5- 14.5 N RED CELL DISTRIBUTION WIDTH SD (test code = RDW-SD) 44.7 fL 37 .0-54.0 N PLATELET COUNT (test code = PLT) 235 x10 3/uL 150-400 N MEAN PLATELET VOLUME (test code = MPV) 10.4 fL 7.0-9.0 H NEUTROPHIL % (test code = NT%) 63.0 % 56.0-77.0 N IMMATURE GRANULOCYTE % (test code = IG%) 1.1 % 0.0-2.0 N LYMPHOCYTE % (test code = LY%) 19.7 % 14.0-32.0 N MONOCYTE % (test code = MO%) 11.0 % 4.8-9.0 H EOSINOPHIL % (test code = EO%) 4.4 % 0.3-3.7 H BASOPHIL % (test code = BA%) 0.8 % 0.0-2.0 N NUCLEATED RBC % (test code = NRBC%) 0.0 % 0-0 N NEUTROPHIL # (test code = NT#) 4.48 x10 3/uL 2.0-7.6 N IMMATURE GRANULOCYTE # (test code = IG#) 0.08 x10 3/uL 0.00-0.03 H LYMPHOCYTE # (test code = LY#) 1.40 x10 3/uL 1.0-3.8 N MONOCYTE # (test code = MO#) 0.78 x10 3/uL 0.1-0.8 N EOSINOPHIL # (test code = EO#) 0.31 x10 3/uL 0.0-0.2 H BASOPHIL # (test code = BA#) 0.06 x10 3/uL 0.0-0.2 N NUCLEATED RBC # (test code = NRBC#) 0.00 x10 3/uL 0.0-0.1 N MANUAL DIFF REQUIRED (test code = MDIFF) NO [id number] 20:03:00* Test Item Value Reference Range Interpretation Comments GLUBED (test code = GLUBED) 133 MG/DL 70-110 H Performed by certified a operator at [facility] [id number] 17:39:00* Test Item Value Reference Range Interpretation Comments GLUBED (test code = GLUBED) 101 MG/DL 70-110 N Performed by certified a operator at [facility] [id number] 12:57:00* Test Item Value Reference Range Interpretation Comments GLUBED (test code = GLUBED) 212 MG/DL 70-110 H Performed by certified a operator at [facility] [id number] 08:44:00* Test Item Value Reference Range Interpretation Comments GLUBED (test code = GLUBED) 135 MG/DL 70-110 H Performed by certified a operator at [facility] BASIC METABOLIC [id number] 07:21:00* Test Item Value Reference Range Interpretation Comments SODIUM (test code = NA) 134 mEq/L 134-147 N POTASSIUM (test code = K) 3.8 mEq/L 3.4-5.0 N CHLORIDE (test code = CL) 101 mEq/L 100-108 N CARBON DIOXIDE (test code = CO2) 26 mEq/L 21-33 N ANION GAP (test code = GAP) 11 0-20 N GLUCOSE (test code = GLU) 184 mg/dL 70-110 H BLOOD UREA NITROGEN (test code = BUN) 37 mg/dL 7-18 H GLOMERULAR FILTRATION RATE (test code = GFR) 52.4 90-95 L Units of measure = ml/min/1.73 m2 CREATININE (test code = CREAT) 1.4 mg/dL 0.6-1.3 H CALCIUM (test code = CA) 8.7 mg/dL 8.0-10.5 N COMMENTS: To be done morning of Heart [id number] 07:21:00* Test Item Value Reference Range Interpretation Comments HGBA1C% (test code = HGBA1C%) 8.3 %A1C 4.8-6.0 H BASIC METABOLIC [id number] 07:19:00* Test Item Value Reference Range Interpretation Comments SODIUM (test code = NA) 134 mEq/L 134-147 N POTASSIUM (test code = K) 3.8 mEq/L 3.4-5.0 N CHLORIDE (test code = CL) 101 mEq/L 100-108 N CARBON DIOXIDE (test code = CO2) 26 mEq/L 21-33 N ANION GAP (test code = GAP) 11 0-20 N GLUCOSE (test code = GLU) 184 mg/dL 70-110 H BLOOD UREA NITROGEN (test code = BUN) 37 mg/dL 7-18 H GLOMERULAR FILTRATION RATE (test code = GFR) 90-95 CREATININE (test code = CREAT) mg/dL 0.6-1.3 CALCIUM (test code = CA) 8.7 mg/dL 8.0-10.5 N COMMENTS: To be done morning of Heart CathCBC W/AUTO [id number] 06:50:00* Test Item Value Reference Range Interpretation Comments WHITE BLOOD CELL (test code = WBC) 6.88 x10 3/uL 4.5-11.0 N RED BLOOD CELL (test code = RBC) 4.51 x10 6/uL 4.00-5.60 N HEMOGLOBIN (test code = HGB) 14.0 g/dL 12.5-16.9 N HEMATOCRIT (test code = HCT) 41.1 % 37.5-50.7 N MEAN CELL VOLUME (test code = MCV) 91.1 fL 81.0-99.0 N MEAN CELL HGB (test code = MCH) 31.0 pg 27.0-33.0 N MEAN CELL HGB CONCETRATION (test code = MCHC) 34.1 g/dL 33.0-37. 0 N RED CELL DISTRIBUTION WIDTH CV (test code = RDW) 13.3 % 11.5- 14.5 N RED CELL DISTRIBUTION WIDTH SD (test code = RDW-SD) 44.3 fL 37 .0-54.0 N PLATELET COUNT (test code = PLT) 219 x10 3/uL 150-400 N MEAN PLATELET VOLUME (test code = MPV) 10.1 fL 7.0-9.0 H NEUTROPHIL % (test code = NT%) 61.8 % 56.0-77.0 N IMMATURE GRANULOCYTE % (test code = IG%) 1.3 % 0.0-2.0 N LYMPHOCYTE % (test code = LY%) 22.4 % 14.0-32.0 N MONOCYTE % (test code = MO%) 9.7 % 4.8-9.0 H EOSINOPHIL % (test code = EO%) 3.8 % 0.3-3.7 H BASOPHIL % (test code = BA%) 1.0 % 0.0-2.0 N NUCLEATED RBC % (test code = NRBC%) 0.0 % 0-0 N NEUTROPHIL # (test code = NT#) 4.25 x10 3/uL 2.0-7.6 N IMMATURE GRANULOCYTE # (test code = IG#) 0.09 x10 3/uL 0.00-0.03 H LYMPHOCYTE # (test code = LY#) 1.54 x10 3/uL 1.0-3.8 N MONOCYTE # (test code = MO#) 0.67 x10 3/uL 0.1-0.8 N EOSINOPHIL # (test code = EO#) 0.26 x10 3/uL 0.0-0.2 H BASOPHIL # (test code = BA#) 0.07 x10 3/uL 0.0-0.2 N NUCLEATED RBC # (test code = NRBC#) 0.00 x10 3/uL 0.0-0.1 N MANUAL DIFF REQUIRED (test code = MDIFF) NO COMMENTS: To be done morning of Heart [id number] 23:52:00* Test Item Value Reference Range Interpretation Comments GLUBED (test code = GLUBED) 138 MG/DL 70-110 H Performed by certified a operator at [facility] [id number] 20:23:00* Test Item Value Reference Range Interpretation Comments TROPONIN-I (test code = TROPI) 0.190 ng/mL 0.000-0.045 HH Negative: <= 0.045 Positive: >= 0.046 Correlation with serial results, other cardiac markers andclinical findings is necessary to determine the clinicalsignificance of this result. Results using different methodologies should not be comparedto one another as quantitative results may vary by method. COMMENTS: 3 troponins total (including troponin done in ED)LIPOPROTEIN LDL 2019-06-13 16:08:00* Test Item Value Reference Range Interpretation Comments LIPOPROTEIN LDL (test code = LDL) 90 mg/dL 0-100 N <100 [id number] NEAR OPTIMAL/ABOVE [id number] HIGH>RN=182 VERY HIGH*Guidelines provided by the National Cholesterol EducationProgram Adult Treatment Panel III [id number] 15:53:00* Test Item Value Reference Range Interpretation Comments TROPONIN-I (test code = TROPI) 0.202 ng/mL 0.000-0.045 HH Negative: <= 0.045 Positive: >= 0.046 Correlation with serial results, other cardiac markers andclinical findings is necessary to determine the clinicalsignificance of this result. Results using different methodologies should not be comparedto one another as quantitative results may vary by method. COMMENTS: 3 troponins total (including troponin done in ED)B-TYPE NATRIURETIC [id number] 15:51:00* Test Item Value Reference Range Interpretation Comments B-TYPE NATRIURETIC PEPTIDE (test code = BNP) 213.4 PG/ML 0-100 H - XR CHEST 2 [id number] 12:23:00 FAX: Klaudia Dallas MD [phone] [place]: St: REG Name: CRISTINO ALICIA [facility] : [birth year] Age/S: 58/M [address] [place] [address] Bl Unit #: [id number] Loc: [place] [address] Phys: Klaudia Dallas MD Acct: [id number] Dis Date: Status: REG ER PHONE #: [phone] Exam Date: 06/13/2019 1221 FAX #: [phone] Reason: Chest Pain EXAMS: CPT CODE: [id number] XR CHEST 2 V [id number] EXAM: CHEST TWO VIEW HISTORY: 58-year-old male with chest pain COMPARISON: Chest radio graph 12/03/2017 FINDINGS: The lungs are clear. The cardiomediastin al silhouette is stably enlarged. No acute osseous abnormality. Left sub clavian AICD noted. IMPRESSION: 1. No ac manny cardiopulmonary abnormality. SL: [id number] at 1223 Reported and signed by: Awilda Souza M.D. CC: Klaudia Dallas MD Technologist: Blanquita Nuno, RT(R) Trnscrd Date/Time/By: 06/13/2019 (1491) : By: [id number] Orig Print D/T: S: 06/13/2019 (5405) PAGE 1 Signed Report BASIC METABOLIC [id number] 12:11:00* Test Item Value Reference Range Interpretation Comments SODIUM (test code = NA) 130 mEq/L 134-147 L POTASSIUM (test code = K) 4.0 mEq/L 3.4-5.0 N CHLORIDE (test code = CL) 95 mEq/L 100-108 L CARBON DIOXIDE (test code = CO2) 27 mEq/L 21-33 N ANION GAP (test code = GAP) 12 0-20 N GLUCOSE (test code = GLU) 183 mg/dL 70-110 H BLOOD UREA NITROGEN (test code = BUN) 49 mg/dL 7-18 H GLOMERULAR FILTRATION RATE (test code = GFR) 41.9 90-95 L Units of measure = ml/min/1.73 m2 CREATININE (test code = CREAT) 1.7 mg/dL 0.6-1.3 H CALCIUM (test code = CA) 10.0 mg/dL 8.0-10.5 N [id number] 12:11:00* Test Item Value Reference Range Interpretation Comments MAGNESIUM (test code = MAG) 2.30 mg/dL 1.8-2.4 N BASIC METABOLIC [id number] 12:05:00* Test Item Value Reference Range Interpretation Comments SODIUM (test code = NA) 130 mEq/L 134-147 L POTASSIUM (test code = K) 4.0 mEq/L 3.4-5.0 N CHLORIDE (test code = CL) 95 mEq/L 100-108 L CARBON DIOXIDE (test code = CO2) 27 mEq/L 21-33 N ANION GAP (test code = GAP) 12 0-20 N GLUCOSE (test code = GLU) 183 mg/dL 70-110 H BLOOD UREA NITROGEN (test code = BUN) 49 mg/dL 7-18 H GLOMERULAR FILTRATION RATE (test code = GFR) 90-95 CREATININE (test code = CREAT) mg/dL 0.6-1.3 CALCIUM (test code = CA) 10.0 mg/dL 8.0-10.5 N [id number] 12:05:00* Test Item Value Reference Range Interpretation Comments MAGNESIUM (test code = MAG) 2.30 mg/dL 1.8-2.4 N TROPONIN-I [id number] 11:57:00* Test Item Value Reference Range Interpretation Comments TROPONIN-I RAPID (test code = TROPIRAP) 0.22 ng/mL 0.00-0.08 H H Performed by certified a operator at [facility] Negative: <= 0.08 Positive: >= 0.09An elevated troponin value alone is not sufficient todiagnose a myocardial infarction. Rather, the patient sclinical presentation (history, physical exam) and ECGshould be used in conjunction with troponin in thediagnostic evaluation of suspected myocardial infarction. Aserial sampling protocol is recommended to facilitate the identification of temporal changes in troponin levels characteristic of [place]. CBC W/AUTO [id number] 11:53:00* Test Item Value Reference Range Interpretation Comments WHITE BLOOD CELL (test code = WBC) 11.23 x10 3/uL 4.5-11.0 H RED BLOOD CELL (test code = RBC) 5.26 x10 6/uL 4.00-5.60 N HEMOGLOBIN (test code = HGB) 16.2 g/dL 12.5-16.9 N HEMATOCRIT (test code = HCT) 47.3 % 37.5-50.7 N MEAN CELL VOLUME (test code = MCV) 89.9 fL 81.0-99.0 N MEAN CELL HGB (test code = MCH) 30.8 pg 27.0-33.0 N MEAN CELL HGB CONCETRATION (test code = MCHC) 34.2 g/dL 33.0-37. 0 N RED CELL DISTRIBUTION WIDTH CV (test code = RDW) 13.2 % 11.5- 14.5 N RED CELL DISTRIBUTION WIDTH SD (test code = RDW-SD) 43.1 fL 37 .0-54.0 N PLATELET COUNT (test code = PLT) 320 x10 3/uL 150-400 N MEAN PLATELET VOLUME (test code = MPV) 10.4 fL 7.0-9.0 H NEUTROPHIL % (test code = NT%) 69.5 % 56.0-77.0 N IMMATURE GRANULOCYTE % (test code = IG%) 1.5 % 0.0-2.0 N LYMPHOCYTE % (test code = LY%) 15.2 % 14.0-32.0 N MONOCYTE % (test code = MO%) 9.5 % 4.8-9.0 H EOSINOPHIL % (test code = EO%) 3.2 % 0.3-3.7 N BASOPHIL % (test code = BA%) 1.1 % 0.0-2.0 N NUCLEATED RBC % (test code = NRBC%) 0.0 % 0-0 N NEUTROPHIL # (test code = NT#) 7.80 x10 3/uL 2.0-7.6 H IMMATURE GRANULOCYTE # (test code = IG#) 0.17 x10 3/uL 0.00-0.03 H LYMPHOCYTE # (test code = LY#) 1.71 x10 3/uL 1.0-3.8 N MONOCYTE # (test code = MO#) 1.07 x10 3/uL 0.1-0.8 H EOSINOPHIL # (test code = EO#) 0.36 x10 3/uL 0.0-0.2 H BASOPHIL # (test code = BA#) 0.12 x10 3/uL 0.0-0.2 N NUCLEATED RBC # (test code = NRBC#) 0.00 x10 3/uL 0.0-0.1 N MANUAL DIFF REQUIRED (test code = MDIFF) NO [id number] 11:36:00* Test Item Value Reference Range Interpretation Comments GLUBED (test code = GLUBED) 313 MG/DL 70-110 H Performed by certified a operator at [facility] CBC W/AUTO [id number] 08:39:00* Test Item Value Reference Range Interpretation Comments WHITE BLOOD CELL (test code = WBC) 10.42 x10 3/uL 4.5-11.0 N RED BLOOD CELL (test code = RBC) 4.96 x10 6/uL 4.00-5.60 N HEMOGLOBIN (test code = HGB) 15.5 g/dL 12.5-16.9 N HEMATOCRIT (test code = HCT) 46.3 % 37.5-50.7 N MEAN CELL VOLUME (test code = MCV) 93.3 fL 81.0-99.0 N MEAN CELL HGB (test code = MCH) 31.3 pg 27.0-33.0 N MEAN CELL HGB CONCETRATION (test code = MCHC) 33.5 g/dL 33.0-37. 0 N RED CELL DISTRIBUTION WIDTH CV (test code = RDW) 13.7 % 11.5- 14.5 N RED CELL DISTRIBUTION WIDTH SD (test code = RDW-SD) 46.6 fL 37 .0-54.0 N PLATELET COUNT (test code = PLT) 301 x10 3/uL 150-400 N MEAN PLATELET VOLUME (test code = MPV) 10.7 fL 7.0-9.0 H NEUTROPHIL % (test code = NT%) 71.3 % 56.0-77.0 N IMMATURE GRANULOCYTE % (test code = IG%) 0.9 % 0.0-2.0 N LYMPHOCYTE % (test code = LY%) 11.6 % 14.0-32.0 L MONOCYTE % (test code = MO%) 11.8 % 4.8-9.0 H EOSINOPHIL % (test code = EO%) 3.6 % 0.3-3.7 N BASOPHIL % (test code = BA%) 0.8 % 0.0-2.0 N NUCLEATED RBC % (test code = NRBC%) 0.0 % 0-0 N NEUTROPHIL # (test code = NT#) 7.44 x10 3/uL 2.0-7.6 N IMMATURE GRANULOCYTE # (test code = IG#) 0.09 x10 3/uL 0.00-0.03 H LYMPHOCYTE # (test code = LY#) 1.21 x10 3/uL 1.0-3.8 N MONOCYTE # (test code = MO#) 1.23 x10 3/uL 0.1-0.8 H EOSINOPHIL # (test code = EO#) 0.37 x10 3/uL 0.0-0.2 H BASOPHIL # (test code = BA#) 0.08 x10 3/uL 0.0-0.2 N NUCLEATED RBC # (test code = NRBC#) 0.00 x10 3/uL 0.0-0.1 N MANUAL DIFF REQUIRED (test code = MDIFF) NO BASIC METABOLIC [id number] 08:29:00* Test Item Value Reference Range Interpretation Comments SODIUM (test code = NA) 136 mEq/L 134-147 N POTASSIUM (test code = K) 3.8 mEq/L 3.4-5.0 N CHLORIDE (test code = CL) 102 mEq/L 100-108 N CARBON DIOXIDE (test code = CO2) 25 mEq/L 21-33 N ANION GAP (test code = GAP) 13 0-20 N GLUCOSE (test code = GLU) 180 mg/dL 70-110 H BLOOD UREA NITROGEN (test code = BUN) 18 mg/dL 7-18 N GLOMERULAR FILTRATION RATE (test code = GFR) 69.2 90-95 L Units of measure = ml/min/1.73 m2 CREATININE (test code = CREAT) 1.1 mg/dL 0.6-1.3 N CALCIUM (test code = CA) 9.6 mg/dL 8.0-10.5 N [id number] 07:27:00* Test Item Value Reference Range Interpretation Comments GLUBED (test code = GLUBED) 176 MG/DL 70-110 H Performed by certified a operator at [facility] [id number] 23:33:00* Test Item Value Reference Range Interpretation Comments GLUBED (test code = GLUBED) 164 MG/DL 70-110 H Performed by certified a operator at [facility] [id number] 22:12:00* Test Item Value Reference Range Interpretation Comments GLUBED (test code = GLUBED) 268 MG/DL 70-110 H Performed by certified a operator at [facility] [id number] 17:02:00* Test Item Value Reference Range Interpretation Comments GLUBED (test code = GLUBED) 229 MG/DL 70-110 H Performed by certified a operator at [facility] [id number] 08:44:00* Test Item Value Reference Range Interpretation Comments GLUBED (test code = GLUBED) 158 MG/DL 70-110 H Performed by certified a operator at [facility] BASIC METABOLIC [id number] 05:34:00* Test Item Value Reference Range Interpretation Comments SODIUM (test code = NA) 137 mEq/L 134-147 N POTASSIUM (test code = K) 3.6 mEq/L 3.4-5.0 N CHLORIDE (test code = CL) 100 mEq/L 100-108 N CARBON DIOXIDE (test code = CO2) 27 mEq/L 21-33 N ANION GAP (test code = GAP) 14 0-20 N GLUCOSE (test code = GLU) 272 mg/dL 70-110 H BLOOD UREA NITROGEN (test code = BUN) 16 mg/dL 7-18 N GLOMERULAR FILTRATION RATE (test code = GFR) 62.6 90-95 L Units of measure = ml/min/1.73 m2 CREATININE (test code = CREAT) 1.2 mg/dL 0.6-1.3 N CALCIUM (test code = CA) 8.9 mg/dL 8.0-10.5 N CBC W/AUTO [id number] 04:56:00* Test Item Value Reference Range Interpretation Comments WHITE BLOOD CELL (test code = WBC) 8.62 x10 3/uL 4.5-11.0 N RED BLOOD CELL (test code = RBC) 4.85 x10 6/uL 4.00-5.60 N HEMOGLOBIN (test code = HGB) 14.7 g/dL 12.5-16.9 N HEMATOCRIT (test code = HCT) 45.5 % 37.5-50.7 N MEAN CELL VOLUME (test code = MCV) 93.8 fL 81.0-99.0 N MEAN CELL HGB (test code = MCH) 30.3 pg 27.0-33.0 N MEAN CELL HGB CONCETRATION (test code = MCHC) 32.3 g/dL 33.0-37. 0 L RED CELL DISTRIBUTION WIDTH CV (test code = RDW) 13.6 % 11.5- 14.5 N RED CELL DISTRIBUTION WIDTH SD (test code = RDW-SD) 46.2 fL 37 .0-54.0 N PLATELET COUNT (test code = PLT) 246 x10 3/uL 150-400 N MEAN PLATELET VOLUME (test code = MPV) 10.8 fL 7.0-9.0 H NEUTROPHIL % (test code = NT%) 72.9 % 56.0-77.0 N IMMATURE GRANULOCYTE % (test code = IG%) 0.9 % 0.0-2.0 N LYMPHOCYTE % (test code = LY%) 11.1 % 14.0-32.0 L MONOCYTE % (test code = MO%) 10.4 % 4.8-9.0 H EOSINOPHIL % (test code = EO%) 3.8 % 0.3-3.7 H BASOPHIL % (test code = BA%) 0.9 % 0.0-2.0 N NUCLEATED RBC % (test code = NRBC%) 0.0 % 0-0 N NEUTROPHIL # (test code = NT#) 6.27 x10 3/uL 2.0-7.6 N IMMATURE GRANULOCYTE # (test code = IG#) 0.08 x10 3/uL 0.00-0.03 H LYMPHOCYTE # (test code = LY#) 0.96 x10 3/uL 1.0-3.8 L MONOCYTE # (test code = MO#) 0.90 x10 3/uL 0.1-0.8 H EOSINOPHIL # (test code = EO#) 0.33 x10 3/uL 0.0-0.2 H BASOPHIL # (test code = BA#) 0.08 x10 3/uL 0.0-0.2 N NUCLEATED RBC # (test code = NRBC#) 0.00 x10 3/uL 0.0-0.1 N MANUAL DIFF REQUIRED (test code = MDIFF) NO [id number] 21:39:00* Test Item Value Reference Range Interpretation Comments GLUBED (test code = GLUBED) 216 MG/DL 70-110 H Performed by certified a operator at [facility] [id number] 17:00:00* Test Item Value Reference Range Interpretation Comments GLUBED (test code = GLUBED) 164 MG/DL 70-110 H Performed by certified a operator at [facility] [id number] 11:26:00* Test Item Value Reference Range Interpretation Comments GLUBED (test code = GLUBED) 184 MG/DL 70-110 H Performed by certified a operator at [facility] [id number] 11:26:00* Test Item Value Reference Range Interpretation Comments GLUBED (test code = GLUBED) 236 MG/DL 70-110 H Performed by certified a operator at [facility] BASIC METABOLIC [id number] 07:43:00* Test Item Value Reference Range Interpretation Comments SODIUM (test code = NA) 138 mEq/L 134-147 N POTASSIUM (test code = K) 3.4 mEq/L 3.4-5.0 N CHLORIDE (test code = CL) 101 mEq/L 100-108 N CARBON DIOXIDE (test code = CO2) 28 mEq/L 21-33 N ANION GAP (test code = GAP) 12 0-20 N GLUCOSE (test code = GLU) 154 mg/dL 70-110 H BLOOD UREA NITROGEN (test code = BUN) 14 mg/dL 7-18 N GLOMERULAR FILTRATION RATE (test code = GFR) 69.2 90-95 L Units of measure = ml/min/1.73 m2 CREATININE (test code = CREAT) 1.1 mg/dL 0.6-1.3 N CALCIUM (test code = CA) 8.7 mg/dL 8.0-10.5 N CBC W/AUTO [id number] 07:41:00* Test Item Value Reference Range Interpretation Comments WHITE BLOOD CELL (test code = WBC) 9.09 x10 3/uL 4.5-11.0 N RED BLOOD CELL (test code = RBC) 4.58 x10 6/uL 4.00-5.60 N HEMOGLOBIN (test code = HGB) 14.2 g/dL 12.5-16.9 N HEMATOCRIT (test code = HCT) 43.3 % 37.5-50.7 N MEAN CELL VOLUME (test code = MCV) 94.5 fL 81.0-99.0 N MEAN CELL HGB (test code = MCH) 31.0 pg 27.0-33.0 N MEAN CELL HGB CONCETRATION (test code = MCHC) 32.8 g/dL 33.0-37. 0 L RED CELL DISTRIBUTION WIDTH CV (test code = RDW) 13.7 % 11.5- 14.5 N RED CELL DISTRIBUTION WIDTH SD (test code = RDW-SD) 47.0 fL 37 .0-54.0 N PLATELET COUNT (test code = PLT) 219 x10 3/uL 150-400 N MEAN PLATELET VOLUME (test code = MPV) 11.0 fL 7.0-9.0 H NEUTROPHIL % (test code = NT%) 74.9 % 56.0-77.0 N IMMATURE GRANULOCYTE % (test code = IG%) 0.8 % 0.0-2.0 N LYMPHOCYTE % (test code = LY%) 10.2 % 14.0-32.0 L MONOCYTE % (test code = MO%) 10.3 % 4.8-9.0 H EOSINOPHIL % (test code = EO%) 3.1 % 0.3-3.7 N BASOPHIL % (test code = BA%) 0.7 % 0.0-2.0 N NUCLEATED RBC % (test code = NRBC%) 0.0 % 0-0 N NEUTROPHIL # (test code = NT#) 6.81 x10 3/uL 2.0-7.6 N IMMATURE GRANULOCYTE # (test code = IG#) 0.07 x10 3/uL 0.00-0.03 H LYMPHOCYTE # (test code = LY#) 0.93 x10 3/uL 1.0-3.8 L MONOCYTE # (test code = MO#) 0.94 x10 3/uL 0.1-0.8 H EOSINOPHIL # (test code = EO#) 0.28 x10 3/uL 0.0-0.2 H BASOPHIL # (test code = BA#) 0.06 x10 3/uL 0.0-0.2 N NUCLEATED RBC # (test code = NRBC#) 0.00 x10 3/uL 0.0-0.1 N MANUAL DIFF REQUIRED (test code = MDIFF) NO [id number] 21:55:00* Test Item Value Reference Range Interpretation Comments GLUBED (test code = GLUBED) 225 MG/DL 70-110 H Performed by certified a operator at [facility] [id number] 17:20:00* Test Item Value Reference Range Interpretation Comments GLUBED (test code = GLUBED) 148 MG/DL 70-110 H Performed by certified a operator at [facility] [id number] 12:05:00* Test Item Value Reference Range Interpretation Comments GLUBED (test code = GLUBED) 154 MG/DL 70-110 H Performed by certified a operator at [facility] [id number] 08:06:00* Test Item Value Reference Range Interpretation Comments GLUBED (test code = GLUBED) 143 MG/DL 70-110 H Performed by certified a operator at [facility] BASIC METABOLIC [id number] 07:07:00* Test Item Value Reference Range Interpretation Comments SODIUM (test code = NA) 136 mEq/L 134-147 N POTASSIUM (test code = K) 3.8 mEq/L 3.4-5.0 N CHLORIDE (test code = CL) 101 mEq/L 100-108 N CARBON DIOXIDE (test code = CO2) 29 mEq/L 21-33 N ANION GAP (test code = GAP) 10 0-20 N GLUCOSE (test code = GLU) 123 mg/dL 70-110 H BLOOD UREA NITROGEN (test code = BUN) 14 mg/dL 7-18 N GLOMERULAR FILTRATION RATE (test code = GFR) 62.6 90-95 L Units of measure = ml/min/1.73 m2 CREATININE (test code = CREAT) 1.2 mg/dL 0.6-1.3 N CALCIUM (test code = CA) 8.8 mg/dL 8.0-10.5 N CBC W/AUTO [id number] 06:53:00* Test Item Value Reference Range Interpretation Comments WHITE BLOOD CELL (test code = WBC) 9.69 x10 3/uL 4.5-11.0 N RED BLOOD CELL (test code = RBC) 4.37 x10 6/uL 4.00-5.60 N HEMOGLOBIN (test code = HGB) 13.6 g/dL 12.5-16.9 N HEMATOCRIT (test code = HCT) 42.3 % 37.5-50.7 N MEAN CELL VOLUME (test code = MCV) 96.8 fL 81.0-99.0 N MEAN CELL HGB (test code = MCH) 31.1 pg 27.0-33.0 N MEAN CELL HGB CONCETRATION (test code = MCHC) 32.2 g/dL 33.0-37. 0 L RED CELL DISTRIBUTION WIDTH CV (test code = RDW) 13.9 % 11.5- 14.5 N RED CELL DISTRIBUTION WIDTH SD (test code = RDW-SD) 48.9 fL 37 .0-54.0 N PLATELET COUNT (test code = PLT) 194 x10 3/uL 150-400 N MEAN PLATELET VOLUME (test code = MPV) 10.4 fL 7.0-9.0 H NEUTROPHIL % (test code = NT%) 77.6 % 56.0-77.0 H IMMATURE GRANULOCYTE % (test code = IG%) 0.6 % 0.0-2.0 N LYMPHOCYTE % (test code = LY%) 9.7 % 14.0-32.0 L MONOCYTE % (test code = MO%) 9.4 % 4.8-9.0 H EOSINOPHIL % (test code = EO%) 2.2 % 0.3-3.7 N BASOPHIL % (test code = BA%) 0.5 % 0.0-2.0 N NUCLEATED RBC % (test code = NRBC%) 0.0 % 0-0 N NEUTROPHIL # (test code = NT#) 7.52 x10 3/uL 2.0-7.6 N IMMATURE GRANULOCYTE # (test code = IG#) 0.06 x10 3/uL 0.00-0.03 H LYMPHOCYTE # (test code = LY#) 0.94 x10 3/uL 1.0-3.8 L MONOCYTE # (test code = MO#) 0.91 x10 3/uL 0.1-0.8 H EOSINOPHIL # (test code = EO#) 0.21 x10 3/uL 0.0-0.2 H BASOPHIL # (test code = BA#) 0.05 x10 3/uL 0.0-0.2 N NUCLEATED RBC # (test code = NRBC#) 0.00 x10 3/uL 0.0-0.1 N MANUAL DIFF REQUIRED (test code = MDIFF) NO [id number] 20:54:00* Test Item Value Reference Range Interpretation Comments GLUBED (test code = GLUBED) 188 MG/DL 70-110 H Performed by certified a operator at [facility] [id number] 17:08:00* Test Item Value Reference Range Interpretation Comments GLUBED (test code = GLUBED) 147 MG/DL 70-110 H Performed by certified a operator at [facility] [id number] 12:03:00* Test Item Value Reference Range Interpretation Comments GLUBED (test code = GLUBED) 214 MG/DL 70-110 H Performed by certified a operator at [facility] DRUGS OF ABUSE SCREEN [id number] 10:46:00* Test Item Value Reference Range Interpretation Comments URN COCAINE (test code = COCAURN) NEGATIVE NEGATIVE URN CANNABINOIDS (test code = CANNABURN) NEGATIVE NEGATIVE URN AMPHETAMINE (test code = AMPHETURN) POSITIVE NEGATIVE A URN BARBITURATE (test code = BARBITURN) NEGATIVE NEGATIVE URN BENZODIAZEPINE (test code = BENZOURN) POSITIVE NEGATIVE A Cut-off value:200 ng/mL URN OPIATES (test code = OPIATURN) NEGATIVE NEGATIVE Cut-off value:2000 ng/mL URN PHENCYCLIDINE (PCP) (test code = PHENCURN) NEGATIVE NEGATIV E Cutoffs:Barbiturates 200 ng/mLBenzodiazepines 200 ng/mLTHC Cannabinoids 50 ng/mLOpiates(Morphine) 2000 ng/mLAmphetamine 1000 ng/mLCocaine 300 ng/mLPCP phencyclidine 25 ng/mL Unconfirmed screening results shouldnot be used for non-medical purposes. DRUGS OF ABUSE SCREEN [id number] 10:30:00* Test Item Value Reference Range Interpretation Comments URN COCAINE (test code = COCAURN) NEGATIVE NEGATIVE URN CANNABINOIDS (test code = CANNABURN) NEGATIVE NEGATIVE URN AMPHETAMINE (test code = AMPHETURN) NEGATIVE URN BARBITURATE (test code = BARBITURN) NEGATIVE NEGATIVE URN BENZODIAZEPINE (test code = BENZOURN) NEGATIVE URN OPIATES (test code = OPIATURN) NEGATIVE NEGATIVE Cut-off value:2000 ng/mL URN PHENCYCLIDINE (PCP) (test code = PHENCURN) NEGATIVE NEGATIV E Cutoffs:Barbiturates 200 ng/mLBenzodiazepines 200 ng/mLTHC Cannabinoids 50 ng/mLOpiates(Morphine) 2000 ng/mLAmphetamine 1000 ng/mLCocaine 300 ng/mLPCP phencyclidine 25 ng/mL Unconfirmed screening results shouldnot be used for non-medical purposes. [id number] 08:18:00* Test Item Value Reference Range Interpretation Comments CKMB (test code = CKMBT) 398.4 ng/mL 0-5.0 HH CU T OFF:>5 ng/mL is suggested as being consistent with AMI. [id number] 08:18:00* Test Item Value Reference Range Interpretation Comments TROPONIN-I (test code = TROPI) 31.300 ng/mL 0.000-0.045 HH Negative: <= 0.045 Positive: >= 0.046 Correlation with serial results, other cardiac markers andclinical findings is necessary to determine the clinicalsignificance of this result. Results using different methodologies should not be comparedto one another as quantitative results may vary by method. [id number] 08:16:00* Test Item Value Reference Range Interpretation Comments GLUBED (test code = GLUBED) 187 MG/DL 70-110 H Performed by certified a operator at [facility] [id number] 07:54:00* Test Item Value Reference Range Interpretation Comments CKMB (test code = CKMBT) 398.4 ng/mL 0-5.0 HH CU T OFF:>5 ng/mL is suggested as being consistent with AMI. [id number] 07:54:00* Test Item Value Reference Range Interpretation Comments TROPONIN-I (test code = TROPI) ng/mL 0.000-0.045 BASIC METABOLIC [id number] 05:30:00* Test Item Value Reference Range Interpretation Comments SODIUM (test code = NA) 137 mEq/L 134-147 N POTASSIUM (test code = K) 4.1 mEq/L 3.4-5.0 N CHLORIDE (test code = CL) 103 mEq/L 100-108 N CARBON DIOXIDE (test code = CO2) 28 mEq/L 21-33 N ANION GAP (test code = GAP) 10 0-20 N GLUCOSE (test code = GLU) 199 mg/dL 70-110 H BLOOD UREA NITROGEN (test code = BUN) 17 mg/dL 7-18 N GLOMERULAR FILTRATION RATE (test code = GFR) 57.1 90-95 L Units of measure = ml/min/1.73 m2 CREATININE (test code = CREAT) 1.3 mg/dL 0.6-1.3 N CALCIUM (test code = CA) 9.3 mg/dL 8.0-10.5 N LIPID PROFILE (CORONARY RISK)2019-05-01 05:30:00* Test Item Value Reference Range Interpretation Comments TRIGLYCERIDES (test code = TRIG) 137 mg/dL 40-150 N CHOLESTEROL (test code = CHOL) 173 mg/dL <200 CHOLESTEROL/HDL RATIO (test code = CHOLHDL) 3.76 RATIO 3.43-4.97 N RISK ASSOCIATED WITH CHOL/HDL RATIOS: RISK MALE FEMALE1/2 AVERAGE 3.43 3.27AVERAGE 4.97 4.442X AVERAGE 9.55 7.053X AVERAGE 23.39 11.04 NOTE THAT THE REFERENCE VALUE IS RELATEDTO RISK LEVELS RECOMMENDED BY THE NATL.HEART, LUNG, AND BLOOD INST. HDL CHOLESTEROL (test code = HDL) 46.0 mg/dL 32-72 N LIPOPROTEIN LDL (test code = LDL) 115 mg/dL 0-100 H <100 [id number] NEAR OPTIMAL/ABOVE [id number] HIGH>QH=162 VERY HIGH*Guidelines provided by the National Cholesterol EducationProgram Adult Treatment Panel III [id number] 05:30:00* Test Item Value Reference Range Interpretation Comments MAGNESIUM (test code = MAG) 2.10 mg/dL 1.8-2.4 N THYROID STIMULATING [id number] 05:30:00* Test Item Value Reference Range Interpretation Comments THYROID STIMULATING HORMONE (test code = TSH) 1.53 0.42-5.4 7 N Results in alexsander- International Units/mL BASIC METABOLIC [id number] 05:14:00* Test Item Value Reference Range Interpretation Comments SODIUM (test code = NA) 137 mEq/L 134-147 N POTASSIUM (test code = K) 4.1 mEq/L 3.4-5.0 N CHLORIDE (test code = CL) 103 mEq/L 100-108 N CARBON DIOXIDE (test code = CO2) 28 mEq/L 21-33 N ANION GAP (test code = GAP) 10 0-20 N GLUCOSE (test code = GLU) 199 mg/dL 70-110 H BLOOD UREA NITROGEN (test code = BUN) 17 mg/dL 7-18 N GLOMERULAR FILTRATION RATE (test code = GFR) 57.1 90-95 L Units of measure = ml/min/1.73 m2 CREATININE (test code = CREAT) 1.3 mg/dL 0.6-1.3 N CALCIUM (test code = CA) 9.3 mg/dL 8.0-10.5 N LIPID PROFILE (CORONARY RISK)2019-05-01 05:14:00* Test Item Value Reference Range Interpretation Comments TRIGLYCERIDES (test code = TRIG) mg/dL 40-150 CHOLESTEROL (test code = CHOL) mg/dL <200 CHOLESTEROL/HDL RATIO (test code = CHOLHDL) RATIO 3.43-4.97 HDL CHOLESTEROL (test code = HDL) mg/dL 32-72 LIPOPROTEIN LDL (test code = LDL) mg/dL 0-100 [id number] 05:14:00* Test Item Value Reference Range Interpretation Comments MAGNESIUM (test code = MAG) 2.10 mg/dL 1.8-2.4 N THYROID STIMULATING [id number] 05:14:00* Test Item Value Reference Range Interpretation Comments THYROID STIMULATING HORMONE (test code = TSH) 0.42-5.4 7 HGBA1C%2019-05-01 05:08:00* Test Item Value Reference Range Interpretation Comments HGBA1C% (test code = HGBA1C%) 9.7 %A1C 4.8-6.0 H CBC W/AUTO [id number] 04:54:00* Test Item Value Reference Range Interpretation Comments WHITE BLOOD CELL (test code = WBC) 12.49 x10 3/uL 4.5-11.0 H RED BLOOD CELL (test code = RBC) 4.52 x10 6/uL 4.00-5.60 N HEMOGLOBIN (test code = HGB) 13.9 g/dL 12.5-16.9 N HEMATOCRIT (test code = HCT) 43.7 % 37.5-50.7 N MEAN CELL VOLUME (test code = MCV) 96.7 fL 81.0-99.0 N MEAN CELL HGB (test code = MCH) 30.8 pg 27.0-33.0 N MEAN CELL HGB CONCETRATION (test code = MCHC) 31.8 g/dL 33.0-37. 0 L RED CELL DISTRIBUTION WIDTH CV (test code = RDW) 13.8 % 11.5- 14.5 N RED CELL DISTRIBUTION WIDTH SD (test code = RDW-SD) 48.6 fL 37 .0-54.0 N PLATELET COUNT (test code = PLT) 232 x10 3/uL 150-400 N MEAN PLATELET VOLUME (test code = MPV) 10.8 fL 7.0-9.0 H NEUTROPHIL % (test code = NT%) 81.5 % 56.0-77.0 H IMMATURE GRANULOCYTE % (test code = IG%) 0.6 % 0.0-2.0 N LYMPHOCYTE % (test code = LY%) 8.6 % 14.0-32.0 L MONOCYTE % (test code = MO%) 7.2 % 4.8-9.0 N EOSINOPHIL % (test code = EO%) 1.4 % 0.3-3.7 N BASOPHIL % (test code = BA%) 0.7 % 0.0-2.0 N NUCLEATED RBC % (test code = NRBC%) 0.0 % 0-0 N NEUTROPHIL # (test code = NT#) 10.16 x10 3/uL 2.0-7.6 H IMMATURE GRANULOCYTE # (test code = IG#) 0.08 x10 3/uL 0.00-0.03 H LYMPHOCYTE # (test code = LY#) 1.08 x10 3/uL 1.0-3.8 N MONOCYTE # (test code = MO#) 0.90 x10 3/uL 0.1-0.8 H EOSINOPHIL # (test code = EO#) 0.18 x10 3/uL 0.0-0.2 N BASOPHIL # (test code = BA#) 0.09 x10 3/uL 0.0-0.2 N NUCLEATED RBC # (test code = NRBC#) 0.00 x10 3/uL 0.0-0.1 N MANUAL DIFF REQUIRED (test code = MDIFF) NO [id number] 20:46:00* Test Item Value Reference Range Interpretation Comments GLUBED (test code = GLUBED) 145 MG/DL 70-110 H Performed by certified a operator at [facility] B-TYPE NATRIURETIC [id number] 14:40:00* Test Item Value Reference Range Interpretation Comments B-TYPE NATRIURETIC PEPTIDE (test code = BNP) 280.3 PG/ML 0-100 H BASIC METABOLIC [id number] 14:17:00* Test Item Value Reference Range Interpretation Comments SODIUM (test code = NA) 137 mEq/L 134-147 N POTASSIUM (test code = K) 3.9 mEq/L 3.4-5.0 N CHLORIDE (test code = CL) 101 mEq/L 100-108 N CARBON DIOXIDE (test code = CO2) 34 mEq/L 21-33 H ANION GAP (test code = GAP) 6 0-20 N GLUCOSE (test code = GLU) 173 mg/dL 70-110 H BLOOD UREA NITROGEN (test code = BUN) 17 mg/dL 7-18 N GLOMERULAR FILTRATION RATE (test code = GFR) 57.1 90-95 L Units of measure = ml/min/1.73 m2 CREATININE (test code = CREAT) 1.3 mg/dL 0.6-1.3 N CALCIUM (test code = CA) 8.9 mg/dL 8.0-10.5 N CBC W/AUTO [id number] 14:01:00* Test Item Value Reference Range Interpretation Comments WHITE BLOOD CELL (test code = WBC) 13.04 x10 3/uL 4.5-11.0 H RED BLOOD CELL (test code = RBC) 4.31 x10 6/uL 4.00-5.60 N HEMOGLOBIN (test code = HGB) 13.3 g/dL 12.5-16.9 N HEMATOCRIT (test code = HCT) 41.8 % 37.5-50.7 N MEAN CELL VOLUME (test code = MCV) 97.0 fL 81.0-99.0 N MEAN CELL HGB (test code = MCH) 30.9 pg 27.0-33.0 N MEAN CELL HGB CONCETRATION (test code = MCHC) 31.8 g/dL 33.0-37. 0 L RED CELL DISTRIBUTION WIDTH CV (test code = RDW) 13.7 % 11.5- 14.5 N RED CELL DISTRIBUTION WIDTH SD (test code = RDW-SD) 48.7 fL 37 .0-54.0 N PLATELET COUNT (test code = PLT) 243 x10 3/uL 150-400 N MEAN PLATELET VOLUME (test code = MPV) 10.6 fL 7.0-9.0 H NEUTROPHIL % (test code = NT%) 84.1 % 56.0-77.0 H IMMATURE GRANULOCYTE % (test code = IG%) 0.8 % 0.0-2.0 N LYMPHOCYTE % (test code = LY%) 8.0 % 14.0-32.0 L MONOCYTE % (test code = MO%) 5.4 % 4.8-9.0 N EOSINOPHIL % (test code = EO%) 1.1 % 0.3-3.7 N BASOPHIL % (test code = BA%) 0.6 % 0.0-2.0 N NUCLEATED RBC % (test code = NRBC%) 0.0 % 0-0 N NEUTROPHIL # (test code = NT#) 10.98 x10 3/uL 2.0-7.6 H IMMATURE GRANULOCYTE # (test code = IG#) 0.10 x10 3/uL 0.00-0.03 H LYMPHOCYTE # (test code = LY#) 1.04 x10 3/uL 1.0-3.8 N MONOCYTE # (test code = MO#) 0.70 x10 3/uL 0.1-0.8 N EOSINOPHIL # (test code = EO#) 0.14 x10 3/uL 0.0-0.2 N BASOPHIL # (test code = BA#) 0.08 x10 3/uL 0.0-0.2 N NUCLEATED RBC # (test code = NRBC#) 0.00 x10 3/uL 0.0-0.1 N MANUAL DIFF REQUIRED (test code = MDIFF) NO [id number] 13:38:00* Test Item Value Reference Range Interpretation Comments GLUBED (test code = GLUBED) 153 MG/DL 70-110 H Performed by certified a operator at [facility] [id number] 13:02:00* Test Item Value Reference Range Interpretation Comments ACT-ISTAT (test code = ACTI) 246 SEC 74-137 H Performed by certified a operator at [facility] [id number] 12:50:00* Test Item Value Reference Range Interpretation Comments ACT-ISTAT (test code = ACTI) 175 SEC 74-137 H Performed by certified a operator at [facility] HLA [id number] 07:22:00* Test Item Value Reference Range Interpretation Comments HLA RESULT (BEAKER) (test code = 2311) See Scanned Report HLA-A AG1 (BEAKER) (test code = 2521) HLA-A AG2 (BEAKER) (test code = 2522) HLA-B AG1 (BEAKER) (test code = 2523) HLA-B AG2 (BEAKER) (test code = 2524) HLA-C AG1 (BEAKER) (test code = 2525) HLA-C AG2 (BEAKER) (test code = 2526) HLA-DR AG1 (BEAKER) (test code = 2518) HLA-DR AG2 (BEAKER) (test code = 2519) HLA-DQ AG1 (BEAKER) (test code = 2514) HLA-DQ AG2 (BEAKER) (test code = 2515) HLA-DRW (BEAKER) (test code = 2583) AB SPECIFICITY CLASS [id number] 11:00:00* Test Item Value Reference Range Interpretation Comments DATE OF SERUM (BEAKER) (test code = 2288) [id number] SERUM # (BEAKER) (test code = 2290) [id number] AB SPECIFICITY CLASS I (BEAKER) (test code = 2429) See Scanned Repo rt FLOW PRA CLASS I AND [id number] 12:58:00* Test Item Value Reference Range Interpretation Comments DATE OF SERUM (BEAKER) (test code = 2288) [id number] SERUM # (BEAKER) (test code = 2290) [id number] FLOW PRA CLASS I AND II (test code = 2421) See Scanned Report HERPES VIRUS ANTIBODY, [id number] 11:05:00* Test Item Value Reference Range Interpretation Comments HERPES VIRUS IGM (BEAKER) (test code = 1808) Negative HSV 1 IGM - NEGATIVEHSV 2 IGM - NEGATIVETOXOPLASMA GONDII ANTIBODY, IGM 2017-03-09 11:05:00* Test Item Value Reference Range Interpretation Comments TOXOPLASMA IGM ANTIBODY (BEAKER) (test code = 742) Negative PROTEIN ELECTROPHORESIS, [id number] 13:13:00* Test Item Value Reference Range Interpretation Comments ALBUMIN FRACTION (BEAKER) (test code = 405) 3.7 g/dL 3.5-5.5 ALPHA 1 FRACTION (BEAKER) (test code = 389) 0.2 g/dL 0.2-0.4 ALPHA 2 FRACTION (BEAKER) (test code = 390) 0.7 g/dL 0.5-0.9 BETA FRACTION (BEAKER) (test code = 392) 1.1 g/dL 0.6-1.1 GAMMA GLOBULIN FRACTION (BEAKER) (test code = 391) 1.2 g/dL 0.7 -1.7 INTERPRETATION-119 (BEAKER) (test code = 6025) All fra ctions are present in their expected distribution. No monoclonal bands detected. [id number] (BEAKER) (test code = 2616) Shereen Razo MD (electronic signature) PROTEIN TOTAL SERUM, SPEP (BEAKER) (test code = 2660) 6.9 gm/dL 6.0-8.3 ANTI-NUCLEAR ANTIBODY (JUDY)2017-03-05 14:30:00* Test Item Value Reference Range Interpretation Comments ANTI-NUCLEAR ANTIBODY (JUDY) (BEAKER) (test code = 418) Negative Negative [id number] 11:58:00* Test Item Value Reference Range Interpretation Comments RPR SCREEN (BEAKER) (test code = 420) Nonreactive Nonreactive VITAMIN D, [id number] 11:05:00* Test Item Value Reference Range Interpretation Comments VITAMIN D 25-OH (BEAKER) (test code = 2764) 27.6 ng/mL 13.0-47.8 [id number] 10:52:00* Test Item Value Reference Range Interpretation Comments PREALBUMIN (BEAKER) (test code = 586) 27 mg/dL 14-45 IRON, [id number] 10:52:00* Test Item Value Reference Range Interpretation Comments IRON (BEAKER) (test code = 547) 49 ug/dL 40-160 HEPATITIS A ANTIBODY, [id number] 10:49:00* Test Item Value Reference Range Interpretation Comments HEPATITIS A IGG ANTIBODY (BEAKER) (test code = 2797) Reactive N onreactive A [id number] 10:49:00* Test Item Value Reference Range Interpretation Comments PROSTATE SPECIFIC ANTIGEN (BEAKER) (test code = 844) 0.6 ng/mL 0 .0-4.0 HEPATITIS B CORE ANTIBODY, [id number] 10:48:00* Test Item Value Reference Range Interpretation Comments HEPATITIS B CORE IGM ANTIBODY (BEAKER) (test code = 645) Non reactive Nonreactive HEPATITIS A ANTIBODY, [id number] 10:48:00* Test Item Value Reference Range Interpretation Comments HEPATITIS A IGM ANTIBODY (BEAKER) (test code = 498) Nonreactive No nreactive HEPATITIS B CORE ANTIBODY, [id number] 10:48:00* Test Item Value Reference Range Interpretation Comments HEPATITIS B CORE TOTAL ANTIBODY (BEAKER) (test code = 497) N onreactive Nonreactive HEPATITIS B SURFACE [id number] 10:44:00* Test Item Value Reference Range Interpretation Comments HEPATITIS B SURFACE ANTIGEN (2) (BEAKER) (test code = 2585) Nonreactive Nonreactive HEPATITIS C [id number] 10:44:00* Test Item Value Reference Range Interpretation Comments HEPATITIS C ANTIBODY (BEAKER) (test code = 367) Nonreactive Nonrea ctive HIV-1 ANTIGEN WITH HIV-1/2 [id number] 10:44:00* Test Item Value Reference Range Interpretation Comments HIV-1 ANTIGEN WITH HIV 1\\T\\2 ANTIBODY (2) (BEAKER) (te st code = 2586) Nonreactive Nonreactive VARICELLA ZOSTER ANTIBODY, [id number] 10:44:00* Test Item Value Reference Range Interpretation Comments VARICELLA ZOSTER IGG (AL) (BEAKER) (test code = 3197) 6.9 Al VARICELLA ZOSTER RESULT INTERPRETATIONS: <=0.8 Al Nonreactive: Presumed non-immune to VZV 0.9-1.0 Al Equivocal >=1.1 Al Reactive: Presumed immune to VZVHERPES VIRUS ANTIBODY, [id number] 10:43:00* Test Item Value Reference Range Interpretation Comments HERPES VIRUS IGG (BEAKER) (test code = 1807) Positive HSV1 IGG - NEGATIVEHSV2 IGG - POSITIVETOXOPLASMA GONDII ANTIBODY, [id number] 10:43:00* Test Item Value Reference Range Interpretation Comments TOXOPLASMA GONDII IGG (BEAKER) (test code = 419) Negative CYTOMEGALOVIRUS ANTIBODY, [id number] 10:42:00* Test Item Value Reference Range Interpretation Comments CYTOMEGALOVIRUS IGG ANTIBODY (BEAKER) (test code = 790) Negative CYTOMEGALOVIRUS ANTIBODY, [id number] 10:42:00* Test Item Value Reference Range Interpretation Comments CYTOMEGALOVIRUS IGM ANTIBODY (BEAKER) (test code = 816) Negative EBV-VCA ANTIBODY, [id number] 10:42:00* Test Item Value Reference Range Interpretation Comments MATT-LY VCA IGG (BEAKER) (test code = 983) Positive EBV-VCA ANTIBODY, [id number] 10:42:00* Test Item Value Reference Range Interpretation Comments MATT-LY VCA IGM (BEAKER) (test code = 984) Negative URINALYSIS W/ [id number] 09:35:00* Test Item Value Reference Range Interpretation Comments COLOR (BEAKER) (test code = 470) Yellow CLARITY (BEAKER) (test code = 469) Clear SPECIFIC GRAVITY UA (BEAKER) (test code = 468) 1.018 1.001-1 .035 PH UA (BEAKER) (test code = 467) 5.5 5.0-8.0 PROTEIN UA (BEAKER) (test code = 464) Negative Negative GLUCOSE UA (BEAKER) (test code = 365) Negative Negative KETONES UA (BEAKER) (test code = 371) Negative Negative BILIRUBIN UA (BEAKER) (test code = 462) Negative Negative BLOOD UA (BEAKER) (test code = 461) Negative Negative NITRITE UA (BEAKER) (test code = 465) Negative Negative LEUKOCYTE ESTERASE UA (BEAKER) (test code = 466) Negative Negat rosana UROBILINOGEN UA (BEAKER) (test code = 463) 0.2 mg/dL 0.2-1.0 RBC UA (BEAKER) (test code = 519) 1 /HPF WBC UA (BEAKER) (test code = 520) 1 /HPF BACTERIA (BEAKER) (test code = 517) Rare MUCUS (BEAKER) (test code = 1574) Occasional SOURCE(BEAKER) (test code = 2795) [id number] 09:18:00* Test Item Value Reference Range Interpretation Comments FERRITIN (BEAKER) (test code = 361) 53 ng/mL 5-275 Effective 08/11/2014: Reference Range ChangeNew: Male 5-275 Previous: Male 22-322 Female 5-275 Female 10-291 T4, [id number] 09:18:00 * Test Item Value Reference Range Interpretation Comments FREE T4 (BEAKER) (test code = 655) 0.91 ng/dL 0.70-1.48 [id number] 09:18:00* Test Item Value Reference Range Interpretation Comments THYROID STIMULATING HORMONE (BEAKER) (test code = 772) 2.23 uIU/mL 0.35-4.94 URIC [id number] 09:04:00* Test Item Value Reference Range Interpretation Comments URIC ACID (BEAKER) (test code = 773) 6.2 mg/dL 2.6-7.2 [id number] 09:04:00* Test Item Value Reference Range Interpretation Comments MAGNESIUM (BEAKER) (test code = 627) 2.2 mg/dL 1.6-2.6 [id number] 09:04:00* Test Item Value Reference Range Interpretation Comments PHOSPHORUS (BEAKER) (test code = 604) 2.6 mg/dL 2.3-4.7 BASIC METABOLIC [id number] 09:04:00* Test Item Value Reference Range Interpretation Comments SODIUM (BEAKER) (test code = 381) 139 meq/L 136-145 POTASSIUM (BEAKER) (test code = 379) 4.3 meq/L 3.5-5.1 CHLORIDE (BEAKER) (test code = 382) 108 meq/L 98-107 H CO2 (BEAKER) (test code = 355) 20 meq/L 22-29 L BLOOD UREA NITROGEN (BEAKER) (test code = 354) 19 mg/dL 7-21 CREATININE (BEAKER) (test code = 358) 0.96 mg/dL 0.57-1.25 GLUCOSE RANDOM (BEAKER) (test code = 652) 89 mg/dL 70-105 CALCIUM (BEAKER) (test code = 697) 8.9 mg/dL 8.4-10.2 EGFR (BEAKER) (test code = 1092) 82 mL/min/1.73 sq m ESTIMATED GFR IS NOT ACCURATE CREATININE CLEARANCE IN PREDICTING GLOMERULAR FILTRATION RATE. ESTIMATED GFR IS NOT APPLICABLE FOR DIALYSIS PATIENTS. LIPID [id number] 09:04:00* Test Item Value Reference Range Interpretation Comments TRIGLYCERIDES (BEAKER) (test code = 540) 143 mg/dL CHOLESTEROL (BEAKER) (test code = 631) 204 mg/dL HDL CHOLESTEROL (BEAKER) (test code = 976) 47 mg/dL LDL CHOLESTEROL CALCULATED (BEAKER) (test code = 633) 128 mg/dL Triglyceride Reference Range: Low Risk <150 Borderline 150-199 High Risk 200-499 Very High Risk >=500Cholesterol Reference Range: Low Risk <200 Borderline 200-239 High Risk >240HDL Cholesterol Reference Range: Low Risk >=60 High Risk <40LDL Cholesterol Reference Range: Optimal <100 Near Optimal 100-129 Borderline 130-159 High 160-189 Very High >=190 HEPATIC FUNCTION [id number] 09:04:00* Test Item Value Reference Range Interpretation Comments TOTAL PROTEIN (BEAKER) (test code = 770) 7.1 gm/dL 6.0-8.3 ALBUMIN (BEAKER) (test code = 1145) 4.0 g/dL 3.5-5.0 BILIRUBIN TOTAL (BEAKER) (test code = 377) 0.3 mg/dL 0.2-1.2 BILIRUBIN DIRECT (BEAKER) (test code = 706) 0.1 mg/dL 0.1-0.5 ALKALINE PHOSPHATASE (BEAKER) (test code = 346) 98 U/L 40-150 AST (SGOT) (BEAKER) (test code = 353) 17 U/L 5-34 ALT (SGPT) (BEAKER) (test code = 347) 15 U/L 6-55 [id number] 09:04:00* Test Item Value Reference Range Interpretation Comments AMYLASE (BEAKER) (test code = 349) 50 U/L 25-125 GAMMA GLUTAMYL TRANSFERASE (GGT)2017-03-05 09:04:00* Test Item Value Reference Range Interpretation Comments GAMMA GLUTAMYL TRANSFERASE (BEAKER) (test code = 364) 28 U/L 9-64 LACTATE DEHYDROGENASE (LDH)2017-03-05 09:04:00* Test Item Value Reference Range Interpretation Comments LACTATE DEHYDROGENASE (BEAKER) (test code = 635) 186 U/L 125-2 20 [id number] 09:04:00* Test Item Value Reference Range Interpretation Comments LIPASE (BEAKER) (test code = 749) 60 U/L 8-78 [id number] 09:04:00* Test Item Value Reference Range Interpretation Comments TRANSFERRIN (BEAKER) (test code = 541) 251 mg/dL 174-382 B-TYPE NATRIURETIC FACTOR (BNP)2017-03-05 09:03:00* Test Item Value Reference Range Interpretation Comments B-TYPE NATRIURETIC PEPTIDE (BEAKER) (test code = 700) 1136 pg/mL 0-100 H CBC W/PLT COUNT & AUTO [id number] 09:00:00* Test Item Value Reference Range Interpretation Comments WHITE BLOOD CELL COUNT (BEAKER) (test code = 775) 7.7 K/ L 4.0- 10.0 RED BLOOD CELL COUNT (BEAKER) (test code = 761) 4.94 M/ L 4.20-5 .80 HEMOGLOBIN (BEAKER) (test code = 410) 14.3 GM/DL 13.0-16.8 HEMATOCRIT (BEAKER) (test code = 411) 45.0 % 40.0-50.0 MEAN CORPUSCULAR VOLUME (BEAKER) (test code = 753) 91.2 fL 82. 0-98.0 MEAN CORPUSCULAR HEMOGLOBIN (BEAKER) (test code = 751) 29.0 pg 27.0-33.0 MEAN CORPUSCULAR HEMOGLOBIN CONC (BEAKER) (test code = 752) 31.8 GM/DL 32.0-36.0 L RED CELL DISTRIBUTION WIDTH (BEAKER) (test code = 412) 16.2 % 10.3-14.2 H PLATELET COUNT (BEAKER) (test code = 756) 223 K/CU MM 150-430 MEAN PLATELET VOLUME (BEAKER) (test code = 754) 7.7 fL 6.5-10 .5 NUCLEATED RED BLOOD CELLS (BEAKER) (test code = 413) 0 /100 WBC 0 -0 NEUTROPHILS RELATIVE PERCENT (BEAKER) (test code = 429) 74 % LYMPHOCYTES RELATIVE PERCENT (BEAKER) (test code = 430) 12 % MONOCYTES RELATIVE PERCENT (BEAKER) (test code = 431) 9 % EOSINOPHILS RELATIVE PERCENT (BEAKER) (test code = 432) 5 % BASOPHILS RELATIVE PERCENT (BEAKER) (test code = 437) 1 % NEUTROPHILS ABSOLUTE COUNT (BEAKER) (test code = 670) 5.69 K/ L 1.80-8.00 LYMPHOCYTES ABSOLUTE COUNT (BEAKER) (test code = 414) 0.91 K/ L 1.48-4.50 L MONOCYTES ABSOLUTE COUNT (BEAKER) (test code = 415) 0.69 K/ L 0. 00-1.30 EOSINOPHILS ABSOLUTE COUNT (BEAKER) (test code = 416) 0.39 K/ L 0.00-0.50 BASOPHILS ABSOLUTE COUNT (BEAKER) (test code = 417) 0.05 K/ L 0. 00-0.20 RETICULOCYTE [id number] 08:55:00* Test Item Value Reference Range Interpretation Comments RETICULOCYTE COUNT PCT (BEAKER) (test code = 575) 1.8 % 0.4- 2.9 [id number] 08:48:00* Test Item Value Reference Range Interpretation Comments PROTIME (BEAKER) (test code = 759) 13.6 seconds 11.7-14.7 INR (BEAKER) (test code = 370) 1.1 <=5.9 PARTIAL THROMBOPLASTIN TIME (BEAKER) (test code = 760) 29.9 seconds 22.5-36.0 RECOMMENDED COUMADIN/WARFARIN INR THERAPY RANGESSTANDARD DOSE: 2.0 - 3.0 Inclu onelia: PROPHYLAXIS for venous thrombosis, systemic embolization; TREATMENT for etienne ous thrombosis and/or pulmonary embolus.HIGH RISK: Target INR is 2.5-3.5 for pat ients with mechanical heart valves.B-TYPE NATRIURETIC FACTOR (BNP)2017-02-16 15:53:00* Test Item Value Reference Range Interpretation Comments B-TYPE NATRIURETIC PEPTIDE (BEAKER) (test code = 700) 326 pg/mL 0-100 H [id number] 15:46:00* Test Item Value Reference Range Interpretation Comments MAGNESIUM (BEAKER) (test code = 627) 2.5 mg/dL 1.6-2.6 BASIC METABOLIC [id number] 15:46:00* Test Item Value Reference Range Interpretation Comments SODIUM (BEAKER) (test code = 381) 138 meq/L 136-145 POTASSIUM (BEAKER) (test code = 379) 4.9 meq/L 3.5-5.1 CHLORIDE (BEAKER) (test code = 382) 103 meq/L 98-107 CO2 (BEAKER) (test code = 355) 25 meq/L 22-29 BLOOD UREA NITROGEN (BEAKER) (test code = 354) 33 mg/dL 7-21 H CREATININE (BEAKER) (test code = 358) 1.42 mg/dL 0.57-1.25 H GLUCOSE RANDOM (BEAKER) (test code = 652) 115 mg/dL 70-105 H CALCIUM (BEAKER) (test code = 697) 9.8 mg/dL 8.4-10.2 EGFR (BEAKER) (test code = 1092) 52 mL/min/1.73 sq m ESTIMATED GFR IS NOT ACCURATE CREATININE CLEARANCE IN PREDICTING GLOMERULAR FILTRATION RATE. ESTIMATED GFR IS NOT APPLICABLE FOR DIALYSIS PATIENTS. POCT-GLUCOSE [id number] 11:14:00* Test Item Value Reference Range Interpretation Comments POC-GLUCOSE METER (BEAKER) (test code = 1538) 214 mg/dL 70-110 H TESTED AT [address] [address] POCT-GLUCOSE [id number] 07:43:00* Test Item Value Reference Range Interpretation Comments POC-GLUCOSE METER (BEAKER) (test code = 1538) 116 mg/dL 70-110 H TESTED AT [address] [address] BASIC METABOLIC [id number] 05:44:00* Test Item Value Reference Range Interpretation Comments SODIUM (BEAKER) (test code = 381) 131 meq/L 136-145 L POTASSIUM (BEAKER) (test code = 379) 4.3 meq/L 3.5-5.1 Specimen slightly hemolyzed CHLORIDE (BEAKER) (test code = 382) 92 meq/L 98-107 L CO2 (BEAKER) (test code = 355) 28 meq/L 22-29 BLOOD UREA NITROGEN (BEAKER) (test code = 354) 28 mg/dL 7-21 H CREATININE (BEAKER) (test code = 358) 1.17 mg/dL 0.57-1.25 Specimen slightly hemolyzed GLUCOSE RANDOM (BEAKER) (test code = 652) 93 mg/dL 70-105 CALCIUM (BEAKER) (test code = 697) 9.5 mg/dL 8.4-10.2 EGFR (BEAKER) (test code = 1092) 65 mL/min/1.73 sq m ESTIMATED GFR IS NOT ACCURATE CREATININE CLEARANCE IN PREDICTING GLOMERULAR FILTRATION RATE. ESTIMATED GFR IS NOT APPLICABLE FOR DIALYSIS PATIENTS. [id number] 05:29:00* Test Item Value Reference Range Interpretation Comments MAGNESIUM (BEAKER) (test code = 627) 2.3 mg/dL 1.6-2.6 Specimen slightly hemolyzed CBC (HEMOGRAM ONLY)2017-02-09 05:09:00* Test Item Value Reference Range Interpretation Comments WHITE BLOOD CELL COUNT (BEAKER) (test code = 775) 13.0 K/ L 4.0- 10.0 H RED BLOOD CELL COUNT (BEAKER) (test code = 761) 4.75 M/ L 4.20-5 .80 HEMOGLOBIN (BEAKER) (test code = 410) 14.7 GM/DL 13.0-16.8 HEMATOCRIT (BEAKER) (test code = 411) 43.1 % 40.0-50.0 MEAN CORPUSCULAR VOLUME (BEAKER) (test code = 753) 90.7 fL 82. 0-98.0 MEAN CORPUSCULAR HEMOGLOBIN (BEAKER) (test code = 751) 30.8 pg 27.0-33.0 MEAN CORPUSCULAR HEMOGLOBIN CONC (BEAKER) (test code = 752) 34.0 GM/DL 32.0-36.0 RED CELL DISTRIBUTION WIDTH (BEAKER) (test code = 412) 15.3 % 10.3-14.2 H PLATELET COUNT (BEAKER) (test code = 756) 405 K/CU MM 150-430 MEAN PLATELET VOLUME (BEAKER) (test code = 754) 7.2 fL 6.5-10 .5 NUCLEATED RED BLOOD CELLS (BEAKER) (test code = 413) 0 /100 WBC 0 -0 0.00POCT-GLUCOSE [id number] 21:11:00* Test Item Value Reference Range Interpretation Comments POC-GLUCOSE METER (BEAKER) (test code = 1538) 248 mg/dL 70-110 H TESTED AT [facility] [address] [facility] [address] POCT-GLUCOSE [id number] 16:53:00* Test Item Value Reference Range Interpretation Comments POC-GLUCOSE METER (BEAKER) (test code = 1538) 122 mg/dL 70-110 H TESTED AT [place] [id number] [facility] [address] POCT-GLUCOSE [id number] 11:46:00* Test Item Value Reference Range Interpretation Comments POC-GLUCOSE METER (BEAKER) (test code = 1538) 106 mg/dL 70-110 TESTED AT [address] [address] POCT-GLUCOSE [id number] 07:34:00* Test Item Value Reference Range Interpretation Comments POC-GLUCOSE METER (BEAKER) (test code = 1538) 145 mg/dL 70-110 H TESTED AT [address] [address] [id number] 06:18:00* Test Item Value Reference Range Interpretation Comments MAGNESIUM (BEAKER) (test code = 627) 2.2 mg/dL 1.6-2.6 BASIC METABOLIC [id number] 06:18:00* Test Item Value Reference Range Interpretation Comments SODIUM (BEAKER) (test code = 381) 134 meq/L 136-145 L POTASSIUM (BEAKER) (test code = 379) 4.0 meq/L 3.5-5.1 CHLORIDE (BEAKER) (test code = 382) 93 meq/L 98-107 L CO2 (BEAKER) (test code = 355) 30 meq/L 22-29 H BLOOD UREA NITROGEN (BEAKER) (test code = 354) 30 mg/dL 7-21 H CREATININE (BEAKER) (test code = 358) 1.14 mg/dL 0.57-1.25 GLUCOSE RANDOM (BEAKER) (test code = 652) 117 mg/dL 70-105 H CALCIUM (BEAKER) (test code = 697) 9.6 mg/dL 8.4-10.2 EGFR (BEAKER) (test code = 1092) 67 mL/min/1.73 sq m ESTIMATED GFR IS NOT ACCURATE CREATININE CLEARANCE IN PREDICTING GLOMERULAR FILTRATION RATE. ESTIMATED GFR IS NOT APPLICABLE FOR DIALYSIS PATIENTS. POCT-GLUCOSE [id number] 22:10:00* Test Item Value Reference Range Interpretation Comments POC-GLUCOSE METER (BEAKER) (test code = 1538) 129 mg/dL 70-110 H TESTED AT [address] [address] POCT-GLUCOSE [id number] 18:12:00* Test Item Value Reference Range Interpretation Comments POC-GLUCOSE METER (BEAKER) (test code = 1538) 264 mg/dL 70-110 H TESTED AT [facility] [address] [facility] [address] POCT-GLUCOSE [id number] 07:59:00* Test Item Value Reference Range Interpretation Comments POC-GLUCOSE METER (BEAKER) (test code = 1538) 117 mg/dL 70-110 H TESTED AT [place] [id number] [facility] [address] [id number] 07:15:00* Test Item Value Reference Range Interpretation Comments MAGNESIUM (BEAKER) (test code = 627) 2.2 mg/dL 1.6-2.6 BASIC METABOLIC [id number] 07:15:00* Test Item Value Reference Range Interpretation Comments SODIUM (BEAKER) (test code = 381) 134 meq/L 136-145 L POTASSIUM (BEAKER) (test code = 379) 4.0 meq/L 3.5-5.1 CHLORIDE (BEAKER) (test code = 382) 94 meq/L 98-107 L CO2 (BEAKER) (test code = 355) 28 meq/L 22-29 BLOOD UREA NITROGEN (BEAKER) (test code = 354) 32 mg/dL 7-21 H CREATININE (BEAKER) (test code = 358) 1.13 mg/dL 0.57-1.25 GLUCOSE RANDOM (BEAKER) (test code = 652) 105 mg/dL 70-105 CALCIUM (BEAKER) (test code = 697) 9.4 mg/dL 8.4-10.2 EGFR (BEAKER) (test code = 1092) 68 mL/min/1.73 sq m ESTIMATED GFR IS NOT ACCURATE CREATININE CLEARANCE IN PREDICTING GLOMERULAR FILTRATION RATE. ESTIMATED GFR IS NOT APPLICABLE FOR DIALYSIS PATIENTS. B-TYPE NATRIURETIC FACTOR (BNP)2017-02-07 07:13:00* Test Item Value Reference Range Interpretation Comments B-TYPE NATRIURETIC PEPTIDE (BEAKER) (test code = 700) 180 pg/mL 0-100 H CBC W/PLT COUNT & AUTO [id number] 06:58:00* Test Item Value Reference Range Interpretation Comments WHITE BLOOD CELL COUNT (BEAKER) (test code = 775) 11.7 K/ L 4.0- 10.0 H RED BLOOD CELL COUNT (BEAKER) (test code = 761) 4.83 M/ L 4.20-5 .80 HEMOGLOBIN (BEAKER) (test code = 410) 14.2 GM/DL 13.0-16.8 HEMATOCRIT (BEAKER) (test code = 411) 44.7 % 40.0-50.0 MEAN CORPUSCULAR VOLUME (BEAKER) (test code = 753) 92.6 fL 82. 0-98.0 MEAN CORPUSCULAR HEMOGLOBIN (BEAKER) (test code = 751) 29.4 pg 27.0-33.0 MEAN CORPUSCULAR HEMOGLOBIN CONC (BEAKER) (test code = 752) 31.8 GM/DL 32.0-36.0 L RED CELL DISTRIBUTION WIDTH (BEAKER) (test code = 412) 14.8 % 10.3-14.2 H PLATELET COUNT (BEAKER) (test code = 756) 366 K/CU MM 150-430 MEAN PLATELET VOLUME (BEAKER) (test code = 754) 6.9 fL 6.5-10 .5 NUCLEATED RED BLOOD CELLS (BEAKER) (test code = 413) 0 /100 WBC 0 -0 NEUTROPHILS RELATIVE PERCENT (BEAKER) (test code = 429) 73 % LYMPHOCYTES RELATIVE PERCENT (BEAKER) (test code = 430) 11 % MONOCYTES RELATIVE PERCENT (BEAKER) (test code = 431) 11 % EOSINOPHILS RELATIVE PERCENT (BEAKER) (test code = 432) 5 % BASOPHILS RELATIVE PERCENT (BEAKER) (test code = 437) 1 % NEUTROPHILS ABSOLUTE COUNT (BEAKER) (test code = 670) 8.51 K/ L 1.80-8.00 H LYMPHOCYTES ABSOLUTE COUNT (BEAKER) (test code = 414) 1.31 K/ L 1.48-4.50 L MONOCYTES ABSOLUTE COUNT (BEAKER) (test code = 415) 1.24 K/ L 0. 00-1.30 EOSINOPHILS ABSOLUTE COUNT (BEAKER) (test code = 416) 0.54 K/ L 0.00-0.50 H BASOPHILS ABSOLUTE COUNT (BEAKER) (test code = 417) 0.08 K/ L 0. 00-0.20 0.00POCT-GLUCOSE [id number] 13:19:00* Test Item Value Reference Range Interpretation Comments POC-GLUCOSE METER (BEAKER) (test code = 1538) 151 mg/dL 70-110 H TESTED AT [facility] [address] [facility] [address] POCT-GLUCOSE [id number] 09:09:00* Test Item Value Reference Range Interpretation Comments POC-GLUCOSE METER (BEAKER) (test code = 1538) 85 mg/dL 70-110 TESTED AT [facility] [address] [facility] [address] [id number] 06:31:00* Test Item Value Reference Range Interpretation Comments MAGNESIUM (BEAKER) (test code = 627) 2.5 mg/dL 1.6-2.6 BASIC METABOLIC [id number] 06:31:00* Test Item Value Reference Range Interpretation Comments SODIUM (BEAKER) (test code = 381) 131 meq/L 136-145 L POTASSIUM (BEAKER) (test code = 379) 4.2 meq/L 3.5-5.1 CHLORIDE (BEAKER) (test code = 382) 95 meq/L 98-107 L CO2 (BEAKER) (test code = 355) 25 meq/L 22-29 BLOOD UREA NITROGEN (BEAKER) (test code = 354) 44 mg/dL 7-21 H CREATININE (BEAKER) (test code = 358) 1.63 mg/dL 0.57-1.25 H GLUCOSE RANDOM (BEAKER) (test code = 652) 90 mg/dL 70-105 CALCIUM (BEAKER) (test code = 697) 9.4 mg/dL 8.4-10.2 EGFR (BEAKER) (test code = 1092) 44 mL/min/1.73 sq m ESTIMATED GFR IS NOT ACCURATE CREATININE CLEARANCE IN PREDICTING GLOMERULAR FILTRATION RATE. ESTIMATED GFR IS NOT APPLICABLE FOR DIALYSIS PATIENTS. CBC W/PLT COUNT & AUTO [id number] 06:25:00* Test Item Value Reference Range Interpretation Comments WHITE BLOOD CELL COUNT (BEAKER) (test code = 775) 15.1 K/ L 4.0- 10.0 H RED BLOOD CELL COUNT (BEAKER) (test code = 761) 4.86 M/ L 4.20-5 .80 HEMOGLOBIN (BEAKER) (test code = 410) 14.3 GM/DL 13.0-16.8 HEMATOCRIT (BEAKER) (test code = 411) 44.5 % 40.0-50.0 MEAN CORPUSCULAR VOLUME (BEAKER) (test code = 753) 91.6 fL 82. 0-98.0 MEAN CORPUSCULAR HEMOGLOBIN (BEAKER) (test code = 751) 29.5 pg 27.0-33.0 MEAN CORPUSCULAR HEMOGLOBIN CONC (BEAKER) (test code = 752) 32.2 GM/DL 32.0-36.0 RED CELL DISTRIBUTION WIDTH (BEAKER) (test code = 412) 14.7 % 10.3-14.2 H PLATELET COUNT (BEAKER) (test code = 756) 471 K/CU MM 150-430 H MEAN PLATELET VOLUME (BEAKER) (test code = 754) 6.7 fL 6.5-10 .5 NUCLEATED RED BLOOD CELLS (BEAKER) (test code = 413) 0 /100 WBC 0 -0 NEUTROPHILS RELATIVE PERCENT (BEAKER) (test code = 429) 81 % LYMPHOCYTES RELATIVE PERCENT (BEAKER) (test code = 430) 7 % MONOCYTES RELATIVE PERCENT (BEAKER) (test code = 431) 11 % EOSINOPHILS RELATIVE PERCENT (BEAKER) (test code = 432) 1 % BASOPHILS RELATIVE PERCENT (BEAKER) (test code = 437) 0 % NEUTROPHILS ABSOLUTE COUNT (BEAKER) (test code = 670) 12.20 K/ L 1.80-8.00 H LYMPHOCYTES ABSOLUTE COUNT (BEAKER) (test code = 414) 1.00 K/ L 1.48-4.50 L MONOCYTES ABSOLUTE COUNT (BEAKER) (test code = 415) 1.70 K/ L 0. 00-1.30 H EOSINOPHILS ABSOLUTE COUNT (BEAKER) (test code = 416) 0.22 K/ L 0.00-0.50 BASOPHILS ABSOLUTE COUNT (BEAKER) (test code = 417) 0.02 K/ L 0. 00-0.20 0.00HEMOGLOBIN [id number] 22:52:00* Test Item Value Reference Range Interpretation Comments HEMOGLOBIN A1C (BEAKER) (test code = 368) 6.3 % 4.3-6.1 H B-TYPE NATRIURETIC FACTOR (BNP)2017-02-05 22:45:00* Test Item Value Reference Range Interpretation Comments B-TYPE NATRIURETIC PEPTIDE (BEAKER) (test code = 700) 97 pg/mL 0-100 [id number] 22:38:00* Test Item Value Reference Range Interpretation Comments MAGNESIUM (BEAKER) (test code = 627) 2.6 mg/dL 1.6-2.6 COMPREHENSIVE METABOLIC [id number] 22:38:00* Test Item Value Reference Range Interpretation Comments TOTAL PROTEIN (BEAKER) (test code = 770) 7.8 gm/dL 6.0-8.3 ALBUMIN (BEAKER) (test code = 1145) 4.2 g/dL 3.5-5.0 ALKALINE PHOSPHATASE (BEAKER) (test code = 346) 105 U/L 40-150 BILIRUBIN TOTAL (BEAKER) (test code = 377) 0.6 mg/dL 0.2-1.2 SODIUM (BEAKER) (test code = 381) 132 meq/L 136-145 L POTASSIUM (BEAKER) (test code = 379) 4.4 meq/L 3.5-5.1 CHLORIDE (BEAKER) (test code = 382) 94 meq/L 98-107 L CO2 (BEAKER) (test code = 355) 26 meq/L 22-29 BLOOD UREA NITROGEN (BEAKER) (test code = 354) 52 mg/dL 7-21 H CREATININE (BEAKER) (test code = 358) 2.16 mg/dL 0.57-1.25 H GLUCOSE RANDOM (BEAKER) (test code = 652) 165 mg/dL 70-105 H CALCIUM (BEAKER) (test code = 697) 9.5 mg/dL 8.4-10.2 AST (SGOT) (BEAKER) (test code = 353) 18 U/L 5-34 ALT (SGPT) (BEAKER) (test code = 347) 21 U/L 6-55 EGFR (BEAKER) (test code = 1092) 32 mL/min/1.73 sq m ESTIMATED GFR IS NOT ACCURATE CREATININE CLEARANCE IN PREDICTING GLOMERULAR FILTRATION RATE. ESTIMATED GFR IS NOT APPLICABLE FOR DIALYSIS PATIENTS. LIPID [id number] 22:38:00* Test Item Value Reference Range Interpretation Comments TRIGLYCERIDES (BEAKER) (test code = 540) 151 mg/dL CHOLESTEROL (BEAKER) (test code = 631) 258 mg/dL HDL CHOLESTEROL (BEAKER) (test code = 976) 44 mg/dL LDL CHOLESTEROL CALCULATED (BEAKER) (test code = 633) 184 mg/dL Triglyceride Reference Range: Low Risk <150 Borderline 150-199 High Risk 200-499 Very High Risk >=500Cholesterol Reference Range: Low Risk <200 Borderline 200-239 High Risk >240HDL Cholesterol Reference Range: Low Risk >=60 High Risk <40LDL Cholesterol Reference Range: Optimal <100 Near Optimal 100-129 Borderline 130-159 High 160-189 Very High >=190 CBC (HEMOGRAM ONLY)2017-02-05 22:26:00* Test Item Value Reference Range Interpretation Comments WHITE BLOOD CELL COUNT (BEAKER) (test code = 775) 17.2 K/ L 4.0- 10.0 H RED BLOOD CELL COUNT (BEAKER) (test code = 761) 4.77 M/ L 4.20-5 .80 HEMOGLOBIN (BEAKER) (test code = 410) 14.4 GM/DL 13.0-16.8 HEMATOCRIT (BEAKER) (test code = 411) 43.0 % 40.0-50.0 MEAN CORPUSCULAR VOLUME (BEAKER) (test code = 753) 90.1 fL 82. 0-98.0 MEAN CORPUSCULAR HEMOGLOBIN (BEAKER) (test code = 751) 30.2 pg 27.0-33.0 MEAN CORPUSCULAR HEMOGLOBIN CONC (BEAKER) (test code = 752) 33.5 GM/DL 32.0-36.0 RED CELL DISTRIBUTION WIDTH (BEAKER) (test code = 412) 15.8 % 10.3-14.2 H PLATELET COUNT (BEAKER) (test code = 756) 441 K/CU MM 150-430 H MEAN PLATELET VOLUME (BEAKER) (test code = 754) 6.9 fL 6.5-10 .5 NUCLEATED RED BLOOD CELLS (BEAKER) (test code = 413) 0 /100 WBC 0 -0 0.00
--- NOTE | 2020-02-27 23:43 | Emergency Department Note ---
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 She states the shortness of breath he has today is no worse than it was when he was discharged 4 days ago. When asked about his shortness of breath he does say it is chronic and he is usually short of breath on a daily basis. He is worried his CHF may be acting up again. Patient denies chest pain. Historian: Patient Arrival Mode: Car Onset (how long ago): day(s) (4) Location: chest Quality: sob Radiation: non-radiation Severity: mild Onset quality: gradual Duration (how long): day(s) (4) Timing of current episode: constant Progression: unchanged Chronicity: chronic Context: recent illness (admitted to [facility] for chf) Relieving factors: none Exacerbating factors: other (exertion, states that is an ongoing problem) Associated symptoms: denies other symptoms Past Medical/Family History Physician Review I have reviewed the patient's past medical and family history. Any updates have been documented here. Past Medical History Recent Fever: No Clinical Suspicion of Infectio: No New/Unexplained Change in Ment: No Past Medical History: Hypertension, Diabetes, CHF, CA, CVA, Anxiety, Hyperlipedemia Other Medical History: CA X2 (OCT 2019 AND NOVEMBER 2019) CVA - OCT 2019 Past Surgical History: Pacer/AICD Other Surgery: HERNIA REPAIR CARDIAC STENTS X2 MULTIPLE ANGIOGRAMS Social History Smoking Cessation: Former smoker Alcohol Use: None Any Illegal Drug Use: No Family History Family history of heart diseas: Yes Other family history htn, dm, cad Other Last Tetanus: UNK Review of Systems Review of Systems Constitutional: no symptoms EENTM: no symptoms Cardiovascular: as per HPI Respiratory: as per HPI Gastrointestinal: no symptoms Genitourinary: no symptoms Musculoskeletal: no symptoms Neurological: no symptoms Psychological: no symptoms Endocrine: no symptoms Hematological/Lymphatic: no symptoms Review of other systems All other systems reviewed and negative. Physical Exam Related Data Allergies: Coded Allergies: No Known Allergies (Unverified , 3/16/15) Triage Vital Signs Vital Signs Date Time Temp Pulse Resp B/P (MAP) Pulse Ox O2 Delivery O2 Flow Rate FiO2 02/27/20 23:05 97.1 76 20 108/81 100 Vital signs reviewed: Yes Physical Exam CONSTITUTIONAL Constitutional: well-developed, well-nourished, other (pt in nad) HENT HENT: normocephalic, atraumatic, oropharynx clear/moist, nose normal HENT L/R: left ext ear normal, right ext ear normal EYES Eyes: PERRL, conjunctivae normal NECK Neck: ROM normal PULMONARY Pulmonary: effort normal, breath sounds normal CARDIOVASCULAR Cardiovascular: regular rhythm, heart sounds normal, capillary refill normal, normal rate GASTROINTESTINAL Abdominal: soft, nontender, bowel sounds normal GENITOURINARY Genitourinary: exam deferred SKIN Skin: warm, dry MUSCULOSKELETAL Musculoskeletal: ROM normal NEUROLOGICAL Neurological: alert, oriented x 3, no gross motor or sensory deficits PSYCHOLOGICAL Psychological: mood/affect normal, judgement normal Results Laboratory Laboratory Laboratory Tests Test 02/27/20 23:25 White Blood Count 7.35 x10e3/uL (4.8-10.8) Red Blood Count 4.82 x10e6/uL (4.3-5.7) Hemoglobin 12.9 g/dL (14.0-18.0) Hematocrit 43.1 % (38.2-49.6) Mean Corpuscular Volume 89.4 fL (81-99) Mean Corpuscular Hemoglobin 26.8 pg (28-32) Mean Corpuscular Hemoglobin Concent 29.9 g/dL (31-35) Red Cell Distribution Width 17.6 % (11.7-14.4) Platelet Count 315 x10e3/uL (140-360) Neutrophils (%) (Auto) 67.2 % (38.7-80.0) Lymphocytes (%) (Auto) 19.7 % (18.0-39.1) Monocytes (%) (Auto) 10.1 % (4.4-11.3) Eosinophils (%) (Auto) 1.5 % (0.0-6.0) Basophils (%) (Auto) 1.1 % (0.0-1.0) Neutrophils # (Auto) 4.9 (2.1-6.9) Lymphocytes # (Auto) 1.5 (1.0-3.2) Monocytes # (Auto) 0.7 (0.2-0.8) Eosinophils # (Auto) 0.1 (0.0-0.4) Basophils # (Auto) 0.1 (0.0-0.1) Absolute Immature Granulocyte (auto 0.03 x10e3/uL (0-0.1) Sodium Level 139 mmol/L (136-145) Potassium Level 4.1 mmol/L (3.5-5.1) Chloride Level 103 mmol/L (98-107) Carbon Dioxide Level 22 mmol/L (22-29) Anion Gap 18.1 mmol/L (8-16) Blood Urea Nitrogen 31 mg/dL (7-26) Creatinine 1.50 mg/dL (0.72-1.25) Estimat Glomerular Filtration Rate 48 ML/MIN (60-) BUN/Creatinine Ratio 21 (6-25) Glucose Level 132 mg/dL (74-118) Calcium Level 9.7 mg/dL (8.4-10.2) Total Bilirubin 1.3 mg/dL (0.2-1.2) Aspartate Amino Transf (AST/SGOT) 20 IU/L (5-34) Alanine Aminotransferase (ALT/SGPT) 29 IU/L (0-55) Alkaline Phosphatase 72 IU/L (40-150) Creatine Kinase 80 IU/L (30-200) Creatine Kinase MB 3.00 ng/mL (0-4.3) Troponin I 0.07 ng/mL (0.0-0.40) B-Type Natriuretic Peptide 2440.0 pg/mL (0-100) Total Protein 6.5 g/dL (6.5-8.1) Albumin 3.8 g/dL (3.5-5.0) Globulin 2.7 g/dL (2.3-3.5) Albumin/Globulin Ratio 1.4 (0.8-2.0) Lab results reviewed: Yes Imaging Imaging results reviewed: Yes Impressions EXAMINATION: CHEST SINGLE (PORTABLE) COMPARISON: 12/07/2014 INDICATION: Shortness of breath, CHF ^chest pain ^[id number] ^2359 ^Y DISCUSSION: Frontal view of the chest obtained at 0024 hours. HEART AND MEDIASTINUM: Stable cardiomegaly LINES: New pacer/fibular wires in the right atrium, right ventricle, and coronary sinus. Pacemaker battery pack is in the left chest wall. LUNGS/PLEURA: Central pulmonary vasculature is prominent. No interstitial edema. No pneumonia. No pleural effusion or pneumothorax. BONES AND SOFT TISSUES: No focal osseous lesion. The soft tissues are normal. IMPRESSION: Cardiomegaly without evidence of CHF. No acute pulmonary process. Signed by: Dr. Sofya Bauer MD on 02/28/2020 12:55 AM Dictated By: SOFYA BAUER MD Transcribed By: BRIAN on 02/28/2054 Procedures 12 Lead ECG Interpretation Shank Sander: Interpreted by ED physician Date: Feb 27, 2020 Time: 23:13 Rhythm: paced (ventricular) Rate: normal BPM: 77 Other findings: no other findings Pacin% capture Clinical Impression: abnormal ECG Critical Care Time Subsequent provider I assumed direction of critical care for this patient from another provider of my specialty. Assessment & Plan Assessment & Plan Final Impression: (1) Dyspnea (2) Diastolic CHF, chronic Assessment & Plan Patient with history of CHF and ejection fraction of 13.5% presents with complaint of shortness of breath for the last 4 days. Patient states was discharged from [facility] 4 days ago after being admitted for congestive heart failure and at that time there were working him up to see if he is a candidate for a heart transplant. The patient denies chest pain. Further questioning patient does admit that he is short of breath almost every day especially with exertion and that is not a new thing. Says the shortness of breath is evident at this time is no worse than it was when he was discharged from the hospital 4 days ago. CBC, CMP, BNP, cardiac enzymes, EKG, chest x-ray ordered to eval for myocardial infarction, lateral and abnormality, pulmonary edema. Patient does have an elevated BNP however he has a reported ejection fraction of 13.5% chest x-ray shows cardiomegaly but no pulmonary edema, patient continues to have O2 saturations of 100% on room air and is in no respiratory distress. 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 Depart Disposition: HOME, SELF-CARE Last Vital Signs Date Time Temp Pulse Resp B/P (MAP) Pulse Ox O2 Delivery O2 Flow Rate FiO2 02/27/20 23:05 97.1 76 20 108/81 100 Home Meds Reported Medications Lisinopril/Hydrochlorothiazide (LISINOPRIL-HCTZ 20-12.5 MG TAB) 1 Each Tablet, 1 TAB PO DAILY 12/07/14 Carvedilol (COREG) 12.5 Mg Tab, 12.5 MG PO DAILY 12/07/14 Simvastatin (SIMVASTATIN) 20 Mg Tablet, 20 MG PO DAILY 12/07/14 TOMMY KOTHARI MD Feb 27, 2020 23:42
[2020-02-28 00:04] LABS: BASOPHILS # (AUTO) 0.1 (0.0-0.1); BASOPHILS % 1.1 % (0.0-1.0); EOSINOPHILS # (AUTO) 0.1 (0.0-0.4); EOSINOPHILS % 1.5 % (0.0-6.0); HEMATOCRIT 43.1 % (38.2-49.6); HEMOGLOBIN 12.9 g/dL (14.0-18.0); LYMPHOCYTES # (AUTO) 1.5 (1.0-3.2); LYMPHOCYTES % 19.7 % (18.0-39.1); MEAN CORPUSCULAR HEMOGLOBIN 26.8 pg (28-32); MEAN CORPUSCULAR HGB CONC 29.9 g/dL (31-35); MEAN CORPUSCULAR VOLUME 89.4 fL (81-99); MONOCYTES # (AUTO) 0.7 (0.2-0.8); MONOCYTES % 10.1 % (4.4-11.3); NEUTROPHILS # (AUTO) 4.9 (2.1-6.9); NEUTROPHILS % 67.2 % (38.7-80.0); PLATELET COUNT 315 x10e3/uL (140-360); RED BLOOD COUNT 4.82 x10e6/uL (4.3-5.7); RED CELL DISTRIBUTION WIDTH 17.6 % (11.7-14.4)
[2020-02-28 00:30] LABS: ALBUMIN 3.8 g/dL (3.5-5.0); ALBUMIN/GLOBULIN RATIO 1.4 (0.8-2.0); ANION GAP 18.1 mmol/L (8-16); CALCIUM 9.7 mg/dL (8.4-10.2); CREATININE, SERUM 1.5 mg/dL (0.72-1.25); POTASSIUM 4.1 mmol/L (3.5-5.1)
--- NOTE | 2020-02-28 00:58 | Diagnostic Imaging Report ---
EXAMINATION: CHEST SINGLE (PORTABLE) COMPARISON: 12/07/2014 INDICATION: Shortness of breath, CHF ^chest pain ^[id number] ^2359 ^Y DISCUSSION: Frontal view of the chest obtained at 0024 hours. HEART AND MEDIASTINUM: Stable cardiomegaly LINES: New pacer/fibular wires in the right atrium, right ventricle, and coronary sinus. Pacemaker battery pack is in the left chest wall. LUNGS/PLEURA: Central pulmonary vasculature is prominent. No interstitial edema. No pneumonia. No pleural effusion or pneumothorax. BONES AND SOFT TISSUES: No focal osseous lesion. The soft tissues are normal. IMPRESSION: Cardiomegaly without evidence of CHF. No acute pulmonary process. Signed by: Dr. Isela Bauer MD on 02/28/2020 12:55 AM
== END 2020-02-28 02:54 | disposition home or self-care (01) ==
LOC: ER 23:03
DX: R06.00 Dyspnea, unspecified (principal); I50.32 Chronic diastolic (congestive) heart failure; I51.7 Cardiomegaly; I10 Essential (primary) hypertension; E11.9 Type 2 diabetes mellitus without complications; E78.5 Hyperlipidemia, unspecified; F41.9 Anxiety disorder, unspecified; I25.2 Old myocardial infarction; Z95.5 Presence of coronary angioplasty implant and graft; Z95.810 Presence of automatic (implantable) cardiac defibrillator; Z87.891 Personal history of nicotine dependence
CPT/HCPCS: 36415; 71045; 80053; 82550; 82553; 83880; 84484; 85025; 93005; 99284

== ENCOUNTER 2020-04-28 14:31 | Inpatient (IN) | payer BC ==
[~2020-04-28] VITALS: Ht 180.3 cm; Wt 93.4 kg
[2020-04-28 15:03] LABS: BASOPHILS # (AUTO) 0.1 (0.0-0.1); BASOPHILS % 0.9 % (0.0-1.0); EOSINOPHILS # (AUTO) 0.2 (0.0-0.4); EOSINOPHILS % 1.4 % (0.0-6.0); HEMATOCRIT 41.9 % (38.2-49.6); HEMOGLOBIN 12.8 g/dL (14.0-18.0); LYMPHOCYTES % 8.2 % (18.0-39.1); MEAN CORPUSCULAR HEMOGLOBIN 25.4 pg (28-32); MEAN CORPUSCULAR HGB CONC 30.5 g/dL (31-35); MEAN CORPUSCULAR VOLUME 83.3 fL (81-99); MONOCYTES # (AUTO) 0.7 (0.2-0.8); MONOCYTES % 6.1 % (4.4-11.3); NEUTROPHILS # (AUTO) 10.1 (2.1-6.9); NEUTROPHILS % 82.8 % (38.7-80.0); PLATELET COUNT 395 x10e3/uL (140-360); RED BLOOD COUNT 5.03 x10e6/uL (4.3-5.7); RED CELL DISTRIBUTION WIDTH 21.5 % (11.7-14.4)
[2020-04-28] MEDS ORDERED: HEPARIN SOD (PORCINE) 1000 UNIT/ML 30ML ONE (15:05)
[2020-04-28] MEDS ORDERED: MIDAZOLAM HCL 2 MG/2 ML VIAL ONE (15:05)
[2020-04-28] MEDS ORDERED: HEPARIN SOD/SOD CHLORIDE 2,000 ML ONE (15:05)
[2020-04-28] MEDS ORDERED: VERAPAMIL HCL 2.5 MG/ML 2 ML VIAL ONE (15:05)
[2020-04-28] MEDS ORDERED: LIDOCAINE HCL 2% LOCAL 20 ML VIAL ONE (15:05)
[2020-04-28] MEDS ORDERED: IOPAMIDOL 370 MG/ML 200 ML INFUS..BTL INJ ONE (15:06)
[2020-04-28] MEDS ORDERED: SODIUM CHLORIDE 0.9% 1000ML 1,000 ML ONE (15:06)
[2020-04-28] MEDS ORDERED: NITROGLYCERIN/D5W 200 MCG/ML 0 ML ONE (15:06)
[2020-04-28 15:17] LABS: INR 1.28; PROTHROMBIN TIME 16.7 seconds (11.9-14.5)
[2020-04-28 15:18] LABS: PARTIAL THROMBOPLASTIN TIME 35.3 seconds (23.8-35.5)
[2020-04-28 15:27] LABS: ALBUMIN 3.6 g/dL (3.5-5.0); ALBUMIN/GLOBULIN RATIO 0.8 (0.8-2.0); ANION GAP 20.8 mmol/L (8-16); CALCIUM 9.9 mg/dL (8.4-10.2); CREATININE, SERUM 1.59 mg/dL (0.72-1.25); MAGNESIUM 2.6 MG/DL (1.3-2.1); POTASSIUM 4.8 mmol/L (3.5-5.1)
[2020-04-28 15:34] LABS: CREATINE KINASE MB 3.4 ng/mL (0-5.0)
[2020-04-28] MEDS ORDERED: FENTANYL CITRATE/PF 100MCG/2 ML INJ ONE (15:39)
[2020-04-28] MEDS ORDERED: FUROSEMIDE INJ 10 MG/ML 4 ML VIAL ONE (15:54)
[2020-04-28 16:15] VITALS: BP 107/58
[2020-04-28 16:30] VITALS: BP 135/77
[2020-04-28 16:45] VITALS: BP 136/79
[2020-04-28 17:00] VITALS: BP 142/92
[2020-04-28 17:30] VITALS: BP 146/96
[2020-04-28 18:00] VITALS: BP 146/96
== END 2020-04-28 18:15 | disposition short-term general hospital (02) | DRG 287 ==
LOC: ER 14:50 → ERHOLD 15:16 → CATH LAB V 15:29
PROVIDERS: ADMIT Internal Medicine; ATTEND Internal Medicine
PROC: 4A023N7 Measurement of Cardiac Sampling and Pressure, Left Heart, Percutaneous Approach (ICD-10-PCS; principal; 2020-04-28)
PROC: B2111ZZ Fluoroscopy of Multiple Coronary Arteries using Low Osmolar Contrast (ICD-10-PCS; 2020-04-28)
PROC: B41G1ZZ Fluoroscopy of Left Lower Extremity Arteries using Low Osmolar Contrast (ICD-10-PCS; 2020-04-28)
DX: I24.9 Acute ischemic heart disease, unspecified (principal); I50.32 Chronic diastolic (congestive) heart failure; I25.10 Atherosclerotic heart disease of native coronary artery without angina pectoris; I11.0 Hypertensive heart disease with heart failure; Z11.59 Encounter for screening for other viral diseases; Z86.73 Personal history of transient ischemic attack (TIA), and cerebral infarction without residual deficits; F41.9 Anxiety disorder, unspecified; E78.5 Hyperlipidemia, unspecified; E11.9 Type 2 diabetes mellitus without complications; Z95.810 Presence of automatic (implantable) cardiac defibrillator; Z95.5 Presence of coronary angioplasty implant and graft; I25.2 Old myocardial infarction
CPT/HCPCS: 36415; 71045; 80053; 82550; 82553; 83735; 83880; 84484; 85025; 85610; 85730; 93005; 93458; 99152; 99284; C1760; J1644; J1940; J2001; J2250; J3010; J7030; Q9967